=== PATIENT | female | born 1940 | race Caucasian/White ===

== ENCOUNTER → 2016-03-07 | Outpatient (CLI) | payer BC ==
[~2016-03-07] MED LIST: ALBU0.08 INH; ALBUAER2 INH; ASPI-391 PO; ASPI81TA28 PO; ATEN-173 PO; CALC200T PO; FISHOIL PO; FLNIN/ NAE; GLCSR10 PO; LISI-725 PO; LSN20 PO; MULT-506 PO; OMEG10007 PO; VNTHFA/IN INH; XNX5 PO; ZNT/150 PO
--- NOTE | 2016-03-08 14:24 | MAMMOGRAPHY REPORT ---
BILATERAL DIGITAL SCREENING MAMMOGRAM TOMOSYNTHESIS WITH CAD: 03/07/2016 CLINICAL HISTORY: Routine screening. TECHNIQUE: Breast tomosynthesis in addition to standard 2D mammography was performed. Current study was also evaluated with a Computer Aided Detection (CAD) system. COMPARISON: Comparison is made to exams dated: 03/01/2015 mammogram, 08/28/2014 mammogram, 02/16/2014 mammogram, and 02/07/2013 ultrasound - [facility]. BREAST COMPOSITION: There are scattered areas of fibroglandular density in both breasts. FINDINGS: There are bilateral benign coarse calcifications, most numerous in the lower inner quadra nt of the left breast. A circumscribed 6 mm mass in the lower outer far posterior left breast is st able comparing back to at least 02/05/2014. A 4.8 mm nodular asymmetry in the lateral posterior lef t breast on the CC view appears similar dating back to at least 08/01/2010, therefore likely benign. No new suspicious mass, architectural distortion or cluster of microcalcifications is seen. IMPRESSION: ACR BI-RADS CATEGORY 1: NEGATIVE There is no mammographic evidence of malignancy. A 1 year screening mammogram is recommended. The p atient will receive written notification of the results. Approximately 10% of breast cancers are not detected with mammography. A negative mammographic repor t should not delay biopsy if a clinically suggestive mass is present. Marika Roman M.D. ay/:03/07/2016 16:54:30 Systems Programmer Analyst: Elise ROCA(Terry)(Cherie)(BD), [facility] letter sent: Normal 1/2 BI-RADS Code: ACR BI-RADS Category 1: Negative
== END | disposition home or self-care (01) ==
LOC: C.MAMM 10:46
PROVIDERS: ATTEND Nurse Practitioner Family
DX: Z12.31 Encounter for screening mammogram for malignant neoplasm of breast (principal)

== ENCOUNTER 2016-03-20 13:50 | Emergency (ER) | payer BC ==
[~2016-03-20] VITALS: Ht 149.9 cm; Wt 94.0 kg
[~2016-03-20 13:50] MED LIST changes: -LISI-725 PO; -MULT-506 PO; -OMEG10007 PO; -VNTHFA/IN INH
[2016-03-20 13:53] VITALS: TEMP 36.9
[2016-03-20] MEDS ORDERED: MULT-506 PO (16:11)
[2016-03-20] MEDS ORDERED: LISI-725 PO (16:11)
[2016-03-20] MEDS ORDERED: OMEG10007 PO (16:11)
[2016-03-20] MEDS ORDERED: VNTHFA/IN INH (16:11)
--- NOTE | 2016-03-20 16:30 | EMERGENCY ROOM VISIT NOTE ---
History Report prepared by Rossy: Daya Iqbal Under the Supervision of: Dr. Cale Martines D.O. First contact with patient: 15:57 Chief Complaint: ILLNESS Stated Complaint: HINES, PAIN, JAW PAIN History of Present Illness The patient is a 76 year old female who presents to the Emergency Room with complaints of persistent cough starting about 3 weeks ago. She also reports a sore throat. She was initially prescribed Azithromycin with some relief. After she ran out of her dosage, she started having a cough again. She was prescribed Doxycycline without relief. She also complains of a severe, right sided headache. She also complains of neck stiffness or chest pressure. Her blood sugar level was 270 today. She was referred to the Emergency Room by her PCP. She denies any vomiting, lower extremity swelling, or any other complaints. She has a history of severe acid reflux. Source of History: patient Onset: about 3 weeks ago Position: other (global) Quality: other (cough) Timing: other (persistent) Modifying Factors (Relieving): other (Azithromycin with some relief; Doxycycline without relief) Associated Symptoms: + chest pain, + headache, + sorethroat Review of Systems See HPI for pertinent positives & negatives. A total of 10 systems reviewed and were otherwise negative. 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 (11) Urinary incontinence Family History Cancer Diabetes mellitus Gallbladder disease Heart disease Hypertension Social History Smoking Status: Never Smoker Alcohol Use: none Drug Use: none Marital Status: Housing Status: lives with significant other Occupation Status: retired Current/Historical Medications Scheduled Albuterol Hfa (Ventolin Hfa), 2-4 PUFFS INH Q6H Aspirin (Aspirin Ec), 81 MG PO DAILY Mmesfra-Cnfxxzjnrvmsp-Acnytbqh (Excedrin Extra Strength), 2 TABS PO PRN UD Atenolol (Tenormin), 25 MG PO HS Calcium Carbonate-Vitamin D (Oscal 500/200 D-3), 1 TAB PO DAILY Fish Oil (Fate-3), 1 CAP PO DAILY Fluticasone Propionate (Fluticasone Propionate), 2 SPRAYS RUDDY HS Glipizide (Glipizide ER), 10 MG PO BID Lisinopril (Zestril), 20 MG PO DAILY Multivitamin (Multivitamin), 1 TAB PO DAILY Ranitidine Hcl (Zantac), 150 MG PO BID Scheduled PRN Alprazolam (Alprazolam), 0.25 MG PO TID PRN for Anxiety/Agitation Allergies Coded Allergies: Amoxicillin (Verified Allergy, Intermediate, NOT SURE, 05/13/15) Clavulanic Acid (Verified Allergy, Intermediate, NOT SURE, 05/13/15) Iodinated Contrast Media (Verified Allergy, Intermediate, Shortness of Breath CHEST PAIN TIGHTNESS IN CHEST, 05/13/15) Rosiglitazone (Verified Allergy, Intermediate, CHEST PAIN, 05/13/15) Corticosteroids (Verified Allergy, Unknown, "STEROIDS": "SHORTNESS OF BREATH", 05/13/15) Tetracycline (Verified Allergy, Unknown, Unknown rxn, 05/13/15) Pregabalin (Unverified Adverse Reaction, Severe, severe swelling hands/ feet, 05/13/15) Hydrocodone (Verified Adverse Reaction, Intermediate, hear races, 05/13/15) Ibuprofen (Verified Adverse Reaction, Intermediate, KNOCKS EQUILIBRIUM OFF, 05/13/15) Levofloxacin (Verified Adverse Reaction, Intermediate, Dizziness, 05/13/15) Metformin (Verified Adverse Reaction, Intermediate, SEVERE DIARRHEA, 05/12) Omeprazole (Verified Adverse Reaction, Intermediate, SHAKES/TACHYCARDIA, ) Pantoprazole (Verified Adverse Reaction, Intermediate, SHAKES/TACHYCARDIA , 05/13/15) Prednisone (Verified Adverse Reaction, Intermediate, Palpitations AND "WENT TO UNIT" (CARDIAC CARE UNIT), 05/13/15) Codeine (Verified Adverse Reaction, Mild, EQUILIBRIUM OFF, 05/13/15) Penicillins (Verified Adverse Reaction, Mild, Augmentin: GI UPSET, 05/13/15 ) Theophylline (Verified Adverse Reaction, Mild, INCREASED HR, 05/13/15) Esomeprazole (Verified Adverse Reaction, Unknown, SHAKES/TACHYCARDIA, 05/12) Sulfa Drugs (Verified Adverse Reaction, Unknown, COULD NOT WALK AND TREMBLED, 05/13/15) Physical Exam Vital Signs Date Time Temp Pulse Resp B/P Pulse Ox O2 Delivery O2 Flow Rate FiO2 03/20/16 18:46 70 22 133/58 96 03/20/16 18:30 70 22 133/58 96 Room Air 03/20/16 16:33 98 Room Air 03/20/16 16:33 98 Room Air 03/20/16 16:32 68 18 175/66 97 Room Air 03/20/16 13:53 36.9 71 20 159/78 98 Room Air Physical Exam GENERAL: Patient is awake, alert, and in no acute distress. Patient is resting comfortably and showing no signs of anxiety HEAD: Tenderness over the right temporal artery. EYES: The conjunctivae are clear. The pupils are round and reactive. EARS, NOSE, MOUTH AND THROAT: The nose is without any evidence of any deformity. Mucous membranes are moist tongue is midline. Voice is hoarse. NECK: The neck is nontender and supple. RESPIRATORY: Normal respiratory effort is noted there is no evidence of wheezing rhonchi or rales CARDIOVASCULAR: Regular rate and rhythm noted there no murmurs rubs or gallops normal S1 normal S2 GASTROINTESTINAL: The abdomen is soft. Bowel sounds are present in all quadrants. Abdomen is nontender MUSCULOSKELETAL/EXTREMITIES: There is no evidence of gross deformity full range of motion is noted in the hips and shoulders SKIN: There is no obvious evidence of any rash. There are no petechiae, pallor or cyanosis noted. NEUROLOGIC: Patient is awake alert and oriented x3 Medical Decision & Procedures ER Provider Diagnostic Interpretation: X ray results and stated below per my interpretation and radiology interpretation. CT results per my review and radiologist interpretation: CHEST ONE VIEW PORTABLE HISTORY: EVALUATE RESPIRATORY DISTRESS.DYSPNEA COMPARISON: Chest 07/16/2015. FINDINGS: The lungs are clear. Cardiac silhouette is normal in size. No pleural effusions. No pneumothorax. IMPRESSION: No acute process. Electronically signed by: Maximino Campos M.D. 03/20/2016 4:47 PM Dictated Date/Time: 03/20/2016 4:[address] HEAD WITHOUT CONTRAST (CT) CLINICAL HISTORY: Severe frontal headache COMPARISON STUDY: 05/08/2015 TECHNIQUE: Axial CT of the brain is performed from the vertex to the skull base. IV contrast was not administered for this examination. CT DOSE: 537.48 mGy.cm FINDINGS: No intra or extra-axial mass lesions are visualized. There is no CT evidence of acute cortical infarction. There is no evidence of midline shift. There is no acute hemorrhage. No calvarial fractures are visualized. There are minimal white matter hypodensities likely on a small vessel basis. There is no evidence of pathologic ventricular dilatation. There is no evidence of acute sinusitis IMPRESSION: No acute intracranial findings Electronically signed by: Braden Saenz M.D. 03/20/2016 6:15 PM Dictated Date/Time: 03/20/2016 6:14 PM Laboratory Results 03/20/16 17:38 Red Blood Count 4.45, Mean Corpuscular Volume 86.3, Mean Corpuscular Hemoglobin 29.4, Mean Corpuscular Hemoglobin Concent 34.1, Mean Platelet Volume 12.2, Neutrophils (%) (Auto) 64.3, Lymphocytes (%) (Auto) 27.5, Monocytes (%) (Auto) 6.1, Eosinophils (%) (Auto) 1.4, Basophils (%) (Auto) 0.5, Neutrophils # (Auto) 5.59, Lymphocytes # (Auto) 2.39, Monocytes # (Auto) 0.53, Eosinophils # (Auto) 0.12, Basophils # (Auto) 0.04 03/20/16 17:38 Test 03/20/16 16:30 03/20/16 17:38 03/20/16 17:43 Urine Color YELLOW Urine Appearance CLEAR (CLEAR) Urine pH 5.0 (4.5-7.5) Urine Specific [place] 1.003 (1.000-1.030) Urine Protein NEG (NEG) Urine Glucose (UA) NEG (NEG) Urine Ketones NEG (NEG) Urine Occult Blood NEG (NEG) Urine Nitrite NEG (NEG) Urine Bilirubin NEG (NEG) Urine Urobilinogen NEG (NEG) Urine Leukocyte Esterase NEG (NEG) Influenza Type A Antigen Neg for Influ A (NEG) Influenza Type B Antigen Neg for Influ B (NEG) White Blood Count 8.69 K/uL (4.8-10.8) Red Blood Count 4.45 M/uL (4.2-5.4) Hemoglobin 13.1 g/dL (12.0-16.0) Hematocrit 38.4 % (37-47) Mean Corpuscular Volume 86.3 fL (80-100) Mean Corpuscular Hemoglobin 29.4 pg (25-34) Mean Corpuscular Hemoglobin Concent 34.1 g/dl (32-36) Platelet Count 222 K/uL (130-400) Mean Platelet Volume 12.2 fL (7.4-10.4) Neutrophils (%) (Auto) 64.3 % Lymphocytes (%) (Auto) 27.5 % Monocytes (%) (Auto) 6.1 % Eosinophils (%) (Auto) 1.4 % Basophils (%) (Auto) 0.5 % Neutrophils # (Auto) 5.59 K/uL (1.4-6.5) Lymphocytes # (Auto) 2.39 K/uL (1.2-3.4) Monocytes # (Auto) 0.53 K/uL (0.11-0.59) Eosinophils # (Auto) 0.12 K/uL (0-0.5) Basophils # (Auto) 0.04 K/uL (0-0.2) RDW Standard Deviation 44.7 fL (36.4-46.3) RDW Coefficient of Variation 14.1 % (11.5-14.5) Immature Granulocyte % (Auto) 0.2 % Immature Granulocyte # (Auto) 0.02 K/uL (0.00-0.02) Erythrocyte Sedimentation Rate 15 mm/hr (0-21) Prothrombin Time 10.4 SECONDS (9.0-12.0) Prothromb Time International Ratio 1.0 (0.9-1.1) Activated Partial Thromboplast Time 25.3 SECONDS (21.0-31.0) Partial Thromboplastin Ratio 1.0 Anion Gap 9.0 mmol/L (3-11) Est Creatinine Clear Calc Drug Dose 54.2 ml/min Estimated GFR () 72.5 Estimated GFR (Non- 62.5 BUN/Creatinine Ratio 23.4 (10-20) Calcium Level 8.9 mg/dl (8.5-10.1) Total Bilirubin 0.5 mg/dl (0.2-1) Aspartate Amino Transf (AST/SGOT) 19 U/L (15-37) Alanine Aminotransferase (ALT/SGPT) 28 U/L (12-78) Alkaline Phosphatase 62 U/L (45-117) Total Creatine Kinase 137 U/L (26-192) Creatine Kinase MB 3.3 ng/ml (0.5-3.6) Creatine Kinase MB Ratio 2.4 (0-3.0) Troponin I < 0.015 ng/ml (0-0.045) C-Reactive Protein 0.30 mg/dl (0-0.29) Total Protein 7.3 gm/dl (6.4-8.2) Albumin 3.7 gm/dl (3.4-5.0) Globulin 3.6 gm/dl (2.5-4.0) Albumin/Globulin Ratio 1.0 (0.9-2) Bedside Glucose 135 mg/dl (70-90) Laboratory results per my review. Medications Administered Medications (Trade) Dose Ordered Sig/Joellen Route Start Time Stop Time Status Last Admin Dose Admin Al Hydroxide/Mg Hydroxide (Maalox Susp) 30 ml NOW STAT PO 03/20/16 18:28 03/20/16 18:29 DC 03/20/16 18:38 30 ML ECG Indication: other (Cough; Chest pressure) Rate (beats per minute): 73 Rhythm: normal sinus Findings: no ectopy, other (No acute ST segment abnormality; LVH by voltage criteria) Comparison ECG Date: May 13, 2015 Change: no significant change ED Course 1557: The patient was evaluated in room A02. A complete history and physical examination were performed. 1828: Maalox Susp 30 ml PO, Protonix Tab 40 mg PO 1829: Upon reevaluation, the patient is resting comfortably. I discussed the results and treatment plan with her. She verbalized agreement of the treatment plan. She was discharged home. Medical Decision Differential diagnosis: Etiologies such as infections, reactive airway disease, pneumonia, pneumothorax , COPD, CHF, cardiac ischemia, pulmonary embolism, musculoskeletal, gastrointestinal, as well as others were entertained. Nursing notes reviewed. The patient is a 76-year-old female who presented to the emergency department for an evaluation for source and cough. She's had similar symptoms in his had multiple antibiotic regimens by her primary care physician for this. The patient was sent to the emergency department today because of ongoing symptoms. I'm unsure if she was sent for a possible cardiac workup. The patient did not have any signs of respiratory distress. She was not tachycardic or hypoxic. I discussed the patient's laboratory and radiographic studies with her. At this time I would wonder if her symptoms are secondary to reflux. She appears to have a hoarse voice and is already taking an H2 concha. She did not wish to start taking a proton pump inhibitor. I discussed the patient's follow-up with her and recommended that she call her primary care physician in the morning to schedule follow-up appointment. She was also encouraged to rest and avoid any strenuous activity. She was also encouraged to return to the emergency department immediately if symptoms change worsen or if need arises. Impression Primary Impression: SOB (shortness of breath) Additional Impressions: Cough Acid reflux Scribe Attestation The scribe's documentation has been prepared under my direction and personally reviewed by me in its entirety. I confirm that the note above accurately reflects all work, treatment, procedures, and medical decision making performed by me. Departure Information Dispostion Home / Self-Care Referrals Sana Becker D.O. (PCP) Forms HOME CARE DOCUMENTATION FORM, IMPORTANT VISIT INFORMATION, WORK / SCHOOL INSTRUCTIONS Patient Instructions Acid Reflux, ED Dyspnea Shortness of Breath, My [facility] Additional Instructions Call your family to schedule a follow-up appointment. Rest and avoid any strenuous activity. Continue all medications as prescribed. Problem Qualifiers
[2016-03-20 16:33] VITALS: O2SAT 98; Ht 149.9 cm; Wt 94.0 kg
[2016-03-20 16:42] LABS: URINE APPEARANCE CLEAR (CLEAR); URINE BILIRUBIN NEG (NEG); URINE COLOR YELLOW; URINE NITRITE NEG (NEG); URINE SPECIFIC GRAVITY 1.003 (1.000-1.030); UROBILINOGEN NEG (NEG)
[2016-03-20 16:45] LABS: MANUAL MICROSCOPIC REQUIRED? NO; REVIEW REQ? NO
--- NOTE | 2016-03-20 16:48 | DIAGNOSTIC IMAGING REPORT ---
CHEST ONE VIEW PORTABLE HISTORY: EVALUATE RESPIRATORY DISTRESS.DYSPNEA COMPARISON: Chest 07/16/2015. FINDINGS: The lungs are clear. Cardiac silhouette is normal in size. No pleural effusions. No pneumothorax. IMPRESSION: No acute process. Electronically signed by: Maximino Campos M.D. 03/20/2016 4:47 PM Dictated Date/Time: 03/20/2016 4:46 PM
[2016-03-20 17:57] LABS: BASO % 0.5 %; BASO ABS # 0.04 K/uL (0-0.2); COMPLETE YES; EOS % 1.4 %; HEMATOCRIT 38.4 % (37-47); IG% 0.2 %; LYMPH % 27.5 %; LYMPH ABS # 2.39 K/uL (1.2-3.4); MEAN CELL VOLUME 86.3 fL (80-100); MEAN CORPUSCULAR HEMOGLOBIN 29.4 pg (25-34); MEAN CORPUSCULAR HGB CONC 34.1 g/dl (32-36); MEAN PLATELET VOLUME 12.2 fL (7.4-10.4); MONO % 6.1 %; NEUT % 64.3 %; PLATELET COUNT 222 K/uL (130-400); RED BLOOD COUNT 4.45 M/uL (4.2-5.4); WHITE BLOOD COUNT 8.69 K/uL (4.8-10.8)
[2016-03-20 18:08] LABS: PROTHROMBIN TIME (PATIENT) 10.4 SECONDS (9.0-12.0)
[2016-03-20 18:13] LABS: ALT/SGPT 28 U/L (12-78); BLOOD UREA NITROGEN 21 mg/dl (7-18); BUN/CREATININE RATIO 23.4 (10-20); CALCIUM 8.9 mg/dl (8.5-10.1); CARBON DIOXIDE 25 mmol/L (21-32); CHLORIDE 104 mmol/L (98-107); GLUCOSE 135 mg/dl (70-99); POTASSIUM 4.3 mmol/L (3.5-5.1); SODIUM 138 mmol/L (136-145)
--- NOTE | 2016-03-20 18:16 | DIAGNOSTIC IMAGING REPORT ---
CT HEAD WITHOUT CONTRAST (CT) CLINICAL HISTORY: Severe frontal headache COMPARISON STUDY: 05/08/2015 TECHNIQUE: Axial CT of the brain is performed from the vertex to the skull base. IV contrast was not administered for this examination. CT DOSE: 537.48 mGy.cm FINDINGS: No intra or extra-axial mass lesions are visualized. There is no CT evidence of acute cortical infarction. There is no evidence of midline shift. There is no acute hemorrhage. No calvarial fractures are visualized. There are minimal white matter hypodensities likely on a small vessel basis. There is no evidence of pathologic ventricular dilatation. There is no evidence of acute sinusitis IMPRESSION: No acute intracranial findings Electronically signed by: Braden Saenz M.D. 03/20/2016 6:15 PM Dictated Date/Time: 03/20/2016 6:14 PM
[2016-03-20 18:18] LABS: ALKALINE PHOSPHATASE 62 U/L (45-117); AST/SGOT 19 U/L (15-37); CKMB/CK RATIO 2.4 (0-3.0)
[2016-03-20] MEDS ORDERED: ALUMINUM/MAGNESIUM SUSP 30 ML UDC PO STA (18:28)
[2016-03-20] MEDS ORDERED: PANTOprazole SOD 40 MG TAB PO STA (18:28)
[2016-03-20 18:46] VITALS: BP 133/58; PULSE 70; O2SAT 96
== END 2016-03-20 18:47 | disposition home or self-care (01) ==
LOC: C.EDB 13:52 → C.EDA 18:47
DX: R06.02 Shortness of breath (principal); R05 Cough; K21.9 Gastro-esophageal reflux disease without esophagitis; E11.9 Type 2 diabetes mellitus without complications; I10 Essential (primary) hypertension; Z83.3 Family history of diabetes mellitus; Z82.49 Family history of ischemic heart disease and other diseases of the circulatory system

== ENCOUNTER → 2016-10-20 | Outpatient (CLI) | payer BC ==
[~2016-10-20] MED LIST changes: -ALBU0.08 INH; -ALBUAER2 INH; -FISHOIL PO; +LISI-725 PO; -LSN20 PO; +MULT-506 PO; +OMEG10007 PO; +VNTHFA/IN INH
--- NOTE | 2016-10-20 10:39 | DIAGNOSTIC IMAGING REPORT ---
AORTIC ANEURYSM RETROPERI CLINICAL HISTORY: 76 years-old Female presenting with right upper quadrant pain, family history of abdominal aortic aneurysm. TECHNIQUE: Real-time grayscale and color Doppler ultrasound imaging of the abdominal aorta and iliac arteries was performed. COMPARISON: 06/22/2015. FINDINGS: Proximal aorta: Patent. Transverse dimension 1.7 x 2.2 cm. Mid aorta: Patent. Transverse dimension 1.7 x 2.1 cm. Distal aorta: Patent. Transverse dimension 1.7 x 2.3 cm. Right iliac artery: Patent. Transverse dimension 0.9 cm. Left iliac artery: Patent. Transverse dimension 1.1 cm. IMPRESSION: 1. No evidence of abdominal aortic aneurysm. Electronically signed by: [place] M.D. 10/20/2016 10:37 AM Dictated Date/Time: 10/20/2016 10:36 AM
--- NOTE | 2016-10-20 10:43 | DIAGNOSTIC IMAGING REPORT ---
ABDOMEN LIMITED (US) CLINICAL HISTORY: 76 years-old Female presenting with right upper quadrant pain, family history of aortic aneurysm. TECHNIQUE: Real-time grayscale and limited color Doppler ultrasound imaging of the abdomen limited to the right upper quadrant was performed. COMPARISON: Renal ultrasound from 07/02/[address] from 2015. FINDINGS: The presence of bowel gas mildly degrades evaluation. Pancreas: Visualized portions of the pancreatic head and body normal. Pancreatic duct mildly prominent, although within the range of normal. Liver: Mildly hyperechogenic parenchyma, although the right hemidiaphragm remains visible, likely indicating mild steatosis. The liver measures 15.8 cm in maximal sagittal dimension. Main portal vein patent with normal directional flow. Biliary: The presence of pneumobilia seen on most recent CT from 07/16/2015 is not well appreciated on ultrasound. No intrahepatic biliary ductal dilatation. Common bile duct measures up to 6 mm in diameter. Gallbladder: Surgically absent. Right kidney: Normal in appearance and size, measuring 11.2 cm. No hydronephrosis. Echogenic 5 mm focus in the interpolar region of the right kidney without convincing evidence of shadowing, nonspecific. No renal calculi noted on prior CT. Ascites: None. IMPRESSION: 1. Status post cholecystectomy. 2. Pneumobilia seen on most recent CT from 07/16/2015 is not of bowel appreciated on ultrasound. 3. No evidence of biliary ductal dilatation. 4. Possibly echogenic liver could suggest hepatic steatosis. Electronically signed by: [place] M.D. 10/20/2016 10:42 AM Dictated Date/Time: 10/20/2016 10:38 AM
== END | disposition home or self-care (01) ==
LOC: C.ULTR 09:43
PROVIDERS: ATTEND Family Medicine
DX: R10.9 Unspecified abdominal pain (principal); Z82.49 Family history of ischemic heart disease and other diseases of the circulatory system

== ENCOUNTER → 2017-02-08 | Outpatient (CLI) | payer BC ==
--- NOTE | 2017-02-08 13:40 | DIAGNOSTIC IMAGING REPORT ---
RIBS BILATERAL WITH PA CHEST HISTORY: 77 years-old Female FALL acute bilateral rib pain status post fall COMPARISON: Chest radiograph 03/20/2016 TECHNIQUE: PA view of the chest with several views of the bilateral ribs FINDINGS: Cardiomediastinal and hilar silhouettes are within normal limits. Atherosclerosis of the aorta. No pneumothorax, pleural effusion or overt pulmonary edema. Patchy subsegmental left basilar opacities redemonstrated suggesting atelectasis. Degenerative changes are seen within the shoulders and spine. Fractures of the anterolateral left fourth, fifth and sixth ribs appear chronic. No definite acute rib fracture identified. Cholecystectomy clips noted. IMPRESSION: 1. Remote appearing fractures of the anterolateral left fourth, fifth and sixth ribs without definite acute fracture or pneumothorax identified. 2. Hazy subsegmental left basilar opacities suggest atelectasis. The above report was generated using voice recognition software. It may contain grammatical, syntax or spelling errors. Electronically signed by: Vijay Capps M.D. 02/08/2017 1:39 PM Dictated Date/Time: 02/08/2017 1:35 PM
--- NOTE | 2017-02-14 15:04 | CODING QUERY NO DIAGNOSIS ---
: 1940 TREATMENT RENDERED WITHOUT A DIAGNOSIS To promote full compliance with coding requirements relating to patient care, physician participation is requested in all cases of certified medical coder uncertainty. Please assist us with providing a diagnosis/symptom for the test(s) below: A diagnosis/symptom was not documented on your Order. A valid diagnosis/symptom is required to bill all insurances. Please remember that we are unable to code a diagnosis of rule out, probable, possible, questionable, or suspected. Tests that require a diagnosis: DOS: 02/08/17 * Ribs w/ Chest x-ray DIAGNOSIS: Provider Signature: Date: Thank you Jessie Renteria Health Information Management Once completed, please kindly fax back to [phone] For questions please call [phone]
== END | disposition home or self-care (01) ==
LOC: C.RAD 12:59
PROVIDERS: ATTEND Family Medicine
DX: R07.81 Pleurodynia (principal); W00.0XXA Fall on same level due to ice and snow, initial encounter

== ENCOUNTER → 2017-03-12 | Outpatient (CLI) | payer BC ==
--- NOTE | 2017-03-13 14:37 | MAMMOGRAPHY REPORT ---
BILATERAL DIGITAL SCREENING MAMMOGRAM TOMOSYNTHESIS WITH CAD: 03/12/2017 CLINICAL HISTORY: Routine screening. Patient has no complaints. TECHNIQUE: Breast tomosynthesis in addition to standard 2D mammography was performed. Current study was also evaluated with a Computer Aided Detection (CAD) system. COMPARISON: Comparison is made to exams dated: 03/07/2016 mammogram, 02/05/2014 mammogram, 02/07/2013 ultrasound, 08/28/2014 ultrasound, 02/04/2013 mammogram - [facility], and 06/03/2007 . BREAST COMPOSITION: There are scattered areas of fibroglandular density in both breasts. FINDINGS: There is a 7 mm focal asymmetry in the approximate 3:00 posterior left breast and a 4 mm n odular asymmetry in the lateral, middle one third of the left breast on the CC view that are increasi ngly prominent comparing to prior mammograms. Additional spot compression tomosynthesis views and po ssible ultrasound are recommended. There are benign-appearing coarse and rim calcifications in the lower inner left breast, from prior t rauma; a few benign coarse calcifications in the lateral right breast. No other suspicious mass, arc hitectural distortion or cluster of microcalcifications is seen. IMPRESSION: ACR BI-RADS CATEGORY 0: INCOMPLETE EVALUATION: NEED ADDITIONAL IMAGING EVALUATION The increasingly prominent 7 mm focal asymmetry in the 3:00 posterior left breast, and 4 mm nodular a symmetry in the lateral left breast need additional imaging evaluation. The patient will be called to schedule an appointment. Approximately 10% of breast cancers are not detected with mammography. A negative mammographic report should not delay biopsy if a clinically suggestive mass is present. Marika Roman M.D. ay/:03/12/2017 14:43:08 Blow Pit Operator: Tia POMPA)(Cherie), [facility] letter sent: Addl Imaging 0 BI-RADS Code: ACR BI-RADS Category 0: Incomplete Evaluation: Need Additional Imaging Evaluation
== END | disposition home or self-care (01) ==
LOC: C.MAMM 09:23
PROVIDERS: ATTEND Family Medicine
DX: Z12.31 Encounter for screening mammogram for malignant neoplasm of breast (principal); N64.89 Other specified disorders of breast

== ENCOUNTER → 2017-03-23 | Outpatient (CLI) | payer BC ==
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
== END | disposition home or self-care (01) ==
LOC: C.MAMM 10:17
PROVIDERS: ATTEND Family Medicine
DX: N63.20 Unspecified lump in the left breast, unspecified quadrant (principal)

== ENCOUNTER 2019-07-19 17:05 | Observation (INO) ==
[2019-07-19] MEDS ORDERED: FAMOTIDINE 20MG/5ML IV PUSH IV STA (17:48)
--- NOTE | 2019-07-19 18:17 | Emergency Department Note ---
History of Present Illness General Chief complaint: Referred by Doctor Stated complaint: TEAR IN UPPER BOWEL Time Seen by Provider: 07/19/19 17:31 Source: patient Mode of arrival: ambulatory Limitations: no limitations History of Present Illness Provider complaint: black stools Onset (ago): day(s) Location: abdomen Radiation: non-radiation Severity: moderate Pain Consistency: + colicky Maximum Pain Intensity: 7 Relieved By: + none Exacerbated By: + none Associated symptoms: + shortness of breath and + weakness; no chest pain, no fever/chills, no loss of appetite and no nausea/vomiting Treatments prior to arrival: none This is a 79-year-old female who presents from home after being told to come to the emergency room by her outpatient provider, KIRSTEN Garcia. Patient states this morning when she got up she had a loose and black bowel movement which was unusual for her. States she did not have any significant pain or distress at that time. No nausea or vomiting, no fevers or chills. Patient states she ate breakfast normally, and later on after lunchtime had yet another bowel movement that again was loose and black. No gross blood was noted. No other recent change in her bowel movements. Patient states she does not use any iron supplementation. She has not taken any recent Pepto-Bismol. Patient states she does not frequently use any anti-inflammatory agents or any anticoagulation. Patient states she does not use aspirin daily, but did take a full-strength aspirin today because she was not feeling well. Patient describes her feelings today as being "weak". Patient states she had not noticed any recent chest pain, has occasionally felt a little more winded than usual. No overt lightheadedness or dizziness, no syncopal events. Patient denies any history of gastritis or peptic ulcer disease. Patient has had prior colonoscopies due to family history of colon cancer which were reported to her as unremarkable. Patient is never had an EGD. Patient states after the second black bowel movement, she texted her regular provider who instructed her to come to the emergency room for additional evaluation. Patient states she did notice slight lower abdominal discomfort today, nonradiating, not significant. Patient states over the last several weeks she has intermittently noticed what she describes as the appearance of coffee grounds when she would clean herself after a bowel movement. Patient had not previously noted any black or darker colored stools. Pt seen during a time of high acuity and national emergency pandemic while wearing PPE. Home Medications Home Medications Medication Instructions Recorded Confirmed Type albuterol sulfate 2 puff INHALATION QID PRN 11/09/17 07/19/19 History alprazolam [Xanax] 0.25 - 0.5 mg PO TID PRN 11/09/17 07/19/19 History atenolol 25 mg PO HS 11/09/17 07/19/19 History fluticasone propionate [Flonase 2 spray INTRANASAL HS PRN 11/09/17 07/19/19 History Allergy Relief] cranberry 0 mg PO QAM 09/13/18 07/19/19 History L.acidoph-B.lactis-B.longum 1 cap PO QAM 07/19/19 07/19/19 History [Florajen3] acetaminophen [Tylenol] 325 mg PO QID PRN 07/19/19 07/19/19 History aspirin 325 mg PO DAILY PRN 07/19/19 07/19/19 History glipizide 10 mg PO BID 07/19/19 07/19/19 History bvopq-uv-8-vce-aob-mbqzoqw-ast 1 cap PO QAM 07/19/19 07/19/19 History [krill oil] lisinopril 40 mg PO QAM 07/19/19 07/19/19 History Allergies Allergy/AdvReac Type Severity Reaction Status Date / Time amoxicillin Allergy Intermediate NOT SURE Verified 12/13/18 21:16 clavulanic acid Allergy Intermediate NOT SURE Verified 12/13/18 21:16 Iodinated Contrast Media Allergy Intermediate Shortness Verified 12/13/18 21:16 of Breath CHEST PAIN TIGHTNESS IN CHEST rosiglitazone Allergy Intermediate CHEST PAIN Verified 12/13/18 21:16 Corticosteroids Allergy Unknown "STEROIDS": Verified 12/13/18 21:16 (Glucocorticoids) "SHORTNESS OF BREATH" tetracycline Allergy Unknown Unknown rxn Verified 12/13/18 21:16 atorvastatin [From Lipitor] Allergy Verified 05/03/19 10:38 iodine Allergy Verified 05/03/19 10:38 pregabalin AdvReac Severe severe Unverified 12/13/18 21:16 swelling hands/feet hydrocodone AdvReac Intermediate hear races Verified 12/13/18 21:16 ibuprofen AdvReac Intermediate KNOCKS Verified 12/13/18 21:16 EQUILIBRIUM OFF levofloxacin AdvReac Intermediate Dizziness Verified 12/13/18 21:16 metformin AdvReac Intermediate SEVERE Verified 12/13/18 21:16 DIARRHEA omeprazole AdvReac Intermediate SHAKES/TACH Verified 12/13/18 21:16 YCARDIA pantoprazole AdvReac Intermediate SHAKES/TACH Verified 12/13/18 21:16 YCARDIA prednisone AdvReac Intermediate Palpitations Verified 12/13/18 21:16 AND "WENT TO UNIT" (CARDIAC CARE UNIT) codeine AdvReac Mild EQUILIBRIUM Verified 12/13/18 21:16 OFF Penicillins AdvReac Mild Augmentin: Verified 12/13/18 21:16 GI UPSET theophylline AdvReac Mild INCREASED Verified 12/13/18 21:16 HR esomeprazole AdvReac Unknown SHAKES/TACH Verified 12/13/18 21:16 YCARDIA Sulfa (Sulfonamide AdvReac Unknown COULD NOT Verified 12/13/18 21:16 Antibiotics) WALK AND TREMBLED Past Med/Surg History Medical History Acid reflux (Acute) Diabetes Hiatal hernia (Chronic 06/17/12) Hyperglycemia (Resolved) Hyperglycemia (Acute) Lung nodule (Acute) Surgical History H/O section H/O hand surgery History of cholecystectomy History of hip replacement Hx of cataract surgery S/P tonsillectomy Family History Sister Renal cell carcinoma Father No problems noted. Mother Colorectal cancer Other Coronary heart disease Myocardial infarction Denies family history of Ovarian cancer Breast cancer Social History Preferred Language: Slovenian Communication Ability: Effective Visual Impairment: No Limitations 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: Normal Nursing Professor Required: No Beliefs That Will Affect Care: None Current Living Situation: Alone Current Living Situation Comment: lives alone in house with many steps Feels Safe at Home: Yes Safety Concerns: Feels Safe At This Time Smoking Status: Never smoker Hx Alcohol Use: No Hx Substance Use: No Review of Systems See HPI for pertinent positives & negatives. and A total of 10 systems reviewed and were otherwise negative Physical Exam Vital Signs Vital Signs - 24 hr 07/19/19 17:06 07/19/19 18:52 07/19/19 19:35 Temperature 36.8 C Temperature Source Oral Pulse Rate 75 60 Pulse Rate [Apical] 64 Pulse Rate from SpO2 Sensor 60 Respiratory Rate 19 18 15 Blood Pressure 175/77 H 148/55 H Blood Pressure [Left Arm] 170/87 H Blood Pressure Mean 109 90 Blood Pressure Mean [Left Arm] 114 Pulse Oximetry 99 95 100 Oxygen Delivery Method Room Air Sepsis Recent Fever Within 48 Hours No Sepsis New/Unexplained Change in Mental Status No Sepsis Action Taken by Nursing No Action Required 07/19/19 19:36 07/19/19 20:00 07/19/19 20:30 Temperature Temperature Source Pulse Rate 58 L 59 L Pulse Rate [Apical] 62 Pulse Rate from SpO2 Sensor 59 L 59 L Respiratory Rate 18 13 20 Blood Pressure 134/58 L 142/54 H Blood Pressure [Left Arm] 148/55 H Blood Pressure Mean 83 86 Blood Pressure Mean [Left Arm] 86 Pulse Oximetry 100 99 100 Oxygen Delivery Method Room Air Sepsis Recent Fever Within 48 Hours Sepsis New/Unexplained Change in Mental Status Sepsis Action Taken by Nursing GENERAL: alert, well appearing, well nourished, no distress, non-toxic EYE EXAM: normal conjunctiva, PERRL and EOM's grossly intact OROPHARYNX: no exudate, no erythema, lips, buccal mucosa, and tongue normal and mucous membranes are moist NECK: supple, no nuchal rigidity, no adenopathy, non-tender LUNGS: Clear to auscultation. Normal chest wall mechanics, no w/r/r HEART: no murmurs, S1 normal and S2 normal ABDOMEN: abdomen soft, non-tender, normo-active bowel sounds, no masses, no rebound or guarding. RECTAL: Scant black granules noted at the anal opening, obvious external hemorrhoids without active bleeding, no thrombosed hemorrhoid, no anal fissure, CLAUDIA revealed black stool in the vault, this was heme positive on guaiac testing. BACK: Back is symmetrical on inspection and there is no deformity, no midline tenderness, no CVA tenderness. SKIN: no rashes and no bruising UPPER EXTREMITIES: upper extremities are grossly normal. FROM, nml pulses b/l. LOWER EXTREMITIES: No pitting edema. FROM, nml pulses b/l. NEURO EXAM: Normal sensorium, cranial nerves II-XII grossly intact, normal speech, no gross weakness of arms, no gross weakness of legs. Gross sensation intact. Course Administered Medications Alprazolam (Xanax) 0.25 mg PO TID PRN PRN Reason: Anxiety Stop: 08/19/19 00:58 Last Admin: 07/21/19 20:03 Dose: 0.25 mg Documented by: [id number] Admin: 07/20/19 21:43 Dose: 0.25 mg Documented by: [id number] Admin: 07/20/19 13:22 Dose: 0.25 mg Documented by: [id number] Atenolol (Tenormin) 25 mg PO HS [facility] Stop: 08/19/19 20:59 Last Admin: 07/21/19 20:03 Dose: 25 mg Documented by: [id number] Admin: 07/20/19 21:35 Dose: 25 mg Documented by: [id number] Diclofenac Sodium (Voltaren 1% Top) 2 gm EXT QID EFRAIN Stop: 08/19/19 12:59 Last Admin: 07/21/19 20:04 Dose: 2 gm Documented by: [id number] Admin: 07/21/19 17:57 Dose: 2 gm Documented by: [id number] Admin: 07/21/19 12:50 Dose: Not Given Documented by: [id number] Admin: 07/21/19 07:42 Dose: 2 gm Documented by: [id number] Admin: 07/20/19 21:36 Dose: 2 gm Documented by: [id number] Admin: 07/20/19 17:21 Dose: 2 gm Documented by: [id number] Admin: 07/20/19 12:55 Dose: 2 gm Documented by: [id number] Sodium Chloride (Nss 1000ml) 1,000 mls @ 125 mls/hr IV .Q8H [facility] Stop: 08/18/19 17:59 Last Admin: 07/22/19 03:58 Dose: 125 mls/hr Documented by: [id number] Infusion: 07/22/19 03:58 Dose: 125 mls/hr Documented by: [id number] Admin: 07/21/19 20:12 Dose: 125 mls/hr Documented by: [id number] Infusion: 07/21/19 20:12 Dose: 125 mls/hr Documented by: [id number] Infusion: 07/21/19 15:12 Dose: 125 mls/hr Documented by: [id number] Infusion: 07/21/19 13:50 Dose: 0 mls/hr Documented by: [id number] Admin: 07/21/19 11:46 Dose: 125 mls/hr Documented by: [id number] Infusion: 07/21/19 09:56 Dose: 0 mls/hr Documented by: [id number] Admin: 07/21/19 01:55 Dose: 125 mls/hr Documented by: [id number] Infusion: 07/21/19 01:20 Dose: 125 mls/hr Documented by: [id number] Admin: 07/20/19 17:20 Dose: 125 mls/hr Documented by: [id number] Infusion: 07/20/19 17:20 Dose: 125 mls/hr Documented by: [id number] Admin: 07/20/19 10:11 Dose: 125 mls/hr Documented by: [id number] Infusion: 07/20/19 09:48 Dose: 125 mls/hr Documented by: [id number] Admin: 07/20/19 01:48 Dose: 125 mls/hr Documented by: [id number] Infusion: 07/20/19 01:48 Dose: 125 mls/hr Documented by: [id number] Admin: 07/19/19 18:49 Dose: 125 mls/hr Documented by: [id number] Famotidine 20 mg/ Syringe 5 mls @ 2.5 mls/min IV BID EFRAIN Stop: 08/19/19 08:59 Last Admin: 07/21/19 20:03 Dose: 2.5 mls/min Documented by: [id number] Admin: 07/21/19 08:26 Dose: 2.5 mls/min Documented by: [id number] Admin: 07/20/19 21:33 Dose: 2.5 mls/min Documented by: [id number] Admin: 07/20/19 09:11 Dose: 2.5 mls/min Documented by: [id number] Sodium Chloride (Nss 1000ml) 1,000 mls @ 15 mls/hr IV .Q24H EFRAIN Stop: 07/22/19 13:59 Last Admin: 07/21/19 15:11 Dose: Not Given Documented by: [id number] Insulin Aspart (Novolog Flexpen) 0 units SC ACHS EFRAIN Stop: 08/19/19 07:29 Last Admin: 07/21/19 20:50 Dose: Not Given Documented by: [id number] Cosigned by: [id number] Admin: 07/21/19 17:57 Dose: 1 units Documented by: [id number] Cosigned by: [id number] Admin: 07/21/19 11:46 Dose: Not Given Documented by: [id number] Cosigned by: [id number] Admin: 07/21/19 07:31 Dose: Not Given Documented by: [id number] Cosigned by: [id number] Admin: 07/20/19 20:33 Dose: Not Given Documented by: [id number] Cosigned by: [id number] Admin: 07/20/19 17:25 Dose: 1 units Documented by: [id number] Cosigned by: [id number] Admin: 07/20/19 12:40 Dose: Not Given Documented by: [id number] Admin: 07/20/19 09:05 Dose: Not Given Documented by: [id number] Cosigned by: [id number] [facility]op[facility]est[facility]) [facility] [place] Stop: 08/19/19 08:59 Last Admin: 07/21/19 07:41 Dose: 40 mg Documented by: [id number] Admin: 07/20/19 13:22 Dose: 40 mg Documented by: [id number] Discontinued Medications Famotidine (Pepcid 20mg Iv Push) 20 mg IV ONE STA Stop: 07/19/19 17:49 Last Admin: 07/19/19 18:49 Dose: 20 mg Documented by: [id number] Acetaminophen (Ofirmev) 1,000 mg in 100 mls @ 400 mls/hr IV NOW STA Stop: 07/19/19 18:41 Last Infusion: 07/19/19 19:29 Dose: 0 mls/hr Documented by: [id number] Admin: 07/19/19 18:50 Dose: 400 mls/hr Documented by: [id number] Lorazepam (Ativan) 0.5 mg in 1 mls @ 1 mls/min IV NOW STA Stop: 07/21/19 12:25 Last Admin: 07/21/19 12:50 Dose: Not Given Documented by: [id number] Lidocaine HCl (Xylocaine 2%) Confirm Administered Dose 2 ml INFIL .STK-MED ONE Stop: 07/21/19 13:41 Last Admin: 07/21/19 15:12 Dose: Not Given Documented by: [id number] Lidocaine HCl (Xylocaine 2%) Confirm Administered Dose 2 ml INFIL .STK-MED ONE Stop: 07/21/19 13:41 Last Admin: 07/21/19 15:12 Dose: Not Given Documented by: [id number] Propofol (Diprivan) Confirm Administered Dose 200 mg IV .STK-MED ONE Stop: 07/21/19 13:41 Last Admin: 07/21/19 15:12 Dose: Not Given Documented by: [id number] Medical Decision Making Differential Diagnosis Differential diagnosis includes etiologies such as diverticulosis, AVM, coagulopathy, colitis, inflammatory bowel disease, malignancy, Carol-White tear, esophagitis, peptic ulcer disease, variceal bleed, gastritis, epistaxis, fissure, hemorrhoids, as well as others were entertained. Medical Records Attestation: I reviewed the patient's medical records. Home Medications Current Medication List: was personally reviewed by me Laboratory Data Attestation: I reviewed the patient's lab results. Result diagrams: 07/21/19 05:49 07/21/19 05:49 Lab Results 07/19/19 07/19/19 07/19/19 Range/Units 18:40 18:40 18:40 WBC 6.47 (4.8-10.8) K/uL RBC 4.14 L (4.2-5.4) M/uL Hgb 11.9 L (12.0-16.0) g/dL Hct 35.4 L (37-47) % MCV 85.5 (80-100) fL MCH 28.7 (25-34) pg MCHC 33.6 (32-36) g/dL RDW Std Deviation 43.5 (36.4-46.3) fL RDW Coeff of Boris 14.0 (11.5-14.5) % Plt Count 243 (130-400) K/uL MPV 11.1 H (7.4-10.4) fL Immature Gran % (Auto) 0.3 % Neut % (Auto) 62.6 % Lymph % (Auto) 24.7 % Falls % (Auto) 10.2 % Eos % (Auto) 1.7 % Baso % (Auto) 0.5 % Immature Gran # (Auto) 0.02 (0.00-0.02) K/uL Neut # (Auto) 4.05 (1.4-6.5) K/uL Lymph # (Auto) 1.60 (1.2-3.4) K/uL Falls # (Auto) 0.66 H (0.11-0.59) K/uL Eos # (Auto) 0.11 (0-0.5) K/uL Baso # (Auto) 0.03 (0-0.2) K/uL PT 10.7 (9.0-12.0) Seconds INR 1.0 (0.9-1.1) Sodium 131 L (136-145) mmol/L Potassium 4.1 (3.5-5.1) mmol/L Chloride 100 (98-107) mmol/L Carbon Dioxide 26 (21-32) mmol/L Anion Gap 5.0 (3-11) BUN 20 H (7-18) mg/dl Creatinine 0.75 (0.6-1.2) mg/dl Est Cr Clr Drug Dosing Not Reportable Est GFR ( Amer) 88.5 Est GFR (Non-Af Amer) 76.3 BUN/Creatinine Ratio 26.7 H (10-20) Glucose 149 H (70-99) mg/dl Lactate (0.4-2.0) mmol/L Calcium 9.1 (8.5-10.1) mg/dl Magnesium 1.8 (1.8-2.4) mg/dl Total Bilirubin 0.3 (0.2-1) mg/dl AST 24 (15-37) U/L ALT 35 (12-78) U/L Alkaline Phosphatase 59 (45-117) U/L Troponin I < 0.015 (0-0.045) ng/ml NT-Pro-B Natriuret Pep 94 (0-1800) pg/ml Total Protein 7.3 (6.4-8.2) gm/dl Albumin 3.7 (3.4-5.0) gm/dl Globulin 3.6 (2.5-4.0) gm/dl Albumin/Globulin Ratio 1.0 (0.9-2) Lipase 147 (73-393) U/L Blood Type Antibody Screen 07/19/19 07/19/19 Range/Units 18:40 18:40 WBC (4.8-10.8) K/uL RBC (4.2-5.4) M/uL Hgb (12.0-16.0) g/dL Hct (37-47) % MCV (80-100) fL MCH (25-34) pg MCHC (32-36) g/dL RDW Std Deviation (36.4-46.3) fL RDW Coeff of Boris (11.5-14.5) % Plt Count (130-400) K/uL MPV (7.4-10.4) fL Immature Gran % (Auto) % Neut % (Auto) % Lymph % (Auto) % Falls % (Auto) % Eos % (Auto) % Baso % (Auto) % Immature Gran # (Auto) (0.00-0.02) K/uL Neut # (Auto) (1.4-6.5) K/uL Lymph # (Auto) (1.2-3.4) K/uL Falls # (Auto) (0.11-0.59) K/uL Eos # (Auto) (0-0.5) K/uL Baso # (Auto) (0-0.2) K/uL PT (9.0-12.0) Seconds INR (0.9-1.1) Sodium (136-145) mmol/L Potassium (3.5-5.1) mmol/L Chloride (98-107) mmol/L Carbon Dioxide (21-32) mmol/L Anion Gap (3-11) BUN (7-18) mg/dl Creatinine (0.6-1.2) mg/dl Est Cr Clr Drug Dosing Est GFR ( Amer) Est GFR (Non-Af Amer) BUN/Creatinine Ratio (10-20) Glucose (70-99) mg/dl Lactate 0.9 (0.4-2.0) mmol/L Calcium (8.5-10.1) mg/dl Magnesium (1.8-2.4) mg/dl Total Bilirubin (0.2-1) mg/dl AST (15-37) U/L ALT (12-78) U/L Alkaline Phosphatase (45-117) U/L Troponin I (0-0.045) ng/ml NT-Pro-B Natriuret Pep (0-1800) pg/ml Total Protein (6.4-8.2) gm/dl Albumin (3.4-5.0) gm/dl Globulin (2.5-4.0) gm/dl Albumin/Globulin Ratio (0.9-2) Lipase (73-393) U/L Blood Type A Negative Antibody Screen NEGATIVE Imaging Data Radiologist's Impression: CT SCAN OF THE ABDOMEN AND PELVIS WITHOUT CONTRAST CLINICAL HISTORY: lower abd pain, melena COMPARISON STUDY: 09/13/2018 TECHNIQUE: CT scan of the abdomen and pelvis was performed from the lung bases to the proximal femurs. Images are reviewed in the axial, sagittal, and coronal planes. IV contrast was not administered for this examination. A dose lowering technique was utilized adhering to the principles of ALARA. CT DOSE: 845.75 mGy.cm FINDINGS: Lower chest: The heart is normal in size and configuration, without pericardial effusion. The lung bases and pleural spaces are clear. Liver: No focal hepatic masses are visualized. There is pneumobilia, likely secondary to a prior enterotomy. Gallbladder: Surgically absent Spleen: Normal in size and attenuation. Pancreas: Unremarkable. Adrenal glands: Unremarkable. Kidneys: There is a punctate nonobstructing right renal calculus. No ureteral or bladder calculi are visualized. Bowel: There are no transition zones indicate bowel obstruction. There is colonic diverticulosis. There is no evidence of acute diverticulitis. The ap pendix appears normal. There is a suspected distal ileal lipoma. There is distal small bowel feces, but no evidence of bowel dilatation. This is therefore not considered pathologic. Peritoneum: There is no intraperitoneal free air or abdominal ascites. Vasculature: The abdominal aorta is normal in course and caliber. Adenopathy: None. Pelvic viscera: The bladder, and pelvic viscera are unremarkable. Skeletal structures: Chronic postsurgical changes involve the right anterior abdominal wall. There is an old left inferior pubic ramus fracture. There are postsurgical changes of a total right hip arthroplasty. IMPRESSION: 1. No acute intra-abdominal or pelvic findings 2. Punctate nonobstructing right renal calculus. No ureteral or bladder calculi identified 3. No evidence of bowel obstruction. No evidence of free air 4. Normal appendix. No evidence of acute diverticulitis. ACT 112: Negative or not required by law. Electronically signed by: Braden Saenz M.D. 07/19/2019 7:33 PM XR chest 1V portable CLINICAL HISTORY: weakness COMPARISON STUDY: 12/13/2018 FINDINGS: The cardiac and mediastinal contours are normal. There is no evidence of focal pulmonary consolidation. There is no evidence of failure. No pleural effusions are visualized.[There is a prominent left cardiophrenic angle fat pad. IMPRESSION: No active disease in the chest. ACT 112: Negative or not required by law. Electronically signed by: Braden Saenz M.D. 07/19/2019 7:34 PM Blood Pressure Blood Pressure Findings: Elevated blood pressure MDM Narrative Pt presents with concerning story of abdominal pain and two episodes of melena at home. Pt heme positive on testing here. Pt has never had EGD, no issues reported with colonoscopies. Pt does have a hx of GERD. No use of NSAIDS or anticoagulation. VS stable. CT reassuring. H/H stable. I do not suspect ischemic process. Pt given pepcid as due to multiple allergies, could not be started on protonix. Given advanced age, complicated medical hx, I feel pt would benefit from additional inpatient observation and GI evaluation. Pt verbalized understanding of all results and was in agreement with the plan. VS stable throughout. An order was placed for continuous cardiac monitoring. The monitor shows a rate of 66 with _normal sinus rhythm. Impression & Plan GI bleed, Abdominal pain Discharge Plan Visit Data *Final* Discharge Date/Time: 07/20/19 00:07 Chief Complaint: Referred by Doctor Stated Complaint: TEAR IN UPPER BOWEL ED Provider: Michaela Haider Discharge Problem: GI bleed, Abdominal pain Patient Disposition: Admitted As Inpatient Discharge Instructions Interventions: ED Discharge Assessment Last Done: 07/20/19 00:07 Discharge Problem: GI bleed Qualifiers: GI bleed type/associated pathology: melena Qualified Code(s): K92.1 - Melena Abdominal pain Qualifiers: Abdominal location: lower abdomen, unspecified Qualified Code(s): R10.30 - Lower abdominal pain, unspecified
[2019-07-19] MEDS ORDERED: ACETAMINOPHEN 1,000 MG/100 ML VIAL IV STA (18:27)
[2019-07-19] MEDS: SODIUM CHLORIDE 0.9% 1000ML 1,000 ML IV SCH (18:49)
[2019-07-19 18:53] LABS: Basophils # (auto) 0.03 K/uL (0-0.2); Basophils % (auto) 0.5 %; Eosinophils # (auto) 0.11 K/uL (0-0.5); Eosinophils % (auto) 1.7 %; Hematocrit (blood only) 35.4 % (37-47); Hemoglobin 11.9 g/dL (12.0-16.0); Immature Granulocytes # (auto) 0.02 K/uL (0.00-0.02); Immature Granulocytes % (auto) 0.3 %; Lymphocytes % (auto) 24.7 %; Mean Corpuscular Hemoglobin 28.7 pg (25-34); Mean Corpuscular Hgb Conc 33.6 g/dL (32-36); Mean Corpuscular Volume 85.5 fL (80-100); Mean Platelet Volume 11.1 fL (7.4-10.4); Monocytes # (auto) 0.66 K/uL (0.11-0.59); Monocytes % (auto) 10.2 %; Neutrophils # (auto) 4.05 K/uL (1.4-6.5); Neutrophils % (auto) 62.6 %; Platelet Count 243 K/uL (130-400); RDW Standard Deviation 43.5 fL (36.4-46.3); Red Blood Count 4.14 M/uL (4.2-5.4); White Blood Count 6.47 K/uL (4.8-10.8)
[2019-07-19 19:02] LABS: Prothrombin Time 10.7 Seconds (9.0-12.0)
[2019-07-19 19:09] LABS: Alanine Aminotransferase 35 U/L (12-78); Albumin Level 3.7 gm/dl (3.4-5.0); Aspartate Aminotransferase 24 U/L (15-37); BUN Creatinine Ratio 26.7 (10-20); Blood Urea Nitrogen 20 mg/dl (7-18); Calcium 9.1 mg/dl (8.5-10.1); Carbon Dioxide 26 mmol/L (21-32); Chloride 100 mmol/L (98-107); Est GFR (African American) 88.5; Est GFR (Non-African American) 76.3; Glucose 149 mg/dl (70-99); Lipase 147 U/L (73-393); Magnesium 1.8 mg/dl (1.8-2.4); Potassium 4.1 mmol/L (3.5-5.1); Sodium 131 mmol/L (136-145)
[2019-07-19 19:14] LABS: Alkaline Phosphatase 59 U/L (45-117); Bilirubin,Total 0.3 mg/dl (0.2-1); Globulin 3.6 gm/dl (2.5-4.0); NT Pro B Type Natriuretic Pept 94 pg/ml (0-1800); Total Protein 7.3 gm/dl (6.4-8.2); Troponin I < 0.015 ng/ml (0-0.045)
--- NOTE | 2019-07-19 19:35 | CT Scan Report ---
CT SCAN OF THE ABDOMEN AND PELVIS WITHOUT CONTRAST CLINICAL HISTORY: lower abd pain, melena COMPARISON STUDY: 09/13/2018 TECHNIQUE: CT scan of the abdomen and pelvis was performed from the lung bases to the proximal femurs . Images are reviewed in the axial, sagittal, and coronal planes. IV contrast was not administered fo r this examination. A dose lowering technique was utilized adhering to the principles of ALARA. CT DOSE: 845.75 mGy.cm FINDINGS: Lower chest: The heart is normal in size and configuration, without pericardial effusion. The lung ba ses and pleural spaces are clear. Liver: No focal hepatic masses are visualized. There is pneumobilia, likely secondary to a prior ente rotomy. Gallbladder: Surgically absent Spleen: Normal in size and attenuation. Pancreas: Unremarkable. Adrenal glands: Unremarkable. Kidneys: There is a punctate nonobstructing right renal calculus. No ureteral or bladder calculi are visualized. Bowel: There are no transition zones indicate bowel obstruction. There is colonic diverticulosis. The re is no evidence of acute diverticulitis. The appendix appears normal. There is a suspected distal i cormier lipoma. There is distal small bowel feces, but no evidence of bowel dilatation. This is therefor e not considered pathologic. Peritoneum: There is no intraperitoneal free air or abdominal ascites. Vasculature: The abdominal aorta is normal in course and caliber. Adenopathy: None. Pelvic viscera: The bladder, and pelvic viscera are unremarkable. Skeletal structures: Chronic postsurgical changes involve the right anterior abdominal wall. There is an old left inferior pubic ramus fracture. There are postsurgical changes of a total right hip arthr oplasty. IMPRESSION: 1. No acute intra-abdominal or pelvic findings 2. Punctate nonobstructing right renal calculus. No ureteral or bladder calculi identified 3. No evidence of bowel obstruction. No evidence of free air 4. Normal appendix. No evidence of acute diverticulitis. ACT 112: Negative or not required by law. Electronically signed by: Braden Saenz M.D. 07/19/2019 7:33 PM
--- NOTE | 2019-07-19 19:36 | XRay Report ---
XR chest 1V portable CLINICAL HISTORY: weakness COMPARISON STUDY: 12/13/2018 FINDINGS: The cardiac and mediastinal contours are normal. There is no evidence of focal pulmonary co nsolidation. There is no evidence of failure. No pleural effusions are visualized.[There is a promine nt left cardiophrenic angle fat pad. IMPRESSION: No active disease in the chest. ACT 112: Negative or not required by law. Electronically signed by: Braden Saenz M.D. 07/19/2019 7:34 PM
--- NOTE | 2019-07-20 | History & Physical Report ---
Date of Service July 19, 2019 Assessment & Plan (1) GI bleed: Ana is a 79-year-old female with a past medical history of asthma, GI bleed, and type 2 diabetes mellitus who presents with several weeks of coffee ground melena, and 1 day of liquid melena Melena Hemodynamically stable Hemoccult positive Hemoglobin 11.9 Patient reports repeat allergies and inability to tolerate PPIs including Protonix, omeprazole, and Nexium. 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 Insulin sliding scale, glucose checks AC/at bedtime BMP daily Anxiety Continue [employer] ASSISTANT MANAGER Xanax 25 mg p.o. 3 times daily Hypertension Continue losartan 40 mg p.o. every morning Continue atenolol 25 mg p.o. at bedtime Discontinue aspirin daily. Of note patient was on full dose aspirin. Diet: N.p.o. DVT prophylaxis: Contraindicated in the setting of bleed CODE STATUS: DNR/DNI Disposition: Med/telemetry (2) Abdominal pain: (3) Asthma: History of Present Illness Chief Complaint: GI bleed Primary Care Provider: KIRSTEN Ramirez Ana is a 79-year-old female with a past medical history of type 2 diabetes, asthma, and palpitations who presents with melena. She reports that she has had intermittent coffee ground bowel movements for at least 2 to 3 weeks, and yesterday with breakfast had a large loose black bowel movement. She has not had any pain with her bowel movement. She had breakfast, and then had an additional liquid black bowel movement. She denies nausea, vomiting. She endorses mild right lower quadrant abdominal pain for at least a couple of days. She endorses a history of GERD, does not think she has had any ulcers. She is not allowed to take NSAIDs, but is not sure why was told many years ago to not take them. She takes a full dose aspirin. She denies chest pain, chest pressure, shortness of breath, lightheadedness, dizziness, syncope, presyncope. She endorses recent stress as her passed 2 months ago. No appetite change. No weight change. She reports that she is allergic to Prilosec, Protonix, and Nexium which all caused her heart to race and for her to feel extremely shaky and nearly passed out. Other medication allergies reviewed. Medical history: Reviewed Surgical history: Reviewed Drug allergies: See above Social history: Lives alone. No tobacco use. No alcohol use. No recreational drug use. CODE STATUS: DNR/DNI. Discussed with patient Allergies Allergy/AdvReac Type Severity Reaction Status Date / Time amoxicillin Allergy Intermediate NOT SURE Verified 12/13/18 21:16 clavulanic acid Allergy Intermediate NOT SURE Verified 12/13/18 21:16 Iodinated Contrast Media Allergy Intermediate Shortness Verified 12/13/18 21:16 of Breath CHEST PAIN TIGHTNESS IN CHEST rosiglitazone Allergy Intermediate CHEST PAIN Verified 12/13/18 21:16 Corticosteroids Allergy Unknown "STEROIDS": Verified 12/13/18 21:16 (Glucocorticoids) "SHORTNESS OF BREATH" tetracycline Allergy Unknown Unknown rxn Verified 12/13/18 21:16 atorvastatin [From Lipitor] Allergy Verified 05/03/19 10:38 iodine Allergy Verified 05/03/19 10:38 pregabalin AdvReac Severe severe Unverified 12/13/18 21:16 swelling hands/feet hydrocodone AdvReac Intermediate hear races Verified 12/13/18 21:16 ibuprofen AdvReac Intermediate KNOCKS Verified 12/13/18 21:16 EQUILIBRIUM OFF levofloxacin AdvReac Intermediate Dizziness Verified 12/13/18 21:16 metformin AdvReac Intermediate SEVERE Verified 12/13/18 21:16 DIARRHEA omeprazole AdvReac Intermediate SHAKES/TACH Verified 12/13/18 21:16 YCARDIA pantoprazole AdvReac Intermediate SHAKES/TACH Verified 12/13/18 21:16 YCARDIA prednisone AdvReac Intermediate Palpitations Verified 12/13/18 21:16 AND "WENT TO UNIT" (CARDIAC CARE UNIT) codeine AdvReac Mild EQUILIBRIUM Verified 12/13/18 21:16 OFF Penicillins AdvReac Mild Augmentin: Verified 12/13/18 21:16 GI UPSET theophylline AdvReac Mild INCREASED Verified 12/13/18 21:16 HR esomeprazole AdvReac Unknown SHAKES/TACH Verified 12/13/18 21:16 YCARDIA Sulfa (Sulfonamide AdvReac Unknown COULD NOT Verified 12/13/18 21:16 Antibiotics) WALK AND TREMBLED Home Medications Home Medications Medication Instructions Recorded Confirmed Type albuterol sulfate 2 puff INHALATION QID PRN 11/09/17 07/19/19 History alprazolam [Xanax] 0.25 - 0.5 mg PO TID PRN 11/09/17 07/19/19 History atenolol 25 mg PO HS 11/09/17 07/19/19 History fluticasone propionate [Flonase 2 spray INTRANASAL HS PRN 11/09/17 07/19/19 History Allergy Relief] cranberry 0 mg PO QAM 09/13/18 07/19/19 History L.acidoph-B.lactis-B.longum 1 cap PO QAM 07/19/19 07/19/19 History [Florajen3] acetaminophen [Tylenol] 325 mg PO QID PRN 07/19/19 07/19/19 History aspirin 325 mg PO DAILY PRN 07/19/19 07/19/19 History glipizide 10 mg PO BID 07/19/19 07/19/19 History [id number] 1 cap PO QAM 07/19/19 07/19/19 History [krill oil] lisinopril 40 mg PO QAM 07/19/19 07/19/19 History Past Med/Surg History Medical History Acid reflux (Acute) Diabetes Hiatal hernia (Chronic 06/17/12) Hyperglycemia (Resolved) Hyperglycemia (Acute) Lung nodule (Acute) Surgical History H/O section H/O hand surgery History of cholecystectomy History of hip replacement Hx of cataract surgery S/P tonsillectomy Family History Sister Renal cell carcinoma Father No problems noted. Mother Colorectal cancer Other Coronary heart disease Myocardial infarction Denies family history of Ovarian cancer Breast cancer Social History Preferred Language: Croatian Communication Ability: Effective Visual Impairment: No Limitations 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: Normal Aemt Required: No Beliefs That Will Affect Care: None Current Living Situation: Alone Current Living Situation Comment: lives alone in house with many steps Feels Safe at Home: Yes Safety Concerns: Feels Safe At This Time Smoking Status: Never smoker Hx Alcohol Use: No Hx Substance Use: No Review of Systems Review of Systems: Constitutional: Denies fever, chills, malaise, weight change Eyes: Denies double vision, acute vision change, eye pain ENT: Denies ear pain, sore throat, sinus pain Cardiovascular: Denies chest pain, chest pressure, palpitations, extremity swelling Respiratory: Denies shortness of breath, cough, sputum production, difficulty breathing Gastrointestinal: See HPI Genitourinary: Denies pain with urination, urinary urgency, urinary frequency Musculoskeletal: Denies weakness, muscle aches/pain, joint aches/pain Integumentary:Denies rash, lesions, bruising Neurological: Denies headache, numbness, tingling, focal weakness Physical Exam Physical Exam: General: A&Ox3. NAD. Cooperative. HEENT: Atraumatic, normocephalic. Visual acuity grossly intact. Pupils equal and reactive to light and accommodation. Mucous membranes moist. No pallor. Pulm: CTAB A&P. -wheezes, -rales, -rhonchi. Symmetrical chest rise. No increase work of breathing. No respiratory distress. Cardiac: RRR, -mrg. Radial pulses intact and symmetrical. Abdominal: Tender to palpation in right lower quadrant. No rebound tenderness. No guarding. Soft. Bowel sounds intact. Extremities: Distal extremities intact, moving extremities equally. Sensation intact to soft touch in fingertips bilaterally. Results & Data Results & Data ([facility]) Vital Signs (Past 12 Hours) Vital Signs Temp Pulse Pulse Resp BP BP Pulse Ox 07/19/19 23:30 61 20 140/70 99 07/19/19 23:05 60 15 97 07/19/19 22:31 54 L 10 L 97 07/19/19 22:30 63 17 144/71 H 100 07/19/19 22:01 58 L 16 100 07/19/19 22:00 58 L 16 145/63 H 99 07/19/19 21:31 63 19 99 07/19/19 21:30 55 L 20 143/61 H 98 07/19/19 21:10 70 18 140/50 L 98 07/19/19 20:31 61 21 100 07/19/19 20:30 59 L 20 142/54 H 100 07/19/19 20:00 58 L 13 134/58 L 99 07/19/19 19:36 62 18 148/55 H 100 07/19/19 19:35 60 15 148/55 H 100 07/19/19 18:52 64 18 170/87 H 95 07/19/19 17:06 36.8 C 75 19 175/77 H 99 Code Status & VTE Plan VTE Prophylaxis Plan VTE Prophylaxis will be ordered: Yes Supervising Physician Co-Signing Physician Notes Attending addendum: I have physically seen this patient, have supervised the medical residents activities, and agree with the H&P unless as otherwise noted. Assessment and Plan: Melena/upper GI bleed- Hemoglobin 11.9 upon admission. H&H every 4 hours x3. Hold aspirin. Famotidine 20 mg IV every 12 hours. Consult gastroenterology. Diabetes mellitus type 2- Holding medications. Place on Accu-Cheks before meals and at bedtime with NovoLog coverage per scale. Remaining orders and notations as noted. Resident Activity Tracking Resident Involvement: Resident Care Provided Care Provided: Adult Hospital Medicine (1) GI bleed GI bleed type/associated pathology: melena Qualified Code(s): K92.1 - Melena (2) Abdominal pain Abdominal location: lower abdomen, unspecified Qualified Code(s): R10.30 - Lower abdominal pain, unspecified
[2019-07-20] MEDS ORDERED: GLUCOSE 10 TABS/TUBE PO PRN (00:59)
[2019-07-20] MEDS ORDERED: GLUCOSE 40% GEL 15 GM TUBE PO PRN (00:59)
[2019-07-20] MEDS ORDERED: DEXTROSE 50% 50 ML SYRINGE IV PRN (00:59)
[2019-07-20] MEDS ORDERED: GLUCAGON FOR INJ 1 MG VIAL SQ PRN (00:59)
[2019-07-20] MEDS ORDERED: CARBOHYDRATES FOR HYPOGLYCEMIA PO PRN (00:59)
[2019-07-20] MEDS ORDERED: ACETAMINOPHEN 325 MG TAB PO PRN ×2 (00:59)
[2019-07-20] MEDS: SODIUM CHLORIDE 0.9% 1000ML 1,000 ML IV SCH ×3 (01:48→17:20)
--- NOTE | 2019-07-20 07:48 | Electrocardiogram Report ---
Test Reason : Blood Pressure : / mmHG Vent. Rate : 068 BPM Atrial Rate : 068 BPM P-R Int : 164 ms QRS Dur : 086 ms QT Int : 398 ms P-R-T Axes : 047 -28 012 degrees QTc Int : 423 ms Poor data quality, interpretation may be adversely affected Normal sinus rhythm Normal ECG When compared with ECG of 13-DEC-2018 19:20, No significant change was found Confirmed by Dc Thompson ([id number]) on 07/20/2019 7:48:29 AM Referred By: REFERRED SELF Confirmed By:Dc Thompson
[2019-07-20] MEDS ORDERED: ACETAMINOPHEN 1,000 MG/100 ML VIAL IV PRN (08:49)
[2019-07-20] MEDS: INSULIN ASPART 100 UNITS/ML 3 ML PEN SC SCH ×4 (09:05→20:33)
[2019-07-20] MEDS: FAMOTIDINE 20 MG in SYRINGE 3 ML IV SCH ×2 (09:11→21:33)
[2019-07-20 09:17] LABS: Hematocrit (blood only) 35.9 % (37-47); Hemoglobin 12.1 g/dL (12.0-16.0)
[2019-07-20 09:33] LABS: BUN Creatinine Ratio 16.5 (10-20); Calcium 8.7 mg/dl (8.5-10.1); Creatinine Clr Calc Pharmacy 60.2 ml/min; Est GFR (African American) 96.2; Potassium 4.3 mmol/L (3.5-5.1)
--- NOTE | 2019-07-20 10:49 | Gastrointestinal Consultation ---
Date of Consultation July 20, 2019 Assessment & Plan (1) GI bleed: Slow GI bleed possibly. Recommend EGD. May need a PPI if there is esophagitis. Plan scope on Sunday, please keep patient NPO. Burning lower abdominal pin may be not GI related. Consider neural basis, neuropathy. History of Present Illness Reason for Consultation: melena Requesting Physician: Zuhair Attending Physician: Tobias Moffett, DO History of Present Illness Patient with history of GERD, intolerence to PPI, on ranitidine presents with melena. "Coffee ground" stool for few days. Mild abdominal pain mostly lower, described as burning, not new. Endorsed regurgitation.. Allergies Allergy/AdvReac Type Severity Reaction Status Date / Time amoxicillin Allergy Intermediate NOT SURE Verified 12/13/18 21:16 clavulanic acid Allergy Intermediate NOT SURE Verified 12/13/18 21:16 Iodinated Contrast Media Allergy Intermediate Shortness Verified 12/13/18 21:16 of Breath CHEST PAIN TIGHTNESS IN CHEST rosiglitazone Allergy Intermediate CHEST PAIN Verified 12/13/18 21:16 Corticosteroids Allergy Unknown "STEROIDS": Verified 12/13/18 21:16 (Glucocorticoids) "SHORTNESS OF BREATH" tetracycline Allergy Unknown Unknown rxn Verified 12/13/18 21:16 atorvastatin [From Lipitor] Allergy Verified 05/03/19 10:38 iodine Allergy Verified 05/03/19 10:38 pregabalin AdvReac Severe severe Unverified 12/13/18 21:16 swelling hands/feet hydrocodone AdvReac Intermediate hear races Verified 12/13/18 21:16 ibuprofen AdvReac Intermediate KNOCKS Verified 12/13/18 21:16 EQUILIBRIUM OFF levofloxacin AdvReac Intermediate Dizziness Verified 12/13/18 21:16 metformin AdvReac Intermediate SEVERE Verified 12/13/18 21:16 DIARRHEA omeprazole AdvReac Intermediate SHAKES/TACH Verified 12/13/18 21:16 YCARDIA pantoprazole AdvReac Intermediate SHAKES/TACH Verified 12/13/18 21:16 YCARDIA prednisone AdvReac Intermediate Palpitations Verified 12/13/18 21:16 AND "WENT TO UNIT" (CARDIAC CARE UNIT) codeine AdvReac Mild EQUILIBRIUM Verified 12/13/18 21:16 OFF Penicillins AdvReac Mild Augmentin: Verified 12/13/18 21:16 GI UPSET theophylline AdvReac Mild INCREASED Verified 12/13/18 21:16 HR esomeprazole AdvReac Unknown SHAKES/TACH Verified 12/13/18 21:16 YCARDIA Sulfa (Sulfonamide AdvReac Unknown COULD NOT Verified 12/13/18 21:16 Antibiotics) WALK AND TREMBLED Home Medications Home Medications Medication Instructions Recorded Confirmed Type albuterol sulfate 2 puff INHALATION QID PRN 11/09/17 07/19/19 History alprazolam [Xanax] 0.25 - 0.5 mg PO TID PRN 11/09/17 07/19/19 History atenolol 25 mg PO HS 11/09/17 07/19/19 History fluticasone propionate [Flonase 2 spray INTRANASAL HS PRN 11/09/17 07/19/19 History Allergy Relief] cranberry 0 mg PO QAM 09/13/18 07/19/19 History L.acidoph-B.lactis-B.longum 1 cap PO QAM 07/19/19 07/19/19 History [Florajen3] acetaminophen [Tylenol] 325 mg PO QID PRN 07/19/19 07/19/19 History aspirin 325 mg PO DAILY PRN 07/19/19 07/19/19 History glipizide 10 mg PO BID 07/19/19 07/19/19 History vgdfw-mk-[id number]-[id number]-tyh-pytnjks-ast 1 cap PO QAM 07/19/19 07/19/19 History [krill oil] lisinopril 40 mg PO QAM 07/19/19 07/19/19 History Patient History Medical History Acid reflux (Acute) Diabetes Hiatal hernia (Chronic 06/17/12) Hyperglycemia (Resolved) Hyperglycemia (Acute) Lung nodule (Acute) Surgical History H/O section H/O hand surgery History of cholecystectomy History of hip replacement Hx of cataract surgery S/P tonsillectomy Family History Sister Renal cell carcinoma Father No problems noted. 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 Beliefs That Will Affect Care: None Current Living Situation: Alone Current Living Situation Comment: lives alone in house with many steps Feels Safe at Home: Yes Safety Concerns: Feels Safe At This Time Smoking Status: Never smoker Hx Alcohol Use: No Hx Substance Use: No Physical Exam Constitutional: WD/WN, vitals as above not ill appearing and not in distress Gastrointestinal (Abdomen): Inspection/Auscultation: + abdomen distended and + significant pannus Percussion/Palpation: abdomen soft; abdomen nontender, no hepatomegaly, no pulsatile mass and no ascites Skin: no rashes, warm and dry Results & Data ([facility]) Vital Signs (Past 12 Hours) Vital Signs Temp Pulse Pulse Pulse Resp BP BP 07/20/19 07:56 37.1 C 64 18 144/68 H 07/20/19 07:30 73 07/20/19 04:19 36.6 C 75 18 137/74 07/20/19 01:05 37 C 57 L 63 18 148/77 H 07/20/19 00:03 36.9 C 65 20 140/60 07/20/19 00:00 58 L 16 141/61 H 07/19/19 23:30 61 20 140/70 07/19/19 23:05 60 15 Pulse Ox 07/20/19 07:56 98 07/20/19 07:30 07/20/19 04:19 99 07/20/19 01:05 99 07/20/19 00:03 99 07/20/19 00:00 100 07/19/19 23:30 99 07/19/19 23:05 97 (1) GI bleed GI bleed type/associated pathology: melena Qualified Code(s): K92.1 - Melena
[2019-07-20] MEDS: DICLOFENAC SOD 1% GEL 100 GM TUBE EXT SCH ×3 (12:55→21:36)
[2019-07-20] MEDS: lisinopriL 40 MG TAB PO SCH (13:22)
[2019-07-20] MEDS: ALPRAZolam 0.25 MG TABLET PO PRN ×2 (13:22→21:43)
[2019-07-20 13:26] LABS: Hematocrit (blood only) 36.1 % (37-47); Hemoglobin 12.4 g/dL (12.0-16.0)
--- NOTE | 2019-07-20 13:39 | Hospitalist Progress Note ---
Date of Service July 20, 2019 Assessment & Plan (1) GI bleed: Ana is a 79-year-old female with a past medical history of asthma, GI bleed, and type 2 diabetes mellitus who presents with melena. Melena Hemodynamically stable Hemoccult positive Hemoglobin 11.9, stable on repeats CT abdomen shows no free air, no diverticulitis, no appendicitis -Appreciate GI consult -likely slow GI Bleed. Keep NPO. Procedure in AM. Will likely need PPI -Patient reports repeat allergies and inability to tolerate PPIs including Protonix, omeprazole, and Nexium. Might need to be discussed further with pt. Discontinue aspirin -continue Famotidine 20mg IV BID for now. Type 2 diabetes mellitus Hold home meds -ISS Anxiety Continue home Xanax 25 mg p.o. 3 times daily Hypertension Continue losartan 40 mg p.o. every morning Continue atenolol 25 mg p.o. at bedtime Discontinue aspirin daily. Of note patient was on full dose aspirin. Diet: Clears during the day, N.p.o. after midnight DVT prophylaxis: Contraindicated in the setting of bleed CODE STATUS: DNR/DNI Disposition: Med/telemetry (2) Abdominal pain: (3) Asthma: Admission and Anticipated Discharge Date Admission Date: July 19, 2019 Supervising Physician Co-Signing Physician Notes I personally examined the patient and verified all chung points of history and exam, discussed case, and agree with decision making with Dr Downs. d/w GI as well. pt feeling ok when i see her - mostly nervous about scope and if she'll be awake or remember it. discussed as best as i could trying to allay her fears. otherwise no new complaints vitals noted nad heent nc at mmm breathing unlabored no accessory muscles good effort skin no rashes no pallor or icterus melena - for EGD tomorrow otherwise stable, otherwise as above. Subjective Pt seen this AM. Pleasant, states she has been having a chronic headache. Denies current SOB, chest pain or subjective palpitations. No further episodes of melena. Review of Systems Review of Systems: All systems reviewed & are unremarkable except as noted in Subjective Physical Exam Physical Exam: General: Alert, oriented. No acute distress Skin: No noted rashes or bruises Psych: Tearful when she talks about Neuro: No gross deficits HEENT: NC/AT Chest: Nontender to palpation. CV: RRR, Normal s1, s2. No murmurs appreciated Resp: Breath sounds clear bilaterally, no increased effort of breathing. Abdomen: Soft, nontender, nondistended. No guarding. Extremities: No edema in lower extremities bilaterally, but painful to touch. Results & Data Results & Data ([facility]) Vital Signs (Past 12 Hours) Vital Signs Temp Pulse Pulse Resp BP Pulse Ox 07/20/19 12:30 37.0 C 71 18 144/77 H 97 07/20/19 07:56 37.1 C 64 18 144/68 H 98 07/20/19 07:30 73 07/20/19 04:19 36.6 C 75 18 137/74 99 Resident Activity Tracking Resident Involvement: Resident Care Provided Care Provided: Adult Hospital Medicine (1) GI bleed GI bleed type/associated pathology: melena Qualified Code(s): K92.1 - Melena (2) Abdominal pain Abdominal location: lower abdomen, unspecified Qualified Code(s): R10.30 - Lower abdominal pain, unspecified
--- NOTE | 2019-07-20 16:33 | Billing Data ---
Date of Service July 20, 2019 Coding Level of Care Code 49138 Subseq Obs Care Lvl 3
[2019-07-20] MEDS: ATENOLOL 25 MG TABLET PO SCH (21:35)
--- NOTE | 2019-07-20 22:26 | Billing Data ---
Date of Service July 20, 2019 Coding Level of Care Code 53680 OBS Care - Level 3
[2019-07-21] MEDS: SODIUM CHLORIDE 0.9% 1000ML 1,000 ML IV SCH ×3 (01:55→20:12)
[2019-07-21 06:17] LABS: Basophils # (auto) 0.03 K/uL (0-0.2); Basophils % (auto) 0.6 %; Eosinophils # (auto) 0.13 K/uL (0-0.5); Eosinophils % (auto) 2.5 %; Hematocrit (blood only) 34.8 % (37-47); Hemoglobin 11.4 g/dL (12.0-16.0); Immature Granulocytes # (auto) 0.01 K/uL (0.00-0.02); Immature Granulocytes % (auto) 0.2 %; Lymphocytes # (auto) 1.45 K/uL (1.2-3.4); Lymphocytes % (auto) 27.9 %; Mean Corpuscular Hemoglobin 28.8 pg (25-34); Mean Corpuscular Hgb Conc 32.8 g/dL (32-36); Mean Corpuscular Volume 87.9 fL (80-100); Mean Platelet Volume 10.9 fL (7.4-10.4); Monocytes # (auto) 0.47 K/uL (0.11-0.59); Monocytes % (auto) 9.1 %; Neutrophils % (auto) 59.7 %; Platelet Count 241 K/uL (130-400); RDW Coefficient of Variation 14.3 % (11.5-14.5); RDW Standard Deviation 46.3 fL (36.4-46.3); Red Blood Count 3.96 M/uL (4.2-5.4); White Blood Count 5.19 K/uL (4.8-10.8)
[2019-07-21 06:48] LABS: BUN Creatinine Ratio 10.2 (10-20); Calcium 8.8 mg/dl (8.5-10.1); Creatinine Clr Calc Pharmacy 57.7 ml/min; Est GFR (African American) 91.4; Est GFR (Non-African American) 78.9; Potassium 4.1 mmol/L (3.5-5.1)
[2019-07-21] MEDS: INSULIN ASPART 100 UNITS/ML 3 ML PEN SC SCH ×4 (07:31→20:50)
[2019-07-21] MEDS: lisinopriL 40 MG TAB PO SCH (07:41)
[2019-07-21] MEDS: DICLOFENAC SOD 1% GEL 100 GM TUBE EXT SCH ×4 (07:42→20:04)
[2019-07-21] MEDS: FAMOTIDINE 20 MG in SYRINGE 3 ML IV SCH ×2 (08:26→20:03)
--- NOTE | 2019-07-21 09:02 | Anesthesiology Consultation ---
Date of Service July 21, 2019 Assessment & Plan (1) Encounter for pre-operative examination: History Surgery Operation Date: 07/21/19 16:00 Proposed Procedures p Esophagogastroduodenoscopy Dr Gladys Graham Height/Weight Height: 4 ft 11 in Weight: 79 kg Allergies Allergy/AdvReac Type Severity Reaction Status Date / Time amoxicillin Allergy Intermediate NOT SURE Verified 12/13/18 21:16 clavulanic acid Allergy Intermediate NOT SURE Verified 12/13/18 21:16 Iodinated Contrast Media Allergy Intermediate Shortness Verified 12/13/18 21:16 of Breath CHEST PAIN TIGHTNESS IN CHEST rosiglitazone Allergy Intermediate CHEST PAIN Verified 12/13/18 21:16 Corticosteroids Allergy Unknown "STEROIDS": Verified 12/13/18 21:16 (Glucocorticoids) "SHORTNESS OF BREATH" tetracycline Allergy Unknown Unknown rxn Verified 12/13/18 21:16 atorvastatin [From Lipitor] Allergy Verified 05/03/19 10:38 iodine Allergy Verified 05/03/19 10:38 pregabalin AdvReac Severe severe Unverified 12/13/18 21:16 swelling hands/feet hydrocodone AdvReac Intermediate hear races Verified 12/13/18 21:16 ibuprofen AdvReac Intermediate KNOCKS Verified 12/13/18 21:16 EQUILIBRIUM OFF levofloxacin AdvReac Intermediate Dizziness Verified 12/13/18 21:16 metformin AdvReac Intermediate SEVERE Verified 12/13/18 21:16 DIARRHEA omeprazole AdvReac Intermediate SHAKES/TACH Verified 12/13/18 21:16 YCARDIA pantoprazole AdvReac Intermediate SHAKES/TACH Verified 12/13/18 21:16 YCARDIA prednisone AdvReac Intermediate Palpitations Verified 12/13/18 21:16 AND "WENT TO UNIT" (CARDIAC CARE UNIT) codeine AdvReac Mild EQUILIBRIUM Verified 12/13/18 21:16 OFF Penicillins AdvReac Mild Augmentin: Verified 12/13/18 21:16 GI UPSET theophylline AdvReac Mild INCREASED Verified 12/13/18 21:16 HR esomeprazole AdvReac Unknown SHAKES/TACH Verified 12/13/18 21:16 YCARDIA Sulfa (Sulfonamide AdvReac Unknown COULD NOT Verified 12/13/18 21:16 Antibiotics) WALK AND TREMBLED Medications Home Medications Medication Instructions Recorded Confirmed Last Taken albuterol sulfate 2 puff INHALATION QID PRN 11/09/17 07/19/19 12/13/18 alprazolam [Xanax] 0.25 - 0.5 mg PO TID PRN 11/09/17 07/19/19 07/19/19 AM DOSE 0.5 MG atenolol 25 mg PO HS 11/09/17 07/19/19 12/13/18 fluticasone propionate [Flonase 2 spray INTRANASAL HS PRN 11/09/17 07/19/19 Unknown Allergy Relief] cranberry 0 mg PO QAM 09/13/18 07/19/19 12/13/18 L.acidoph-B.lactis-B.longum 1 cap PO QAM 07/19/19 07/19/19 Unknown [Florajen3] acetaminophen [Tylenol] 325 mg PO QID PRN 07/19/19 07/19/19 Unknown aspirin 325 mg PO DAILY PRN 07/19/19 07/19/19 Unknown glipizide 10 mg PO BID 07/19/19 07/19/19 Unknown [id number]-ast 1 cap PO QAM 07/19/19 07/19/19 Unknown [krill oil] lisinopril 40 mg PO QAM 07/19/19 07/19/19 Unknown Active Medications Generic Name Dose Route Start Last Admin Trade Name Freq PRN Reason Stop Dose Admin Alprazolam 0.25 mg 07/20/19 00:59 07/20/19 21:43 Xanax PO 08/19/19 00:58 0.25 mg TID PRN Administration Anxiety Atenolol 25 mg 07/20/19 21:00 07/20/19 21:35 Tenormin PO 08/19/19 20:59 25 mg HS EFRAIN Administration Diclofenac Sodium 2 gm 07/20/19 13:00 07/21/19 12:50 Voltaren 1% Top EXT 08/19/19 12:59 Not Given QID EFRAIN Sodium Chloride 1,000 mls @ 125 mls/hr 07/19/19 18:00 07/21/19 11:46 Nss 1000ml IV 08/18/19 17:59 125 mls/hr .Q8H EFRAIN Administration Famotidine 20 mg/ Syringe 5 mls @ 2.5 mls/min 07/20/19 09:00 07/21/19 08:26 IV 08/19/19 08:59 2.5 mls/min BID EFRAIN Administration Insulin Aspart 0 units 07/20/19 07:30 07/21/19 11:46 Novolog Flexpen SC 08/19/19 07:29 Not Given ACHS EFRAIN Lisinopril 40 mg 07/20/19 09:00 07/21/19 07:41 Zestril PO 08/19/19 08:59 40 mg QAM EFRAIN Administration Past Medical History Medical History Acid reflux (Acute) Diabetes Hiatal hernia (Chronic 06/17/12) Hyperglycemia (Resolved) Hyperglycemia (Acute) Lung nodule (Acute) Past Family History Family History Sister Renal cell carcinoma Father No problems noted. Mother Colorectal cancer Other Coronary heart disease Myocardial infarction Denies family history of Ovarian cancer Breast cancer Past Surgical History Surgical History H/O section H/O hand surgery History of cholecystectomy History of hip replacement Hx of cataract surgery S/P tonsillectomy Social History Smoking Status: Never smoker Hx Alcohol Use: No Hx Substance Use: No Physical Exam Vital Signs Last Vital Signs Temp 36.5 C 07/21/19 08:00 Pulse 55 L 07/21/19 08:00 Resp 18 07/21/19 08:00 BP 148/78 H 07/21/19 08:00 Pulse Ox 98 07/21/19 08:00 Testing Laboratory Results 07/21/19 05:49 07/21/19 05:49 PT 10.7 Seconds (9.0-12.0) 07/19/19 18:40 INR 1.0 (0.9-1.1) 07/19/19 18:40 Blood Type A Negative 07/19/19 18:40 Antibody Screen NEGATIVE 07/19/19 18:40 07/21/19 07/21/19 07/21/19 11:41 08:24 06:43 POC Glucose 159 H 178 H 168 H Electrocardiogram Date: 07/09/19 Findings: + NSR @
--- NOTE | 2019-07-21 12:17 | Hospitalist Progress Note ---
Date of Service July 21, 2019 Assessment & Plan (1) GI bleed: Ana is a 79-year-old female with a past medical history of asthma, GI bleed, and type 2 diabetes mellitus who presents with melena. Melena/Acute blood loss Anemia Hemodynamically stable Hemoccult positive H/H stable on repeats CT abdomen shows no free air, no diverticulitis, no appendicitis -07/20 EGD: gastric ulcer, which is most likely the source of bleeding -stool for h pylori -Patient reports repeat allergies and inability to tolerate PPIs including Protonix, omeprazole, and Nexium. Will continue Famotidine 20mg IV BID for now Discontinue aspirin indefinitely Acute Delirium/Agitation -mild. likely largely contributed to this hospitalization. In talking with daughter, similar occurrence 8 yrs ago when hospitalized. -1:1 sitter prn ordered. Responds well to redirecting Type 2 diabetes mellitus Hold home meds while NPO - resume once taking PO -ISS Anxiety Continue home Xanax 25 mg p.o. 3 times daily Hypertension Continue losartan 40 mg p.o. every morning Continue atenolol 25 mg p.o. at bedtime Discontinue aspirin daily. Of note patient was on full dose aspirin. Diet: full liquid bland diet, advance as tolerated DVT prophylaxis: Contraindicated in the setting of bleed CODE STATUS: DNR/DNI Disposition: Med/telemetry. PT/OT Eval- may benefit from HHPT. Anticipate d/c tomorrow. Admission and Anticipated Discharge Date Admission Date: July 19, 2019 Supervising Physician Co-Signing Physician Notes Resident Physician Supervision Note: I independently interviewed and examined the patient and verified the chung history and physical, reviewed labs and image studies, discussed the case with the resident Dr. Oconnor and agree with the findings and care plan. Subjective 79 yo F seen in bed this AM in NAD. No reported overnight events. NPO. Awaiting EGD. Notified later in day of acute mental status change. Pt appeared to be more confused, agitated. H/H with no acute drop. 1:1 sitter ordered and pt responded well with re-directing. No further episodes of melena. Pt with no other acute concerns or complaints. Review of Systems Review of Systems: All systems reviewed & are unremarkable except as noted in HPI & below Physical Exam Constitutional: WD/WN, vitals as above Eyes: PERRL, conjunctivae normal, anicteric sclerae Respiratory: normal respiratory effort; no respiratory distress and no labored breathing Cardiovascular: RRR, no murmur, no edema Gastrointestinal (Abdomen): normal bowel sounds, soft, nontender, no hepatosplenomegaly Skin: no rashes, warm and dry Psychiatric: Orientation: alert Affect: + anxious affect Results & Data Results & Data ([facility]) Vital Signs (Past 12 Hours) Vital Signs Temp Pulse Pulse Pulse Resp BP Pulse Ox 07/21/19 08:00 36.5 C 55 L 18 148/78 H 98 07/21/19 03:57 36.7 C 82 16 148/73 H 96 07/21/19 01:15 54 L Laboratory Results Laboratory Results - last 24 hr 07/20/19 07/20/19 07/20/19 13:05 16:41 20:14 WBC RBC Hgb 12.4 Hct 36.1 L MCV MCH MCHC RDW Std Deviation RDW Coeff of Boris Plt Count MPV Immature Gran % (Auto) Neut % (Auto) Lymph % (Auto) [place] % (Auto) Eos % (Auto) Baso % (Auto) Immature Gran # (Auto) Neut # (Auto) Lymph # (Auto) [place] # (Auto) Eos # (Auto) Baso # (Auto) Sodium Potassium Chloride Carbon Dioxide Anion Gap BUN Creatinine Est Cr Clr Drug Dosing Est GFR ( Amer) Est GFR (Non-Af Amer) BUN/Creatinine Ratio Glucose POC Glucose 206 H 163 H Calcium 07/21/19 07/21/19 07/21/19 05:49 05:49 06:43 WBC 5.19 RBC 3.96 L Hgb 11.4 L Hct 34.8 L MCV 87.9 MCH 28.8 MCHC 32.8 RDW Std Deviation 46.3 RDW Coeff of Boris 14.3 Plt Count 241 MPV 10.9 H Immature Gran % (Auto) 0.2 Neut % (Auto) 59.7 Lymph % (Auto) 27.9 [place] % (Auto) 9.1 Eos % (Auto) 2.5 Baso % (Auto) 0.6 Immature Gran # (Auto) 0.01 Neut # (Auto) 3.10 Lymph # (Auto) 1.45 [place] # (Auto) 0.47 Eos # (Auto) 0.13 Baso # (Auto) 0.03 Sodium 140 Potassium 4.1 Chloride 111 H Carbon Dioxide 25 Anion Gap 4.0 BUN 8 Creatinine 0.73 Est Cr Clr Drug Dosing 57.7 Est GFR ( Amer) 91.4 Est GFR (Non-Af Amer) 78.9 BUN/Creatinine Ratio 10.2 Glucose 155 H POC Glucose 168 H Calcium 8.8 07/21/19 07/21/19 08:24 11:41 WBC RBC Hgb Hct MCV MCH MCHC RDW Std Deviation RDW Coeff of Boris Plt Count MPV Immature Gran % (Auto) Neut % (Auto) Lymph % (Auto) [place] % (Auto) Eos % (Auto) Baso % (Auto) Immature Gran # (Auto) Neut # (Auto) Lymph # (Auto) [place] # (Auto) Eos # (Auto) Baso # (Auto) Sodium Potassium Chloride Carbon Dioxide Anion Gap BUN Creatinine Est Cr Clr Drug Dosing Est GFR ( Amer) Est GFR (Non-Af Amer) BUN/Creatinine Ratio Glucose POC Glucose 178 H 159 H Calcium Medications Administered Current Inpatient Medications Acetaminophen (Tylenol) 325 mg PO QID PRN PRN Reason: Fever Or Pain Stop: 08/19/19 00:58 Acetaminophen (Tylenol) 650 mg PO Q4H PRN PRN Reason: Pain or Fever Stop: 08/19/19 00:58 Alprazolam (Xanax) 0.25 mg PO TID PRN PRN Reason: Anxiety Stop: 08/19/19 00:58 Last Admin: 07/20/19 21:43 Dose: 0.25 mg Documented by: Atenolol (Tenormin) 25 mg PO HS EFRAIN Stop: 08/19/19 20:59 Last Admin: 07/20/19 21:35 Dose: 25 mg Documented by: Dextrose (Dextrose 50%) 25 - 50 ml IV UD PRN; Protocol PRN Reason: Hypoglycemia Protocol Stop: 08/19/19 00:58 Diclofenac Sodium (Voltaren 1% Top) 2 gm EXT QID EFRAIN Stop: 08/19/19 12:59 Last Admin: 07/21/19 07:42 Dose: 2 gm Documented by: Glucagon (Glucagen) 1 mg SQ UD PRN; Protocol PRN Reason: Hypoglycemia Protocol Stop: 08/19/19 00:58 Glucose (Dex4 Glucose) 4 - 8 tabs PO UD PRN; Protocol PRN Reason: Hypoglycemia Protocol Stop: 08/19/19 00:58 Glucose (Glucose 40%) 15 - 30 gm PO UD PRN; Protocol PRN Reason: Hypoglycemia Protocol Stop: 08/19/19 00:58 Sodium Chloride (Nss 1000ml) 1,000 mls @ 125 mls/hr IV .Q8H EFRAIN Stop: 08/18/19 17:59 Last Admin: 07/21/19 11:46 Dose: 125 mls/hr Documented by: Famotidine 20 mg/ Syringe 5 mls @ 2.5 mls/min IV BID EFRAIN Stop: 08/19/19 08:59 Last Admin: 07/21/19 08:26 Dose: 2.5 mls/min Documented by: Acetaminophen (Ofirmev) 1,000 mg in 100 mls @ 400 mls/hr IV Q8H PRN PRN Reason: Pain Stop: 07/23/19 08:48 Insulin Aspart (Novolog Flexpen) 0 units SC ACHS EFRAIN Stop: 08/19/19 07:29 Last Admin: 07/21/19 11:46 Dose: Not Given Documented by: Lisinopril (Zestril) 40 mg PO QAM EFRAIN Stop: 08/19/19 08:59 Last Admin: 07/21/19 07:41 Dose: 40 mg Documented by: Miscellaneous (Carbohydrates For Hypoglycemia) 15 - 30 gm PO UD PRN PRN Reason: Hypoglycemia Protocol Stop: 08/19/19 00:58 Resident Activity Tracking Resident Involvement: Resident Care Provided Care Provided: Adult [facility] Medicine (1) GI bleed GI bleed type/associated pathology: melena Qualified Code(s): K92.1 - Melena
[2019-07-21] MEDS ORDERED: LORazepam 0.5 MG/1 ML VIAL IV STA (12:24)
[2019-07-21] MEDS ORDERED: PROPOFOL IV EMULSION 10 MG/ML 20 ML VIAL IV ONE (13:40)
[2019-07-21] MEDS ORDERED: LIDOCAINE HCL 2% 2 ML VIAL/AMP(20MG/ML) INFIL ONE ×2 (13:40)
--- NOTE | 2019-07-21 13:49 | History & Physical Report ---
Date of Service July 21, 2019 History of Present Illness Chief Complaint: Melena , anemia Primary Care Provider: KIRSTEN Ramirez For EGD Allergies Allergy/AdvReac Type Severity Reaction Status Date / Time amoxicillin Allergy Intermediate NOT SURE Verified 12/13/18 21:16 clavulanic acid Allergy Intermediate NOT SURE Verified 12/13/18 21:16 Iodinated Contrast Media Allergy Intermediate Shortness Verified 12/13/18 21:16 of Breath CHEST PAIN TIGHTNESS IN CHEST rosiglitazone Allergy Intermediate CHEST PAIN Verified 12/13/18 21:16 Corticosteroids Allergy Unknown "STEROIDS": Verified 12/13/18 21:16 (Glucocorticoids) "SHORTNESS OF BREATH" tetracycline Allergy Unknown Unknown rxn Verified 12/13/18 21:16 atorvastatin [From Lipitor] Allergy Verified 05/03/19 10:38 iodine Allergy Verified 05/03/19 10:38 pregabalin AdvReac Severe severe Unverified 12/13/18 21:16 swelling hands/feet hydrocodone AdvReac Intermediate hear races Verified 12/13/18 21:16 ibuprofen AdvReac Intermediate KNOCKS Verified 12/13/18 21:16 EQUILIBRIUM OFF levofloxacin AdvReac Intermediate Dizziness Verified 12/13/18 21:16 metformin AdvReac Intermediate SEVERE Verified 12/13/18 21:16 DIARRHEA omeprazole AdvReac Intermediate SHAKES/TACH Verified 12/13/18 21:16 YCARDIA pantoprazole AdvReac Intermediate SHAKES/TACH Verified 12/13/18 21:16 YCARDIA prednisone AdvReac Intermediate Palpitations Verified 12/13/18 21:16 AND "WENT TO UNIT" (CARDIAC CARE UNIT) codeine AdvReac Mild EQUILIBRIUM Verified 12/13/18 21:16 OFF Penicillins AdvReac Mild Augmentin: Verified 12/13/18 21:16 GI UPSET theophylline AdvReac Mild INCREASED Verified 12/13/18 21:16 HR esomeprazole AdvReac Unknown SHAKES/TACH Verified 12/13/18 21:16 YCARDIA Sulfa (Sulfonamide AdvReac Unknown COULD NOT Verified 12/13/18 21:16 Antibiotics) WALK AND TREMBLED Home Medications Home Medications Medication Instructions Recorded Confirmed Type albuterol sulfate 2 puff INHALATION QID PRN 11/09/17 07/19/19 History alprazolam [Xanax] 0.25 - 0.5 mg PO TID PRN 11/09/17 07/19/19 History atenolol 25 mg PO HS 11/09/17 07/19/19 History fluticasone propionate [Flonase 2 spray INTRANASAL HS PRN 11/09/17 07/19/19 History Allergy Relief] cranberry 0 mg PO QAM 09/13/18 07/19/19 History L.acidoph-B.lactis-B.longum 1 cap PO QAM 07/19/19 07/19/19 History [Florajen3] acetaminophen [Tylenol] 325 mg PO QID PRN 07/19/19 07/19/19 History aspirin 325 mg PO DAILY PRN 07/19/19 07/19/19 History glipizide 10 mg PO BID 07/19/19 07/19/19 History [id number]-pd-[id number]-[id number]-[id number]-ast 1 cap PO QAM 07/19/19 07/19/19 History [krill oil] lisinopril 40 mg PO QAM 07/19/19 07/19/19 History Past Med/Surg History Medical History Acid reflux (Acute) Diabetes Hiatal hernia (Chronic 06/17/12) Hyperglycemia (Resolved) Hyperglycemia (Acute) Lung nodule (Acute) Surgical History H/O section H/O hand surgery History of cholecystectomy History of hip replacement Hx of cataract surgery S/P tonsillectomy Family History Sister Renal cell carcinoma Father No problems noted. Mother Colorectal cancer Other Coronary heart disease Myocardial infarction Denies family history of Ovarian cancer Breast cancer Social History Preferred Language: Sami Communication Ability: Effective Visual Impairment: No Limitations 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: Normal Chain Tender Required: No Beliefs That Will Affect Care: None Current Living Situation: Alone Current Living Situation Comment: lives alone in house with many steps Feels Safe at Home: Yes Safety Concerns: Feels Safe At This Time Smoking Status: Never smoker Hx Alcohol Use: No Hx Substance Use: No Physical Exam Constitutional: + obese Respiratory: normal respiratory effort Cardiovascular: Rate/Rhythm: regular rate and regular rhythm Gastrointestinal (Abdomen): Percussion/Palpation: abdomen soft Psychiatric: Affect: + anxious affect Results & Data Vital Signs (Past 12 Hours) Vital Signs Temp Pulse Pulse Resp BP BP Pulse Ox 07/21/19 13:31 36.5 C 95 H 18 181/96 H 99 07/21/19 08:00 36.5 C 55 L 18 148/78 H 98 07/21/19 03:57 36.7 C 82 16 148/73 H 96 Code Status & VTE Plan VTE Prophylaxis Plan VTE Prophylaxis will be ordered: Yes
[2019-07-21] MEDS ORDERED: SODIUM CHLORIDE 0.9% 1000ML 1,000 ML IV SCH (14:00)
--- NOTE | 2019-07-21 14:11 | GI REPORT ---
Patient Name: Ana Quesada Procedure Date: 07/21/2019 1:52 PM Date of : 1940 Admit Type: Inpatient Age: 79 Gender: Female Attending MD: Chalino Graham MD Procedure: Upper GI endoscopy Providers: Chalino Graham MD Referring MD: Lupis Thomas Indications: Acute post hemorrhagic anemia, Melena Medicines: Propofol total dose 120 mg IV, Lidocaine 80 mg IV Complications: No immediate complications. Estimated Blood Loss: Estimated blood loss: none. Procedure: Pre-Anesthesia Assessment: - Prior to the procedure, a History and Physical was performed, and patient medications, allergies and sensitivities were reviewed. The patient's tolerance of previous anesthesia was reviewed. - The risks and benefits of the procedure and the sedation options and risks were discussed with the patient. All questions were answered and informed consent was obtained. After obtaining informed consent, the endoscope was passed under direct vision. Throughout the procedure, the patient's blood pressure, pulse, and oxygen saturations were monitored continuously. The Endoscope was introduced through the mouth, and advanced to the second part of duodenum. The scope was introduced through the mouth, and advanced to the. The upper GI endoscopy was accomplished without difficulty. The patient tolerated the procedure well. Findings: The Z-line was regular and was found 35 cm from the incisors. The examined esophagus was normal. One non-bleeding cratered gastric ulcer with no stigmata of bleeding was found in the gastric antrum and on the lesser curvature of the gastric antrum. The lesion was 10 mm in largest dimension. Localized moderate mucosal variance characterized by granularity and punctated white spots was found in the prepyloric region of the stomach. The examined duodenum was normal. Impression: - Z-line regular, 35 cm from the incisors. - Normal esophagus. - Non-bleeding gastric ulcer with no stigmata of bleeding. - Gastric mucosal variant. - Normal examined duodenum. - No specimens collected. Recommendation: - [facility] patient to [facility]. - Perform an H. pylori stool antigen (HpSA) test today. Chalino Graham M.D. Chalino Graham MD 07/21/2019 2:11:06 PM This report has been signed electronically. Note Initiated On: 07/21/2019 1:52 PM Number of Addenda: 0 I attest to the content of the Intraoperative Record and orders documented therein, exceptions below {[id number]}
--- NOTE | 2019-07-21 14:32 | Anesthesiology Progress Note ---
Date of Service July 21, 2019 Anesthesia Post Procedure Vital Signs Vital Signs: Temp Pulse Pulse Pulse Resp BP BP 07/21/19 14:23 82 18 165/78 H 07/21/19 14:09 36.5 C 105 H 18 151/67 H 07/21/19 13:31 36.5 C 95 H 18 181/96 H 07/21/19 08:00 36.5 C 55 L 18 148/78 H 07/21/19 03:57 36.7 C 82 16 148/73 H 07/21/19 01:15 54 L 07/20/19 23:31 36.9 C 66 18 130/65 07/20/19 19:11 36.6 C 55 L 20 127/74 07/20/19 16:39 76 07/20/19 16:02 36.6 C 62 16 122/73 Pulse Ox 07/21/19 14:23 98 07/21/19 14:09 97 07/21/19 13:31 99 07/21/19 08:00 98 07/21/19 03:57 96 07/21/19 01:15 07/20/19 23:31 96 07/20/19 19:11 98 07/20/19 16:39 07/20/19 16:02 98 Pain Intensity Abdomen: Pain Intensity: 3 Transfer of Care Handoff Completed per policy Notes Mental Status: alert / awake / arousable and participated in evaluation Patient Amnestic to Procedure: Yes Nausea / Vomiting: adequately controlled Pain: adequately controlled Airway Patency, RR, SpO2: stable & adequate BP & HR: stable & adequate Hydration State: stable & adequate Anesthetic Complications: no major complications apparent and Pt Satisfied with anesthetic care
--- NOTE | 2019-07-21 14:47 | Progress Notes ---
DATE: 07/21/2019 The patient underwent an EGD today to evaluate her melena and anemia. Prior to the procedure, the patient became a little bit agitated concerning the of her 2 months ago and had to be settled down, but she was able to tolerate the procedure well. Exam showed a clean-based 10 mm ulcer on the lesser curvature of the antrum with some mucosal changes in the prepyloric area that suggested intestinal metaplasia. There was no blood or bleeding anywhere during the procedure. Esophagus and duodenum were normal. IMPRESSION: The patient has gastric ulcer, which is most likely the source of her bleeding. Her aspirin has been stopped, and I would recommend discontinuing it indefinitely. She is intolerant to proton pump inhibitors, so I would continue the Pepcid twice a day. We will check a stool for Helicobacter pylori. We will advance her diet to a full liquid bland diet.
[2019-07-21] MEDS: ATENOLOL 25 MG TABLET PO SCH (20:03)
[2019-07-21] MEDS: ALPRAZolam 0.25 MG TABLET PO PRN (20:03)
[2019-07-22] MEDS: SODIUM CHLORIDE 0.9% 1000ML 1,000 ML IV SCH (03:58)
[2019-07-22 07:19] LABS: Basophils # (auto) 0.01 K/uL (0-0.2); Basophils % (auto) 0.1 %; Eosinophils # (auto) 0.06 K/uL (0-0.5); Eosinophils % (auto) 0.8 %; Hematocrit (blood only) 34.4 % (37-47); Hemoglobin 11.5 g/dL (12.0-16.0); Immature Granulocytes # (auto) 0.03 K/uL (0.00-0.02); Immature Granulocytes % (auto) 0.4 %; Lymphocytes # (auto) 0.95 K/uL (1.2-3.4); Lymphocytes % (auto) 12.2 %; Mean Corpuscular Hgb Conc 33.4 g/dL (32-36); Mean Corpuscular Volume 86.9 fL (80-100); Mean Platelet Volume 11.3 fL (7.4-10.4); Monocytes # (auto) 0.47 K/uL (0.11-0.59); Monocytes % (auto) 6.1 %; Neutrophils # (auto) 6.24 K/uL (1.4-6.5); Neutrophils % (auto) 80.4 %; Platelet Count 226 K/uL (130-400); RDW Coefficient of Variation 14.1 % (11.5-14.5); RDW Standard Deviation 44.7 fL (36.4-46.3); Red Blood Count 3.96 M/uL (4.2-5.4); White Blood Count 7.76 K/uL (4.8-10.8)
[2019-07-22] MEDS: DICLOFENAC SOD 1% GEL 100 GM TUBE EXT SCH (07:48)
[2019-07-22] MEDS: FAMOTIDINE 20 MG in SYRINGE 3 ML IV SCH (07:48)
[2019-07-22] MEDS: lisinopriL 40 MG TAB PO SCH (07:48)
[2019-07-22 07:54] LABS: Calcium 8.9 mg/dl (8.5-10.1); Creatinine Clr Calc Pharmacy 59.3 ml/min; Est GFR (African American) 94.6; Est GFR (Non-African American) 81.6; Potassium 3.6 mmol/L (3.5-5.1)
[2019-07-22] MEDS: ALPRAZolam 0.25 MG TABLET PO PRN (08:29)
[2019-07-22] MEDS: INSULIN ASPART 100 UNITS/ML 3 ML PEN SC SCH (08:30)
--- NOTE | 2019-07-22 09:37 | Discharge Summary ---
Date of Service July 22, 2019 Admission HPI Per Admitting Provider She reports that she has had intermittent coffee ground bowel movements for at least 2 to 3 weeks, and yesterday with breakfast had a large loose black bowel movement. She has not had any pain with her bowel movement. She had breakfast, and then had an additional liquid black bowel movement. She denies nausea, vomiting. She endorses mild right lower quadrant abdominal pain for at least a couple of days. She endorses a history of GERD, does not think she has had any ulcers. She is not allowed to take NSAIDs, but is not sure why was told many years ago to not take them. She takes a full dose aspirin. She denies chest pain, chest pressure, shortness of breath, lightheadedness, dizziness, syncope, presyncope. She endorses recent stress as her passed 2 months ago. No appetite change. No weight change. She reports that she is allergic to Prilosec, Protonix, and Nexium which all caused her heart to race and for her to feel extremely shaky and nearly passed out. Other medication allergies revi ewed. Principal Diagnosis ulcer Discharge Exam Constitutional WD/WN, vitals as above Eyes PERRL, conjunctivae normal, anicteric sclerae Respiratory normal respiratory effort; no respiratory distress and no labored breathing Cardiovascular RRR, no murmur, no edema Gastrointestinal (Abdomen) normal bowel sounds, soft, nontender, no hepatosplenomegaly Skin no rashes, warm and dry Psychiatric Orientation: alert Affect: + anxious affect Discharge Data Allergies Allergy/AdvReac Type Severity Reaction Status Date / Time amoxicillin Allergy Intermediate NOT SURE Verified 12/13/18 21:16 clavulanic acid Allergy Intermediate NOT SURE Verified 12/13/18 21:16 Iodinated Contrast Media Allergy Intermediate Shortness Verified 12/13/18 21:16 of Breath CHEST PAIN TIGHTNESS IN CHEST rosiglitazone Allergy Intermediate CHEST PAIN Verified 12/13/18 21:16 Corticosteroids Allergy Unknown "STEROIDS": Verified 12/13/18 21:16 (Glucocorticoids) "SHORTNESS OF BREATH" tetracycline Allergy Unknown Unknown rxn Verified 12/13/18 21:16 atorvastatin [From Lipitor] Allergy Verified 05/03/19 10:38 iodine Allergy Verified 05/03/19 10:38 pregabalin AdvReac Severe severe Unverified 12/13/18 21:16 swelling hands/feet hydrocodone AdvReac Intermediate hear races Verified 12/13/18 21:16 ibuprofen AdvReac Intermediate KNOCKS Verified 12/13/18 21:16 EQUILIBRIUM OFF levofloxacin AdvReac Intermediate Dizziness Verified 12/13/18 21:16 metformin AdvReac Intermediate SEVERE Verified 12/13/18 21:16 DIARRHEA omeprazole AdvReac Intermediate SHAKES/TACH Verified 12/13/18 21:16 YCARDIA pantoprazole AdvReac Intermediate SHAKES/TACH Verified 12/13/18 21:16 YCARDIA prednisone AdvReac Intermediate Palpitations Verified 12/13/18 21:16 AND "WENT TO UNIT" (CARDIAC CARE UNIT) codeine AdvReac Mild EQUILIBRIUM Verified 12/13/18 21:16 OFF Penicillins AdvReac Mild Augmentin: Verified 12/13/18 21:16 GI UPSET theophylline AdvReac Mild INCREASED Verified 12/13/18 21:16 HR esomeprazole AdvReac Unknown SHAKES/TACH Verified 12/13/18 21:16 YCARDIA Sulfa (Sulfonamide AdvReac Unknown COULD NOT Verified 12/13/18 21:16 Antibiotics) WALK AND TREMBLED Consultations 07/19/19 22:44 ED Decision to Admit Stat 07/20/19 00:59 Consult Gastroenterology Routine 07/20/19 02:28 Consult Case Management - Discharge Planning Routine Procedures Performed Operation Date: 07/21/19 16:00 Actual Procedures p Esophagogastroduodenoscopy - Chalino Graham Ordered Studies 07/19/19 18:28 CT abd pelvis wo con Stat Hospital Course (1) GI bleed: Ana is a 79-year-old female with a past medical history of asthma, GI bleed, and type 2 diabetes mellitus who presents with melena. The following is the medical management during stay here: Melena/Acute blood loss Anemia Hemodynamically stable on d/c Hemoccult positive on admission CT abdomen shows no free air, no diverticulitis, no appendicitis -07/20 EGD: gastric ulcer, which is most likely the source of bleeding -Patient reports repeat allergies and inability to tolerate PPIs including Protonix, omeprazole, and Nexium. We continued Famotidine 20mg IV BID while inpt. Will cont Pepcid BID on d/c Discontinue aspirin indefinitely -Will need to check a stool for Helicobacter pylori as outpt -Pt tolerated a full liquid bland diet before d/c, can advance as tolerated Acute Delirium/Agitation -mild. sec to hospitalization. has h/o of it. -resolved on discharge. Type 2 diabetes mellitus Held home meds. resumed on discharge Anxiety/?Depression Continue home Xanax 25 mg p.o. 3 times daily -Pt was very teary this admission 2/2 recent of . Very likely will need to start antidepressant as an outpt Hypertension Continue losartan 40 mg p.o. every morning Continue atenolol 25 mg p.o. at bedtime Discontinue aspirin daily. Of note patient was on full dose aspirin. DVT prophylaxis was contraindicated in the setting of bleed. Pt with no other acute concerns or compaints on d/c. Pt was offered home health services and pt stated she has someone from [facility] who sees her at home. Total Time Total Time Spent Total Time Spent (In Minutes): 30 Discharge Plan Discharge Items Patient Disposition: Home - Self-Care Reason For Visit: GIB Discharge Diagnosis: gastric ulcer Activity: Per Instructions section Non-emergency contact: Primary Care Provider Call non-emergency contact if: you have any medication questions and your symptoms worsen Follow-up/Referrals: Hyun Morales CRNP [Primary Care Provider] - (Please check with your primary care doctor to see if you need to make a follow up appointment.) Diet: Carb Consistent or DM2 Addtl Attending Provider Instructions: You were admitted with concerns of bloody stools. We performed a scope (EGD) and found an ulcer in your stomach, which likely explains the bloody stools. Please follow the below instructions on discharge: -You will continue Pepcid twice a day -You will no longer be taking your Aspirin. Please stop this medication as it likely contributed to your ulcer production -Dr. Graham will repeat the EGD in 6 weeks time. His office will reach out to you with details -Please follow up with your PCP within one week of discharge for normal hospital follow up Pending Studies at Discharge: No Stand-Alone Forms: My [facility] [employer], Smoking Cessation Medications and DC Order Prescriptions: Continued atenolol 25 mg Tablet 25 mg PO HS RF: 0 alprazolam [Xanax] 0.5 mg tablet 0.25 - 0.5 mg PO TID PRN (Reason: Anxiety) RF: 0 albuterol sulfate 90 mcg/actuation Hfa Aerosol Inhaler 2 puff INHALATION QID PRN (Reason: Wheezing) RF: 0 fluticasone propionate [Flonase Allergy Relief] 50 mcg/actuation spray,suspension 2 spray Intranasal HS PRN (Reason: Allergy Symptoms) RF: 0 cranberry 500 mg Capsule 0 mg PO QAM RF: 0 acetaminophen [Tylenol] 325 mg Tablet 325 mg PO QID PRN (Reason: Fever Or Pain) RF: 0 glipizide 10 mg tablet extended release 24hr 10 mg PO BID RF: 0 lisinopril 40 mg tablet 40 mg PO QAM RF: 0 Florajen3 460 mg (7.5-6- 1.5 bill. cell) Capsule 1 cap PO QAM RF: 0 [id number] [krill oil] [id number],778-096-08-80 mg Capsule 1 cap PO QAM RF: 0 Discontinued aspirin 325 mg Tablet 325 mg PO DAILY PRN (Reason: Pain) RF: 0 Discharge Orders: Discharge Order (Routine); Ordered 07/22/19 Ordered By: Elkin Oconnor Admission Data Admit Date/Time: 07/19/19 23:48 Attending Provider: Lupis Thomas Admit Provider: Destin Hernandez Primary Care Provider: Hyun Morales Other Providers: Andrae Doe ; Chalino Graham ; Tobias Moffett Other Interventions: Discharge Summary Assessment (RN) Last Done: 07/22/19 10:40 DC Date/Time DO NOT enter until pt leaves facility: 07/22/19 11:30 Supervising Physician Co-Signing Physician Notes Resident Physician Supervision Note: I independently interviewed and examined the patient and verified the chung history and physical, reviewed labs and image studies, discussed the case with the resident Dr. Oconnor and agree with the findings and care plan. Resident Activity Tracking Resident Involvement: Resident Care Provided Care Provided: Adult Hospital Medicine
== END 2019-07-22 11:30 | disposition home or self-care (01) ==
LOC: ED 17:05 → 2N 17:05 → SUATTDRO 23:48 → 2N 07-20 00:07

== ENCOUNTER 2019-12-20 08:42 | Inpatient (IN) ==
--- NOTE | 2019-12-20 08:52 | Emergency Department Note ---
Impression & Plan Acute hyponatremia, Weakness, Dizziness ED Provider Note NAME: MAJOR ROSADO AGE: 79 SEX: F : 1940 ARRIVES VIA: Ambulance INFORMANT: Patient, ED PROVIDER(S): Lobo Wolfe MD Chief Complaint: Dizziness, weakness HPI: Patient does present with concerns for some dizziness. The patient states that this morning it seemed to be the worst of it as the patient had been trying to ambulate with 2 separate canes. Patient has been having the symptoms for several days. The patient states that she does feel lightheaded but occasionally was feeling a spins. Patient states that she had a recent negative MRI back in July or August. The patient does have mild frontal headache with that is nonradiating. Patient denies any recent falls or trauma. The patient currently does not take any blood thinning medication. Prior to arrival the patient did have a BSG in the 200s per EMS. The patient has been taking Metamucil and has noticed some looser stools. Patient denies any focal weakness. The patient does have limited range of motion of the right lower extremity secondary to prior hip injury. The patient states that she has poor appetite but is been trying to drink enough fluids. Patient states that this is been a change since May when her who suffered from cancer . Patient does live on her own with her dog but her son lives locally does check in on her each day. ROS: See HPI for pertinent positives and negatives. A total of 10 systems were reviewed and otherwise negative. Past medical history: See below Surgical history: See below Social history: See below Physical Exam: GENERAL: Wearing glasses and a mask. NAD, non-toxic. EYE EXAM: Normal conjunctiva. PERRL, no anisocoria and EOM's grossly intact w/o pain. No nystagmus noted. NECK: Supple, no nuchal rigidity, no adenopathy, non-tender. No signs of meningismus. LUNGS: Clear to auscultation. Normal chest wall mechanics. HEART: NSR, no MRG. ABDOMEN: Abdomen soft, lower abdominal discomfort without peritonitis, normo- active bowel sounds, no masses, no rebound or guarding. BACK: No CVA TTP. SKIN: No rashes and no bruising. UPPER EXTREMITIES: Upper extremities are grossly normal. LOWER EXTREMITIES: Grossly normal, no edema. Negative Homans' sign bilaterally. Limited flexion of the right hip secondary to prior injury. NEURO EXAM: A&O x3, cranial nerves II-XII grossly intact, normal speech, moves all 4 extremities on command. Good ikyldp-an-[id number], no sensory deficit. Differential diagnoses: Infection, dehydration, metabolic abnormality, hypo/hyperglycemia, electrolyte disturbance, anemia, hypoxia, cardiac sources, intracerebral event, toxicologic, neurologic, as well as other pathologies. Course: Patient was seen and evaluated the bedside. Full history physical exam was performed. EKG: Indication: Dizziness Possible junctional rhythm versus sinus as there is significant motion artifact. Reticular rate of 63 with a normal QRS and QT, left axis deviation, T wave inversion in lead III not in contiguous leads, no ST changes. No significant change from comparison EKG November 03, 2019. Patient likely sinus given previous EKG November 03, 2019 exhibits essentially the same morphology. Imaging Studies: Radiology results as stated below per my review in the radiologist's interp retation: CT SCAN OF THE ABDOMEN AND PELVIS WITHOUT IV CONTRAST CLINICAL HISTORY: Lower abdominal pain. COMPARISON STUDY: Abdominal CT dated 11/03/2019. TECHNIQUE: CT scan of the abdomen and pelvis is performed from the lung bases to the proximal femora. Images are reviewed in the axial, sagittal, and coronal planes. IV contrast was not administered for this examination due to a reported history of contrast allergy. Note that the examination is suboptimal without oral and IV contrast. There is also streak artifact from the arms which could not be elevated above the abdomen. A dose lowering technique was utilized adhering to the principles of ALARA. CT DOSE: 1614.94 mGy.cm FINDINGS: Lung bases: The heart is normal in size and without pericardial effusion. There are scattered coronary artery calcifications. A small hiatal hernia is noted. The lung bases are clear. Liver: The unenhanced liver is normal in size, contour, and attenuation. There is no intrahepatic biliary ductal dilatation. Pneumobilia is similar to previous and suggests previous sphincterotomy. Gallbladder: Unremarkable. Spleen: Normal in size and attenuation. Pancreas: The unenhanced pancreas is moderately atrophic and grossly unremarkable. Adrenal glands: Unremarkable. Kidneys: The unenhanced kidneys demonstrate cortical atrophy and are without hydronephrosis. There are no renal calculi identified. There is no evidence of contour deforming renal mass lesion. Abdominal vasculature: The abdominal aorta is normal in course and caliber. Bowel: There is moderate colonic diverticulosis without CT evidence of acute diverticulitis. No bowel obstruction is seen. There are also numerous diverticula of small bowel. The appendix is well-visualized and normal. A small bowel lipoma is seen in the right lower quadrant on image #306. Peritoneum: There is no intraperitoneal free air or abdominal ascites. There is evidence of previous ventral hernia repair. Lymphadenopathy: None. Pelvic viscera: Evaluation of the pelvis is degraded by streak artifact from a right hip arthroplasty. The bladder is distended but otherwise normal in appearance. The uterus and adnexa are normal as visualized. Skeletal structures: The skeletal structures are osteopenic. Kmrc-xo-gevgboti lumbosacral spondylosis is observed. No lytic or blastic lesions are seen. A right hip arthroplasty is in place. Advanced arthritic change is noted in the left hip. There are healed left pubic ring fractures. IMPRESSION: 1. There are no acute infectious or inflammatory findings in the abdomen or pelvis. 2. There is moderate colonic diverticulosis as well as diverticulosis of the small bowel without CT evidence of acute diverticulitis. 3. Additional findings as above. ACT 112: Negative or not required by law. Electronically signed by: Weston Gallego M.D. 12/20/2019 10:28 AM Dictated: 12/20/19 1017 Transcribed: 12/20/19 1017 SINGLE VIEW CHEST CLINICAL HISTORY: Generalized weakness. FINDINGS: An AP, portable, upright chest radiograph is compared to study dated 11/03/2019. Correlation is made with chest CT dated 12/27/2014. The heart is top normal for projection. There is atherosclerotic calcification of the thoracic aorta. The pulmonary vasculature is noncongested. Chronic interstitial thickening is similar to previous. Mild atelectasis is seen at the lung bases. The lungs and pleural spaces are otherwise clear. No pneumothorax is seen. The skeletal structures are osteopenic. The bony thorax is grossly intact. IMPRESSION: No active disease in the chest. ACT 112: Negative or not required by law. Electronically signed by: Weston Gallego M.D. 12/20/2019 9:18 AM Dictated: 12/20/1917 Transcribed: 12/20/19916 CT SCAN OF THE BRAIN WITHOUT IV CONTRAST CLINICAL HISTORY: Headache and dizziness. COMPARISON STUDY: CT of the brain dated 12/13/2018. TECHNIQUE: Unenhanced axial CT scan of the brain is performed from the vertex to the skull base. A dose lowering technique was utilized adhering to the principles of ALARA. FINDINGS: Brain parenchyma: There are age-related involutional changes noting mild subcortical and periventricular microangiopathic change. There is no hemorrhage, mass effect, or evidence of acute territorial ischemia by CT criteria. Hanna- white matter differentiation is preserved. No extra-axial fluid collection is seen. Ventricles, sulci, cisterns: Prominent secondary to involutional change. Intracranial vasculature: There is atherosclerotic calcification of the cavernous carotid and vertebral arteries. Calvarium: Unremarkable. Sinuses and mastoids: The visualized paranasal sinuses are clear. The mastoid air cells are well pneumatized. Orbits: The bony orbits are grossly intact. There are bilateral ocular lens implants. IMPRESSION: There is no hemorrhage, mass effect, or evidence of acute territorial ischemia by CT criteria. ACT 112: Negative or not required by law. Electronically signed by: Weston Gallego M.D. 12/20/2019 10:09 AM Dictated: 12/20/19 1007 Transcribed: 12/20/19 1007 Cardiac monitoring: An order was placed for continuous cardiac monitoring. The monitor shows a rate of 63 with sinus rhythm. MDM: Patient does present with concern for generalized weakness, diarrheal symptoms abdominal pain as well as some dizziness. Blood work is obtained along with a CT of the head and CT abdomen pelvis, EKG troponin. The patient was given a small net of IV fluids in addition to Tylenol. Patient has a normal white count H&H platelet count. The patient does have some hyponatremia which is somewhat worse from prior. The patient was able to ambulate initially without any issues. Urine and serum osmole's along with urine electrolytes were obtained. Patient does have low osmolality. The patient likely has poor initial hydration and may have some primary polydipsia in the sense that the patient is only drinking free water. Patient was given a Powerade. Patient headache had resolved. The patient was made ambulatory again and the patient was unable to do so without significant help. Given this coupled with her hyponatremia and her persistent dizziness I did speak with the on-call hospitalist and the patient was admitted to the medicine service under Dr. Salma MD. Past Med/Surg History Medical History (Updated 12/20/19 @ 13:31 by Lobo Wolfe MD) Acid reflux Diabetes Hiatal hernia (06/17/12) Hyperglycemia Hyperglycemia Lung nodule Surgical History H/O section H/O hand surgery History of cholecystectomy History of hip replacement Hx of cataract surgery S/P tonsillectomy Family History Sister Renal cell carcinoma Father No problems noted. Mother Colorectal cancer Other Coronary heart disease Myocardial infarction Denies family history of Ovarian cancer Breast cancer Social History Smoking Status: Never smoker Hx Alcohol Use: No Hx Substance Use: No Preferred Language: Indonesian Communication Ability: Effective Visual Impairment: No Limitations 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: Normal Comprehensive Advisor Required: No Beliefs That Will Affect Care: None Current Living Situation: Alone Current Living Situation Comment: lives alone in house with many steps Feels Safe at Home: Yes Assistive Devices: Glasses Allergies Allergies Allergy/AdvReac Type Severity Reaction Status Date / Time amoxicillin Allergy Intermediate NOT SURE Verified 12/20/19 09:14 clavulanic acid Allergy Intermediate NOT SURE Verified 12/20/19 09:14 Iodinated Contrast Media Allergy Intermediate Shortness Verified 12/20/19 09:14 of Breath CHEST PAIN TIGHTNESS IN CHEST rosiglitazone Allergy Intermediate CHEST PAIN Verified 12/20/19 09:14 Corticosteroids Allergy Unknown "STEROIDS": Verified 12/20/19 09:14 (Glucocorticoids) "SHORTNESS OF BREATH" tetracycline Allergy Unknown Unknown rxn Verified 12/20/19 09:14 atorvastatin [From Lipitor] Allergy Verified 12/20/19 09:14 iodine Allergy Verified 12/20/19 09:14 pregabalin AdvReac Severe severe Unverified 12/20/19 09:14 swelling hands/feet hydrocodone AdvReac Intermediate hear races Verified 12/20/19 09:14 ibuprofen AdvReac Intermediate KNOCKS Verified 12/20/19 09:14 EQUILIBRIUM OFF levofloxacin AdvReac Intermediate Dizziness Verified 12/20/19 09:14 metformin AdvReac Intermediate SEVERE Verified 12/20/19 09:14 DIARRHEA omeprazole AdvReac Intermediate SHAKES/TACH Verified 12/20/19 09:14 YCARDIA pantoprazole AdvReac Intermediate SHAKES/TACH Verified 12/20/19 09:14 YCARDIA prednisone AdvReac Intermediate Palpitations Verified 12/20/19 09:14 AND "WENT TO UNIT" (CARDIAC CARE UNIT) codeine AdvReac Mild EQUILIBRIUM Verified 12/20/19 09:14 OFF Penicillins AdvReac Mild Augmentin: Verified 12/20/19 09:14 GI UPSET theophylline AdvReac Mild INCREASED Verified 12/20/19 09:14 HR esomeprazole AdvReac Unknown SHAKES/TACH Verified 12/20/19 09:14 YCARDIA Sulfa (Sulfonamide AdvReac Unknown COULD NOT Verified 12/20/19 09:14 Antibiotics) WALK AND TREMBLED Home Meds Home Medications Medication Instructions Recorded Confirmed albuterol sulfate 2 puff INHALATION QID PRN 11/09/17 12/20/19 alprazolam [Xanax] 0.25 - 0.5 mg PO TID PRN 11/09/17 12/20/19 atenolol 25 mg PO HS 11/09/17 12/20/19 fluticasone propionate [Flonase 2 spray INTRANASAL HS PRN 11/09/17 12/20/19 Allergy Relief] cranberry 0 mg PO QAM 09/13/18 12/20/19 Florajen3 1 cap PO QAM 07/19/19 12/20/19 glipizide 10 mg PO BID 07/19/19 12/20/19 [id number]-[id number]-lrvxpps-ast 1 cap PO QAM 07/19/19 12/20/19 [krill oil] lisinopril 40 mg PO QAM 07/19/19 12/20/19 lansoprazole [Prevacid] 0 mg PO BID 11/03/19 12/20/19 simethicone 125 mg PO BID PRN 11/03/19 12/20/19 Previous Rx's Medication Instructions Recorded diclofenac sodium 1 % topical gel 2 g TOPICAL QID #100 g 12/10/19 Results & Data (ED) Vital Signs Vital Signs - 24 hr 12/20/19 08:50 12/20/19 08:58 12/20/19 09:01 Temperature 37.0 C Temperature Source Oral Pulse Rate 62 63 Pulse Rate [Right Finger] Pulse Rate from SpO2 Sensor 63 Respiratory Rate 17 20 Respiratory Depth Normal Blood Pressure 148/75 H 148/75 H Blood Pressure [Left Arm] Blood Pressure Mean 106 99 Blood Pressure Mean [Left Arm] Pulse Oximetry 99 100 Oxygen Delivery Method Room Air Room Air Sepsis Recent Fever Within 48 Hours No Sepsis New/Unexplained Change in Mental Status No Sepsis Action Taken by Nursing No Action Required 12/20/19 09:12 12/20/19 09:30 12/20/19 10:11 Temperature Temperature Source Pulse Rate 63 Pulse Rate [Right Finger] Pulse Rate from SpO2 Sensor 62 63 84 Respiratory Rate 22 17 Respiratory Depth Blood Pressure Blood Pressure [Left Arm] Blood Pressure Mean Blood Pressure Mean [Left Arm] Pulse Oximetry 99 97 98 Oxygen Delivery Method Sepsis Recent Fever Within 48 Hours Sepsis New/Unexplained Change in Mental Status Sepsis Action Taken by Nursing 12/20/19 10:13 12/20/19 10:30 12/20/19 10:31 Temperature Temperature Source Pulse Rate 63 72 74 Pulse Rate [Right Finger] Pulse Rate from SpO2 Sensor 63 72 71 Respiratory Rate 15 15 19 Respiratory Depth Blood Pressure 166/61 H 152/76 H Blood Pressure [Left Arm] Blood Pressure Mean 90 111 Blood Pressure Mean [Left Arm] Pulse Oximetry 100 99 98 Oxygen Delivery Method Sepsis Recent Fever Within 48 Hours Sepsis New/Unexplained Change in Mental Status Sepsis Action Taken by Nursing 12/20/19 11:00 12/20/19 11:30 12/20/19 12:30 Temperature Temperature Source Pulse Rate 66 Pulse Rate [Right Finger] 70 Pulse Rate from SpO2 Sensor Respiratory Rate 17 20 22 Respiratory Depth Blood Pressure 142/69 H 158/68 H Blood Pressure [Left Arm] 142/68 H Blood Pressure Mean 104 95 Blood Pressure Mean [Left Arm] 92 Pulse Oximetry 99 Oxygen Delivery Method Sepsis Recent Fever Within 48 Hours Sepsis New/Unexplained Change in Mental Status Sepsis Action Taken by Assisted Medications Current Medication List: was personally reviewed by me Laboratory Data Attestation: I reviewed the patient's lab results. Result diagrams: 12/20/19 09:40 12/20/19 09:40 Lab Results 12/20/19 12/20/19 12/20/19 Range/Units 09:40 09:40 09:40 WBC 8.58 (4.8-10.8) K/uL RBC 4.20 (4.2-5.4) M/uL Hgb 12.3 (12.0-16.0) g/dL Hct 35.3 L (37-47) % MCV 84.0 (80-100) fL MCH 29.3 (25-34) pg MCHC 34.8 (32-36) g/dL RDW Std Deviation 42.7 (36.4-46.3) fL RDW Coeff of Boris 13.9 (11.5-14.5) % Plt Count 210 (130-400) K/uL MPV 11.1 H (7.4-10.4) fL Immature Gran % (Auto) 0.2 % Neut % (Auto) 76.1 % Lymph % (Auto) 15.2 % Wythe % (Auto) 8.0 % Eos % (Auto) 0.3 % Baso % (Auto) 0.2 % Neut # (Auto) 6.52 H (1.4-6.5) K/uL Lymph # (Auto) 1.30 (1.2-3.4) K/uL Wythe # (Auto) 0.69 H (0.11-0.59) K/uL Eos # (Auto) 0.03 (0-0.5) K/uL Baso # (Auto) 0.02 (0-0.2) K/uL Immature Gran # (Auto) 0.02 (0.00-0.02) K/uL PT 10.9 (9.0-12.0) Seconds INR 1.0 (0.9-1.1) Sodium 128 L (136-145) mmol/L Potassium 4.2 (3.5-5.1) mmol/L Chloride 93 L (98-107) mmol/L Carbon Dioxide 25 (21-32) mmol/L Anion Gap 10.0 (3-11) BUN 19 H (7-18) mg/dl Creatinine 0.86 (0.6-1.2) mg/dl Est Cr Clr Drug Dosing Not Reportable Est GFR ( Amer) 75.0 Est GFR (Non-Af Amer) 64.7 BUN/Creatinine Ratio 22.3 H (10-20) Glucose 183 H (70-99) mg/dl Osmolality (280-300) mOsm/kg Calcium 8.6 (8.5-10.1) mg/dl Magnesium 1.6 L (1.8-2.4) mg/dl Total Bilirubin 0.9 (0.2-1) mg/dl AST 62 H (15-37) U/L ALT 57 (12-78) U/L Alkaline Phosphatase 65 (45-117) U/L Troponin I < 0.015 (0-0.045) ng/ml Total Protein 7.3 (6.4-8.2) gm/dl Albumin 3.6 (3.4-5.0) gm/dl Globulin 3.7 (2.5-4.0) gm/dl Albumin/Globulin Ratio 1.0 (0.9-2) TSH 0.769 (0.300-4.500) uIu/ml Specimen Hemolysis Urine Color Urine Appearance (Clear) Urine pH (4.5-7.5) Ur Specific Sutter (1.000-1.030) Urine Protein (Negative) Urine Glucose (UA) (Negative) Urine Ketones (Negative) Urine Blood (Negative) Urine Nitrite (Negative) Urine Bilirubin (Negative) Urine Urobilinogen (Negative) Ur Leukocyte Esterase (Negative) Urine Osmolality (500-800) mOsm/kg Urine Sodium mmol/L Urine Potassium mmol/L Urine Chloride mmol/L 12/20/19 12/20/19 12/20/19 Range/Units 10:10 10:10 10:10 WBC (4.8-10.8) K/uL RBC (4.2-5.4) M/uL Hgb (12.0-16.0) g/dL Hct (37-47) % MCV (80-100) fL MCH (25-34) pg MCHC (32-36) g/dL RDW Std Deviation (36.4-46.3) fL RDW Coeff of Boris (11.5-14.5) % Plt Count (130-400) K/uL MPV (7.4-10.4) fL Immature Gran % (Auto) % Neut % (Auto) % Lymph % (Auto) % Wythe % (Auto) % Eos % (Auto) % Baso % (Auto) % Neut # (Auto) (1.4-6.5) K/uL Lymph # (Auto) (1.2-3.4) K/uL Wythe # (Auto) (0.11-0.59) K/uL Eos # (Auto) (0-0.5) K/uL Baso # (Auto) (0-0.2) K/uL Immature Gran # (Auto) (0.00-0.02) K/uL PT (9.0-12.0) Seconds INR (0.9-1.1) Sodium (136-145) mmol/L Potassium (3.5-5.1) mmol/L Chloride (98-107) mmol/L Carbon Dioxide (21-32) mmol/L Anion Gap (3-11) BUN (7-18) mg/dl Creatinine (0.6-1.2) mg/dl Est Cr Clr Drug Dosing Est GFR ( Amer) Est GFR (Non-Af Amer) BUN/Creatinine Ratio (10-20) Glucose (70-99) mg/dl Osmolality (280-300) mOsm/kg Calcium (8.5-10.1) mg/dl Magnesium (1.8-2.4) mg/dl Total Bilirubin (0.2-1) mg/dl AST (15-37) U/L ALT (12-78) U/L Alkaline Phosphatase (45-117) U/L Troponin I (0-0.045) ng/ml Total Protein (6.4-8.2) gm/dl Albumin (3.4-5.0) gm/dl Globulin (2.5-4.0) gm/dl Albumin/Globulin Ratio (0.9-2) TSH (0.300-4.500) uIu/ml Specimen Hemolysis Urine Color Yellow Urine Appearance Clear (Clear) Urine pH 5.0 (4.5-7.5) Ur Specific Sutter 1.008 (1.000-1.030) Urine Protein Negative (Negative) Urine Glucose (UA) Negative (Negative) Urine Ketones Trace H (Negative) Urine Blood Negative (Negative) Urine Nitrite Negative (Negative) Urine Bilirubin Negative (Negative) Urine Urobilinogen Negative (Negative) Ur Leukocyte Esterase Negative (Negative) Urine Osmolality 190 L (500-800) mOsm/kg Urine Sodium 41 mmol/L Urine Potassium 9.9 mmol/L Urine Chloride 38 mmol/L 12/20/19 Range/Units 11:24 WBC (4.8-10.8) K/uL RBC (4.2-5.4) M/uL Hgb (12.0-16.0) g/dL Hct (37-47) % MCV (80-100) fL MCH (25-34) pg MCHC (32-36) g/dL RDW Std Deviation (36.4-46.3) fL RDW Coeff of Boris (11.5-14.5) % Plt Count (130-400) K/uL MPV (7.4-10.4) fL Immature Gran % (Auto) % Neut % (Auto) % Lymph % (Auto) % Wythe % (Auto) % Eos % (Auto) % Baso % (Auto) % Neut # (Auto) (1.4-6.5) K/uL Lymph # (Auto) (1.2-3.4) K/uL Wythe # (Auto) (0.11-0.59) K/uL Eos # (Auto) (0-0.5) K/uL Baso # (Auto) (0-0.2) K/uL Immature Gran # (Auto) (0.00-0.02) K/uL PT (9.0-12.0) Seconds INR (0.9-1.1) Sodium (136-145) mmol/L Potassium (3.5-5.1) mmol/L Chloride (98-107) mmol/L Carbon Dioxide (21-32) mmol/L Anion Gap (3-11) BUN (7-18) mg/dl Creatinine (0.6-1.2) mg/dl Est Cr Clr Drug Dosing Est GFR ( Amer) Est GFR (Non-Af Amer) BUN/Creatinine Ratio (10-20) Glucose (70-99) mg/dl Osmolality 272 L (280-300) mOsm/kg Calcium (8.5-10.1) mg/dl Magnesium (1.8-2.4) mg/dl Total Bilirubin (0.2-1) mg/dl AST (15-37) U/L ALT (12-78) U/L Alkaline Phosphatase (45-117) U/L Troponin I (0-0.045) ng/ml Total Protein (6.4-8.2) gm/dl Albumin (3.4-5.0) gm/dl Globulin (2.5-4.0) gm/dl Albumin/Globulin Ratio (0.9-2) TSH (0.300-4.500) uIu/ml Specimen Hemolysis Urine Color Urine Appearance (Clear) Urine pH (4.5-7.5) Ur Specific Sutter (1.000-1.030) Urine Protein (Negative) Urine Glucose (UA) (Negative) Urine Ketones (Negative) Urine Blood (Negative) Urine Nitrite (Negative) Urine Bilirubin (Negative) Urine Urobilinogen (Negative) Ur Leukocyte Esterase (Negative) Urine Osmolality (500-800) mOsm/kg Urine Sodium mmol/L Urine Potassium mmol/L Urine Chloride mmol/L Administered Medications Discontinued Medications Acetaminophen (Acetaminophen 325 Mg Tab) 650 mg PO NOW STA Stop: 12/20/19 09:01 Last Admin: 12/20/19 12:21 Dose: Not Given Documented by: [id number] Al Hydrox/Mg Hydrox/Simethicone (Gi Cocktail Ed Use) 1 dose PO ONE STA Stop: 12/20/19 12:14 Last Admin: 12/20/19 12:20 Dose: 1 dose Documented by: [id number] Al Hydrox/Mg Hydrox/Simethicone (Gi Cocktail Ed Use) 1 dose PO ONE ONE Stop: 12/20/19 12:20 Last Admin: 12/20/19 12:20 Dose: Not Given Documented by: [id number] Sodium Chloride (Nss) 500 mls @ 999 mls/hr IV .Q31M EFRAIN Stop: 12/20/19 09:30 Last Admin: 12/20/19 12:20 Dose: Not Given Documented by: [id number] Discharge Plan Visit Data Chief Complaint: Dizziness ED Provider: Lobo Wolfe Discharge Problem: Acute hyponatremia, Weakness, Dizziness Forms Stand Alone Forms: [facility] Prescriptions Prescriptions: No Action diclofenac sodium [Voltaren] 1 % gel 2 g topical QID Qty: 100 RF: 2 atenolol 25 mg Tablet 25 mg PO HS RF: 0 alprazolam [Xanax] 0.5 mg tablet 0.25 - 0.5 mg PO TID PRN (Reason: Anxiety) RF: 0 albuterol sulfate 90 mcg/actuation Hfa Aerosol Inhaler 2 puff INHALATION QID PRN (Reason: Wheezing) RF: 0 fluticasone propionate [Flonase Allergy Relief] 50 mcg/actuation spray,suspension 2 spray Intranasal HS PRN (Reason: Allergy Symptoms) RF: 0 cranberry 500 mg Capsule 0 mg PO QAM RF: 0 glipizide 10 mg tablet extended release 24hr 10 mg PO BID RF: 0 lisinopril 40 mg tablet 40 mg PO QAM RF: 0 Florajen3 460 mg (7.5-6- 1.5 bill. cell) Capsule 1 cap PO QAM RF: 0 [id number]-rdo-exildmo-ast [krill oil] 1,[id number] mg Capsule 1 cap PO QAM RF: 0 simethicone 125 mg Capsule 125 mg PO BID PRN (Reason: Acid Reflux) RF: 0 lansoprazole [Prevacid] 15 mg Capsule,Delayed Release(Dr/Ec) 0 mg PO BID RF: 0
[2019-12-20] MEDS ORDERED: ACETAMINOPHEN 325 MG TAB PO STA (09:00)
[2019-12-20] MEDS ORDERED: SODIUM CHLORIDE 0.9% 500 ML IV SCH (09:00)
--- NOTE | 2019-12-20 09:19 | XRay Report ---
SINGLE VIEW CHEST CLINICAL HISTORY: Generalized weakness. FINDINGS: An AP, portable, upright chest radiograph is compared to study dated 11/03/2019. Correlation is made with chest CT dated 12/27/2014. The heart is top normal for projection. There is atherosclero tic calcification of the thoracic aorta. The pulmonary vasculature is noncongested. Chronic interstit ial thickening is similar to previous. Mild atelectasis is seen at the lung bases. The lungs and pleu ral spaces are otherwise clear. No pneumothorax is seen. The skeletal structures are osteopenic. The bony thorax is grossly intact. IMPRESSION: No active disease in the chest. ACT 112: Negative or not required by law. Electronically signed by: Weston Gallego M.D. 12/20/2019 9:18 AM
--- NOTE | 2019-12-20 09:46 | Electrocardiogram Report ---
Test Reason : Blood Pressure : / mmHG Vent. Rate : 063 BPM Atrial Rate : 066 BPM P-R Int : 000 ms QRS Dur : 086 ms QT Int : 388 ms P-R-T Axes : 000 -29 002 degrees QTc Int : 397 ms Poor data quality, interpretation may be adversely affected Sinus rhythm Minimal voltage criteria for LVH, may be normal variant Abnormal ECG When compared with ECG of 03-NOV-2019 08:33, No significant change Confirmed by Artem Powers ([id number]) on 12/20/2019 9:46:27 AM Referred By: REFERRED SELF Confirmed By:Artem Powers
[2019-12-20 09:59] LABS: Basophils # (auto) 0.02 K/uL (0-0.2); Basophils % (auto) 0.2 %; Eosinophils # (auto) 0.03 K/uL (0-0.5); Eosinophils % (auto) 0.3 %; Hematocrit (blood only) 35.3 % (37-47); Hemoglobin 12.3 g/dL (12.0-16.0); Immature Granulocytes # (auto) 0.02 K/uL (0.00-0.02); Immature Granulocytes % (auto) 0.2 %; Lymphocytes % (auto) 15.2 %; Mean Corpuscular Hemoglobin 29.3 pg (25-34); Mean Corpuscular Hgb Conc 34.8 g/dL (32-36); Mean Platelet Volume 11.1 fL (7.4-10.4); Monocytes # (auto) 0.69 K/uL (0.11-0.59); Neutrophils # (auto) 6.52 K/uL (1.4-6.5); Neutrophils % (auto) 76.1 %; Platelet Count 210 K/uL (130-400); RDW Coefficient of Variation 13.9 % (11.5-14.5); RDW Standard Deviation 42.7 fL (36.4-46.3); White Blood Count 8.58 K/uL (4.8-10.8)
[2019-12-20 10:08] LABS: Prothrombin Time 10.9 Seconds (9.0-12.0)
--- NOTE | 2019-12-20 10:11 | CT Scan Report ---
CT SCAN OF THE BRAIN WITHOUT IV CONTRAST CLINICAL HISTORY: Headache and dizziness. COMPARISON STUDY: CT of the brain dated 12/13/2018. TECHNIQUE: Unenhanced axial CT scan of the brain is performed from the vertex to the skull base. A do se lowering technique was utilized adhering to the principles of ALARA. FINDINGS: Brain parenchyma: There are age-related involutional changes noting mild subcortical and periventric ular microangiopathic change. There is no hemorrhage, mass effect, or evidence of acute territorial i schemia by CT criteria. Hanna-white matter differentiation is preserved. No extra-axial fluid collecti on is seen. Ventricles, sulci, cisterns: Prominent secondary to involutional change. Intracranial vasculature: There is atherosclerotic calcification of the cavernous carotid and vertebr al arteries. Calvarium: Unremarkable. Sinuses and mastoids: The visualized paranasal sinuses are clear. The mastoid air cells are well pneu matized. Orbits: The bony orbits are grossly intact. There are bilateral ocular lens implants. IMPRESSION: There is no hemorrhage, mass effect, or evidence of acute territorial ischemia by CT louis bejarano. ACT 112: Negative or not required by law. Electronically signed by: Weston Gallego M.D. 12/20/2019 10:09 AM
[2019-12-20 10:24] LABS: Appearance Urine Clear (Clear); Bilirubin Urine Negative (Negative); Blood Urine Negative (Negative); Color Urine Yellow; Glucose Urine UA Negative (Negative); Ketones Urine Trace (Negative); Leukocyte Esterase Urine Negative (Negative); Nitrite Urine Negative (Negative); Protein Urine Negative (Negative); Specific Gravity Urine 1.008 (1.000-1.030); Urobilinogen Urine Negative (Negative)
--- NOTE | 2019-12-20 10:29 | CT Scan Report ---
CT SCAN OF THE ABDOMEN AND PELVIS WITHOUT IV CONTRAST CLINICAL HISTORY: Lower abdominal pain. COMPARISON STUDY: Abdominal CT dated 11/03/2019. TECHNIQUE: CT scan of the abdomen and pelvis is performed from the lung bases to the proximal femora. Images are reviewed in the axial, sagittal, and coronal planes. IV contrast was not administered for this examination due to a reported history of contrast allergy. Note that the examination is subopti mal without oral and IV contrast. There is also streak artifact from the arms which could not be elev ated above the abdomen. A dose lowering technique was utilized adhering to the principles of ALARA. CT DOSE: 1614.94 mGy.cm FINDINGS: Lung bases: The heart is normal in size and without pericardial effusion. There are scattered coronar y artery calcifications. A small hiatal hernia is noted. The lung bases are clear. Liver: The unenhanced liver is normal in size, contour, and attenuation. There is no intrahepatic mary ellen iary ductal dilatation. Pneumobilia is similar to previous and suggests previous sphincterotomy. Gallbladder: Unremarkable. Spleen: Normal in size and attenuation. Pancreas: The unenhanced pancreas is moderately atrophic and grossly unremarkable. Adrenal glands: Unremarkable. Kidneys: The unenhanced kidneys demonstrate cortical atrophy and are without hydronephrosis. There ar e no renal calculi identified. There is no evidence of contour deforming renal mass lesion. Abdominal vasculature: The abdominal aorta is normal in course and caliber. Bowel: There is moderate colonic diverticulosis without CT evidence of acute diverticulitis. No bowel obstruction is seen. There are also numerous diverticula of small bowel. The appendix is well-visua lized and normal. A small bowel lipoma is seen in the right lower quadrant on image #[id number]. Peritoneum: There is no intraperitoneal free air or abdominal ascites. There is evidence of previous ventral hernia repair. Lymphadenopathy: None. Pelvic viscera: Evaluation of the pelvis is degraded by streak artifact from a right hip arthroplasty . The bladder is distended but otherwise normal in appearance. The uterus and adnexa are normal as vi sualized. Skeletal structures: The skeletal structures are osteopenic. [id number] lumbosacral spondylosis is observed. No lytic or blastic lesions are seen. A right hip arthroplasty is in place. Advanced ar thritic change is noted in the left hip. There are healed left pubic ring fractures. IMPRESSION: 1. There are no acute infectious or inflammatory findings in the abdomen or pelvis. 2. There is moderate colonic diverticulosis as well as diverticulosis of the small bowel without CT e vidence of acute diverticulitis. 3. Additional findings as above. ACT 112: Negative or not required by law. Electronically signed by: Weston Gallego M.D. 12/20/2019 10:28 AM
[2019-12-20 10:34] LABS: Alanine Aminotransferase 57 U/L (12-78); Albumin Level 3.6 gm/dl (3.4-5.0); Aspartate Aminotransferase 62 U/L (15-37); BUN Creatinine Ratio 22.3 (10-20); Blood Urea Nitrogen 19 mg/dl (7-18); Calcium 8.6 mg/dl (8.5-10.1); Carbon Dioxide 25 mmol/L (21-32); Chloride 93 mmol/L (98-107); Est GFR (Non-African American) 64.7; Glucose 183 mg/dl (70-99); Magnesium 1.6 mg/dl (1.8-2.4); Potassium 4.2 mmol/L (3.5-5.1); Sodium 128 mmol/L (136-145)
[2019-12-20 10:45] LABS: Alkaline Phosphatase 65 U/L (45-117); Bilirubin,Total 0.9 mg/dl (0.2-1); Globulin 3.7 gm/dl (2.5-4.0); Thyroid Stimulating Hormone 0.769 uIu/ml (0.300-4.500); Total Protein 7.3 gm/dl (6.4-8.2); Troponin I < 0.015 ng/ml (0-0.045)
[2019-12-20] MEDS ORDERED: GI COCKTAIL ED USE PO STA (12:13)
[2019-12-20] MEDS ORDERED: GI COCKTAIL ED USE PO ONE (12:19)
[2019-12-20 12:31] LABS: Urine Potassium 9.9 mmol/L
--- NOTE | 2019-12-20 13:11 | History & Physical Report ---
Date of Service December 20, 2019 Assessment & Plan (1) Hyponatremia: Acute on chronic. Unclear cause. Urine sodium 41 suggest renal losses. ? Diuresis from elevated glucose and increased free water intake avoiding dehydration. Urine osm 170 - TSH, WNL, will get AM cortisol NSS 500ml bolus given in ER, will continue @ 100ml/hr and repeat sodium to r/o hypovolemia element although appears euvolemic on exam High free water intake per history although urine osm would suggest against this as cause. ?SIADH although not on any medication to cause this. Consider CT chest if sodium not improving and cortisol normal with AM labs. (2) Vertigo: This is the patients main complaint although ongoing but progressive since May after of her . Workup previous as an outpatient with negative MRI brain wo contrast on 08/29/2019 (not dedicated for IAC and wo contrast however patient refuses further MRI as she can only do an open MRI). FHx of Meniere and patient is having tinnitus but apparently this was evaluated by ENT as outpatient, will request outpatient note Likely worse with stress/anxiety and possibly hyponatremia. Already been seen by PCP on multiple occasions as ongoing since May but getting worse. PT eval and treat for Lion Use meclizine PRN - consider diazepam instead of her Xanax as longer acting and works better for vertigo. (3) Weakness: Suspect secondary to vertigo as above. (4) Dizziness: Suspected vertigo only by history. (5) Acid reflux: Substantial epigastric pain on exam with prior gastric ulcer. Certainly not helped but current high stress levels. Switch lansoprazole for pantoprazole 40mg PO BID Add famotidine IV 20mg now. HIM request for last outpatient GI note and EGD. Add carafate if no plans for EGD in near future. (6) Diabetes: HBA1C with AM labs. None previous in [place]. Hold her usual glipizide (did not take this morning). Switch to lantus 5 units BID with Novolog sliding scale for correction and carb coverage. (7) Hypertension: Continue lisinopril 40 mg p.o. daily, atenolol 25 mg p.o. at bedtime (8) Grief: With significant anxiety. 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 Continue her usual Xanax 0.25mg PO BID (consider switch to diazepam as above) Admission and Anticipated Discharge Date Admission Date: 12/20/2019 History of Present Illness Chief Complaint: Generalized weakness, dizziness Primary Care Provider: KIRSTEN Ramirez Ana Quesada is a 79 year old female who presents to the ER due to ongoing dizziness. On waking up this morning she reports an ongoing room spinning sensation with associated frontal bilateral aching headache. She has had episodes of this since May when her and her stress levels have significantly increased. She reports it gets worse on any head movement but not particularly to one side. Her sister is at bedside and mentions the patient is concerned about her having a stroke. The patient is very concerned about her allergy list of medications and anxious about trying anything new. She does not feel she can currently cope at home with her current symptoms. She does note a previous workup possibly performed by her PCP but cannot tell me any details of this other than she may have had an MRI around but cannot remember if it was for these symptoms. She reports this dizziness has been getting more severe and the episodes are lasting longer but she does have complete resolution of episodes in between. She denies any history of migraines prior to her passing away in May and no Family history of this. Reviewed outpatient [facility] notes from Dr. Richardson in August and report of MRI Brain without contrast which should no acute intracranial abnormality. At that appointment she was diagnosed with BPPV given episodic nature and reportedly evaluated by ENT for Meniere's given history of this with her son but determined not to have this (ensure what tests she had done). Last PCP note for anxiety reports intolerant to multiple medications although no listed what she has previously tried. In the ER she was noted to be hyponatremic (Na 128) which is the main reason for admission. She does report drinking large amounts of free water but cannot give me any sort of quantity. We discussed possible her headache, anxiety, restlessness, generalized weakness may be secondary to low sodium levels and she should come into hospital to have this further worked up to which she agreed. In addition in the ER she is having a lot of epigastric pain therefore given a GI cocktail however she feels this burned on the way down. She reports having gastric ulcers previously in June. She is unable to tell me the dose of her lansoprazole or reassure me she is still taking this. Allergies Allergy/AdvReac Type Severity Reaction Status Date / Time amoxicillin Allergy Intermediate NOT SURE Verified 12/20/19 09:14 clavulanic acid Allergy Intermediate NOT SURE Verified 12/20/19 09:14 Iodinated Contrast Media Allergy Intermediate Shortness Verified 12/20/19 09:14 of Breath CHEST PAIN TIGHTNESS IN CHEST rosiglitazone Allergy Intermediate CHEST PAIN Verified 12/20/19 09:14 Corticosteroids Allergy Unknown "STEROIDS": Verified 12/20/19 09:14 (Glucocorticoids) "SHORTNESS OF BREATH" tetracycline Allergy Unknown Unknown rxn Verified 12/20/19 09:14 atorvastatin [From Lipitor] Allergy Verified 12/20/19 09:14 iodine Allergy Verified 12/20/19 09:14 pregabalin AdvReac Severe severe Unverified 12/20/19 09:14 swelling hands/feet hydrocodone AdvReac Intermediate hear races Verified 12/20/19 09:14 ibuprofen AdvReac Intermediate KNOCKS Verified 12/20/19 09:14 EQUILIBRIUM OFF levofloxacin AdvReac Intermediate Dizziness Verified 12/20/19 09:14 metformin AdvReac Intermediate SEVERE Verified 12/20/19 09:14 DIARRHEA omeprazole AdvReac Intermediate SHAKES/TACH Verified 12/20/19 09:14 YCARDIA pantoprazole AdvReac Intermediate SHAKES/TACH Verified 12/20/19 09:14 YCARDIA prednisone AdvReac Intermediate Palpitations Verified 12/20/19 09:14 AND "WENT TO UNIT" (CARDIAC CARE UNIT) codeine AdvReac Mild EQUILIBRIUM Verified 12/20/19 09:14 OFF Penicillins AdvReac Mild Augmentin: Verified 12/20/19 09:14 GI UPSET theophylline AdvReac Mild INCREASED Verified 12/20/19 09:14 HR esomeprazole AdvReac Unknown SHAKES/TACH Verified 12/20/19 09:14 YCARDIA Sulfa (Sulfonamide AdvReac Unknown COULD NOT Verified 12/20/19 09:14 Antibiotics) WALK AND TREMBLED Home Medications Home Medications Medication Instructions Recorded Confirmed Type albuterol sulfate 2 puff INHALATION QID PRN 11/09/17 12/20/19 History alprazolam [Xanax] 0.25 - 0.5 mg PO TID PRN 11/09/17 12/20/19 History atenolol 25 mg PO HS 11/09/17 12/20/19 History fluticasone propionate [Flonase 2 spray INTRANASAL HS PRN 11/09/17 12/20/19 History Allergy Relief] cranberry 0 mg PO QAM 09/13/18 12/20/19 History Florajen3 1 cap PO QAM 07/19/19 12/20/19 History glipizide 10 mg PO BID 07/19/19 12/20/19 History cyprm-pm-5-[id number]-[id number]-zdrrdkz-ast 1 cap PO QAM 07/19/19 12/20/19 History [krill oil] lisinopril 40 mg PO QAM 07/19/19 12/20/19 History lansoprazole [Prevacid] 0 mg PO BID 11/03/19 12/20/19 History simethicone 125 mg PO BID PRN 11/03/19 12/20/19 History diclofenac sodium 1 % topical gel 2 g TOPICAL QID #100 g 12/10/19 12/20/19 Rx Past Med/Surg History Medical History Acid reflux Diabetes Hiatal hernia (06/17/12) Hypertension Lung nodule Surgical History H/O section H/O hand surgery History of cholecystectomy History of hip replacement Hx of cataract surgery S/P tonsillectomy Family History Sister Renal cell carcinoma Father No problems noted. 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 Beliefs That Will Affect Care: Anglican Anglican Beliefs: Pentecostalism Current Living Situation: Alone Current Living Situation Comment: Son checks in w/pt daily Other Information That Helps Us Care for You: No Feels Safe at Home: Yes Safety Concerns: Feels Safe At This Time Assistive Devices: Cane and Walker Review of Systems Review of Systems: All systems reviewed & are unremarkable except as noted in HPI & below Constitutional: + body aches, + fatigue and + weakness; no increased appetite Eyes: no problem reported Ear, Nose, Mouth, Throat: + tinnitus, + hearing loss and + dizziness; no ear pain, no ear discharge, no dysphagia and no pain with swallowing Respiratory: no cough, no chest congestion, no dyspnea and no dyspnea on exertion Cardiovascular: no chest pain, no dyspnea, no dyspnea on exertion, no orthopnea, no paroxysmal nocturnal dyspnea, no palpitations, no lightheadedness, no syncope and no edema Gastrointestinal: + abdominal pain, + belching, + early satiety, + heartburn and + nausea; no vomiting, no pain with swallowing, no dysphagia, no cramping, no change in bowel habits and no blood in stools Genitourinary: no problem reported Musculoskeletal: + neck pain (cervical) Integumentary: no problem reported Neurologic: + unsteadiness, + generalized weakness, + lack of coordination, + dizziness (room spinning) and + headache(s); no falls, no localized weakness, no loss of sensation, no numbness, no radiating pain, no tremor(s), no restless legs and no syncope Psychiatric: + change in appetite, + anxiety, + difficulty concentrating and + confusion; no hallucinations Endocrine: + fatigue, + polydipsia and + polyuria Physical Exam Constitutional: well developed and + acute distress (very anxious about coming into hospital); + not well nourished Eyes: PERRL, conjunctivae normal, anicteric sclerae normal visual [place] by confrontation, EOM intact bilaterally and + nystagmus (at rest, horizontal, fast to the right) ENMT: external ear and nose normal, oropharynx normal (no oral candidiasis) Neck: trachea midline, no thyromegaly Respiratory: normal respiratory effort, lungs clear to auscultation Cardiovascular: RRR, no murmur, no edema Vessels: posterior tibial pulses present, dorsalis pedis pulses present and radial pulses present; no carotid bruit Extremities: normal capillary refill; no calf tenderness Gastrointestinal (Abdomen): Inspection/Auscultation: normal bowel sounds; abdomen not distended Percussion/Palpation: + abdomen tender (epigastric) and abdomen soft; no guarding and abdomen not rigid Musculoskeletal: no cyanosis or clubbing, extremities motor strength 5/5 Skin: no rashes, warm and dry Neurologic: moves all extremities and awake; no focal motor deficits (no unliteral wealness) Speech / Cognition: normal speech Any head movement causing intolerable vertigo symptoms. Unable to complete HINTS exam or [place] Psychiatric: Orientation: alert, oriented to person and oriented to place; + not oriented to time Eye Contact: good eye contact Motor Behavior: + psychomotor agitation Speech: normal rate/rhythm/volume of speech Thought Process: linear/logical thought process Hallucinations: no auditory hallucinations and no visual hallucinations Cognition: + recent memory not intact Genitourinary: no CVA tenderness Lymphatic: no cervical or axillary lymphadenopathy Results & Data Results & [facility] ([facility]) Vital Signs (Past 12 Hours) Vital Signs Temp Pulse Pulse Resp BP BP Pulse Ox 12/20/19 12:30 70 22 142/68 H 99 12/20/19 11:30 20 158/68 H 12/20/19 11:00 66 17 142/69 H 12/20/19 10:31 74 19 152/76 H 98 12/20/19 10:30 72 15 99 12/20/19 10:13 63 15 166/61 H 100 12/20/19 10:11 98 12/20/19 09:30 63 17 97 12/20/19 09:12 22 99 12/20/19 09:01 37.0 C 63 20 148/75 H 100 12/20/19 08:58 62 17 148/[address] SCAN OF THE ABDOMEN AND PELVIS WITHOUT IV CONTRAST IMPRESSION: 1. There are no acute infectious or inflammatory findings in the abdomen or pelvis. 2. There is moderate colonic diverticulosis as well as diverticulosis of the small bowel without CT evidence of acute diverticulitis. 3. Additional findings as above. SINGLE VIEW CHEST IMPRESSION: No active disease in the chest. CT SCAN OF THE BRAIN WITHOUT IV CONTRAST IMPRESSION: There is no hemorrhage, mass effect, or evidence of acute territorial ischemia by CT criteria. ECG Indication: other (Hyponatremia) Rate (beats per minute): 63 Rhythm: normal sinus Findings: no acute ischemic change Comparison ECG Date: from (December 20, 2019) Change: no significant change Code Status & VTE Plan Code Status DNR/DNI VTE Prophylaxis Plan VTE Prophylaxis will be ordered: Yes PG Care Time/CCT Total # of Minutes Spent Total Time Spent with Patient: Total time spent is greater than 50% in coordination of care (as documented) at patient's floor/unit and/or counseling patient: Coding Level of Care Code 42221 Initial Inpt Care Lvl 3 Diagnoses Hyponatremia E87.1 Vertigo R42 Weakness R53.1 Dizziness R42 Acid reflux K21.9 Diabetes E11.9 Hypertension I10 Grief F43.21
[2019-12-20] MEDS ORDERED: MECLIZINE HCL 25 MG TAB PO STA (14:22)
[2019-12-20] MEDS ORDERED: FAMOTIDINE 20 MG in SYRINGE 3 ML IV STA (14:38)
[2019-12-20] MEDS ORDERED: ALPRAZolam 0.5 MG TABLET PO STA (14:43)
[2019-12-20] MEDS ORDERED: FAMOTIDINE 20MG/5ML IV PUSH IV ONE (15:14)
[2019-12-20] MEDS: MAGNESIUM SULFATE / D5W 1 GM/100 ML BAG IV SCH ×2 (15:20→16:20)
[2019-12-20] MEDS ORDERED: ONDANSETRON INJ 2 MG/ML 2 ML VIAL IV PRN (17:39)
[2019-12-20] MEDS ORDERED: CARBOHYDRATES FOR HYPOGLYCEMIA PO PRN (17:39)
[2019-12-20] MEDS ORDERED: FLUTICASONE PROPIONATE NA SPR 16 GM BTL NAE PRN (17:39)
[2019-12-20] MEDS ORDERED: DEXTROSE 50% 50 ML SYRINGE IV PRN (17:39)
[2019-12-20] MEDS ORDERED: SODIUM CHLORIDE 0.9% 1000ML 1,000 ML IV SCH (17:39)
[2019-12-20] MEDS ORDERED: GLUCAGON FOR INJ 1 MG VIAL SQ PRN (17:39)
[2019-12-20] MEDS ORDERED: GLUCOSE 10 TABS/TUBE PO PRN (17:39)
[2019-12-20] MEDS ORDERED: GLUCOSE 40% GEL 15 GM TUBE PO PRN (17:39)
[2019-12-20] MEDS ORDERED: INFLUENZA VIRUS QUAD VACCINE 0.5 ML SYR IM ONE (18:24)
[2019-12-20] MEDS ORDERED: INFLUENZA ADMINISTRATION CHARGE ONE (18:24)
[2019-12-20] MEDS: ACETAMINOPHEN 325 MG TAB PO PRN (18:34)
[2019-12-20] MEDS: DICLOFENAC SOD 1% GEL 100 GM TUBE EXT SCH ×2 (18:35→22:00)
[2019-12-20] MEDS: INSULIN ASPART 100 UNITS/ML 3 ML PEN SC SCH ×3 (18:36→21:37)
[2019-12-20] MEDS: ATENOLOL 25 MG TABLET PO SCH (20:14)
[2019-12-20] MEDS: PANTOprazole 40 MG TAB PO SCH (20:14)
[2019-12-20] MEDS: INSULIN GLARGINE SOLOSTAR 100 UNITS/ML 3 ML PEN SC SCH ×2 (21:16→21:37)
[2019-12-21 08:07] LABS: BUN Creatinine Ratio 13.5 (10-20); Blood Urea Nitrogen 12 mg/dl (7-18); Calcium 8.6 mg/dl (8.5-10.1); Carbon Dioxide 26 mmol/L (21-32); Chloride 99 mmol/L (98-107); Est GFR (African American) 71.9; Est GFR (Non-African American) 62.1; Glucose 175 mg/dl (70-99); Sodium 132 mmol/L (136-145)
[2019-12-21] MEDS: ALPRAZolam 0.25 MG TABLET PO SCH ×2 (08:12→20:44)
[2019-12-21] MEDS: lisinopril 40 MG TAB PO SCH (08:13)
[2019-12-21] MEDS: INSULIN GLARGINE SOLOSTAR 100 UNITS/ML 3 ML PEN SC SCH ×2 (08:13→20:45)
[2019-12-21] MEDS: PANTOprazole 40 MG TAB PO SCH ×2 (08:13→20:44)
[2019-12-21] MEDS: ADVANCED PROBIOTIC 1250 MG CAPSULE PO SCH (08:13)
[2019-12-21] MEDS: INSULIN ASPART 100 UNITS/ML 3 ML PEN SC SCH ×4 (08:14→20:45)
[2019-12-21] MEDS: DICLOFENAC SOD 1% GEL 100 GM TUBE EXT SCH ×4 (08:18→20:59)
--- NOTE | 2019-12-21 13:42 | Hospitalist Progress Note ---
Date of Service December 21, 2019 Assessment & Plan (1) Hyponatremia: Mild, Acute on chronic. Unclear cause. Urine sodium 41, Urine osm 170 - TSH, WNL High free water intake per history although urine osm would suggest against this as cause. AM cortisol marginally elevated at 23 (2) Vertigo: Resolved This is the patients main complaint although ongoing but progressive since May after of her . Workup previous as an outpatient with negative MRI brain wo contrast on 08/29/2019 (not dedicated for IAC and wo contrast however patient refuses further MRI as she can only do an open MRI). FHx of Meniere with parent and two siblings. Patient is having tinnitus but apparently this was evaluated by ENT as outpatient and per patient she was told it was just "old age" Likely worse with stress/anxiety and possibly hyponatremia. Already been seen by PCP on multiple occasions as ongoing since May but getting worse. PT tevin and treat for Lion Continue meclizine PRN (3) Weakness: Resolving, Suspect secondary to vertigo as above. (4) Dizziness: Resolving, Suspected vertigo only by history. (5) Acid reflux: Substantial epigastric pain on admission though no complaints of today. Certainly not helped but current high stress levels. Switch lansoprazole for pantoprazole 40mg PO BID Continue famotidine IV 20mg now. Last EGD 07/2019 - non bleeding gastric ulcer, normal esophagus (6) Diabetes: HBA1C with AM labs, pending. None previous in [employer]. Hold her usual glipizide. Pharmacy glycemic consult for hyperglycemia (7) Hypertension: Continue lisinopril 40 mg p.o. daily, atenolol 25 mg p.o. at bedtime (8) Grief: With significant anxiety. 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 Continue her usual Xanax 0.25mg PO BID (consider switch to diazepam as above) (9) DVT prophylaxis: SCDs Dispo: PT tevin pending, can likely dc tomorrow Admission and Anticipated Discharge Date Admission Date: December 20, 2019 Subjective Ms. Quesada is feeling much better today. She has no further dizziness, ambulating to the bathroom with her cane without too much difficulty. ROS Constitutional: no chills, aches, sweats or fever Respiratory: no sob,cough, sputum, or wheezing Cardiac: no chest pain, palpitations, edema, orthopnea or lightheadedness GI: no abdominal pain, nausea, vomiting, diarrhea or constipation : no dysuria or hesitancy Extremities: no joint pain or weakness Skin: no rash All other systems reviewed and negative Physical Exam Physical Exam: General: no distress Eyes: normal inspection, PERLL Respiratory: chest non tender, clear to auscultation, normal breath sounds, no respiratory distress, no accessory muscle use Cardiac: regular rate and rhythm, no rub or gallop, no murmur, no edema, no jvd GI/: active bowel sounds, no abd pain or tenderness, soft, non distended Extremities: normal range of motion, normal strength, non tender Neuro/Psych: alert and oriented x 3, normal mood and affect Skin: normal color, dry Results & Data Results & Data ([facility]) Vital Signs (Past 12 Hours) Vital Signs Temp Pulse Pulse Resp BP Pulse Ox 12/21/19 11:57 36.4 C L 53 L 16 101/65 95 12/21/19 07:30 79 12/21/19 07:21 36.6 C 51 L 16 150/73 H 95 12/21/19 02:30 36.4 C L 55 L 17 153/74 H 96 PG Care Time/CCT Total # of Minutes Spent Total Time Spent with Patient: Total time spent is greater than 50% in coordination of care (as documented) at patient's floor/unit and/or counseling patient: Coding Level of Care Code 50120 Subseq Hosp Care Lvl 2 Diagnoses Hyponatremia E87.1 Vertigo R42 Weakness R53.1 Dizziness R42 Acid reflux K21.9 Diabetes E11.9 Hypertension I10 Grief F43.21 DVT prophylaxis Z29.9
[2019-12-21] MEDS ORDERED: PHARMACY GLYCEMIC MGMT CONSULT PRN (14:12)
--- NOTE | 2019-12-21 15:33 | Pharmacy Report ---
Glycemic Control Consultation - Date of Service December 21, 2019 - Scope Scope: Glycemic Pharmacist consulted for glycemic control and to write orders per [facility] inpatient glycemic control protocol. - Objective Weight: 76.2 kg Accrolanda BSG (last 24hrs): 12/20/19 12/20/19 12/21/19 17:43 20:28 07:04 Glucose 175 H POC Glucose 265 H 190 H 12/21/19 12/21/19 07:30 11:33 Glucose POC Glucose 190 H 211 H Laboratory Data (last 24hrs): 12/21/19 07:04 Potassium 4.0 Carbon Dioxide 26 Anion Gap 6.0 Creatinine 0.89 Est Cr Clr Drug Dosing Not Reportable - Recent Pertinent Medications Outpatient Anti-diabetic Regimen: * Glipizide 10 mg PO BID * A1c = __ % result pending for 12/21/19 The patient was receiving: * Basal insulin: Lantus 5 units every 12 hours * Correctional Insulin: Novolog Correction per scale ACHS Goal Range: Low 110 mg/dL - High 140 mg/dL Correction Factor: 50 mg/dL/unit * Prandial insulin: Per carb ratio of 1 unit per 18 grams CHO consumed * Oral Agents: on hold Risk Factors for Insulin Resistance: * Steroids: none * Infection: no antibiotics * IVF: none * Diet: T2DM - Assessment & Plan Assessment & Plan: ASSESSMENT: * 79 y/o F admitted yesterday for hyponatremia and vertigo. Patient with Type 2 diabetes managed at home on oral Glipizide. * Oral agents are not recommended for inpatient use d/t drug interactions, changing PO intake, and difficulty titrating for acute hyper/hypoglycemia. * Will hold oral agents for admission and utilize SQ basal bolus insulin regimen which is the recommended regimen for inpatient glycemic control. * Weight based insulin dosing was initiated yesterday for insulin yifan patient based on weight and stress factor of 1. * Fasting BSG this AM was 175 mg/dl. Patient had refused Lantus 5 units last night. 5 units was given this AM. Will continue with same dose. * Pre-lunch BSG was elevated to 211 mg/dl today. Nurse had already given the lunch Novolog coverage. Therefore, parameters tightened to stress of 2 with dinner meal today. PLAN FOR INPATIENT GLYCEMIC CONTROL: * Holding outpatient oral diabetes medications * Basal insulin: continued * Lantus 5 units SQ BID * Bolus insulin: tightened CF and CR * NovoLog per scale ACHS or Q6hrs while NPO * Goal Range: Low 110 mg/dL - High 140 mg/dL * Correction Factor: 30 mg/dL/unit * Nutritional / Prandial insulin per carb ratio of 1 unit per 10 grams CHO consumed * Please note that the plan above was derived based on current level of insulin resistance and hospital stress. These recommendations are appropriate for inpatient admission only. Plan of care upon discharge will need to be reassessed to avoid potential outpatient hypo/hyperglycemia. Thank you.
[2019-12-21] MEDS: ACETAMINOPHEN 325 MG TAB PO PRN (17:29)
[2019-12-21] MEDS: ATENOLOL 25 MG TABLET PO SCH (20:44)
[2019-12-21] MEDS ORDERED: MELATONIN 3 MG TAB PO PRN (21:06)
[2019-12-22] MEDS: INSULIN ASPART 100 UNITS/ML 3 ML PEN SC SCH ×6 (00:51→20:40)
[2019-12-22 05:46] LABS: Estimated Average Glucose 183 mg/dl
[2019-12-22 07:45] LABS: Hematocrit (blood only) 38.6 % (37-47); Hemoglobin 13.2 g/dL (12.0-16.0); Mean Corpuscular Hemoglobin 29.3 pg (25-34); Mean Corpuscular Hgb Conc 34.2 g/dL (32-36); Mean Corpuscular Volume 85.8 fL (80-100); Mean Platelet Volume 11.3 fL (7.4-10.4); Platelet Count 216 K/uL (130-400); RDW Coefficient of Variation 14.2 % (11.5-14.5); RDW Standard Deviation 44.4 fL (36.4-46.3); White Blood Count 5.21 K/uL (4.8-10.8)
[2019-12-22 08:24] LABS: BUN Creatinine Ratio 20.5 (10-20); Blood Urea Nitrogen 20 mg/dl (7-18); Calcium 9.1 mg/dl (8.5-10.1); Carbon Dioxide 27 mmol/L (21-32); Chloride 103 mmol/L (98-107); Est GFR (African American) 66.5; Est GFR (Non-African American) 57.4; Glucose 177 mg/dl (70-99); Potassium 4.3 mmol/L (3.5-5.1); Sodium 135 mmol/L (136-145)
[2019-12-22] MEDS ORDERED: INSULIN GLARGINE SOLOSTAR 100 UNITS/ML 3 ML PEN SC SCH ×2 (09:00→21:00)
[2019-12-22] MEDS: PANTOprazole 40 MG TAB PO SCH (09:20)
[2019-12-22] MEDS: ADVANCED PROBIOTIC 1250 MG CAPSULE PO SCH (09:20)
[2019-12-22] MEDS: ALPRAZolam 0.25 MG TABLET PO SCH ×2 (09:21→20:42)
[2019-12-22] MEDS: lisinopril 40 MG TAB PO SCH (09:21)
[2019-12-22] MEDS: DICLOFENAC SOD 1% GEL 100 GM TUBE EXT SCH ×4 (09:21→20:43)
--- NOTE | 2019-12-22 10:29 | Pharmacy Report ---
Pharmacy Glycemic Short Note 2 - Date of Service December 22, 2019 - Glycemic Short BSG Results (Last 24 hours): 12/21/19 12/21/19 12/21/19 11:33 16:32 20:01 Glucose POC Glucose 211 H 135 H 156 H 12/22/19 12/22/19 12/22/19 00:02 05:37 07:07 Glucose 177 H POC Glucose 179 H 150 H 12/22/19 07:34 Glucose POC Glucose 184 H Outpatient Anti-diabetic Regimen: * Glipizide 10 mg PO BID * A1c = 8.0 % on 12/21/19 The patient is receiving: * Basal insulin: Lantus 5 units every 12 hours * Correctional Insulin: Novolog Correction per scale ACHS Goal Range: Low 110 mg/dL - High 140 mg/dL Correction Factor: 30 mg/dL/unit * Prandial insulin: Per carb ratio of 1 unit per 10 grams CHO consumed * Oral Agents: on hold Risk Factors for Insulin Resistance: * Diet: T2DM ASSESSMENT: 12/22/19 * Stressors stable * Post-prandial BSG's yesterday responded well to tightened parameters - continue Novolog parameters * AM fasting BSG elevated >180 mg/dL - will increase Lantus 12/21/19 * 79 y/o F admitted yesterday for hyponatremia and vertigo. Patient with Type 2 diabetes managed at home on oral Glipizide. * Oral agents are not recommended for inpatient use d/t drug interactions, changing PO intake, and difficulty titrating for acute hyper/hypoglycemia. * Will hold oral agents for admission and utilize SQ basal bolus insulin regimen which is the recommended regimen for inpatient glycemic control. * Weight based insulin dosing was initiated yesterday for insulin yifan patient based on weight and stress factor of 1. * Fasting BSG this AM was 175 mg/dl. Patient had refused Lantus 5 units last night. 5 units was given this AM. Will continue with same dose. * Pre-lunch BSG was elevated to 211 mg/dl today. Nurse had already given the lunch Novolog coverage. Therefore, parameters tightened to stress of 2 with dinner meal today. PLAN FOR INPATIENT GLYCEMIC CONTROL: * Hold outpatient oral diabetes medications * Basal insulin - increase * Lantus 12 units SQ x1 this AM. Additional 0, 5, or 10 units tonight based on BSG. See MAR for details. * Bolus insulin * NovoLog per scale ACHS or Q6hrs while NPO * Goal Range: Low 110 mg/dL - High 140 mg/dL * Correction Factor: 30 mg/dL/unit * Nutritional / Prandial insulin per carb ratio of 1 unit per 10 grams CHO consumed
[2019-12-22] MEDS ORDERED: clonazePAM 0.25 MG TAB PO STA (11:42)
--- NOTE | 2019-12-22 14:06 | Discharge Summary ---
Date of Service December 22, 2019 Admission HPI Per Admitting Provider Ana Quesada is a 79 year old female who presents to the ER due to ongoing dizziness. On waking up this morning she reports an ongoing room spinning sensation with associated frontal bilateral aching headache. She has had episodes of this since May when her and her stress levels have significantly increased. She reports it gets worse on any head movement but not particularly to one side. Her sister is at bedside and mentions the patient is concerned about her having a stroke. The patient is very concerned about her allergy list of medications and anxious about trying anything new. She does not feel she can currently cope at home with her current symptoms. She does note a previous workup possibly performed by her PCP but cannot tell me any details of this other than she may have had an MRI around but cannot remember if it was for these symptoms. She reports this dizziness has been getting more severe and the episodes are lasting longer but she does have complete resolution of episodes in between. She denies any history of migraines prior to her passing away in May and no Family history of this. Reviewed outpatient [facility] notes from Dr. Richardson in August and report of MRI Brain without contrast which should no acute intracranial abnormality. At that appointment she was diagnosed with BPPV given episodic nature and reportedly evaluated by ENT for Meniere's given history of this with her son but determined not to have this (ensure what tests she had done). Last PCP note for anxiety reports intolerant to multiple medications although no listed what she has prev iously tried. In the ER she was noted to be hyponatremic (Na 128) which is the main reason for admission. She does report drinking large amounts of free water but cannot give me any sort of quantity. We discussed possible her headache, anxiety, restlessness, generalized weakness may be secondary to low sodium levels and she should come into hospital to have this further worked up to which she agreed. In addition in the ER she is having a lot of epigastric pain therefore given a GI cocktail however she feels this burned on the way down. She reports having gastric ulcers previously in June. She is unable to tell me the dose of her lansoprazole or reassure me she is still taking this. Discharge Data Allergies Allergy/AdvReac Type Severity Reaction Status Date / Time amoxicillin Allergy Intermediate NOT SURE Verified 12/20/19 09:14 clavulanic acid Allergy Intermediate NOT SURE Verified 12/20/19 09:14 Iodinated Contrast Media Allergy Intermediate Shortness Verified 12/20/19 09:14 of Breath CHEST PAIN TIGHTNESS IN CHEST rosiglitazone Allergy Intermediate CHEST PAIN Verified 12/20/19 09:14 Corticosteroids Allergy Unknown "STEROIDS": Verified 12/20/19 09:14 (Glucocorticoids) "SHORTNESS OF BREATH" tetracycline Allergy Unknown Unknown rxn Verified 12/20/19 09:14 atorvastatin [From Lipitor] Allergy Verified 12/20/19 09:14 iodine Allergy Verified 12/20/19 09:14 pregabalin AdvReac Severe severe Unverified 12/20/19 09:14 swelling hands/feet hydrocodone AdvReac Intermediate hear races Verified 12/20/19 09:14 ibuprofen AdvReac Intermediate KNOCKS Verified 12/20/19 09:14 EQUILIBRIUM OFF levofloxacin AdvReac Intermediate Dizziness Verified 12/20/19 09:14 metformin AdvReac Intermediate SEVERE Verified 12/20/19 09:14 DIARRHEA omeprazole AdvReac Intermediate SHAKES/TACH Verified 12/20/19 09:14 YCARDIA pantoprazole AdvReac Intermediate SHAKES/TACH Verified 12/20/19 09:14 YCARDIA prednisone AdvReac Intermediate Palpitations Verified 12/20/19 09:14 AND "WENT TO UNIT" (CARDIAC CARE UNIT) codeine AdvReac Mild EQUILIBRIUM Verified 12/20/19 09:14 OFF Penicillins AdvReac Mild Augmentin: Verified 12/20/19 09:14 GI UPSET theophylline AdvReac Mild INCREASED Verified 12/20/19 09:14 HR esomeprazole AdvReac Unknown SHAKES/TACH Verified 12/20/19 09:14 YCARDIA Sulfa (Sulfonamide AdvReac Unknown COULD NOT Verified 12/20/19 09:14 Antibiotics) WALK AND TREMBLED Consultations 12/20/19 12:59 ED Decision to Admit Stat 12/21/19 06:29 Consult Health Information Management Routine 12/21/19 06:31 Consult Health Information Management Routine Ordered Studies 12/20/19 09:00 CT head/brain wo con Stat 12/20/19 09:20 CT abd pelvis wo con Stat Hospital Course (1) Hyponatremia: Mild, Acute on chronic. Unclear cause. Urine sodium 41, Urine osm 170 - TSH, WNL High free water intake per history although urine osm would suggest against this as cause. AM cortisol marginally elevated at 23 (2) Vertigo: Resolved This is the patients main complaint although ongoing but progressive since May after of her . Workup previous as an outpatient with negative MRI brain wo contrast on 08/29/2019 (not dedicated for IAC and wo contrast however patient refuses further MRI as she can only do an open MRI). FHx of Meniere with parent and two siblings. Patient is having tinnitus but apparently this was evaluated by ENT as outpatient and per patient she was told it was just "old age" Likely worse with stress/anxiety and possibly hyponatremia. Already been seen by PCP on multiple occasions as ongoing since May but getting worse. PT eval and treat for Lion Continue meclizine PRN (3) Weakness: Resolving, Suspect secondary to vertigo as above. (4) Dizziness: Resolving, Suspected vertigo only by history. (5) Acid reflux: Substantial epigastric pain on admission though no complaints of today. Certainly not helped but current high stress levels. Switch lansoprazole for pantoprazole 40mg PO BID Continue famotidine IV 20mg now. Last EGD 07/2019 - non bleeding gastric ulcer, normal esophagus (6) Diabetes: HBA1C with AM labs, pending. None previous in [facility]. Hold her usual glipizide. Pharmacy glycemic consult for hyperglycemia (7) Hypertension: Continue lisinopril 40 mg p.o. daily, atenolol 25 mg p.o. at bedtime (8) Grief: With significant anxiety. 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 Continue her usual Xanax 0.25mg PO BID (consider switch to diazepam as above) (9) DVT prophylaxis: SCDs Dispo: PT eval pending, can likely dc tomorrow Discharge Plan Discharge Items Reason For Visit: DIZZINESS,HYPONATREMIA Follow-up/Referrals: Hyun Morales CRNP [Primary Care Provider] - 01/06/20 10:50 am Mdady Salazar MD [Physician] - 01/09/20 10:45 am (You will be seeing an esthetician makeup artist at 10:[address] Salazar at 11:15.) Medications and DC Order Prescriptions: No Action diclofenac sodium [Voltaren] 1 % gel 2 g topical QID Qty: 100 RF: 2 atenolol 25 mg Tablet 25 mg PO HS RF: 0 alprazolam [Xanax] 0.5 mg tablet 0.25 - 0.5 mg PO TID PRN (Reason: Anxiety) RF: 0 albuterol sulfate 90 mcg/actuation Hfa Aerosol Inhaler 2 puff INHALATION QID PRN (Reason: Wheezing) RF: 0 fluticasone propionate [Flonase Allergy Relief] 50 mcg/actuation spray,suspension 2 spray Intranasal HS PRN (Reason: Allergy Symptoms) RF: 0 cranberry 500 mg Capsule 0 mg PO QAM RF: 0 glipizide 10 mg tablet extended release 24hr 10 mg PO BID RF: 0 lisinopril 40 mg tablet 40 mg PO QAM RF: 0 Florajen3 460 mg (7.5-6- 1.5 bill. cell) Capsule 1 cap PO QAM RF: 0 [id number] [krill oil] [id number] mg Capsule 1 cap PO QAM RF: 0 simethicone 125 mg Capsule 125 mg PO BID PRN (Reason: Acid Reflux) RF: 0 lansoprazole [Prevacid] 15 mg Capsule,Delayed Release(Dr/Ec) 0 mg PO BID RF: 0 Krames/Other Patient Handouts: Managing Type 2 Diabetes Admission Data Admit Date/Time: 12/20/19 13:05 Attending Provider: Silviano Mares Admit Provider: Cam Marsh Primary Care Provider: Hyun Morales Other Providers: Cam Marsh ; [facility] Coding Diagnoses Hyponatremia E87.1 Vertigo R42 Weakness R53.1 Dizziness R42 Acid reflux K21.9 Diabetes E11.9 Hypertension I10 Grief F43.21 DVT prophylaxis Z29.9
--- NOTE | 2019-12-22 15:12 | Hospitalist Progress Note ---
Date of Service December 22, 2019 Assessment & Plan (1) Hyponatremia: IMPROVED * Mild, Acute on chronic. Unclear cause. 128 on admission * Urine sodium 41, Urine osm 170 - TSH, WNL * High free water intake per history although urine osm would suggest against this as cause -- discussed continuing to push oral intake * AM cortisol marginally elevated at 23 * Na 135 (2) Vertigo: * Resolved , but stated she had episode last night. Did not receive meclizine. Discussed utilizing this prn as well as slowed position changes given orthostatics * This is the patients main complaint although ongoing but progressive since May after of her . * Workup previous as an outpatient with negative MRI brain wo contrast on 08/29/2019 (not dedicated for IAC and wo contrast however patient refuses further MRI as she can only do an open MRI). * FHx of Meniere with parent and two siblings. Patient is having tinnitus but apparently this was evaluated by ENT as outpatient and per patient she was told it was just "old age" * Likely worse with stress/anxiety and possibly hyponatremia. * Already been seen by PCP on multiple occasions as ongoing since May but getting worse. * PT eval and treat for Lion --> not effective * Discussed Meclizine PRN (3) Weakness: * Resolving, Suspect secondary to hyponatremia/vertigo as above. * Improving -- CM assisted with setting up home PT at discharge (4) Dizziness: * Resolving, Suspected vertigo only by history. (5) Acid reflux: * Substantial epigastric pain on admission though no complaints of today. * Certainly not helped but current high stress levels. * Switch lansoprazole for pantoprazole 40mg PO BID --> switched back to lansoprazole given patient stated adverse reaction in the past to pantoprazole and listed as allergy "shakes/chills" * D/c'd famotidine * Last EGD 07/2019 - non bleeding gastric ulcer, normal esophagus (6) Diabetes: * A1c 8.0 * Hold her usual glipizide. Utilize SSI * Pharmacy glycemic consult for hyperglycemia (7) Hypertension: * Continue lisinopril 40 mg p.o. daily, atenolol 25 mg p.o. at bedtime (8) Grief: * With significant anxiety. 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 * Continue her usual Xanax 0.25mg PO BID (consider switch to diazepam as above). Trial klonopin but did not like. Will continue xanax and she should continue counseling weekly as already established (9) DVT prophylaxis: * SCDs KUB ordered for abd pain/constipation. Non-obstructive. No evidence for constipation Dispo: hopeful for discharge in AM Admission and Anticipated Discharge Date Admission Date: December 20, 2019 Subjective Patient evaluated this morning. Strong concerns about any medication changes. Did feel generally well this morning. One episode of dizziness last night but denies room spinning or feeling like she was going to pass out. Worked with therapy this morning and dizziness was not re-producible with maneuvers. Discussed changing positions slowly. Strong component of anxiety since passing of second in May of this year. Estranged one son but does speak to other children and one son lives further away in [place]. She had concerns about the Klonopin as trialed this morning for longer lasting control of her anxiety and she did not like how it made her feel and we will stick with her prn xanax. She later has concerns with her bowel movements. Follows with Dr Graham and due for next colonoscopy in next 2-3 years for family hx colon ca. Did have weight loss but due to stress. No blood in stool noted. She usually deals with diarrhea at home and utilizes metamucil daily and states she has been drinking copious fluids and may have been over hydrated. She states she had been passing gas the other day and then had a large BM but hasn't had once since sunday and is not having abdominal discomfort while passing gas and attempting to move bowels. Would feel more comfortable getting bowels moving and hopeful for d/c tomorrow. No fever, chills, chest pain, shortness of breath, nausea, vomiting, dysuria at this time. Review of Systems Review of Systems: All systems reviewed & are unremarkable except as noted in HPI & below Physical Exam Constitutional: comfortable; + not well developed and + not well nourished Eyes: + anicteric sclerae and PERRL ENMT: external ear and nose normal, oropharynx normal (no oral candidiasis) Neck: trachea midline, no thyromegaly Respiratory: normal respiratory effort, lungs clear to auscultation Cardiovascular: RRR, no murmur, no edema Extremities: normal capillary refill; no calf tenderness Gastrointestinal (Abdomen): Inspection/Auscultation: normal bowel sounds; abdomen not distended Percussion/Palpation: + abdomen tender (epigastric) and abdomen soft; no guarding and abdomen not rigid Musculoskeletal: no cyanosis or clubbing, extremities motor strength 5/5 Skin: no rashes, warm and dry Neurologic: moves all extremities and awake; no focal motor deficits (no unliteral wealness) Speech / Cognition: normal speech Psychiatric: Orientation: alert, oriented to person, oriented to place and oriented to time Eye Contact: good eye contact Motor Behavior: + psychomotor agitation Speech: normal rate/rhythm/volume of speech Mood: + anxious mood Thought Process: linear/logical thought process Genitourinary: no CVA tenderness Lymphatic: no cervical or axillary lymphadenopathy Results & Data Results & Data ([facility]) Vital Signs (Past 12 Hours) Vital Signs Temp Pulse Pulse Resp BP Pulse Ox 12/22/19 10:47 97 12/22/19 08:00 47 L 12/22/19 07:40 36.5 C 52 L 18 132/73 98 12/22/19 03:59 36.6 C 49 L 17 117/68 97 Laboratory Results 12/22/19 12/22/19 12/22/19 Range/Units 11:42 07:34 07:07 WBC (4.8-10.8) K/uL RBC (4.2-5.4) M/uL Hgb (12.0-16.0) g/dL Hct (37-47) % MCV (80-100) fL MCH (25-34) pg MCHC (32-36) g/dL RDW Std Deviation (36.4-46.3) fL RDW Coeff of Boris (11.5-14.5) % Plt Count (130-400) K/uL MPV (7.4-10.4) fL Sodium 135 L (136-145) mmol/L Potassium 4.3 (3.5-5.1) mmol/L Chloride 103 (98-107) mmol/L Carbon Dioxide 27 (21-32) mmol/L Anion Gap 5.0 (3-11) BUN 20 H D (7-18) mg/dl Creatinine 0.95 (0.6-1.2) mg/dl Est Cr Clr Drug Dosing Not Reportable Est GFR ( Amer) 66.5 Est GFR (Non-Af Amer) 57.4 BUN/Creatinine Ratio 20.5 H (10-20) Glucose 177 H (70-99) mg/dl POC Glucose 205 H 184 H (70-99) mg/dl Estimat Average Glucose mg/dl Hemoglobin A1c (4.5-5.6) % Calcium 9.1 (8.5-10.1) mg/dl 12/22/19 12/22/19 12/22/19 Range/Units 07:07 05:37 00:02 WBC 5.21 (4.8-10.8) K/uL RBC 4.50 (4.2-5.4) M/uL Hgb 13.2 (12.0-16.0) g/dL Hct 38.6 (37-47) % MCV 85.8 (80-100) fL MCH 29.3 (25-34) pg MCHC 34.2 (32-36) g/dL RDW Std Deviation 44.4 (36.4-46.3) fL RDW Coeff of Boris 14.2 (11.5-14.5) % Plt Count 216 (130-400) K/uL MPV 11.3 H (7.4-10.4) fL Sodium (136-145) mmol/L Potassium (3.5-5.1) mmol/L Chloride (98-107) mmol/L Carbon Dioxide (21-32) mmol/L Anion Gap (3-11) BUN (7-18) mg/dl Creatinine (0.6-1.2) mg/dl Est Cr Clr Drug Dosing Est GFR ( Amer) Est GFR (Non-Af Amer) BUN/Creatinine Ratio (10-20) Glucose (70-99) mg/dl POC Glucose 150 H 179 H (70-99) mg/dl Estimat Average Glucose mg/dl Hemoglobin A1c (4.5-5.6) % Calcium (8.5-10.1) mg/dl 12/21/19 12/21/19 12/21/19 Range/Units 20:01 16:32 07:04 WBC (4.8-10.8) K/uL RBC (4.2-5.4) M/uL Hgb (12.0-16.0) g/dL Hct (37-47) % MCV (80-100) fL MCH (25-34) pg MCHC (32-36) g/dL RDW Std Deviation (36.4-46.3) fL RDW Coeff of Boris (11.5-14.5) % Plt Count (130-400) K/uL MPV (7.4-10.4) fL Sodium (136-145) mmol/L Potassium (3.5-5.1) mmol/L Chloride (98-107) mmol/L Carbon Dioxide (21-32) mmol/L Anion Gap (3-11) BUN (7-18) mg/dl Creatinine (0.6-1.2) mg/dl Est Cr Clr Drug Dosing Est GFR ( Amer) Est GFR (Non-Af Amer) BUN/Creatinine Ratio (10-20) Glucose (70-99) mg/dl POC Glucose 156 H 135 H (70-99) mg/dl Estimat Average Glucose 183 mg/dl Hemoglobin A1c 8.0 H (4.5-5.6) % Calcium (8.5-10.1) mg/dl Diagnostic Findings KUB IMPRESSION: 1. Nonobstructive bowel gas pattern. 2. No significant fecal retention to suggest constipation. PG Care Time/CCT Total # of Minutes Spent Total Time Spent with Patient: Total time spent is greater than 50% in coordination of care (as documented) at patient's floor/unit and/or counseling patient: Coding Level of Care Code 48842 Subseq Hosp Care Lvl 2 Diagnoses Hyponatremia E87.1 Vertigo R42 Weakness R53.1 Dizziness R42 Acid reflux K21.9 Diabetes E11.9 Hypertension I10 Grief F43.21 DVT prophylaxis Z29.9
--- NOTE | 2019-12-22 15:14 | XRay Report ---
KUB HISTORY: Acute generalized abdominal pain with constipation abd pain, constipation COMPARISON: CT abdomen and pelvis 12/20/2019 FINDINGS: Bowel gas pattern is nonobstructive. No significant fecal retention to suggest constipation . Nondilated air-filled loops of large and small bowel. Numerous phleboliths of the pelvis. No uroli th. No pneumoperitoneum or pneumatosis. Right hip total joint arthroplasty. Moderate to severe left h ip osteoarthritis. Multilevel degenerative changes of the lumbar spine. IMPRESSION: 1. Nonobstructive bowel gas pattern. 2. No significant fecal retention to suggest constipation. ACT 112: Negative or not required by law. The above report was generated using voice recognition software. It may contain grammatical, syntax o r spelling errors. Electronically signed by: Vijay Capps M.D. 12/22/2019 3:12 PM
[2019-12-22] MEDS: LANSOPRAZOLE 30 MG SOLTAB PO SCH (20:43)
[2019-12-22] MEDS: ATENOLOL 25 MG TABLET PO SCH (20:44)
[2019-12-23 04:24] VITALS: TEMP 98.1
[2019-12-23 07:30] LABS: BUN Creatinine Ratio 25.2 (10-20); Blood Urea Nitrogen 31 mg/dl (7-18); Calcium 9.7 mg/dl (8.5-10.1); Carbon Dioxide 22 mmol/L (21-32); Chloride 103 mmol/L (98-107); Est GFR (African American) 49.1; Est GFR (Non-African American) 42.4; Glucose 243 mg/dl (70-99); Potassium 4.2 mmol/L (3.5-5.1); Sodium 132 mmol/L (136-145)
[2019-12-23 07:57] VITALS: O2SAT 93
[2019-12-23] MEDS ORDERED: INSULIN GLARGINE SOLOSTAR 100 UNITS/ML 3 ML PEN SC ONE (08:00)
[2019-12-23] MEDS: DICLOFENAC SOD 1% GEL 100 GM TUBE EXT SCH (08:28)
[2019-12-23] MEDS: ALPRAZolam 0.25 MG TABLET PO SCH (08:28)
[2019-12-23] MEDS: lisinopril 40 MG TAB PO SCH (08:29)
[2019-12-23] MEDS: ACETAMINOPHEN 325 MG TAB PO PRN (08:29)
[2019-12-23] MEDS: ADVANCED PROBIOTIC 1250 MG CAPSULE PO SCH (08:30)
[2019-12-23] MEDS: LANSOPRAZOLE 30 MG SOLTAB PO SCH (08:30)
[2019-12-23] MEDS: INSULIN ASPART 100 UNITS/ML 3 ML PEN SC SCH ×2 (08:33→12:13)
[2019-12-23] MEDS ORDERED: SODIUM CHLORIDE 0.9% 1000ML 1,000 ML IV SCH (08:45)
--- NOTE | 2019-12-23 11:06 | Pharmacy Report ---
Pharmacy Glycemic Short Note 2 - Date of Service December 23, 2019 - Glycemic Short BSG Results (Last 24 hours): 12/22/19 12/22/19 12/22/19 11:42 16:35 20:39 Glucose POC Glucose 205 H 192 H 243 H 12/23/19 12/23/19 12/23/19 01:29 06:35 07:40 Glucose 243 H POC Glucose 159 H 271 H Outpatient Anti-diabetic Regimen: * Glipizide 10 mg PO BID * A1c = 8.0 % on 12/21/19 Risk Factors for Insulin Resistance: * Diet: T2DM ASSESSMENT: 12/23/19 * Stressors stable * AM fasting BSG significantly elevated. However, patient continues to request/accept lower doses of Lantus than ordered (yesterday AM ordered 12, accepted 8 units. yesterday PM ordered 10, accepted 8 units). This AM, RN (Isatu) encouraged acceptance of full 15 unit dose ordered, and patient accepted full dose ordered * Post-prandial BSG's also elevated yesterday - will tighten correction factor. May also consider tightening CHO ratio further tonight if patient is not discharged 12/22/19 * Stressors stable * Post-prandial BSG's yesterday responded well to tightened parameters - continue Novolog parameters * AM fasting BSG elevated >180 mg/dL - will increase Lantus 12/21/19 * 79 y/o F admitted yesterday for hyponatremia and vertigo. Patient with Type 2 diabetes managed at home on oral Glipizide. * Oral agents are not recommended for inpatient use d/t drug interactions, changing PO intake, and difficulty titrating for acute hyper/hypoglycemia. * Will hold oral agents for admission and utilize SQ basal bolus insulin regimen which is the recommended regimen for inpatient glycemic control. * Weight based insulin dosing was initiated yesterday for insulin yifan patient based on weight and stress factor of 1. * Fasting BSG this AM was 175 mg/dl. Patient had refused Lantus 5 units last night. 5 units was given this AM. Will continue with same dose. * Pre-lunch BSG was elevated to 211 mg/dl today. Nurse had already given the lunch Novolog coverage. Therefore, parameters tightened to stress of 2 with dinner meal today. PLAN FOR INPATIENT GLYCEMIC CONTROL: * Hold outpatient oral diabetes medications * Basal insulin - increase * Lantus 15 units SQ x1 this AM. Additional 5 or 10 units tonight based on BSG. See MAR for details. * Bolus insulin * NovoLog per scale ACHS or Q6hrs while NPO * Goal Range: Low 110 mg/dL - High 140 mg/dL * Correction Factor: 25 mg/dL/unit * Nutritional / Prandial insulin per carb ratio of 1 unit per 9 grams CHO consumed
--- NOTE | 2019-12-23 11:26 | Discharge Summary ---
Date of Service December 23, 2019 Admission HPI Per Admitting Provider Chief Complaint: Generalized weakness, dizziness Primary Care Provider: KIRSTEN Ramirez Ana Quesada is a 79 year old female who presents to the ER due to ongoing dizziness. On waking up this morning she reports an ongoing room spinning sensation with associated frontal bilateral aching headache. She has had episodes of this since May when her and her stress levels have significantly increased. She reports it gets worse on any head movement but not particularly to one side. Her sister is at bedside and mentions the patient is concerned about her having a stroke. The patient is very concerned about her allergy list of medications and anxious about trying anything new. She does not feel she can currently cope at home with her current symptoms. She does note a previous workup possibly performed by her PCP but cannot tell me any details of this other than she may have had an MRI around July/August but cannot remember if it was for these symptoms. She reports this dizziness has been getting more severe and the episodes are lasting longer but she does have complete resolution of episodes in between. She denies any history of migraines prior to her passing away in May and no Family history of this. Reviewed outpatient [facility] notes from Dr. Richardson in August and report of MRI Brain without contrast which should no acute intracranial abnormality. At that appointment she was diagnosed with BPPV given episodic nature and reportedly evaluated by ENT for Meniere's given history of this with her son but determined not to have this (ensure what tests she had done). Last PCP note for anxiety reports intolerant to multiple medications although no listed what she has previously tried. In the ER she was noted to be hyponatremic (Na 128) which is the main reason for admission. She does report drinking large amounts of free water but cannot give me any sort of quantity. We discussed possible her headache, anxiety, restlessness, generalized weakness may be secondary to low sodium levels and she should come into hospital to have this further worked up to which she agreed. In addition in the ER she is having a lot of epigastric pain therefore given a GI cocktail however she feels this burned on the way down. She reports having gastric ulcers previously in June. She is unable to tell me the dose of her lansoprazole or reassure me she is still taking this. Admission Exam Per Admitting Provider Constitutional: well developed and + acute distress (very anxious about coming into hospital); + not well nourished Eyes: PERRL, conjunctivae normal, anicteric sclerae normal visual [place] by confrontation, EOM intact bilaterally and + nystagmus (at rest, horizontal, fast to the right) ENMT: external ear and nose normal, oropharynx normal (no oral candidiasis) Neck: trachea midline, no thyromegaly Respiratory: normal respiratory effort, lungs clear to auscultation Cardiovascular: RRR, no murmur, no edema Vessels: posterior tibial pulses present, dorsalis pedis pulses present and radial pulses present; no carotid bruit Extremities: normal capillary refill; no calf tenderness Gastrointestinal (Abdomen): Inspection/Auscultation: normal bowel sounds; abdomen not distended Percussion/Palpation: + abdomen tender (epigastric) and abdomen soft; no guarding and abdomen not rigid Musculoskeletal: no cyanosis or clubbing, extremities motor strength 5/5 Skin: no rashes, warm and dry Neurologic: moves all extremities and awake; no focal motor deficits (no unliteral wealness) Speech / Cognition: normal speech Any head movement causing intolerable vertigo symptoms. Unable to complete HINTS exam or [place] Psychiatric: Orientation: alert, oriented to person and oriented to place; + not oriented to time Eye Contact: good eye contact Motor Behavior: + psychomotor agitation Speech: normal rate/rhythm/volume of speech Thought Process: linear/logical thought process Hallucinations: no auditory hallucinations and no visual hallucinations Cognition: + recent memory not intact Genitourinary: no CVA tenderness Lymphatic: no cervical or axillary lymphadenopathy Principal Diagnosis Hyponatremia, Dizziness, Anxiety Discharge Exam Constitutional WD/WN, vitals as above cooperative and comfortable; no acute distress Eyes + anicteric sclerae and PERRL ENMT mmm Neck normal visual inspection and trachea midline Respiratory normal respiratory effort, lungs clear to auscultation Cardiovascular RRR, no murmur, no edema Gastrointestinal (Abdomen) normal bowel sounds, soft, nontender, no hepatosplenomegaly Musculoskeletal no cyanosis or clubbing, extremities motor strength 5/5 Skin warm, dry Neurologic PERRL, EOMI, accommodation nl, no face palsy, no dysarthria Psychiatric Orientation: alert and oriented x 3 Affect: + anxious affect Lymphatic no cervical or axillary lymphadenopathy Discharge Data Allergies Allergy/AdvReac Type Severity Reaction Status Date / Time amoxicillin Allergy Intermediate NOT SURE Verified 12/20/19 09:14 clavulanic acid Allergy Intermediate NOT SURE Verified 12/20/19 09:14 Iodinated Contrast Media Allergy Intermediate Shortness Verified 12/20/19 09:14 of Breath CHEST PAIN TIGHTNESS IN CHEST rosiglitazone Allergy Intermediate CHEST PAIN Verified 12/20/19 09:14 Corticosteroids Allergy Unknown "STEROIDS": Verified 12/20/19 09:14 (Glucocorticoids) "SHORTNESS OF BREATH" tetracycline Allergy Unknown Unknown rxn Verified 12/20/19 09:14 atorvastatin [From Lipitor] Allergy Verified 12/20/19 09:14 iodine Allergy Verified 12/20/19 09:14 pregabalin AdvReac Severe severe Unverified 12/20/19 09:14 swelling hands/feet hydrocodone AdvReac Intermediate hear races Verified 12/20/19 09:14 ibuprofen AdvReac Intermediate KNOCKS Verified 12/20/19 09:14 EQUILIBRIUM OFF levofloxacin AdvReac Intermediate Dizziness Verified 12/20/19 09:14 metformin AdvReac Intermediate SEVERE Verified 12/20/19 09:14 DIARRHEA omeprazole AdvReac Intermediate SHAKES/TACH Verified 12/20/19 09:14 YCARDIA pantoprazole AdvReac Intermediate SHAKES/TACH Verified 12/20/19 09:14 YCARDIA prednisone AdvReac Intermediate Palpitations Verified 12/20/19 09:14 AND "WENT TO UNIT" (CARDIAC CARE UNIT) codeine AdvReac Mild EQUILIBRIUM Verified 12/20/19 09:14 OFF Penicillins AdvReac Mild Augmentin: Verified 12/20/19 09:14 GI UPSET theophylline AdvReac Mild INCREASED Verified 12/20/19 09:14 HR esomeprazole AdvReac Unknown SHAKES/TACH Verified 12/20/19 09:14 YCARDIA Sulfa (Sulfonamide AdvReac Unknown COULD NOT Verified 12/20/19 09:14 Antibiotics) WALK AND TREMBLED Consultations 12/20/19 12:59 ED Decision to Admit Stat 12/21/19 06:29 Consult Health Information Management Routine 12/21/19 06:31 Consult Health Information Management Routine Ordered Studies 12/20/19 09:00 CT head/brain wo con Stat 12/20/19 09:20 CT abd pelvis wo con Stat CXR 12/21 [facility] Hospital Course (1) Hyponatremia: * Mild, Acute on chronic. Na 128 on admission. Unclear cause although suspect low free water intake given urine sodium 41 and urine osm 170. TSH wnl * Given IVF and improved however still low at 132. Low occurrence of benzo causing hypoNa, however suspect poor intake. Lengthy discussion about her 8- 8oz fluid intake and that she may utilize sugar free Gatorade/similar for 8- 16oz of total volume to help with sodium levels, but to make sure she is consuming total volume between 7-8 8oz glasses. * AM cortisol marginally elevated 23 * Repeat BMP in next 2-3 days outpatient to ensure resolution -- of note, had been on a fluid restriction while inpatient (2) Vertigo: * Resolved , but stated she had episode evening 12/20. Did not receive meclizine. Discussed utilizing this prn as well as slowed position changes given orthostatics. * This is the patients main complaint although ongoing but progressive since May after of her . * Workup previous as an outpatient with negative MRI brain wo contrast on 08/29/2019 (not dedicated for IAC and wo contrast however patient refuses further MRI as she can only do an open MRI). * FHx of Meniere with parent and two siblings. Patient is having tinnitus but apparently this was evaluated by ENT as outpatient and per patient she was told it was just "old age" * Likely worse with stress/anxiety and possibly hyponatremia * Already been seen by PCP on multiple occasions as ongoing since May but getting worse. * PT eval and treat for Lion --> not effective * Discussed Meclizine PRN * Follow up with Dr. Salazar as previously arranged. Follow up with PCP and can utilize meclizine prn if effective in future. Could also consider ECHO, although no murmur heard on examination and symptoms not c/w valvular issue given waxing/waning and non-specific inciting events/alleviating factors (3) Weakness: * Resolving, Suspect secondary to hyponatremia/vertigo as above. * CM assisted ref for home PT at discharge (4) Dizziness: * Resolving, Suspected vertigo only by history. (5) Acid reflux: * Substantial epigastric pain on admission though no complaints of today. * Certainly not helped but current high stress levels. * Switch lansoprazole for pantoprazole 40mg PO BID --> switched back to lansoprazole given patient stated adverse reaction in the past to pantoprazole and listed as allergy "shakes/chills" * D/c'd famotidine * Last EGD 07/2019 - non bleeding gastric ulcer, normal esophagus * Continued home lansoprazole at discharge (6) Diabetes: * A1c 8.0 * Hold her usual glipizide. Utilize SSI * Pharmacy glycemic consult for hyperglycemia * Patient did refuse multiple administrations of insulin during admission and had some spikes in her sugars. * Recommended continuing to check sugars at home on usual glipizide and follow up with her PCP if continues to remain elevated (7) Hypertension: * Continued lisinopril 40 mg p.o. daily, atenolol 25 mg p.o. at bedtime (8) Grief: * With significant anxiety. 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 * Continued her usual Xanax 0.25mg PO BID (she utilizes extra dose during the day when needed at home. Trial klonopin but did not like how groggy it made her feel. * Continued xanax and she should continue counseling weekly (on ) as already established at discharge (9) DVT prophylaxis: * SCDs while inpatient [facility] ordered for abd pain/constipation. Non-obstructive. No evidence for constipation Multiple BMs evening 12/21. Discussed resuming her metamucil as previously on but was held given constipation. Instructed to take with full glass of water to prevent constipation. Discharged home Total Time Total Time Spent Total Time Spent (In Minutes): 60 Discharge Plan Discharge Items Patient Disposition: Home - Home Health Services Reason For Visit: DIZZINESS,HYPONATREMIA Discharge Diagnosis: Hyponatremia Goals: You have been hospitalized for an acute medical problem. During your stay at [facility], we have made an effort to correct the problem that brought you to the hospital while keeping you as comfortable as possible. Medications were used to bring your condition under control and your discharge instructions will include directions for any medications you should take after leaving the hospital. Please make sure you see your Primary Care Provider as part of your follow up plan. Activity: Resume your previous activity Non-emergency contact: Primary Care Provider Call non-emergency contact if: you have any medication questions and your symptoms worsen Follow-up/Referrals: Hyun Morales CRNP [Primary Care Provider] - 01/06/20 10:50 am Maddy Salazar MD [Physician] - 01/09/20 10:45 am (You will be seeing an mediator at 10:[address] Salazar at 11:15.) Diet: Carb Consistent or DM2 and Heart Healthy Fluids: 2000ml (8 cups) Addtl Attending Provider Instructions: You have been hospitalized for dizziness and weakness which was likely related to low sodium levels. You were treated with IV fluids and evaluated by physical therapy and referrals have been made for [facility] home health at discharge. This was likely due to not taking enough free water/fluids. You may resume your metamucil with 8oz of water daily to help bulk up your stool. A new prescription has been sent for refill of your Prevacid. Regarding your vertigo, you have been sent a prescription for meclizine to use as needed for those symptoms. You were evaluated by PT and maneuvers were not successful at resolving this. You were also trialed on klonopin for longer lasting anxiety relief, but felt better control with your xanax and you may continue this medication as well as continued counseling as previously arranged. You have been set up follow up with Dr. Salazar for routine care as requested. You should continue to maintain adequate hydration and this will be in the form of 8 - 8oz glasses of fluid a day, and can be supplemented with sugar free Gatorade/Propel for sodium supplementation. You have been provided a lab slip for repeat labs in the next 2-3 days to monitor your sodium levels. Please keep follow up with your PCP in the next 2 weeks to monitor your progress. If your sodium remains low, they should consider a CT of the chest for other causes outside of medication. Return to the emergency department with any worsening symptoms or for any symptoms that are concerning for you. It has been a pleasure being a part of the medical team providing for you while you have been in the hospital. Pending Studies at Discharge: No Stand-Alone Forms: My [facility] Medications and DC Order Prescriptions: Continued diclofenac sodium [Voltaren] 1 % gel 2 g topical QID Qty: 100 RF: 2 atenolol 25 mg Tablet 25 mg PO HS RF: 0 alprazolam [Xanax] 0.5 mg tablet 0.25 - 0.5 mg PO TID PRN (Reason: Anxiety) RF: 0 albuterol sulfate 90 mcg/actuation Hfa Aerosol Inhaler 2 puff INHALATION QID PRN (Reason: Wheezing) RF: 0 fluticasone propionate [Flonase Allergy Relief] 50 mcg/actuation spray,suspension 2 spray Intranasal HS PRN (Reason: Allergy Symptoms) RF: 0 cranberry 500 mg Capsule 0 mg PO QAM RF: 0 glipizide 10 mg tablet extended release 24hr 10 mg PO BID RF: 0 lisinopril 40 mg tablet 40 mg PO QAM RF: 0 Florajen3 460 mg (7.5-6- 1.5 bill. cell) Capsule 1 cap PO QAM RF: 0 [id number] [krill oil] [id number] mg Capsule 1 cap PO QAM RF: 0 simethicone 125 mg Capsule 125 mg PO BID PRN (Reason: Acid Reflux) RF: 0 Changed lansoprazole [Prevacid] 15 mg Capsule,Delayed Release(Dr/Ec) 15 mg PO BID 30 Days Qty: 60 RF: 1 Discharge Orders: Discharge Order (Routine); Ordered 12/23/19 Ordered By: Ligia Nicole/Other Patient Handouts: Managing Type 2 Diabetes Admission Data Admit Date/Time: 12/20/19 13:05 Attending Provider: Silviano Mares Admit Provider: Cam Marsh Primary Care Provider: Hyun Morales Other Providers: Cam Marsh ; [facility],Home Healthcare Other Interventions: Discharge Summary Assessment (RN) Last Done: 12/23/19 11:49 Coding Level of Care Code D/C Day Management >30 mins Diagnoses Hyponatremia E87.1 Vertigo R42 Weakness R53.1 Dizziness R42 Acid reflux K21.9 Diabetes E11.9 Hypertension I10 Grief F43.21 DVT prophylaxis Z29.9
[2019-12-23 11:51] VITALS: BP 96/62
[2019-12-23 12:53] VITALS: PULSE 40
== END 2019-12-23 13:44 | disposition home health service (06) | DRG 641 ==
LOC: ED 08:42 → 2W 13:05 → SUATTDRO 13:05 → 2W 16:38
DX: E87.1 Hypo-osmolality and hyponatremia; R42 Dizziness and giddiness; K21.9 Gastro-esophageal reflux disease without esophagitis; Z79.899 Other long term (current) drug therapy; F43.22 Adjustment disorder with anxiety; Z79.84 Long term (current) use of oral hypoglycemic drugs; E11.9 Type 2 diabetes mellitus without complications; R53.1 Weakness

== ENCOUNTER 2020-09-30 12:56 | Inpatient (IN) ==
[2020-09-30] MEDS ORDERED: ONDANSETRON INJ 2 MG/ML 2 ML VIAL IV STA (13:32)
--- NOTE | 2020-09-30 13:44 | Emergency Department Note ---
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 technique was utilized adhering to the principles of ALARA. The examination is degraded by motion artifact. There is also streak artifact from the arms which could not be elevated above the upper abdomen. FINDINGS: Lung bases: The heart is normal in size noting trace pericardial effusion. There are calcifications of the coronary arteries and mitral annulus. The lung bases are clear. A small hiatal hernia is noted. Liver: The unenhanced liver is normal in size, contour, and attenuation. There is no intrahepatic biliary ductal dilatation. Pneumobilia is unchanged. Gallbladder: Surgically absent noting clips in the gallbladder fossa. Spleen: Normal in size and attenuation. Pancreas: The unenhanced pancreas is moderately atrophic and grossly unremarkable. Adrenal glands: Unremarkable. Kidneys: The unenhanced kidneys demonstrate mild cortical atrophy. There is mild. The renal collecting systems without hydronephrosis. Bilateral extrarenal pelvises are noted. No renal calculi are identified. There is no evidence of contour deforming renal mass lesion. Abdominal vasculature: The abdominal aorta is normal in course and caliber noting moderate atherosclerotic calcification. Bowel: There is moderate colonic diverticulosis without CT evidence of acute diverticulitis. No bowel obstruction is identified. The appendix is well- visualized and normal. A small bowel lipoma is seen on image #316. Peritoneum: There is no intraperitoneal free air or abdominal ascites. There is evidence of previous ventral hernia repair. There is postoperative change from right inguinal herniorrhaphy. Postoperative change and calcification is seen within the right lower quadrant abdominal wall. Lymphadenopathy: A mildly enlarged aortocaval node on image #145 measures 1.5 x 1.0 cm. No additional enlarged lymph nodes are seen in the abdomen or pelvis. Pelvic viscera: Evaluation of the pelvis is degraded by streak artifact from a right hip arthroplasty. The bladder, uterus, and adnexa are normal as visualized. Skeletal structures: The skeletal structures are osteopenic. There is moderate to advanced lumbosacral spondylosis. No lytic or blastic lesions are seen. A right hip arthroplasty is in place. Advanced arthritic change is seen in the left hip. There are healed left-sided pubic ring fractures. There are healed left-sided rib fractures. IMPRESSION: 1. Streak and motion degraded examination. 2. There are no acute infectious or inflammatory findings in the abdomen or pelvis. 3. There is no bowel obstruction. 4. Colonic diverticulosis without CT evidence of acute diverticulitis. 5. A mildly enlarged retroperitoneal lymph node is nonspecific and unchanged. 6. Additional findings as above. ACT 112: Negative or not required by law. Electronically signed by: Weston Gallego M.D. 09/30/2020 2:16 PM Chest X-Ray 09/30/20 13:32 SINGLE VIEW CHEST CLINICAL HISTORY: Generalized weakness. FINDINGS: An AP, portable, upright chest radiograph is compared to study dated 07/26/2020. The examination is degraded by portable technique and patient rotation. The heart is top normal for projection noting atherosclerotic calcification of the thoracic aorta. Chronic interstitial thickening is similar to previous. There is bibasilar scarring/atelectasis. No airspace consolidation or large pleural effusion is identified. No pneumothorax is seen. The skeletal structures are osteopenic. There are healed left-sided rib fractures. IMPRESSION: No acute cardiopulmonary abnormality. ACT 112: Negative or not required by law. Electronically signed by: Weston Gallego M.D. 09/30/2020 2:[address] 09/30/20 13:32 CT head/brain wo con CLINICAL HISTORY: 80 years-old Female with AMS. Acutely altered mental status TECHNIQUE: Multiple axial CT images of the head were obtained without contrast. A dose lowering technique was utilized adhering to the principles of ALARA. COMPARISON: Head CT 05/31/2020 FINDINGS: No acute intracranial hemorrhage, midline shift, intracranial mass, hydrocephalus, territorial ischemia or abnormal extra-axial collection. Mild involutional changes. White matter hypodensities suggestive of chronic microvascular ischemic disease. Cerebral vascular calcifications. Mildly motion degraded exam. The calvarium is intact. Prior bilateral lens repair. The paranasal sinuses, mastoid air cells, and middle ear cavities are clear. IMPRESSION: No acute intracranial abnormality. ACT 112: Negative or not required by law. The above report was generated using voice recognition software. It may contain grammatical, syntax or spelling errors. Electronically signed by: Ruel Capps M.D. 09/30/2020 2:[address] 09/30/20 13:45 CT SCAN OF THE CERVICAL SPINE CLINICAL HISTORY: Trauma. Change in mental status. COMPARISON STUDY: No priors. TECHNIQUE: CT scan of the cervical spine is performed from the skull base to the upper thoracic spine. Images are reviewed in the axial, sagittal, and coronal planes. IV contrast was not administered for this examination. A dose lowering technique was utilized adhering to the principles of ALARA. CT DOSE: 1941.92 mGy.cm FINDINGS: Skeletal structures: The skeletal structures are osteopenic. There is no evidence of fracture or subluxation involving the cervical spine. Vertebral body height and alignment are maintained. Small anterior osteophytes are seen in the lower cervical region. The odontoid process and lateral masses are intact. The atlantoaxial articulation is preserved noting productive degenerative change. The spinous processes appear intact. There is a minimal and age indeterminant superior endplate compression deformity of T3. There is mild to moderate mul tilevel cervical spondylosis. Uncovertebral and facet arthropathy contribute to neural foraminal narrowing at several levels. Intervertebral discs: Mild disc space narrowing is noted at C6-C7. The remaining disc spaces appear maintained. Central canal: Small posterior disc osteophyte complexes at C4-C5 and C6-C7 may contribute to minimal acquired compromise of the central canal. Soft tissues: The prevertebral and paraspinous soft tissues are within normal limits. There is atherosclerotic calcification of the carotid bulbs. Calvarium: The visualized calvarium at the skull base appears intact. Brain parenchyma: Partially visualized brain parenchyma at the skull base is within normal limits noting age-related involutional change. Sinuses and mastoids: The visualized paranasal sinuses are clear. The mastoid air cells are well pneumatized. Lung apices: Clear as visualized. IMPRESSION: 1. There is no evidence of fracture or subluxation involving the cervical spine. 2. There is a minimal and age indeterminant superior endplate compression deformity of T3. Correlate for point tenderness. 3. Osteopenia and spondylotic change as above. ACT 112: Negative or not required by law. Electronically signed by: Weston Gallego M.D. 09/30/2020 2:05 PM Discharge Plan Visit Data Chief Complaint: Altered Mental Status Stated Complaint: AMS ED Provider: Cale Martines Discharge Problem: Acute alteration in mental status, Acute hyponatremia, Seizure, Hypomagnesemia Patient Disposition: Being Evaluated by Hospitalist Condition: Good Forms [facility] Prescriptions: No Action clindamycin HCl 300 mg capsule 1,200 mg PO UD PRN (Reason: PRIOR TO DENTAL APPOINTMENTS.) RF: 0 famotidine [Pepcid] 20 mg tablet 20 mg PO QAM RF: 0 CPAP Machine Misc See Rx Instructions .ROUTE .COMPLEX Qty: 1 RF: 0 alprazolam [Xanax] 0.5 mg tablet 0.25 - 0.5 mg PO TID PRN (Reason: Anxiety) RF: 0 lisinopril 40 mg tablet 20 mg PO QAM RF: 0 metoprolol succinate 25 mg tablet extended release 24 hr 25 mg PO DAILY RF: 0 glipizide 10 mg tablet extended release 24hr 10 mg PO BID RF: 0 triamcinolone acetonide 0.1 % ointment 1 applic TOPICAL UD RF: 0 Referrals Referrals: Sana Becker DO [Primary Care Provider] -
--- NOTE | 2020-09-30 14:03 | CT Scan Report ---
CT head/brain wo con CLINICAL HISTORY: 80 years-old Female with AMS. Acutely altered mental status TECHNIQUE: Multiple axial CT images of the head were obtained without contrast. A dose lowering tech nique was utilized adhering to the principles of ALARA. COMPARISON: Head CT 05/31/2020 FINDINGS: No acute intracranial hemorrhage, midline shift, intracranial mass, hydrocephalus, territorial ischem ia or abnormal extra-axial collection. Mild involutional changes. White matter hypodensities suggesti ve of chronic microvascular ischemic disease. Cerebral vascular calcifications. Mildly motion degrade d exam. The calvarium is intact. Prior bilateral lens repair. The paranasal sinuses, mastoid air cells, and m iddle ear cavities are clear. IMPRESSION: No acute intracranial abnormality. ACT 112: Negative or not required by law. The above report was generated using voice recognition software. It may contain grammatical, syntax o r spelling errors. Electronically signed by: Ruel Capps M.D. 09/30/2020 2:02 PM
--- NOTE | 2020-09-30 14:06 | CT Scan Report ---
CT SCAN OF THE CERVICAL SPINE CLINICAL HISTORY: Trauma. Change in mental status. COMPARISON STUDY: No priors. TECHNIQUE: CT scan of the cervical spine is performed from the skull base to the upper thoracic spine . Images are reviewed in the axial, sagittal, and coronal planes. IV contrast was not administered fo r this examination. A dose lowering technique was utilized adhering to the principles of ALARA. CT DOSE: 1941.92 mGy.cm FINDINGS: Skeletal structures: The skeletal structures are osteopenic. There is no evidence of fracture or subl uxation involving the cervical spine. Vertebral body height and alignment are maintained. Small anter ior osteophytes are seen in the lower cervical region. The odontoid process and lateral masses are in tact. The atlantoaxial articulation is preserved noting productive degenerative change. The spinous p rocesses appear intact. There is a minimal and age indeterminant superior endplate compression deform ity of T3. There is mild to moderate multilevel cervical spondylosis. Uncovertebral and facet arthrop athy contribute to neural foraminal narrowing at several levels. Intervertebral discs: Mild disc space narrowing is noted at C6-C7. The remaining disc spaces appear m aintained. Central canal: Small posterior disc osteophyte complexes at C4-C5 and C6-C7 may contribute to minimal acquired compromise of the central canal. Soft tissues: The prevertebral and paraspinous soft tissues are within normal limits. There is athero sclerotic calcification of the carotid bulbs. Calvarium: The visualized calvarium at the skull base appears intact. Brain parenchyma: Partially visualized brain parenchyma at the skull base is within normal limits not ing age-related involutional change. Sinuses and mastoids: The visualized paranasal sinuses are clear. The mastoid air cells are well pneu matized. Lung apices: Clear as visualized. IMPRESSION: 1. There is no evidence of fracture or subluxation involving the cervical spine. 2. There is a minimal and age indeterminant superior endplate compression deformity of T3. Correlate for point tenderness. 3. Osteopenia and spondylotic change as above. ACT 112: Negative or not required by law. Electronically signed by: Weston Gallego M.D. 09/30/2020 2:05 PM
--- NOTE | 2020-09-30 14:18 | CT Scan Report ---
CT SCAN OF THE ABDOMEN AND PELVIS WITHOUT IV CONTRAST CLINICAL HISTORY: Vomiting. Change in mental status. COMPARISON STUDY: Abdominal CT dated 07/21/2020. TECHNIQUE: CT scan of the abdomen and pelvis is performed from the lung bases to the proximal femora. Images are reviewed in the axial, sagittal, and coronal planes. IV contrast was not administered for this examination. A dose lowering technique was utilized adhering to the principles of ALARA. The ex amination is degraded by motion artifact. There is also streak artifact from the arms which could not be elevated above the upper abdomen. FINDINGS: Lung bases: The heart is normal in size noting trace pericardial effusion. There are calcifications o f the coronary arteries and mitral annulus. The lung bases are clear. A small hiatal hernia is noted. Liver: The unenhanced liver is normal in size, contour, and attenuation. There is no intrahepatic mary ellen iary ductal dilatation. Pneumobilia is unchanged. Gallbladder: Surgically absent noting clips in the gallbladder fossa. Spleen: Normal in size and attenuation. Pancreas: The unenhanced pancreas is moderately atrophic and grossly unremarkable. Adrenal glands: Unremarkable. Kidneys: The unenhanced kidneys demonstrate mild cortical atrophy. There is mild. The renal collectin g systems without hydronephrosis. Bilateral extrarenal pelvises are noted. No renal calculi are ident ified. There is no evidence of contour deforming renal mass lesion. Abdominal vasculature: The abdominal aorta is normal in course and caliber noting moderate atheroscle rotic calcification. Bowel: There is moderate colonic diverticulosis without CT evidence of acute diverticulitis. No bowel obstruction is identified. The appendix is well-visualized and normal. A small bowel lipoma is seen on image #316. Peritoneum: There is no intraperitoneal free air or abdominal ascites. There is evidence of previous ventral hernia repair. There is postoperative change from right inguinal herniorrhaphy. Postoperative change and calcification is seen within the right lower quadrant abdominal wall. Lymphadenopathy: A mildly enlarged aortocaval node on image #145 measures 1.5 x 1.0 cm. No additional enlarged lymph nodes are seen in the abdomen or pelvis. Pelvic viscera: Evaluation of the pelvis is degraded by streak artifact from a right hip arthroplasty . The bladder, uterus, and adnexa are normal as visualized. Skeletal structures: The skeletal structures are osteopenic. There is moderate to advanced lumbosacra l spondylosis. No lytic or blastic lesions are seen. A right hip arthroplasty is in place. Advanced a rthritic change is seen in the left hip. There are healed left-sided pubic ring fractures. There are healed left-sided rib fractures. IMPRESSION: 1. Streak and motion degraded examination. 2. There are no acute infectious or inflammatory findings in the abdomen or pelvis. 3. There is no bowel obstruction. 4. Colonic diverticulosis without CT evidence of acute diverticulitis. 5. A mildly enlarged retroperitoneal lymph node is nonspecific and unchanged. 6. Additional findings as above. ACT 112: Negative or not required by law. Electronically signed by: Weston Gallego M.D. 09/30/2020 2:16 PM
[2020-09-30 14:36] LABS: Eosinophils # (auto) 0.01 K/uL (0-0.5); Eosinophils % (auto) 0.1 %; Hematocrit (blood only) 34.2 % (37-47); Hemoglobin 12.7 g/dL (12.0-16.0); Immature Granulocytes # (auto) 0.11 K/uL (0.00-0.02); Immature Granulocytes % (auto) 0.8 %; Lymphocytes % (auto) 10.9 %; Mean Corpuscular Hemoglobin 30.2 pg (25-34); Mean Corpuscular Hgb Conc 37.1 g/dL (32-36); Mean Corpuscular Volume 81.2 fL (80-100); Mean Platelet Volume 10.6 fL (7.4-10.4); Monocytes # (auto) 0.46 K/uL (0.11-0.59); Monocytes % (auto) 3.4 %; Neutrophils # (auto) 11.63 K/uL (1.4-6.5); Neutrophils % (auto) 84.8 %; Platelet Count 226 K/uL (130-400); RDW Coefficient of Variation 12.8 % (11.5-14.5); RDW Standard Deviation 38.4 fL (36.4-46.3); Red Blood Count 4.21 M/uL (4.2-5.4); White Blood Count 13.71 K/uL (4.8-10.8)
[2020-09-30 14:47] LABS: Partial Thromboplastin Time 26.5 Seconds (21.0-31.0); Prothrombin Time 10.3 Seconds (9.0-12.0)
--- NOTE | 2020-09-30 14:57 | XRay Report ---
SINGLE VIEW CHEST CLINICAL HISTORY: Generalized weakness. FINDINGS: An AP, portable, upright chest radiograph is compared to study dated 07/26/2020. The examinat ion is degraded by portable technique and patient rotation. The heart is top normal for projection no ting atherosclerotic calcification of the thoracic aorta. Chronic interstitial thickening is similar to previous. There is bibasilar scarring/atelectasis. No airspace consolidation or large pleural effu sujey is identified. No pneumothorax is seen. The skeletal structures are osteopenic. There are healed left-sided rib fractures. IMPRESSION: No acute cardiopulmonary abnormality. ACT 112: Negative or not required by law. Electronically signed by: Weston Gallego M.D. 09/30/2020 2:56 PM
[2020-09-30 15:09] LABS: Appearance Urine Clear (Clear); Bacteria Urine Automated Negative (Negative); Bilirubin Urine Negative (Negative); Blood Urine Trace (Negative); Cast Urine Automated 0 /lpf (0-5); Color Urine Yellow; Epithelial Cell Urine Auto 0-5 /lpf (0-5); Glucose Urine UA 3+ (Negative); Ketones Urine 2+ (Negative); Leukocyte Esterase Urine Negative (Negative); Nitrite Urine Negative (Negative); Protein Urine Negative (Negative); RBC Urine Automated 0-4 /hpf (0-4); Specific Gravity Urine 1.019 (1.000-1.030); Urobilinogen Urine Negative (Negative); WBC Urine Automated 0 /hpf (0-5)
[2020-09-30] MEDS ORDERED: dexAMETHasone**PF** 10 MG/ML VIAL IV ONE (15:28)
[2020-09-30 16:14] LABS: Albumin Globulin Ratio 1.1 (0.9-2); Albumin Level 3.3 gm/dl (3.4-5.0); Bilirubin,Total 1.2 mg/dl (0.2-1); Calcium 7.5 mg/dl (8.5-10.1); Creatinine Clr Calc Pharmacy 41.7 ml/min; Est GFR (African American) 73.4 ml/min; Est GFR (Non-African American) 63.4 ml/min; Globulin 3.1 gm/dl (2.5-4.0); Magnesium 1.5 mg/dl (1.8-2.4); Potassium 4.4 mmol/L (3.5-5.1); Thyroid Stimulating Hormone 0.967 uIu/ml (0.300-4.500); Total Protein 6.4 gm/dl (6.4-8.2); Troponin I 0.028 ng/ml (0-0.045)
[2020-09-30] MEDS ORDERED: SODIUM CHLORIDE 3 % 50 ML IV ONE ×2 (16:18→18:27)
[2020-09-30] MEDS: MAGNESIUM SULFATE / D5W 1 GM/100 ML BAG IV SCH ×2 (17:05→18:09)
[2020-09-30 18:36] LABS: Amphetamines+Metham, Urine Neg (Neg); Barbiturates, Urine Neg (Neg); Benzodiazepine, Urine Neg (Neg); Cocaine, Urine Neg (Neg); MDMA (Ecstacy), Urine Neg (Neg); Methadone, Urine Neg (Neg); Opiate, Urine Neg (Neg); Phencyclidine, Urine Neg (Neg)
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
[2020-09-30 19:27] LABS: Base Excess VBG 0.9 mEq/L; HCO3 VBG 25 mmol/L; PCO2 VBG 38 mmHg (38-50); PO2 VBG 23 mmHg; pH VBG 7.44 (7.36-7.41)
[2020-09-30 19:45] LABS: Oxygen Saturation VBG < 60.0 %
[2020-09-30] MEDS ORDERED: ICU PROTOCOL FOR HYPERGLYCEMIA PRN (19:56)
[2020-09-30 20:01] LABS: BUN Creatinine Ratio 18.3 (10-20); Calcium 7.8 mg/dl (8.5-10.1); Creatinine Clr Calc Pharmacy 45.9 ml/min; Est GFR (African American) 82.5 ml/min; Est GFR (Non-African American) 71.2 ml/min; Potassium 4.2 mmol/L (3.5-5.1)
[2020-09-30] MEDS ORDERED: SODIUM CHLORIDE 3 % 100 ML IV ONE (20:11)
[2020-09-30] MEDS: levETIRAcetam 500 MG in 0.9 % SODIUM CHLORIDE 100 ML IV SCH (20:29)
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
[2020-09-30] MEDS ORDERED: SODIUM CHLORIDE 3 % 500 ML IV SCH (20:30)
[2020-09-30] MEDS ORDERED: ACETAMINOPHEN 1,000 MG/100 ML VIAL IV PRN (20:42)
[2020-09-30] MEDS ORDERED: STAT IV Infusion **Titration per Protocol STA (20:45)
[2020-09-30] MEDS ORDERED: INSULIN PROTOCOL GOAL RANGE ONE ×2 (20:45→21:00)
[2020-09-30] MEDS ORDERED: SEVERE STRESS LEVEL ONE (20:45)
[2020-09-30] MEDS ORDERED: GLUCAGON FOR INJ 1 MG VIAL IM PRN (21:00)
[2020-09-30] MEDS ORDERED: GLUCOSE 10 TABS/TUBE PO PRN (21:00)
[2020-09-30] MEDS ORDERED: GLUCOSE 40% GEL 15 GM TUBE PO PRN (21:00)
[2020-09-30] MEDS ORDERED: DEXTROSE 50% 50 ML SYRINGE IV PRN (21:00)
[2020-09-30] MEDS ORDERED: CARBOHYDRATES FOR HYPOGLYCEMIA PO PRN (21:00)
[2020-09-30] MEDS ORDERED: NovoLIN-R BOLUS FROM BAG IV ONE (21:00)
[2020-09-30] MEDS: INSULIN REGULAR 250 UNITS in SODIUM CHLORIDE 0.9% 247.5 ML IV SCH (21:14)
--- NOTE | 2020-09-30 21:28 | Procedure Note ---
Procedure Note Date of Service September 30, 2020 Note Procedure: Arterial Line Placement Attending: Dr. Tobar APC: Luigi Jonas PA-C Indication: Monitoring on Pressors Anesthesia: Lidocaine 1% Emergent consent applied in the setting of need for frequent lab draws and poor peripheral access and the patient that is unable to verbal consent otherwise. A time-out was completed verifying correct patient, procedure, site, positioning, and implant(s) or special equipment if applicable. Allens test was performed to ensure adequate perfusion. Patients LEFT wrist was prepped and draped in the usual sterile fashion. Ultrasound guidance was used to aid needle placement. A 20g Arrow arterial line was introduced into the LEFT Radial artery. Catheter was threaded, and the needle was removed with appropriate blood return. Good waveform was observed. The patient tolerated the procedure well. Confirmation of placement with ultrasound. Blood Loss: Minimal Complications: None Procedural Ultrasound Guidance: Procedure Date: 09/30/2020 Indication: Frequent lab draws, poor peripheral access. Attending: Dr. Tobar APC: Luigi Jonas PA-C Artery Identified: YES Line confirmed in Artery with ultrasound: YES Complications: NONE Patient tolerated procedure: WELL Coding CPT Codes Tubes, Drains, and Vasc Access - Tubes, Drains, and Vasc Access: [id number] Place Catheter In Artery ([id number]) [facility] [place] C[place] (Charges) Tubes, Drains, and Vasc Access Procedure 1: Tubes, Drains, and Vasc Access: [id number] Place Catheter In Artery
[2020-09-30] MEDS ORDERED: MEROPENEM CONSULT ACITVE PRN (21:48)
[2020-09-30] MEDS ORDERED: VANCOMYCIN CONSULT ACTIVE PRN (21:48)
[2020-09-30] MEDS: ENOXAPARIN INJ 40 MG/0.4 ML SYR SQ SCH (21:53)
[2020-09-30] MEDS: INSULIN ASPART 100 UNITS/ML 3 ML PEN SC SCH (21:55)
[2020-09-30] MEDS ORDERED: VANCOMYCIN HCL 1,750 MG in SODIUM CHLORIDE 0.9% 500 ML IV ONE (22:30)
[2020-09-30] MEDS: MEROPENEM 2,000 MG in 0.9 % SODIUM CHLORIDE 58 ML IV SCH (22:40)
[2020-09-30 23:23] LABS: Calcium 7.4 mg/dl (8.5-10.1); Creatinine Clr Calc Pharmacy 57.9 ml/min; Est GFR (African American) 98.4 ml/min; Est GFR (Non-African American) 84.9 ml/min
[2020-10-01] MEDS: levETIRAcetam 500 MG in 0.9 % SODIUM CHLORIDE 100 ML IV SCH ×3 (00:19→18:18)
[2020-10-01] MEDS ORDERED: DEXTROSE 5% 500 ML IV SCH ×3 (01:30→05:00)
[2020-10-01] MEDS: DEXTROSE 5% 1,000 ML IV SCH ×3 (02:35→14:11)
[2020-10-01 04:38] LABS: Hematocrit (blood only) 33.8 % (37-47); Hemoglobin 12.5 g/dL (12.0-16.0); Immature Granulocytes # (auto) 0.07 K/uL (0.00-0.02); Immature Granulocytes % (auto) 0.4 %; Lymphocytes # (auto) 0.71 K/uL (1.2-3.4); Lymphocytes % (auto) 4.4 %; Mean Corpuscular Hemoglobin 29.8 pg (25-34); Mean Corpuscular Volume 80.7 fL (80-100); Mean Platelet Volume 10.2 fL (7.4-10.4); Monocytes # (auto) 1.56 K/uL (0.11-0.59); Monocytes % (auto) 9.8 %; Neutrophils # (auto) 13.62 K/uL (1.4-6.5); Neutrophils % (auto) 85.4 %; Platelet Count 225 K/uL (130-400); RDW Coefficient of Variation 12.9 % (11.5-14.5); RDW Standard Deviation 37.9 fL (36.4-46.3); Red Blood Count 4.19 M/uL (4.2-5.4); White Blood Count 15.96 K/uL (4.8-10.8)
[2020-10-01 04:55] LABS: Albumin Level 2.9 gm/dl (3.4-5.0); BUN Creatinine Ratio 14.9 (10-20); Calcium 7.7 mg/dl (8.5-10.1); Creatinine Clr Calc Pharmacy 47.5 ml/min; Est GFR (African American) 83.8 ml/min; Est GFR (Non-African American) 72.3 ml/min; Magnesium 2.2 mg/dl (1.8-2.4); Potassium 3.9 mmol/L (3.5-5.1)
[2020-10-01 04:59] LABS: Bilirubin Direct 0.2 mg/dl (0-0.2); Bilirubin,Total 1.2 mg/dl (0.2-1); Phosphorus 2.8 mg/dl (2.5-4.9); Total Protein 5.7 gm/dl (6.4-8.2)
[2020-10-01] MEDS ORDERED: DESMOPRESSIN ACETATE 2 MCG in SODIUM CHLORIDE 0.9% 50 ML IV SCH (05:00)
[2020-10-01 07:21] LABS: Estimated Average Glucose 194 mg/dl; Hemoglobin A1C 8.4 % (4.5-5.6)
--- NOTE | 2020-10-01 07:33 | Hospitalist Progress Note ---
Date of Service October 01, 2020 Assessment & Plan (1) Encephalopathy: Plan: Acute hyponatremia metabolic encephalopathy LP 10/01/20 shows wbc of 20 all other paramenters are negative, biofire negative, started on meningitis meds, acyclovir and ampicillin could wbc be from seizure but pt is febrile - CT head, neck, abdomen negative for acute process - Toxicology screen negative - TSH normal - Blood cultures pending (2) Acute hyponatremia: Plan: Sodium on arrival 114 - corrected for hyperglycemia to 120 - Serum OSMO 255, Spec Grav 1.019, UO 532, Urine NA- 107 - 50 ml 3% saline given x2 for total of 100 ml - DDAVP 2mcg IV - add D5 - - K is normal - TSH normal - Cortisol appropriately elevated Patient has previous history of hyponatremia- with what looks to be from increase in free water intake, her lowest that she had before was 128 (3) Seizure: Plan: Short lived <1min presumed from hyponatremia - Keppra 2GM IV given in EMD - Neurology consulted- recommended 500mg Keppra q6 hours - starting 6 hours after initial administration - Seizure prophylaxis (4) Hypomagnesemia: Plan: Replete (5) Sleep apnea: Plan: is on CPAP of 16 at home - recently had sleep study repeated (6) Anxiety and depression: Plan: Xanax PRN- hold until mental status improves - not likely withdraw- urine tox screen negative for benzo (7) Diabetes: Plan: Hyperglycemic on admission usually well controlled it appears as she is also on glipizide as outpatient - glucose protocol in the ICU goal <180 (8) Acid reflux: Plan: Famotidine daily, continue if mental status improves by morning - if not change to IV. (9) Acute encephalopathy: (10) Acute alteration in mental status: (11) Hypertension: (12) Hyperglycemia: (13) Sepsis: Admission and Anticipated Discharge Date Admission Date: September 30, 2020 Subjective pt is confused and not responding to questions Review of Systems Review of Systems: Unobtainable due to cognitive status Physical Exam Physical Exam: The patient appeared well nourished and normally developed. she is delirious Vital signs as documented. Head exam is normocephalic atraumatic Neck is without JVD, thyromegaly, or carotid bruits. Lungs are clear to auscultation, no focal loss of breath sounds Cardiac exam, Rhythm is regular.. No murmurs, rubs or gallops. Abdominal exam reveals normal bowel sounds, soft non tender, no masses Extremities are nonedematous and both pedal pulses are present Skin is without bruises or rashes Results & Data Results & Data ([facility]) Vital Signs (Past 12 Hours) Vital Signs Temp Pulse Pulse Resp BP BP Pulse Ox 10/01/20 06:02 100.0 F H 80 110/61 100 10/01/20 05:32 100.2 F H 57 L 126/52 L 100 10/01/20 05:00 100.2 F H 56 L 118/55 L 100 10/01/20 03:59 100.4 F H 57 L 99/49 L 97 10/01/20 03:00 100.6 F H 58 L 117/59 L 100 10/01/20 01:59 100.9 F H 59 L 106/44 L 95 10/01/20 00:59 100.9 F H 82 17 130/66 100 10/01/20 00:20 101.3 F H 69 20 99 10/01/20 00:10 101.3 F H 88 22 97 10/01/20 00:02 101.5 F H 101 H 27 H 96 10/01/20 00:00 87 09/30/20 23:41 101.7 F H 87 23 151/88 H 95 09/30/20 23:30 101.7 F H 83 23 128/89 95 09/30/20 22:00 102.2 F H 71 22 130/80 92 09/30/20 20:34 101.7 F H 70 21 144/60 H 90 09/30/20 20:17 101.7 F H 82 22 107/73 91 09/30/20 20:03 101.5 F H 91 H 24 181/73 H 94 09/30/20 19:56 74 PG Care Time/CCT Total # of Minutes Spent Total Time Spent with Patient: Total time spent is greater than 50% in coordination of care (as documented) at patient's floor/unit and/or counseling patient: Coding Level of Care Code 79582 Subseq Hosp Care Lvl 3 Diagnoses Acute hyponatremia E87.1 Seizure R56.9 Encephalopathy G93.40 Hypomagnesemia E83.42 Sleep apnea G47.30 Anxiety and depression F41.9; F32.9 Diabetes E11.9 Acid reflux K21.9 Acute encephalopathy G93.40 Acute alteration in mental status R41.82 Hypertension I10 Hyperglycemia R73.9 Sepsis A41.9
[2020-10-01] MEDS: INSULIN ASPART 100 UNITS/ML 3 ML PEN SC SCH ×4 (07:34→19:52)
[2020-10-01] MEDS: METOPROLOL SUCC 25MG EXT REL TAB PO SCH (07:35)
[2020-10-01] MEDS: FAMOTIDINE 20 MG TAB PO SCH (07:35)
--- NOTE | 2020-10-01 08:29 | Critical Care Progress Note ---
Date of Service October 01, 2020 Assessment & Plan (1) Admitted to intensive care unit: Plan: Reason Critically Ill: 80-year-old female who presents w/ acute encephalopathy, fever, and seizure-like episode in the setting of hyponatremia (114). NEURO - [facility] ICU: unable to assess. - acute encephalopathy: - most likely secondary to profound hyponatremia. hx prior admission for hyponatremia, milder - CT head neg. CT c spine and CT abd reports reviewed. - neuro consulted: EEG ordered. No MRI at this time. - LP studies pending. Clear, normal opening pressure 13. Elevated WBC at 20. Biofire negative for viral infection. - empiric abx tressa+vanc changed to ceftriaxone+vanc+acyclovir. will deescalate acyclovir after 24 hours - possible seizure-like activity: - Lasted less than 1 minute. Most likely from hyponatremia - s/p Keppra load in ED. Keppra 500mg q6h dose halved per neurology recs - EEG: no epileptiform activity. mild-mod generalized slowing c/w encephalopathy - agitation: - ativan 0.5mg IV PRN CARDIAC - hypertension: - hold home PO meds - 09/30 ecg reviewed by me. Sinus 72. T waves slightly large, but not peaked. No ST changes. Not suggestive of acute ischemic changes. RESPIRATORY - - TEREZA - continue qhs home cpap GI/NUTRITION - - NPO RENAL/LYTES - - hypotonic hyponatremia: - serum Osm 255. - hypovolemic vs euvolemic. 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 urine sodium elevated>100, considered renal losses. lower suspicion for mineralocorticosteroid deficiency given normal K. - nephrology consulted. hold IV fluids. - patient is s/p hypertonic saline yesterday, correction from 114->125 in 14 hours. s/p desmopressin and d5 half NSS 125hr. Na dropped to 118. - plan: check BMP q4h. Patient will also be getting significant free water from IV abx (~1L total). Will provide 50mL hypertonic saline boluses as needed. Caution against desmopressin in context of large volume of IV fluids. - - continue gonzalez. strict Is/Os. - 09/30-10/01 3L in 3L out ENDO - - hyperglycemia: - glycemic consult, insulin GTT, currently at 2.2mL/hr - Random cortisol 30.96, appropriate HEME - - H/H stable, follow CBC ID - - sepsis - febrile 38.6C upon ICU arrival. Tmax 39C - w/o meningeal findings - on empiric abx - BC pending - lactate 2.1->2.9->2.1 - procalc elev at 60s, consistent w/ presentation - s/p bedside lumbar puncture (via anesthesiology) (ordered because of AMS w/ fever) - studies pending. CSF WBC elevated at 20 - added IV acyclovir - hx of UTI, but UA not suggestive of infection - ordered urine culture - repeat lactate 2.9->2.1 LINES/IV ACCESS - PIVs x2, L A line DVT PROPHYLAXIS - Lovenox, SCDs DIPSO: ICU (2) Acute encephalopathy: (3) Acute alteration in mental status: (4) Hypertension: (5) Diabetes: (6) Acute hyponatremia: (7) Hyperglycemia: (8) Sleep apnea: (9) Sepsis: Admission and Anticipated Discharge Date Admission Date: September 30, 2020 Supervising Physician Co-Signing Physician Notes Patient seen and examined. Discussed with bedside critical care nurse as well as on multidisciplinary rounds and with neurology, nephrology, and overnight critical care DARRYL. The patient's hyponatremia is improving. Her studies are mixed but polydipsia may have been contributing. Her urine osmolarity is inappropriately high so there may be a component of SIADH as well. I am concerned given her fevers, altered mental status, and leukocytosis about potential infection. Urinalysis appears unremarkable and chest x-ray is relatively clear although aspiration pneumonitis would be on the differential. We will proceed with lumbar puncture. Discussed with neurology performing EEG. Appreciate neurology assistance and nephrology assistance. Continue to monitor BMPs every 2-4 hours. We will try and avoid overly rapid correction. Given the potential for NAIL SPECIALIST process, will initiate antibiotics to cover potential NAIL SPECIALIST issues. CSF Lyme is pending as well as VDRL. Total protein was upper limits of normal at 44. CSF West Nile is pending. CSF did demonstrate a pleocytosis with 20 cells 90% of which were poly nuclear. Gram stain was negative. Glucose was on the high side. Of note the patient received steroids and antibiotics prior to the LP. Can likely discontinue antibiotics for Listeria as well as pneumococcus, Neisseria, HSV E. coli CMV cryptococcus and Haemophilus. EEG is pending. Will defer an tiepileptic medications to neurology. As I had the opportunity of evaluating this patient in the outpatient setting, I did note that there was likely some baseline neurocognitive dysfunction going on and recommended neuropsych testing at that time. It does not appear that this was ever accomplished. We will need to follow the patient closely at this point in time. The patient is critically ill with significant possibility of clinical deterioration. 52 min CC time to this point. Subjective Hx limited from AMS. Review of Systems Review of Systems: ROS unobtainable 2/2 AMS Physical Exam Physical Exam: General: Altered. Mild agitation, thrashing in bed. NAD. Wearing mitts. Not following commands. HEENT: Atraumatic, normocephalic. No directed gaze. Eyes opened. Pupils equal, but sluggish. Pulm: CTAB. -wheezes, -rales, -rhonchi. Symmetrical chest rise. No respiratory distress. Cardiac: RRR, -mrg. Abdominal: Nontender, nondistended, soft. : +gonzalez Neuro: Moving all extremities, no posturing. Results & Data Results & Data ([facility]) Vital Signs (Past 12 Hours) Tmax 39 at 2200. Downtrended. 38 at 4AM. 37.8 currently. Sats, MAPs ok. Vital Signs Temp Pulse Pulse Resp BP BP Pulse Ox 10/01/20 06:02 37.8 C H 80 110/61 100 10/01/20 05:32 37.9 C H 57 L 126/52 L 100 10/01/20 05:00 37.9 C H 56 L 118/55 L 100 10/01/20 03:59 38.0 C H 57 L 99/49 L 97 10/01/20 03:00 38.1 C H 58 L 117/59 L 100 10/01/20 01:59 38.3 C H 59 L 106/44 L 95 10/01/20 00:59 38.3 C H 82 17 130/66 100 10/01/20 00:20 38.5 C H 69 20 99 10/01/20 00:10 38.5 C H 88 22 97 10/01/20 00:02 38.6 C H 101 H 27 H 96 10/01/20 00:00 87 09/30/20 23:41 38.7 C H 87 23 151/88 H 95 09/30/20 23:30 38.7 C H 83 23 128/89 95 09/30/20 22:00 39 C H 71 22 130/80 92 09/30/20 20:34 38.7 C H 70 21 144/60 H 90 Laboratory Results wbc 13.71->15.96. Hb stable 12.5. Monos 0.46->1.56. coags wnl. vbg ph 7.44/38/23 (ignore)/25. Na 114 at admission 2:26. 123 at 00:42. 125 at 04:27. 121 at 07:14. bun/cr 21->14.9. Cr 0.78. POC glucose 300. A1c 8.4. serum osmol 255. lactate 2.1->3.1. Ca 7.7. alb 2.9. Phos 2.8. Mg 1.5->2.2. Tbili 1.2 stable 0.2 direct. procalc neg. TSH wnl. AM cortisol 30.96 ok. UA w/ 3+ glucose 2+ ketones. nasal mrsa neg. utox neg. covid neg. 09/30 BC pending. 10/01/20 04:27 10/01/20 07:14 Diagnostic Findings 10/01 eeg In summary, this EEG Was abnormal showing [id number] generalized slowing without focal abnormalities or potentially epileptogenic discharges. Clinical Correlation The absence of potentially epileptogenic activity does not exclude a seizure disorder, since interictally, EEGs can be normal. Clinical correlation is re quired. The generalized slow activity is consistent with an encephalopathy and could be due to a wide variety of causes including electrolyte imbalance and sepsis. Abdomen/Pelvis CT 09/30/20 13:32 CT SCAN OF THE ABDOMEN AND PELVIS WITHOUT IV CONTRAST CLINICAL HISTORY: Vomiting. Change in mental status. IMPRESSION: 1. Streak and motion degraded examination. 2. There are no acute infectious or inflammatory findings in the abdomen or pelvis. 3. There is no bowel obstruction. 4. Colonic diverticulosis without CT evidence of acute diverticulitis. 5. A mildly enlarged retroperitoneal lymph node is nonspecific and unchanged. 6. Additional findings as above. Chest X-Ray 09/30/20 13:32 IMPRESSION: No acute cardiopulmonary abnormality. Head CT 09/30/20 13:32 CT head/brain wo con CLINICAL HISTORY: 80 years-old Female with AMS. Acutely altered mental status IMPRESSION: No acute intracranial abnormality. Cervical Spine CT 09/30/20 13:45 CT SCAN OF THE CERVICAL SPINE CLINICAL HISTORY: Trauma. Change in mental status. IMPRESSION: 1. There is no evidence of fracture or subluxation involving the cervical spine. 2. There is a minimal and age indeterminant superior endplate compression deformity of T3. Correlate for point tenderness. 3. Osteopenia and spondylotic change as above. Resident Activity Tracking Resident Involvement: Resident Care Provided Care Provided: Adult Hospital Medicine
[2020-10-01] MEDS ORDERED: lisinopril 20 MG TAB PO SCH (09:00)
[2020-10-01] MEDS ORDERED: VANCOMYCIN HCL 1,000 MG in DEXTROSE 5% 250 ML IV SCH (09:00)
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
[2020-10-01] MEDS: MEROPENEM 2,000 MG in 0.9 % SODIUM CHLORIDE 58 ML IV SCH (10:47)
--- NOTE | 2020-10-01 10:49 | Electroencephalogram ---
EEG Procedure Note Date of Service October 01, 2020 Start / End Times Start Time: 1012 End Time: 1032 Referring Physician Luigi Jonas PA-C History 80-year-old with hyponatremia and sepsis with a witnessed generalized tonic- clonic seizure yesterday, now obtunded Home Medication List Medication Instructions Recorded Confirmed Type alprazolam 0.5 mg tablet (Xanax) 0.25 - 0.5 mg PO TID PRN 11/09/17 09/30/20 History lisinopril 40 mg tablet 20 mg PO QAM 07/19/19 09/30/20 History famotidine 20 mg tablet (Pepcid) 20 mg PO QAM 04/20/20 09/30/20 History clindamycin HCl 300 mg capsule 1,200 mg PO UD PRN cap 06/03/20 09/30/20 History CPAP Machine See Rx Instructions .ROUTE 08/11/20 09/30/20 Rx .COMPLEX #1 ea glipizide 10 mg tablet, extended 10 mg PO BID 09/30/20 09/30/20 History release 24 hr metoprolol succinate 25 mg 25 mg PO DAILY 09/30/20 09/30/20 History tablet,extended release 24 hr triamcinolone acetonide 0.1 % 1 applic TOPICAL UD 09/30/20 09/30/20 History topical ointment Inpatient Medication List Enoxaparin Sodium (Enoxaparin Inj 40 Mg/0.4 Ml Syr) 40 mg SQ Q24H [facility] Stop: 10/30/20 20:59 Last Admin: 09/30/20 21:53 Dose: 40 mg Documented by: [id number] Famotidine (Famotidine 20 Mg Tab) 20 mg PO QAM [facility] Stop: 10/31/20 08:59 Last Admin: 10/01/20 07:35 Dose: Not Given Documented by: [id number] Sodium Chloride (Hypertonic Saline 3%) 500 mls @ 0 mls/hr IV .Q0M EFRAIN; Protocol Stop: 10/02/20 20:29 Last Infusion: 10/01/20 06:27 Dose: 0 mls/hr Documented by: [id number] Cosigned by: [id number] Infusion: 10/01/20 01:19 Dose: 0 mls/hr Documented by: [id number] Cosigned by: [id number] Admin: 09/30/20 20:28 Dose: 40 mls/hr Documented by: [id number] Cosigned by: [id number] Acetaminophen (Ofirmev) 1,000 mg in 100 mls @ 400 mls/hr IV Q8H PRN PRN Reason: Fever Stop: 10/03/20 20:41 Last Infusion: 09/30/20 22:03 Dose: 0 mls/hr Documented by: [id number] Admin: 09/30/20 21:48 Dose: 400 mls/hr Documented by: [id number] Insulin Human Regular 250 (units/ Sodium Chloride) 250 mls @ 2.8 mls/hr IV .Q24H EFRAIN; Protocol Stop: 10/30/20 20:59 Last Titration: 10/01/20 08:30 Dose: 2.8 units/hr, 2.8 mls/hr Documented by: [id number] Cosigned by: [id number] Titration: 10/01/20 07:11 Dose: 3.5 units/hr, 3.5 mls/hr Documented by: [id number] Cosigned by: [id number] Titration: 10/01/20 06:15 Dose: 3.5 units/hr, 3.5 mls/hr Documented by: [id number] Cosigned by: [id number] Titration: 10/01/20 05:15 Dose: 2.9 units/hr, 2.9 mls/hr Documented by: [id number] Cosigned by: [id number] Titration: 10/01/20 04:15 Dose: 3.6 units/hr, 3.6 mls/hr Documented by: [id number] Cosigned by: [id number] Titration: 10/01/20 03:15 Dose: 3.6 units/hr, 3.6 mls/hr Documented by: [id number] Cosigned by: [id number] Titration: 10/01/20 02:15 Dose: 3.6 units/hr, 3.6 mls/hr Documented by: [id number] Cosigned by: [id number] Titration: 10/01/20 01:15 Dose: 3.6 units/hr, 3.6 mls/hr Documented by: [id number] Cosigned by: [id number] Titration: 10/01/20 00:15 Dose: 3.6 units/hr, 3.6 mls/hr Documented by: [id number] Cosigned by: [id number] Titration: 09/30/20 23:15 Dose: 3.6 units/hr, 3.6 mls/hr Documented by: [id number] Cosigned by: [id number] Titration: 09/30/20 22:15 Dose: 3.6 units/hr, 3.6 mls/hr Documented by: [id number] Cosigned by: [id number] Admin: 09/30/20 21:14 Dose: 2.6 units/hr, 2.6 mls/hr Documented by: [id number] Cosigned by: [id number] Meropenem 2,000 mg/ Sodium (Chloride) 100 mls @ 200 mls/hr IV Q12H EFRAIN; Protocol Stop: 10/02/20 22:59 Last Infusion: 09/30/20 23:10 Dose: 0 mls/hr Documented by: [id number] Admin: 09/30/20 22:40 Dose: 200 mls/hr Documented by: [id number] Dextrose (D5w) 1,000 mls @ 125 mls/hr IV .Q8H EFRAIN Stop: 10/31/20 02:29 Last Admin: 10/01/20 07:24 Dose: 125 mls/hr Documented by: [id number] Infusion: 10/01/20 07:24 Dose: 125 mls/hr Documented by: [id number] Infusion: 10/01/20 07:10 Dose: 125 mls/hr Documented by: [id number] Admin: 10/01/20 02:35 Dose: 200 mls/hr Documented by: [id number] Desmopressin Acetate 2 mcg/ (Sodium Chloride) 50.5 mls @ 100 mls/hr IV Q6H EFRAIN Stop: 10/31/20 04:59 Last Infusion: 10/01/20 05:43 Dose: 0 mls/hr Documented by: [id number] Admin: 10/01/20 05:12 Dose: 100 mls/hr Documented by: [id number] Vancomycin HCl 1,000 mg/ (Dextrose) 270 mls @ 200 mls/hr IV Q12H EFRAIN Stop: 10/11/20 08:59 Last Admin: 10/01/20 08:19 Dose: 200 mls/hr Documented by: [id number] Insulin Aspart (Insulin Aspart 100 Units/Ml 3 Ml Pen) 0 units SC ACHS EFRAIN Stop: 10/30/20 20:59 Last Admin: 10/01/20 07:34 Dose: Not Given Documented by: [id number] Cosigned by: [id number] Admin: 09/30/20 21:55 Dose: Not Given Documented by: [id number] Lisinopril (Lisinopril 20 Mg Tab) 20 mg PO QAM EFRAIN Stop: 10/31/20 08:59 Last Admin: 10/01/20 07:35 Dose: Not Given Documented by: [id number] Metoprolol Succinate (Metoprolol Succ 25mg Ext Rel Tab) 25 mg PO DAILY EFRAIN Stop: 10/31/20 08:59 Last Admin: 10/01/20 07:35 Dose: Not Given Documented by: [id number] Discontinued Medications Dexamethasone Sodium Phosphate (DexamethasonePf 10 Mg/Ml Vial) 10 mg IV NOW ONE Stop: 09/30/20 15:29 Last Admin: 09/30/20 15:43 Dose: 10 mg Documented by: [id number] Levetiracetam 2,000 mg/ Sodium (Chloride) 270 mls @ 999 mls/hr IV NOW STA Stop: 09/30/20 13:51 Last Infusion: 09/30/20 14:16 Dose: 0 mls/hr Documented by: [id number] Admin: 09/30/20 13:59 Dose: 999 mls/hr Documented by: [id number] Magnesium Sulfate/Dextrose (Magnesium Sulfate / D5w) 1 gm in 100 mls @ 100 mls/hr IV Q1H EFRAIN Stop: 09/30/20 18:16 Last Infusion: 09/30/20 19:09 Dose: 0 mls/hr Documented by: [id number] Admin: 09/30/20 18:09 Dose: 100 mls/hr Documented by: [id number] Infusion: 09/30/20 18:05 Dose: 100 mls/hr Documented by: [id number] Admin: 09/30/20 17:05 Dose: 100 mls/hr Documented by: [id number] Sodium Chloride (Hypertonic Saline 3%) 50 mls @ 300 mls/hr IV .Q10M ONE Stop: 09/30/20 16:27 Last Infusion: 09/30/20 16:46 Dose: 0 mls/hr Documented by: [id number] Cosigned by: [id number] Admin: 09/30/20 16:35 Dose: 300 mls/hr Documented by: [id number] Cosigned by: [id number] Sodium Chloride (Hypertonic Saline 3%) 50 mls @ 300 mls/hr IV .Q10M ONE Stop: 09/30/20 18:36 Last Infusion: 09/30/20 18:45 Dose: 0 mls/hr Documented by: [id number] Cosigned by: [id number] Admin: 09/30/20 18:34 Dose: 300 mls/hr Documented by: [id number] Cosigned by: [id number] Levetiracetam 500 mg/ Sodium (Chloride) 105 mls @ 440 mls/hr IV Q6 EFRAIN Stop: 10/30/20 19:59 Last Infusion: 10/01/20 05:59 Dose: 0 mls/hr Documented by: [id number] Admin: 10/01/20 05:44 Dose: 440 mls/hr Documented by: [id number] Infusion: 10/01/20 00:34 Dose: 0 mls/hr Documented by: [id number] Admin: 10/01/20 00:19 Dose: 440 mls/hr Documented by: [id number] Infusion: 09/30/20 20:44 Dose: 0 mls/hr Documented by: [id number] Admin: 09/30/20 20:29 Dose: 440 mls/hr Documented by: [id number] Sodium Chloride (Hypertonic Saline 3%) 100 mls @ 600 mls/hr IV .Q10M ONE Stop: 09/30/20 20:20 Last Infusion: 09/30/20 20:38 Dose: 0 mls/hr Documented by: [id number] Cosigned by: [id number] Admin: 09/30/20 20:27 Dose: 600 mls/hr Documented by: [id number] Cosigned by: [id number] Vancomycin HCl 1,750 mg/ (Sodium Chloride) 535 mls @ 200 mls/hr IV NOW ONE Stop: 10/01/20 01:10 Last Infusion: 10/01/20 01:22 Dose: 0 mls/hr Documented by: [id number] Admin: 09/30/20 22:41 Dose: 200 mls/hr Documented by: [id number] Dextrose (D5w) 500 mls @ 999 mls/hr IV .Q31M EFRAIN Stop: 10/01/20 01:45 Last Infusion: 10/01/20 01:49 Dose: 0 mls/hr Documented by: [id number] Admin: 10/01/20 01:33 Dose: 999 mls/hr Documented by: [id number] Dextrose (D5w) 500 mls @ 999 mls/hr IV .Q31M EFRAIN Stop: 10/01/20 02:45 Last Infusion: 10/01/20 02:36 Dose: 0 mls/hr Documented by: [id number] Admin: 10/01/20 02:20 Dose: 999 mls/hr Documented by: [id number] Dextrose (D5w) 500 mls @ 999 mls/hr IV .Q31M EFRAIN Stop: 10/01/20 05:30 Last Infusion: 10/01/20 06:15 Dose: 0 mls/hr Documented by: [id number] Admin: 10/01/20 05:44 Dose: 999 mls/hr Documented by: [id number] Insulin Human Regular (Novolin-R Bolus From Bag) 2.5 units IV ONE ONE Stop: 09/30/20 21:01 Last Admin: 09/30/20 21:14 Dose: 2.5 units Documented by: [id number] Cosigned by: [id number] Miscellaneous (Stop Order) 1 ea N/A TODAY@2030 ONE Stop: 09/30/20 20:31 Last Admin: 09/30/20 20:43 Dose: 1 ea Documented by: [id number] Miscellaneous (Severe Stress Level ) 1 ea N/A ONE ONE Stop: 09/30/20 20:46 Last Admin: 09/30/20 21:15 Dose: 1 ea Documented by: [id number] Miscellaneous (Insulin Protocol Goal Range ) 1 ea N/A ONE ONE Stop: 09/30/20 21:01 Last Admin: 09/30/20 21:56 Dose: 1 ea Documented by: [id number] Ondansetron HCl (Ondansetron Inj 2 Mg/Ml 2 Ml Vial) 4 mg IV NOW STA Stop: 09/30/20 13:33 Last Admin: 09/30/20 14:03 Dose: 4 mg Documented by: [id number] Description This is a 21 electrode EEG with a single channel dedicated to limited EKG. The electrodes were placed in accordance with the International 10-20 system. Interpretation The predominant background activity consists of an irregulat 5-6 Hz activity, of up to 50 mV in amplitude,seen symmetrically distributed over the posterior head regions bilaterally. This activity had no change with eye-opening and other alerting procedures. Photic stimulation was performed and elicited no change in the background acti vity and no abnormal responses were seen. Hyperventilation was not performed. A considerable amount of muscle and movement artifact activity contaminated the recording, particularly in the frontal head regions, he during interpretation from time to time but not throughout the entire recording. Throughout the recording, no focal abnormalities or potentially epileptogenic discharges are seen. The generalized 5-6 hertz irregular slowing was seen in all head regions diffusely throughout the recording. The patient did not enter drowsiness or sleep. towards the end of the recording the patient became agitated and combative. In summary, this EEG Was abnormal showing [id number] generalized slowing without focal abnormalities or potentially epileptogenic discharges. Clinical Correlation The abscence of potentially epileptogenic activity does not exclude a seizure disorder, since interictally, EEGs can be normal. Clinical correlation is required. The generalized slow activity is consistent with an encephalopathy and could be due to a wide variety of causes including electrolyte imbalance and sepsis.
[2020-10-01] MEDS ORDERED: STAT IV Infusion **Titration per Protocol STA (11:04)
[2020-10-01] MEDS ORDERED: INSULIN PROTOCOL GOAL RANGE ONE (11:04)
[2020-10-01] MEDS ORDERED: PHARMACY GLYCEMIC MGMT CONSULT PRN (11:06)
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
[2020-10-01 11:23] LABS: BUN Creatinine Ratio 17.7 (10-20); Calcium 7.3 mg/dl (8.5-10.1); Est GFR (African American) 98.4 ml/min; Est GFR (Non-African American) 84.9 ml/min; Potassium 3.4 mmol/L (3.5-5.1)
--- NOTE | 2020-10-01 11:26 | Pharmacy Report ---
Pharmacy Glycemic Short Note 2 - Date of Service October 01, 2020 - Glycemic Short BSG Results (Last 24 hours): 09/30/20 09/30/20 09/30/20 13:07 14:26 19:06 Glucose 286 H 289 H POC Glucose 330 H* 09/30/20 09/30/20 09/30/20 20:20 22:20 22:42 Glucose 275 H POC Glucose 324 H* 345 H* 09/30/20 10/01/20 10/01/20 23:18 00:17 01:14 Glucose POC Glucose 300 H 265 H 226 H 10/01/20 10/01/20 10/01/20 02:18 03:11 04:17 Glucose POC Glucose 211 H 226 H 196 H 10/01/20 10/01/20 10/01/20 04:27 05:20 06:14 Glucose 174 H POC Glucose 160 H 213 H 10/01/20 10/01/20 10/01/20 07:19 08:28 09:28 Glucose POC Glucose 173 H 206 H 228 H 10/01/20 10:41 Glucose POC Glucose 206 H OUTPATIENT ANTIDIABETIC REGIMEN: * Glipizide 10mg PO BID * A1c = 8.4% 10/01/20 ASSESSMENT: * Type 2 diabetic admitted for mental status changes, possible sz activity, hyponatremia, and possible meningitis * IV insulin infusion started yesterday evening. Patient's initial labs revealed hyperglycemia however no acidosis, mild AG of 12, 2+ ketones in UA * IV insulin running at 2.8 units/hr this AM and BSGs in low 200s. * Dextrose 5% infusing @125cc/hr to slow rate of Na elevation * IV insulin infusion remains standard of care for patients experiencing hyperglycemia in the ICU. Reasonable to continue this therapy at this time given IV dextrose provision in NPO patient as SQ insulin may lead to greater risk of hypoglycemia if D5 abruptly stopped PLAN FOR INPATIENT GLYCEMIC CONTROL: * Hold outpatient oral diabetes medications (glipizide) * Basal insulin * none at this time * Bolus insulin * NovoLog Nutritional / Prandial insulin per carb ratio calculated by insulin infusion adjustment calculator PLAN FOR DISCHARGE: * To be determined. Of note, glipizide has rarely been associated with SIADH. Patient's urine osmo + urine Na could be consistent w/ SIADH in the right clinical context.
--- NOTE | 2020-10-01 11:33 | Pharmacy Report ---
Pharmacy Abx Dose Short Note - Date of Service October 01, 2020 - Assessment & Plan Assessment * 80 year old F receiving VANCOMYCIN + MEROPENEM for treatment of possible meningitis * Day # 1 of antimicrobial therapy * + leukocytosis, + fever (Tmax 39), negative procal * BLCX's drawn * Plans for CSF collection today * Renal fxn appears stable and near baseline Plan Vancomycin * Loading dose: 1750mg IV (~25mg/gk) x 1 given last evening * Maint dose: will begin 1000mg (~14mg/kg) IV Q 12 hours -- this dose will need reevaluated in 24-48 hrs. This dose chosen due to delayed achievement of AUC > 500 with less aggressive regimens. This regimen at steady-state is predict ed to produce AUC greater than 600. * Goal AUC for meningitis : 500 to 600 mcg/mL * Trough level ordered for: 10/02/20 AM in order to gather info to better predict AUC trajectory w/ current dose Pharmacy will continue to follow and will adjust dose/frequency as necessary. Thank you.
[2020-10-01] MEDS ORDERED: levETIRAcetam 250 MG in 0.9 % SODIUM CHLORIDE 100 ML IV SCH (12:00)
[2020-10-01] MEDS ORDERED: PROPOFOL IV EMULSION 10 MG/ML 20 ML VIAL IV ONE (12:15)
--- NOTE | 2020-10-01 12:23 | Anesthesiology Progress Note ---
Date of Service October 01, 2020 Assessment & Plan Admission and Anticipated Discharge Date Admission Date: September 30, 2020 Subjective Asked to provide sedation for LP in Radiology. Upon my arrival and assessment of pt, I saw no reason why fluoroscopy would be indicated. Discussed with staff and agreed to attempt LP at bedside. Consents for LP and sedation were obtained from pt's daughter. Pt identified and time-out for procedure performed. Mild sedation propofol 70mg total given for procedure. Positioned left lateral decubitus. Lumbar skin prepped with Betadine. Local 1% lidocaine given to skin at L3 - L4 interspace. Using sterile technique, 20g Quinke needle advanced until +CSF. Clear fluid flowed freely, opening pressure 13cm H20 on manometer. Approximately 2cc CSF collected in each of 4 vials for analysis. Pt tolerated well, VSS throughout. Returned to supine position, left in care of ICU staff. Physical Exam Vital Signs: Last Vital Signs Temp 37.8 C H 10/01/20 06:02 Pulse 75 10/01/20 08:00 Resp 17 10/01/20 00:59 BP 110/61 10/01/20 06:02 Pulse Ox 100 10/01/20 06:02 Results & Data ([facility]) Medications Administered Enoxaparin Sodium (Enoxaparin Inj 40 Mg/0.4 Ml Syr) 40 mg SQ Q24H [facility] Stop: 10/30/20 20:59 Last Admin: 09/30/20 21:53 Dose: 40 mg Documented by: [id number] Famotidine (Famotidine 20 Mg Tab) 20 mg PO QAM [facility] Stop: 10/31/20 08:59 Last Admin: 10/01/20 07:35 Dose: Not Given Documented by: [id number] Sodium Chloride (Hypertonic Saline 3%) 500 mls @ 0 mls/hr IV .Q0M EFRAIN; Protocol Stop: 10/02/20 20:29 Last Infusion: 10/01/20 06:27 Dose: 0 mls/hr Documented by: [id number] Cosigned by: [id number] Infusion: 10/01/20 01:19 Dose: 0 mls/hr Documented by: [id number] Cosigned by: [id number] Admin: 09/30/20 20:28 Dose: 40 mls/hr Documented by: [id number] Cosigned by: [id number] Acetaminophen (Ofirmev) 1,000 mg in 100 mls @ 400 mls/hr IV Q8H PRN PRN Reason: Fever Stop: 10/03/20 20:41 Last Infusion: 09/30/20 22:03 Dose: 0 mls/hr Documented by: [id number] Admin: 09/30/20 21:48 Dose: 400 mls/hr Documented by: [id number] Insulin Human Regular 250 (units/ Sodium Chloride) 250 mls @ 2.2 mls/hr IV .Q24H EFRAIN; Protocol Stop: 10/30/20 20:59 Last Titration: 10/01/20 11:40 Dose: 2.2 units/hr, 2.2 mls/hr Documented by: [id number] Cosigned by: [id number] Titration: 10/01/20 08:30 Dose: 2.8 units/hr, 2.8 mls/hr Documented by: [id number] Cosigned by: [id number] Titration: 10/01/20 07:11 Dose: 3.5 units/hr, 3.5 mls/hr Documented by: [id number] Cosigned by: [id number] Titration: 10/01/20 06:15 Dose: 3.5 units/hr, 3.5 mls/hr Documented by: [id number] Cosigned by: [id number] Titration: 10/01/20 05:15 Dose: 2.9 units/hr, 2.9 mls/hr Documented by: [id number] Cosigned by: [id number] Titration: 10/01/20 04:15 Dose: 3.6 units/hr, 3.6 mls/hr Documented by: [id number] Cosigned by: [id number] Titration: 10/01/20 03:15 Dose: 3.6 units/hr, 3.6 mls/hr Documented by: [id number] Cosigned by: [id number] Titration: 10/01/20 02:15 Dose: 3.6 units/hr, 3.6 mls/hr Documented by: [id number] Cosigned by: [id number] Titration: 10/01/20 01:15 Dose: 3.6 units/hr, 3.6 mls/hr Documented by: [id number] Cosigned by: [id number] Titration: 10/01/20 00:15 Dose: 3.6 units/hr, 3.6 mls/hr Documented by: [id number] Cosigned by: [id number] Titration: 09/30/20 23:15 Dose: 3.6 units/hr, 3.6 mls/hr Documented by: [id number] Cosigned by: [id number] Titration: 09/30/20 22:15 Dose: 3.6 units/hr, 3.6 mls/hr Documented by: [id number] Cosigned by: [id number] Admin: 09/30/20 21:14 Dose: 2.6 units/hr, 2.6 mls/hr Documented by: [id number] Cosigned by: [id number] Meropenem 2,000 mg/ Sodium (Chloride) 100 mls @ 200 mls/hr IV Q12H EFRAIN; Protocol Stop: 10/02/20 22:59 Last Infusion: 10/01/20 11:52 Dose: 0 mls/hr Documented by: [id number] Admin: 10/01/20 10:47 Dose: 200 mls/hr Documented by: [id number] Infusion: 09/30/20 23:10 Dose: 0 mls/hr Documented by: [id number] Admin: 09/30/20 22:40 Dose: 200 mls/hr Documented by: [id number] Dextrose (D5w) 1,000 mls @ 125 mls/hr IV .Q8H EFRAIN Stop: 10/31/20 02:29 Last Admin: 10/01/20 07:24 Dose: 125 mls/hr Documented by: [id number] Infusion: 10/01/20 07:24 Dose: 125 mls/hr Documented by: [id number] Infusion: 10/01/20 07:10 Dose: 125 mls/hr Documented by: [id number] Admin: 10/01/20 02:35 Dose: 200 mls/hr Documented by: [id number] Desmopressin Acetate 2 mcg/ (Sodium Chloride) 50.5 mls @ 100 mls/hr IV Q6H EFRAIN Stop: 10/31/20 04:59 Last Infusion: 10/01/20 05:43 Dose: 0 mls/hr Documented by: [id number] Admin: 10/01/20 05:12 Dose: 100 mls/hr Documented by: [id number] Vancomycin HCl 1,000 mg/ (Dextrose) 270 mls @ 200 mls/hr IV Q12H EFRAIN Stop: 10/11/20 08:59 Last Infusion: 10/01/20 09:40 Dose: 0 mls/hr Documented by: [id number] Admin: 10/01/20 08:19 Dose: 200 mls/hr Documented by: [id number] Insulin Aspart (Insulin Aspart 100 Units/Ml 3 Ml Pen) 0 units SC ACHS [facility] Stop: 10/30/20 20:59 Last Admin: 10/01/20 10:47 Dose: Not Given Documented by: [id number] Admin: 10/01/20 07:34 Dose: Not Given Documented by: [id number] Cosigned by: [id number] Admin: 09/30/20 21:55 Dose: Not Given Documented by: [id number] Lisinopril (Lisinopril 20 Mg Tab) 20 mg PO QAM [facility] Stop: 10/31/20 08:59 Last Admin: 10/01/20 07:35 Dose: Not Given Documented by: [id number] Metoprolol Succinate (Metoprolol Succ 25mg Ext Rel Tab) 25 mg PO DAILY [facility] Stop: 10/31/20 08:59 Last Admin: 10/01/20 07:35 Dose: Not Given Documented by: [id number]
[2020-10-01 12:56] LABS: Appearance CSF Clear; CSF Count Tube # 3; CSF Xanthrochromic No xanthochromia; Color CSF Colorless
[2020-10-01 12:57] LABS: Red Blood Cell CSF (A) 2 /uL (0-); Red Blood Cell CSF (B) 2 /uL (0-); Total Protein CSF 44.5 mg/dl (15-45); White Blood Cell CSF (B) 14 /uL (0-5)
[2020-10-01 12:59] LABS: White Blood Cell CSF (A) 20 /uL (0-5)
[2020-10-01] MEDS ORDERED: DEXTROSE 5% IV SCH (14:00)
[2020-10-01] MEDS ORDERED: ACYCLOVIR SOD IV SCH (14:00)
[2020-10-01 14:21] LABS: Cryptococcus neoformans/ga PCR Not Detected (NotDetected); Cytomegalovirus PCR Not Detected (NotDetected); Enterovirus PCR Not Detected (NotDetected); Escherichia coli K1 PCR Not Detected (NotDetected); Haemophilius influenzae PCR Not Detected (NotDetected); Herpes Simplex Virus 1 PCR Not Detected (NotDetected); Herpes Simplex Virus 2 PCR Not Detected (NotDetected); Human Herpes Virus 6 PCR Not Detected (NotDetected); Human Parechovirus PCR Not Detected (NotDetected); Listeria monocytogenes PCR Not Detected (NotDetected); Neisseria meningitidis PCR Not Detected (NotDetected); Streptococcus agalactiae PCR Not Detected (NotDetected); Streptococcus pneumoniae PCR Not Detected (NotDetected); Varicella Zoster Virus PCR Not Detected (NotDetected)
[2020-10-01] MEDS ORDERED: LORazepam 0.5 MG/1 ML VIAL IV PRN ×2 (14:22→14:41)
[2020-10-01] MEDS ORDERED: LORazepam 2 MG/4 ML VIAL ONE (14:23)
[2020-10-01] MEDS ORDERED: LORazepam 0.5 MG/1 ML VIAL IV ONE (14:45)
[2020-10-01] MEDS ORDERED: AMPICILLIN 2,000 MG in SODIUM CHLOR 0.9% AD-VAN 100 ML IV SCH (15:00)
--- NOTE | 2020-10-01 15:13 | Billing Data ---
Date of Service October 01, 2020 Coding Level of Care Code Critical Care 1st 30-74 mins Time Spent (min) 45
[2020-10-01] MEDS: LORazepam 0.5 MG/1 ML VIAL IV PRN ×2 (15:46→19:36)
[2020-10-01 15:47] LABS: BUN Creatinine Ratio 21.3 (10-20); Calcium 7.3 mg/dl (8.5-10.1); Creatinine Clr Calc Pharmacy 74.3 ml/min; Est GFR (African American) 106.7 ml/min; Est GFR (Non-African American) 92.1 ml/min; Potassium 3.4 mmol/L (3.5-5.1)
[2020-10-01] MEDS ORDERED: cefTRIAXone SODIUM 2,000 MG in DEXTROSE 5% 50 ML IV SCH (16:00)
[2020-10-01] MEDS ORDERED: CALCIUM GLUCONATE 10% 1,000 MG in SODIUM CHLORIDE 0.9% 50 ML IV ONE (16:14)
[2020-10-01] MEDS: POTASSIUM CHLORIDE / WTR 10 MEQ/100 ML PLCT IV SCH ×4 (16:36→22:34)
[2020-10-01] MEDS ORDERED: LORazepam 0.25 MG/0.5 ML VIAL IV STA (17:26)
--- NOTE | 2020-10-01 17:33 | Electrocardiogram Report ---
Test Reason : Blood Pressure : / mmHG Vent. Rate : 072 BPM Atrial Rate : 072 BPM P-R Int : 170 ms QRS Dur : 096 ms QT Int : 428 ms P-R-T Axes : 066 -35 009 degrees QTc Int : 468 ms Poor data quality, interpretation may be adversely affected Normal sinus rhythm Left axis deviation Moderate voltage criteria for LVH, may be normal variant Poor R wave progression, consider anterior IL vs. lead placement vs. LVH Abnormal ECG When compared with ECG of 30-SEP-2020 13:13, (unconfirmed) No significant change was found Confirmed by Sundeep Otero ([id number]) on 10/01/2020 5:32:42 PM Referred By: REFERRED SELF Confirmed By:Luther Otero
--- NOTE | 2020-10-01 17:39 | Electrocardiogram Report ---
Test Reason : Blood Pressure : / mmHG Vent. Rate : 074 BPM Atrial Rate : 074 BPM P-R Int : 166 ms QRS Dur : 096 ms QT Int : 412 ms P-R-T Axes : 052 -32 016 degrees QTc Int : 457 ms Poor data quality, interpretation may be adversely affected Normal sinus rhythm Left axis deviation Moderate voltage criteria for LVH, may be normal variant Possible Lateral infarct , age undetermined Abnormal ECG When compared with ECG of 26-JUL-2020 16:17, Borderline criteria for Lateral infarct are now Present T wave amplitude has increased in Anterior leads Confirmed by Sundeep Otero ([id number]) on 10/01/2020 5:39:00 PM Referred By: REFERRED SELF Confirmed By:Luther Otero
[2020-10-01 19:42] LABS: BUN Creatinine Ratio 20.4 (10-20); Calcium 7.6 mg/dl (8.5-10.1); Est GFR (African American) 108.9 ml/min; Est GFR (Non-African American) 93.9 ml/min; Potassium 3.8 mmol/L (3.5-5.1)
[2020-10-01 20:15] LABS: Lyme Ab IgG w/WB Rflx Negative (Negative); Lyme Ab IgM w/WB Rflx Negative (Negative)
[2020-10-01] MEDS: ENOXAPARIN INJ 40 MG/0.4 ML SYR SQ SCH (20:45)
[2020-10-01] MEDS ORDERED: VANCOMYCIN HCL 1,000 MG in SODIUM CHLORIDE 0.9% 250 ML IV SCH (21:00)
[2020-10-02 00:19] LABS: BUN Creatinine Ratio 19.1 (10-20); Calcium 7.8 mg/dl (8.5-10.1); Creatinine Clr Calc Pharmacy 75.8 ml/min; Est GFR (African American) 107.4 ml/min; Est GFR (Non-African American) 92.7 ml/min; Potassium 4.3 mmol/L (3.5-5.1)
[2020-10-02] MEDS ORDERED: SODIUM CHLORIDE 3 % 100 ML IV ONE ×3 (00:23→12:00)
[2020-10-02] MEDS ORDERED: INSULIN GLARGINE SOLOSTAR 100 UNITS/ML 3 ML PEN SC ONE ×3 (01:00→20:00)
[2020-10-02 03:21] LABS: Eosinophils # (auto) 0.02 K/uL (0-0.5); Eosinophils % (auto) 0.1 %; Hematocrit (blood only) 33.8 % (37-47); Hemoglobin 12.6 g/dL (12.0-16.0); Immature Granulocytes # (auto) 0.09 K/uL (0.00-0.02); Immature Granulocytes % (auto) 0.5 %; Lymphocytes # (auto) 1.47 K/uL (1.2-3.4); Lymphocytes % (auto) 7.7 %; Mean Corpuscular Hemoglobin 30.3 pg (25-34); Mean Corpuscular Hgb Conc 37.3 g/dL (32-36); Mean Corpuscular Volume 81.3 fL (80-100); Mean Platelet Volume 10.7 fL (7.4-10.4); Monocytes # (auto) 1.77 K/uL (0.11-0.59); Monocytes % (auto) 9.2 %; Neutrophils # (auto) 15.84 K/uL (1.4-6.5); Neutrophils % (auto) 82.5 %; Platelet Count 248 K/uL (130-400); RDW Coefficient of Variation 12.8 % (11.5-14.5); RDW Standard Deviation 38.3 fL (36.4-46.3); Red Blood Count 4.16 M/uL (4.2-5.4); White Blood Count 19.19 K/uL (4.8-10.8)
[2020-10-02 03:45] LABS: BUN Creatinine Ratio 15.8 (10-20); Calcium 7.7 mg/dl (8.5-10.1); Creatinine Clr Calc Pharmacy 61.9 ml/min; Est GFR (African American) 100.5 ml/min; Est GFR (Non-African American) 86.7 ml/min; Magnesium 1.7 mg/dl (1.8-2.4); Phosphorus 1.8 mg/dl (2.5-4.9); Potassium 4.9 mmol/L (3.5-5.1)
[2020-10-02] MEDS: INSULIN REGULAR 250 UNITS in SODIUM CHLORIDE 0.9% 247.5 ML IV SCH (03:46)
[2020-10-02] MEDS: LORazepam 0.5 MG/1 ML VIAL IV PRN (03:47)
[2020-10-02] MEDS: levETIRAcetam 500 MG in 0.9 % SODIUM CHLORIDE 100 ML IV SCH ×2 (06:06→17:31)
[2020-10-02] MEDS: INSULIN ASPART 100 UNITS/ML 3 ML PEN SC SCH ×6 (07:50→23:44)
[2020-10-02 07:51] LABS: BUN Creatinine Ratio 21.9 (10-20); Calcium 7.6 mg/dl (8.5-10.1); Est GFR (African American) 110.5 ml/min; Est GFR (Non-African American) 95.3 ml/min; Potassium 3.9 mmol/L (3.5-5.1)
[2020-10-02] MEDS ORDERED: Nursing to Pharmacy Communication SCH (08:00)
[2020-10-02] MEDS ORDERED: VANCOMYCIN TROUGH ONE (08:30)
[2020-10-02] MEDS ORDERED: SODIUM CHLORIDE 3 % 500 ML IV SCH ×2 (09:00→11:15)
--- NOTE | 2020-10-02 09:34 | Neurology Progress Note ---
Date of Service October 02, 2020 Assessment & Plan (1) Acute encephalopathy: (2) Seizure: (3) Acute hyponatremia: (4) Hypomagnesemia: (5) Hyperglycemia: (6) Hypocalcemia: Plan: This patient presented with acute encephalopathy secondary to multiple electrolyte abnormalities, including hyponatremia, hypomagnesemia, hypocalcemia, and hyperglycemia. In addition she was febrile with an elevated lactate and likely septic. Currently she is afebrile and off all antibiotics and acyclovir. LP showed 20 white cells with normal protein. Gram stain was negative. This is consistent with a viral infection or nonspecific inflammation. The combination of electrolyte abnormalities and sepsis could lead to a mild increase in CSF white cells. She had a witnessed generalized seizure on the day of admission, now controlled with levetiracetam. The electrolyte abnormalities, particularly hyponatremia, can readily give generalized seizures. Sepsis could result in seizures as well. On examination I detect no focal neurologic findings. EEG yesterday showed no ongoing seizure activity or subclinical seizures. Patient has a history of hypertension And variable blood pressure. It was elevated this morning at 170/101 Recommendations: 1. resolve electrolyte abnormalities slowly over the next day or 2. 2. I see no need for an MRI at this time. 3. continue levetiracetam 500 milligrams q.12 hours for now. Once her electrolyte abnormalities are resolved and her sepsis is treated, she will likely not need anticonvulsants. Overall, I spent a total of 35 minutes with this case including review of records, direct evaluation the patient at bedside, and discussion of the case with RN at bedside and Dr. Tobar, including differential diagnosis and treatment options. Admission and Anticipated Discharge Date Admission Date: September 30, 2020 Subjective Patient is lying in bed with a respirator. She will open her eyes to command. she has had no seizures. Lumbar puncture showed white count of 20, with 10 percent monos and 90 percent polys. The fluid was clear and colorless with no xanthochromia and protein was 44.5. Biofire was negative and Lyme and West Nile are pending. She is currently getting no antibiotics or acyclovir. CBC showed a white count of 19 and mild anemia as before. Sodium was 118 and glucose 145. calcium is still low at 7.6 and magnesium is low at 1.7. Results & Data ([facility]) Vital Signs (Past 12 Hours) Vital Signs Temp Pulse Resp BP Pulse Ox 10/02/20 06:02 37.2 C 72 18 137/90 96 10/02/20 05:32 37.4 C 75 19 147/68 H 96 10/02/20 05:02 37.5 C 78 20 143/82 H 94 10/02/20 04:37 96 H 40 H 100 10/02/20 04:32 37.5 C 78 23 180/81 H 94 10/02/20 04:02 37.5 C 97 H 24 167/87 H 98 10/02/20 03:30 37.6 C H 95 H 22 93 10/02/20 03:25 37.6 C H 97 H 20 98 10/02/20 03:20 37.6 C H 133 H 21 98 10/02/20 03:15 37.6 C H 124 H 22 98 10/02/20 03:10 37.6 C H 108 H 26 H 99 10/02/20 03:05 37.5 C 27 H 96 10/02/20 03:04 37.5 C 119 H 20 99 10/02/20 02:32 37.5 C 94 H 21 133/79 100 10/02/20 02:02 37.4 C 90 18 173/66 H 99 10/02/20 01:32 37.3 C 90 19 128/67 96 10/02/20 01:03 37.2 C 104 H 19 171/80 H 98 10/02/20 00:37 76 30 H 100 10/02/20 00:32 37.3 C 75 20 129/64 97 10/02/20 00:02 37.3 C 63 169/85 H 89 L 10/02/20 00:00 77 10/01/20 23:33 37.3 C 92 H 110/87 96 10/01/20 23:02 37.5 C 80 142/118 H 96 10/01/20 23:00 77 10/01/20 22:32 37.5 C 67 147/103 H 92 10/01/20 22:05 37.5 C 77 98 10/01/20 22:00 37.6 C H 76 95 10/01/20 21:55 37.6 C H 77 95 10/01/20 21:50 37.6 C H 93 10/01/20 21:45 37.6 C H 126 H 97 10/01/20 21:40 37.6 C H 120 H 96 10/01/20 21:35 37.5 C 94 H 99 10/01/20 21:34 37.5 C 89 98 Exam (Neuro) Physical Exam: She is lying in bed with her eyes closed. She will open her eyes to voice and gentle shaking. She will make eye contact and tracks in all directions. She will follow one-step commands moving all 4 limbs. PG Care Time/CCT Total # of Minutes Spent Total Time Spent with Patient: Total time spent is greater than 50% in coordination of care (as documented) at patient's floor/unit and/or counseling patient: Coding Level of Care Code 88085 Subseq Hosp Care Lvl 3 Diagnoses Acute encephalopathy G93.40 Seizure R56.9 Acute hyponatremia E87.1 Hypomagnesemia E83.42 Hyperglycemia R73.9 Hypocalcemia E83.51 Time Spent (min) 35
--- NOTE | 2020-10-02 10:38 | Critical Care Progress Note ---
Date of Service October 02, 2020 Assessment & Plan (1) Admitted to intensive care unit: Plan: Reason Critically Ill: 80-year-old female who presents w/ acute encephalopathy, fever, and seizure-like episode in the setting of hyponatremia (114). 24-hour events: LP and EEG accomplished. No seizure activity. Neurology consultation reviewed. The LP was significant only for pleocytosis with 20 white cells and 90% mononuclear cells. Bio fire was negative. Mental status improving but clearly not back to normal Recommendations NEURO -acute encephalopathy likely secondary to metabolic etiology. Continue to correct electrolytes. Discussed with neurology today. No seizure activity identified on EEG. Suspect toxic metabolic encephalopathy. Defer antiepileptic medications to neurology. No indication for repeat imaging. We will try and hold Ativan at this point in time. Currently on Keppra without evidence of breakthrough seizure. Unclear significance of CSF pleocytosis. Could be inflammation. Nonspecific finding. No indication for antibiotics currently. Discussed with neurology. CARDIAC -patient is significantly hypertensive currently. We will add as needed hydralazine to try and keep blood pressure below 150. She is not appropriate for oral medications as of yet. Given her significant hypertension, there is possibility of posterior reversible encephalopathy syndrome (press) but treatment would primarily be directed towards blood pressure control. She is not appropriate for oral medication so we will continue to hold her CLARA inhibitor and beta-concha. Will place on IV hydralazine as needed to keep systolics below 150 RESPIRATORY -history of sleep disordered breathing. Continue home CPAP settings while sleeping. Supplemental oxygen during the day as needed to keep saturations at or above 88% GI/NUTRITION -keeping n.p.o. 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 Continue free water restriction. Gave additional bolus of hypertonic saline this morning and will start drip at 10 cc an hour. We will try and maintain target of sodium between 120 and 125. Appreciate nephrology consultation. Antibiotics have been stopped which were contributing a significant amount of free water so hopefully that will assist in correction of her hyponatremia as well. Continue every 4 hour BMPs. -no current issues, continue Cruz catheter pending improvement in mental status ENDO -glycemic control per protocol. Currently maintained on insulin infusion. HEME -no current issues ID -patient remains with elevated white blood cell count. CSF bio fire negative. Urinalysis and chest x-ray negative. Her fever is now resolved. She initially received broad-spectrum antibiotics to cover meningeal sources however these have been discontinued. At this time I would favor discontinuation of antibiotics and follow clinically. Her lactate was clearing. Lyme studies are currently pending. We will likely need PT and OT consults at some point. LINES/IV ACCESS - PIVs x2, L A line DVT PROPHYLAXIS - Lovenox, SCDs DIPSO: ICU pending improvement in mental status and sodium levels. Patient remains critically ill at this point time with significant possibility of loss of functional rstatus. No family immediately bedside. Discussed with critical care bedside nurse as well as with pharmacy on multiple occasions. A total of 45 minutes critical care time spent evaluation management stabilization of this patient. (2) Acute encephalopathy: (3) Acute alteration in mental status: (4) Hypertension: (5) Diabetes: (6) Acute hyponatremia: (7) Hyperglycemia: (8) Sleep apnea: (9) Sepsis: Admission and Anticipated Discharge Date Admission Date: September 30, 2020 Subjective Patient seen and examined. Discussed with the critical care bedside nurse. She is more alert today and able to open her eyes to verbal command. She does follow some simple commands. She remains somewhat lethargic. Review of Systems Review of Systems: Unobtainable due to cognitive status and Unobtainable due to reduced consciousness Physical Exam Constitutional: WD/WN, vitals as above Neck: trachea midline, no thyromegaly Respiratory: normal respiratory effort, lungs clear to auscultation Cardiovascular: RRR, no murmur, no edema Gastrointestinal (Abdomen): normal bowel sounds, soft, nontender, no hepatosplenomegaly Musculoskeletal: Extremities: extremities normal to inspection Skin: no rashes, warm and dry Neurologic: Nonfocal exam Lymphatic: no cervical lymphadenopathy Results & Data Results & Data ([facility]) Vital Signs (Past 12 Hours) Vital Signs Temp Pulse Resp BP Pulse Ox 10/02/20 09:02 37.4 C 87 24 170/101 H 99 10/02/20 08:02 37.3 C 73 26 H 175/76 H 95 10/02/20 07:02 37.0 C 86 28 H 187/75 H 99 10/02/20 06:02 37.2 C 72 18 137/90 96 10/02/20 05:32 37.4 C 75 19 147/68 H 96 10/02/20 05:02 37.5 C 78 20 143/82 H 94 10/02/20 04:37 96 H 40 H 100 10/02/20 04:32 37.5 C 78 23 180/81 H 94 10/02/20 04:02 37.5 C 97 H 24 167/87 H 98 10/02/20 03:30 37.6 C H 95 H 22 93 10/02/20 03:25 37.6 C H 97 H 20 98 10/02/20 03:20 37.6 C H 133 H 21 98 10/02/20 03:15 37.6 C H 124 H 22 98 10/02/20 03:10 37.6 C H 108 H 26 H 99 10/02/20 03:05 37.5 C 27 H 96 10/02/20 03:04 37.5 C 119 H 20 99 10/02/20 02:32 37.5 C 94 H 21 133/79 100 10/02/20 02:02 37.4 C 90 18 173/66 H 99 10/02/20 01:32 37.3 C 90 19 128/67 96 10/02/20 01:03 37.2 C 104 H 19 171/80 H 98 10/02/20 00:37 76 30 H 100 10/02/20 00:32 37.3 C 75 20 129/64 97 10/02/20 00:02 37.3 C 63 169/85 H 89 L 10/02/20 00:00 77 10/01/20 23:33 37.3 C 92 H 110/87 96 10/01/20 23:02 37.5 C 80 142/118 H 96 10/01/20 23:00 77 Critical Care Results & Data Vital Signs (Past 12 Hours) Vital Signs Temp Pulse Resp BP Pulse Ox 10/02/20 09:02 37.4 C 87 24 170/101 H 99 10/02/20 08:02 37.3 C 73 26 H 175/76 H 95 10/02/20 07:02 37.0 C 86 28 H 187/75 H 99 10/02/20 06:02 37.2 C 72 18 137/90 96 10/02/20 05:32 37.4 C 75 19 147/68 H 96 10/02/20 05:02 37.5 C 78 20 143/82 H 94 10/02/20 04:37 96 H 40 H 100 10/02/20 04:32 37.5 C 78 23 180/81 H 94 10/02/20 04:02 37.5 C 97 H 24 167/87 H 98 10/02/20 03:30 37.6 C H 95 H 22 93 10/02/20 03:25 37.6 C H 97 H 20 98 10/02/20 03:20 37.6 C H 133 H 21 98 10/02/20 03:15 37.6 C H 124 H 22 98 10/02/20 03:10 37.6 C H 108 H 26 H 99 10/02/20 03:05 37.5 C 27 H 96 10/02/20 03:04 37.5 C 119 H 20 99 10/02/20 02:32 37.5 C 94 H 21 133/79 100 10/02/20 02:02 37.4 C 90 18 173/66 H 99 10/02/20 01:32 37.3 C 90 19 128/67 96 10/02/20 01:03 37.2 C 104 H 19 171/80 H 98 10/02/20 00:37 76 30 H 100 10/02/20 00:32 37.3 C 75 20 129/64 97 10/02/20 00:02 37.3 C 63 169/85 H 89 L 10/02/20 00:00 77 10/01/20 23:33 37.3 C 92 H 110/87 96 Lab & Micro Results (Past 24 Hours) RBC 4.16 M/uL (4.2-5.4) L 10/02/20 WBC 19.19 K/uL (4.8-10.8) H 10/02/20 Hgb 12.6 g/dL (12.0-16.0) 10/02/20 Hct 33.8 % (37-47) L 10/02/20 MCV 81.3 fL (80-100) 10/02/20 MCH 30.3 pg (25-34) 10/02/20 MCHC 37.3 g/dL (32-36) H 10/02/20 RDW Standard Deviation 38.3 fL (36.4-46.3) 10/02/20 RDW Coefficient of Variation 12.8 % (11.5-14.5) 10/02/20 Plt Count 248 K/uL (130-400) 10/02/20 MPV 10.7 fL (7.4-10.4) H 10/02/20 Neutrophils (%) (Auto) 82.5 % 10/02/20 Lymphocytes (%) (Auto) 7.7 % 10/02/20 Monocytes # (Auto) 1.77 K/uL (0.11-0.59) H 10/02/20 Eosinophils # (Auto) 0.02 K/uL (0-0.5) 10/02/20 Immature Granulocyte % (Auto) 0.5 % 10/02/20 Neutrophils # (Auto) 15.84 K/uL (1.4-6.5) H 10/02/20 Lymphocytes # (Auto) 1.47 K/uL (1.2-3.4) 10/02/20 Monocytes # (Auto) 1.77 K/uL (0.11-0.59) H 10/02/20 Eosinophils # (Auto) 0.02 K/uL (0-0.5) 10/02/20 Basophils # (Auto) 0.00 K/uL (0-0.2) 10/02/20 Immature Granulocyte # (Auto) 0.09 K/uL (0.00-0.02) H 10/02/20 Na 118 mmol/L (136-145) L* 10/02/20 K 3.9 mmol/L (3.5-5.1) 10/02/20 Cl 89 mmol/L (98-107) L 10/02/20 CO2 22 mmol/L (21-32) 10/02/20 Anion Gap 7.0 (3-11) 10/02/20 BUN 10 mg/dl (7-18) 10/02/20 Creatinine 0.45 mg/dl (0.6-1.2) L 10/02/20 Estimated GFR ( Amer) 110.5 ml/min 10/02/20 Estimated GFR (Non-Af Amer) 95.3 ml/min 10/02/20 BUN/Creatinine Ratio 21.9 (10-20) H 10/02/20 Glu 145 mg/dl (70-99) H 10/02/20 Ca 7.6 mg/dl (8.5-10.1) L 10/02/20 Phosphorus Level 1.8 mg/dl (2.5-4.9) L 10/02/20 Mg 1.7 mg/dl (1.8-2.4) L 10/02/20 03:10 10/02/20 Calcium Level 7.6 mg/dl (8.5-10.1) L 10/02/20 06:43 10/02/20 Microbiology 09/30/20 15:53 Aerobic Blood Culture - Preliminary Blood No growth in Aerobic bottle after 24 hours. Anaerobic Blood Culture - Final 09/30/20 15:42 Aerobic Blood Culture - Preliminary Blood No growth in Aerobic bottle after 24 hours. Anaerobic Blood Culture - Preliminary No growth in Anaerobic bottle after 24 hours. 10/01/20 10:53 Cryptococcal Antigen Test - Final Cerebral Spinal Fluid 10/01/20 12:40 Gram Stain - Final Cerebral Spinal Fluid I & O Totals 24 Hours 10/01/20 10/02/20 10/03/20 06:59 06:59 06:59 Intake Total 2995.243 / 2995.243 3585.077 / 3585.077 155 / 155 Output Total 3000 / 3000 1365 / 1365 Balance -4.757 / -4.757 2220.077 / 2220.077 155 / 155 Cumulative 09/30/20 12:38 thru 10/02/20 10:07 Intake Total 6735.320 Output Total 4365 Balance 2370.320 RT Ventilator Mngmt (Last Documented) Ventilator Ordered Settings Respiratory Rate 24 10/02/20 09:02 Fraction of Inspired Oxygen 0 10/02/20 06:02 Ventilator - PT Measurements Respiratory Rate 24 End-Tidal CO2 14 Coding Level of Care Code Critical Care 1st 30-74 mins Diagnoses Admitted to intensive care unit Z78.9 Acute encephalopathy G93.40 Acute alteration in mental status R41.82 Hypertension I10 Diabetes E11.9 Acute hyponatremia E87.1 Hyperglycemia R73.9 Sleep apnea G47.30 Sepsis A41.9 Time Spent (min) 45
[2020-10-02] MEDS ORDERED: CALCIUM GLUCONATE 10% 2,000 MG in SODIUM CHLORIDE 0.9% 50 ML IV ONE (11:09)
[2020-10-02] MEDS: MAGNESIUM SULFATE / D5W 1 GM/100 ML BAG IV SCH ×2 (11:43→15:11)
[2020-10-02 11:45] LABS: BUN Creatinine Ratio 21.7 (10-20); Calcium 7.9 mg/dl (8.5-10.1); Creatinine Clr Calc Pharmacy 97.1 ml/min; Est GFR (African American) 116.8 ml/min; Est GFR (Non-African American) 100.8 ml/min; Potassium 3.6 mmol/L (3.5-5.1)
[2020-10-02] MEDS ORDERED: Nursing to Pharmacy Communication STA (11:46)
[2020-10-02] MEDS: hydrALAZINE HCL 20 MG/ML VIAL IV PRN (11:59)
--- NOTE | 2020-10-02 12:07 | Nephrology Progress Note ---
Date of Service October 02, 2020 Assessment & Plan (1) Acute hyponatremia: Plan: 80-year-old female admitted with acute change in mental status, on admission found to be hyponatremic with serum sodium 114 And had episode of seizure, started on Keppra. blood pressure was normal. All workup was unremarkable for any underlying etiology. Has not been on a thiazide diuretic. Normal renal function. TSH normal. No evidence of adrenal insufficiency, CHF for hepatic insufficiency. Imaging including CT abdomen pelvis, chest x-ray and CT head was unremarkable. Urine osmolality was around 500-600. Initially sodium corrected rapidly and receive D5 which again contributed to drop in serum sodium and has been around 118-119 for last 24 hours. -- 3% saline 100 cc bolus now, repeat sodium after the bolus. Considering persistently elevated urine osmolality, if sodium stays low, will give 1 dose of tolvaptan. Avoid D5 W unless sodium above 126 Will follow. Admission and Anticipated Discharge Date Admission Date: September 30, 2020 Sanjuanita Perez was seen in her room this morning with sitter at bedside. She was asleep minimally open eyes but did not communicate. Serum sodium remained low since yesterday morning around 118-119 despite getting 3% saline at night and another 50 cc this morning. Urine osmolality above 600. blood pressure elevated. Review of Systems Review of Systems: Unobtainable due to reduced consciousness Physical Exam Constitutional: + ill appearing and + lethargic Minimally responsive Respiratory: normal respiratory effort, lungs clear to auscultation Cardiovascular: RRR, no murmur, no edema Neurologic: detailed exam was not possible as she was minimally responsive Results & Data ([facility]) Vital Signs (Past 12 Hours) Vital Signs Temp Pulse Resp BP Pulse Ox 10/02/20 09:02 37.4 C 87 24 170/101 H 99 10/02/20 08:02 37.3 C 73 26 H 175/76 H 95 10/02/20 07:02 37.0 C 86 28 H 187/75 H 99 10/02/20 06:02 37.2 C 72 18 137/90 96 10/02/20 05:32 37.4 C 75 19 147/68 H 96 10/02/20 05:02 37.5 C 78 20 143/82 H 94 10/02/20 04:37 96 H 40 H 100 10/02/20 04:32 37.5 C 78 23 180/81 H 94 10/02/20 04:02 37.5 C 97 H 24 167/87 H 98 10/02/20 03:30 37.6 C H 95 H 22 93 10/02/20 03:25 37.6 C H 97 H 20 98 10/02/20 03:20 37.6 C H 133 H 21 98 10/02/20 03:15 37.6 C H 124 H 22 98 10/02/20 03:10 37.6 C H 108 H 26 H 99 10/02/20 03:05 37.5 C 27 H 96 10/02/20 03:04 37.5 C 119 H 20 99 10/02/20 02:32 37.5 C 94 H 21 133/79 100 10/02/20 02:02 37.4 C 90 18 173/66 H 99 10/02/20 01:32 37.3 C 90 19 128/67 96 10/02/20 01:03 37.2 C 104 H 19 171/80 H 98 10/02/20 00:37 76 30 H 100 10/02/20 00:32 37.3 C 75 20 129/64 97 PG Care Time/CCT Total # of Minutes Spent Total Time Spent with Patient: Total time spent is greater than 50% in coordination of care (as documented) at patient's floor/unit and/or counseling patient: Coding Level of Care Code 37109 Subseq Hosp Care Lvl 3 Diagnoses Acute hyponatremia E87.1
--- NOTE | 2020-10-02 14:40 | Pharmacy Report ---
Pharmacy Glycemic Short Note 2 - Date of Service October 02, 2020 - Glycemic Short BSG Results (Last 24 hours): 10/01/20 10/01/20 10/01/20 14:34 15:05 15:06 Glucose 123 H POC Glucose 120 H 138 H 10/01/20 10/01/20 10/01/20 16:06 17:34 18:27 Glucose POC Glucose 106 H 113 H 124 H 10/01/20 10/01/20 10/01/20 19:10 19:31 20:28 Glucose 116 H POC Glucose 114 H 119 H 10/01/20 10/01/20 10/01/20 22:31 23:14 23:38 Glucose 97 POC Glucose 99 117 H 10/02/20 10/02/20 10/02/20 00:35 03:10 06:43 Glucose 143 H 145 H POC Glucose 120 H 10/02/20 10/02/20 10/02/20 07:33 11:07 11:14 Glucose 149 H POC Glucose 175 H 141 H OUTPATIENT ANTIDIABETIC REGIMEN: * Glipizide 10mg PO BID * A1c = 8.4% 10/01/20 ASSESSMENT: 10/02 * BSGs in goal range with IV insulin infusion. Some below goal range but no HYPO. Asked by hospitalist to transition off of IV insulin infusion to free up IV access. Pt still NPO but can transition to basal insulin monotherapy while NPO * Based on average IV insulin infusion rate to maintain goal range BSGs (average drip rate ~ 1.8 units/hr) while NPO this equates to a basal insulin requirement of ~ 43 units/day. However, patient did receive a dose of dexamethasone and multiple sources of dextrose which is skewing this calculation upwards. Will start with ~ 50% of calculated basal insulin needs and add Q4hrs NovoLog to make up the difference. * Titrate to maintain BSGs in the goal range of 110-180 mg/dl range. 10/01/20 * Type 2 diabetic admitted for mental status changes, possible sz activity, hyponatremia, and possible meningitis * IV insulin infusion started yesterday evening. Patient's initial labs revealed hyperglycemia however no acidosis, mild AG of 12, 2+ ketones in UA * IV insulin running at 2.8 units/hr this AM and BSGs in low 200s. * Dextrose 5% infusing @125cc/hr to slow rate of Na elevation * IV insulin infusion remains standard of care for patients experiencing hyperglycemia in the ICU. Reasonable to continue this therapy at this time given IV dextrose provision in NPO patient as SQ insulin may lead to greater risk of hypoglycemia if D5 abruptly stopped PLAN FOR INPATIENT GLYCEMIC CONTROL: * Hold outpatient oral diabetes medications (glipizide) * Basal insulin * Lantus 20 units SQ Q24hrs given in AM * Will set a scale for HS dosing if needed * BSG below 140 --> 0 units * BSG 140-180 --> 7 units * BSG above 180 --> 12 units * Bolus insulin * NovoLog Q4hrs * Goal range 110-140 mg/dl * CF = 30mg/dl/unit * CR = 1 unit for every 9g CHO consumed (when diet resumed) PLAN FOR DISCHARGE: * To be determined. Of note, glipizide has rarely been associated with SIADH. Patient's urine osmo + urine Na could be consistent w/ SIADH in the right clinical context.
[2020-10-02] MEDS ORDERED: TOLVAPTAN 15 MG TABLET PO ONE (17:45)
[2020-10-02] MEDS: SODIUM CHLORIDE 3 % 100 ML IV SCH ×2 (18:38→21:28)
--- NOTE | 2020-10-02 18:50 | Hospitalist Progress Note ---
Date of Service October 02, 2020 Assessment & Plan (1) Encephalopathy: Plan: Acute hyponatremia metabolic encephalopathy LP 10/01/20 shows wbc of 20 all other paramenters are negative, biofire negative, initially started on meningitis meds, acyclovir and ampicillin these medications are stopped she remains with low-grade temperature. On presentation she had temperature 102. Source is unknown noted this time she has had a negative urinalysis negative blood cultures and negative chest x-ray currently only test pending R CSF Lyme (serum Lyme's been negative both IgG and IgM,) and CSF West Nile virus. - CT head, neck, abdomen negative for acute process - Toxicology screen negative - TSH normal - Blood cultures negative to date (2) Acute hyponatremia: Plan: Sodium on arrival 114 - corrected for hyperglycemia to 120 - Serum OSMO 255, Spec Grav 1.019, UO 532, Urine NA- 107 - 50 ml 3% saline given x2 for total of 100 ml - DDAVP 2mcg IV - add D5 - - K is normal - TSH normal - Cortisol appropriately elevated Patient has previous history of hyponatremia- with what looks to be from increase in free water intake, her lowest that she had before was 128 nephrology managing with hypertonic saline at this time (3) Seizure: Plan: Short lived <1min presumed from hyponatremia - Keppra 2GM IV given in EMD - Neurology consulted- recommended 500mg Keppra q12h hours -EEG is without epileptogenic focus background slowing noted (4) Hypomagnesemia: Plan: Replete (5) Sleep apnea: Plan: is on CPAP of 16 at home - recently had sleep study repeated (6) Anxiety and depression: Plan: Xanax PRN- hold until mental status improves - not likely withdraw- urine tox screen negative for benzo Did require some as needed lorazepam due to agitated agitated state (7) Diabetes: Plan: Hyperglycemic on admission usually well controlled it appears as she is also on glipizide as outpatient - glucose protocol in the ICU goal <180 (8) Acid reflux: Plan: Famotidine IV. (9) Acute encephalopathy: (10) Acute alteration in mental status: (11) Hypertension: (12) Hyperglycemia: (13) Sepsis: Admission and Anticipated Discharge Date Admission Date: September 30, 2020 Subjective Patient is obtunded and snoring in her hospital bed. She reportedly did not get any lorazepam 3:47 AM her sodium has been stubborn and has slipped back into the teen range being around 118 at this time nephrology is managing Review of Systems Review of Systems: Unobtainable due to cognitive status Physical Exam Physical Exam: The patient appeared well nourished and normally developed. she is delirious Vital signs as documented. Head exam is normocephalic atraumatic Neck is without JVD, thyromegaly, or carotid bruits. Lungs are clear to auscultation, no focal loss of breath sounds Cardiac exam, Rhythm is regular.. No murmurs, rubs or gallops. Abdominal exam reveals normal bowel sounds, soft non tender, no masses Extremities are nonedematous and both pedal pulses are present Skin is without bruises or rashes Results & Data Results & Data ([facility]) Vital Signs (Past 12 Hours) Vital Signs Temp Pulse Resp BP Pulse Ox 10/02/20 12:04 99.5 F 93 H 97 10/02/20 11:02 99.3 F 80 170/87 H 96 10/02/20 10:02 99.5 F 90 146/72 H 89 L 10/02/20 09:02 99.3 F 87 24 170/101 H 99 10/02/20 08:02 99.1 F 73 26 H 175/76 H 95 10/02/20 07:02 98.6 F 86 28 H 187/75 H 99 PG Care Time/CCT Total # of Minutes Spent Total Time Spent with Patient: Total time spent is greater than 50% in coordination of care (as documented) at patient's floor/unit and/or counseling patient: Coding Level of Care Code 59743 Subseq Hosp Care Lvl 3 Diagnoses Encephalopathy G93.40 Acute hyponatremia E87.1 Seizure R56.9 Hypomagnesemia E83.42 Sleep apnea G47.30 Anxiety and depression F41.9; F32.9 Diabetes E11.9 Acid reflux K21.9 Acute encephalopathy G93.40 Acute alteration in mental status R41.82 Hypertension I10 Hyperglycemia R73.9 Sepsis A41.9
[2020-10-02] MEDS ORDERED: SODIUM PHOSPHATE 3 MMOL/1 ML INFUSION IV STA (18:52)
[2020-10-02] MEDS ORDERED: SODIUM PHOSPHATE 15 MMOL in SODIUM CHLORIDE 0.9% 250 ML IV ONE (19:30)
[2020-10-02] MEDS: FAMOTIDINE 20 MG in SYRINGE 3 ML IV SCH (21:34)
[2020-10-02] MEDS: ENOXAPARIN INJ 40 MG/0.4 ML SYR SQ SCH (21:35)
[2020-10-03] MEDS: INSULIN ASPART 100 UNITS/ML 3 ML PEN SC SCH ×5 (03:51→20:54)
[2020-10-03 05:01] LABS: Basophils # (auto) 0.01 K/uL (0-0.2); Basophils % (auto) 0.1 %; Eosinophils # (auto) 0.04 K/uL (0-0.5); Eosinophils % (auto) 0.3 %; Hematocrit (blood only) 33.6 % (37-47); Hemoglobin 12.5 g/dL (12.0-16.0); Immature Granulocytes # (auto) 0.06 K/uL (0.00-0.02); Immature Granulocytes % (auto) 0.4 %; Lymphocytes # (auto) 1.53 K/uL (1.2-3.4); Mean Corpuscular Hemoglobin 30.4 pg (25-34); Mean Corpuscular Hgb Conc 37.2 g/dL (32-36); Mean Corpuscular Volume 81.8 fL (80-100); Mean Platelet Volume 10.3 fL (7.4-10.4); Monocytes # (auto) 1.38 K/uL (0.11-0.59); Neutrophils # (auto) 12.26 K/uL (1.4-6.5); Neutrophils % (auto) 80.2 %; Platelet Count 237 K/uL (130-400); RDW Coefficient of Variation 12.9 % (11.5-14.5); RDW Standard Deviation 38.9 fL (36.4-46.3); Red Blood Count 4.11 M/uL (4.2-5.4); White Blood Count 15.28 K/uL (4.8-10.8)
[2020-10-03] MEDS: levETIRAcetam 500 MG in 0.9 % SODIUM CHLORIDE 100 ML IV SCH ×2 (05:22→18:03)
[2020-10-03 05:28] LABS: BUN Creatinine Ratio 21.3 (10-20); Calcium 7.9 mg/dl (8.5-10.1); Creatinine Clr Calc Pharmacy 73.8 ml/min; Est GFR (African American) 106.7 ml/min; Est GFR (Non-African American) 92.1 ml/min; Magnesium 2.2 mg/dl (1.8-2.4); Potassium 3.6 mmol/L (3.5-5.1)
[2020-10-03 05:29] LABS: Phosphorus 2.3 mg/dl (2.5-4.9)
--- NOTE | 2020-10-03 07:10 | Hospitalist Progress Note ---
Date of Service October 03, 2020 Assessment & Plan (1) Encephalopathy: Plan: Acute hyponatremia metabolic encephalopathy LP 10/01/20 shows wbc of 20 all other parameters are negative, biofire negative, initially started on meningitis meds, acyclovir and ampicillin these medications are stopped she remains with low-grade temperature. On presentation she had temperature 102. Source is unknown noted this time she has had a negative urinalysis negative blood cultures and negative chest x-ray currently only tests pending R CSF Lyme (serum Lyme's been negative both IgG and IgM,) and CSF West Nile virus. - CT head, neck, abdomen negative for acute process - Toxicology screen negative - TSH normal - Blood cultures negative to date hyponatremia is improving with oversight of neprhology this correlates with improvement of mental function. Family corroborates excess water drinking at home to try to help her blood sugar (2) Acute hyponatremia: Plan: Sodium on arrival 114 - corrected for hyperglycemia to 120 - Serum OSMO 255, Spec Grav 1.019, UO 532, Urine NA- 107 -did receive hypertonic saline with nephrology oversight Improvement in hyponatremia parallels improvement in mental condition - K is normal - TSH normal - Cortisol appropriately elevated Patient has previous history of hyponatremia- with what looks to be from increase in free water intake, her lowest that she had before was 128 nephrology managing with hypertonic saline at this time (3) Seizure: Plan: Short lived <1min presumed from hyponatremia - Keppra 2GM IV given in EMD - Neurology consulted-continues to recommend 500mg Keppra q12h hours -EEG is without epileptogenic focus background slowing noted (4) Hypomagnesemia: Plan: Replete (5) Sleep apnea: Plan: is on CPAP of 16 at home - recently had sleep study repeated (6) Anxiety and depression: Plan: Xanax PRN- hold until mental status improves - not likely withdraw- urine tox screen negative for benzo Did require some as needed lorazepam due to agitated agitated state (7) Diabetes: Plan: Hyperglycemic on admission usually well controlled it appears as she is also on glipizide as outpatient - glucose glycemic management (8) Acid reflux: Plan: Famotidine IV. (9) Acute encephalopathy: (10) Acute alteration in mental status: (11) Hypertension: (12) Hyperglycemia: (13) Sepsis: Admission and Anticipated Discharge Date Admission Date: September 30, 2020 Subjective Patient has amazingly return to some intact neurological mental function she knows where she is she cannot recall the events last few days she is confused at times but able to be conversant and follow commands. This seems to correlate with improvement of her sodium. There is still been no defined infectious etiology identified to explain her initial fevers Review of Systems Review of Systems: Mild distress and moderate fatigue no headache, no visual changes no speech or swallowing issues no chest pain, pressure or palpitations no shortness of breath, no cough or wheezes no abdominal pain, nausea or vomiting, diarrhea or constipation no dysuria, hematuria or frequency no focal joint pain or swelling no back pain, CVA tenderness or radicular pain no bruising, bleeding or rashes no focal signs of weakness or numbness or altered sensation Physical Exam Physical Exam: The patient appeared well nourished and normally developed. She is not cooperative and responds appropriately to commands Vital signs as documented. Head exam is normocephalic atraumatic Neck is without JVD, thyromegaly, or carotid bruits. Lungs are clear to auscultation, no focal loss of breath sounds Cardiac exam, Rhythm is regular.. No murmurs, rubs or gallops. Abdominal exam reveals normal bowel sounds, soft non tender, no masses Extremities are nonedematous and both pedal pulses are present Skin is without bruises or rashes Results & Data Results & Data ([facility]) Vital Signs (Past 12 Hours) Vital Signs Temp Pulse Resp BP Pulse Ox 10/03/20 06:02 99.1 F 85 21 149/67 H 95 10/03/20 05:00 99.3 F 69 22 134/78 97 10/03/20 04:03 99.3 F 94 H 20 148/76 H 93 10/03/20 03:02 99.5 F 76 27 H 153/79 H 96 10/03/20 02:02 99.7 F H 75 24 144/72 H 97 10/03/20 01:15 78 10/03/20 01:02 99.7 F H 103 H 153/65 H 99 10/03/20 00:02 99.5 F 85 123/70 97 10/02/20 23:02 99.5 F 94 H 144/73 H 100 10/02/20 22:02 99.5 F 78 147/68 H 99 10/02/20 21:02 99.7 F H 89 134/72 99 10/02/20 20:00 99.5 F 85 99 PG Care Time/CCT Total # of Minutes Spent Total Time Spent with Patient: Total time spent is greater than 50% in coordination of care (as documented) at patient's floor/unit and/or counseling patient: Coding Level of Care Code 69885 Subseq Hosp Care Lvl 3 Diagnoses Encephalopathy G93.40 Acute hyponatremia E87.1 Seizure R56.9 Hypomagnesemia E83.42 Sleep apnea G47.30 Anxiety and depression F41.9; F32.9 Diabetes E11.9 Acid reflux K21.9 Acute encephalopathy G93.40 Acute alteration in mental status R41.82 Hypertension I10 Hyperglycemia R73.9 Sepsis A41.9
[2020-10-03] MEDS ORDERED: Nursing to Pharmacy Communication SCH (07:45)
--- NOTE | 2020-10-03 07:47 | Critical Care Progress Note ---
Date of Service October 03, 2020 Assessment & Plan (1) Admitted to intensive care unit: Plan: Reason Critically Ill: 80-year-old female who presents w/ acute encephalopathy, fever, and seizure-like episode in the setting of hyponatremia (114). 24-hour events: Mental status has markedly cleared and she appears to be back to her pleasant mildly confused baseline. No seizure activity. Sodium has corrected with 3% and tolvaptan. Recommendations NEURO -acute encephalopathy likely secondary to metabolic etiology. Appears resolved now. Based on my previous encounters with her in the sleep clinic I suspect she has some underlying early dementia/neurocognitive dysfunction. Outpatient neuropsych assessment recommended. CARDIAC -blood pressures are better controlled. We will restart her oral metoprolol and Zestril. RESPIRATORY -history of sleep disordered breathing. Continue home CPAP settings while sleeping. Supplemental oxygen during the day as needed to keep saturations at or above 88% GI/NUTRITION -advancing diet as tolerated. 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 Now greater than 120 with resolution of the patient's acute mental status changes. Additional management per nephrology. -no current issues, okay to discontinue Cruz catheter at this point time ENDO -glycemic control per protocol. Transition off insulin infusion. Sliding scale as needed HEME -no current issues ID -White count decreasing. CSF bio fire negative. Urinalysis and chest x-ray negative. Her fever is now resolved. She initially received broad-spectrum antibiotics to cover meningeal sources however these have been discontinued. At this time I would favor discontinuation of antibiotics and follow clinically. Her lactate was clearing. Lyme studies are currently pending. We will initiate PT and OT consults. LINES/IV ACCESS - PIVs x2, L A line DVT PROPHYLAXIS - Lovenox, SCDs DIPSO: Okay to transfer to floor under the care of the hospitalist Patient is significantly improved at this point in time. Think she can transfer to the floor under the care of the hospitalist. Will sign off from a critical care standpoint. Feel free to contact us if we can be of additional assistance. (2) Acute encephalopathy: (3) Acute alteration in mental status: (4) Hypertension: (5) Diabetes: (6) Acute hyponatremia: (7) Hyperglycemia: (8) Sleep apnea: (9) Sepsis: Admission and Anticipated Discharge Date Admission Date: September 30, 2020 Subjective She is awake alert and conversant.Patient seen and examined. Discussed with critical care nurse at bedside as well as with patient. Her mental status appears to be approaching her baseline. She requires frequent reorientation but this is not markedly different from when I saw her in the sleep clinic. No seizure activity. She denies chest pain palpitations nausea vomiting or other constitutional symptoms Review of Systems Review of Systems: All systems reviewed & are unremarkable except as noted in HPI & below Physical Exam Constitutional: WD/WN, vitals as above Neck: trachea midline, no thyromegaly Respiratory: normal respiratory effort, lungs clear to auscultation Cardiovascular: RRR, no murmur, no edema Gastrointestinal (Abdomen): normal bowel sounds, soft, nontender, no hepatosplenomegaly Musculoskeletal: Extremities: extremities normal to inspection Skin: no rashes, warm and dry Lymphatic: no cervical lymphadenopathy Results & Data Results & Data ([facility]) Vital Signs (Past 12 Hours) Vital Signs Temp Pulse Resp BP Pulse Ox 10/03/20 06:02 37.3 C 85 21 149/67 H 95 10/03/20 05:00 37.4 C 69 22 134/78 97 10/03/20 04:03 37.4 C 94 H 20 148/76 H 93 10/03/20 03:02 37.5 C 76 27 H 153/79 H 96 10/03/20 02:02 37.6 C H 75 24 144/72 H 97 10/03/20 01:15 78 10/03/20 01:02 37.6 C H 103 H 153/65 H 99 10/03/20 00:02 37.5 C 85 123/70 97 10/02/20 23:02 37.5 C 94 H 144/73 H 100 10/02/20 22:02 37.5 C 78 147/68 H 99 10/02/20 21:02 37.6 C H 89 134/72 99 10/02/20 20:00 37.5 C 85 99 Critical Care Results & Data Vital Signs (Past 12 Hours) Vital Signs Temp Pulse Resp BP Pulse Ox 10/03/20 06:02 37.3 C 85 21 149/67 H 95 10/03/20 05:00 37.4 C 69 22 134/78 97 10/03/20 04:03 37.4 C 94 H 20 148/76 H 93 10/03/20 03:02 37.5 C 76 27 H 153/79 H 96 10/03/20 02:02 37.6 C H 75 24 144/72 H 97 10/03/20 01:15 78 10/03/20 01:02 37.6 C H 103 H 153/65 H 99 10/03/20 00:02 37.5 C 85 123/70 97 10/02/20 23:02 37.5 C 94 H 144/73 H 100 10/02/20 22:02 37.5 C 78 147/68 H 99 10/02/20 21:02 37.6 C H 89 134/72 99 10/02/20 20:00 37.5 C 85 99 Lab & Micro Results (Past 24 Hours) RBC 4.11 M/uL (4.2-5.4) L 10/03/20 WBC 15.28 K/uL (4.8-10.8) H 10/03/20 Hgb 12.5 g/dL (12.0-16.0) 10/03/20 Hct 33.6 % (37-47) L 10/03/20 MCV 81.8 fL (80-100) 10/03/20 MCH 30.4 pg (25-34) 10/03/20 MCHC 37.2 g/dL (32-36) H 10/03/20 RDW Standard Deviation 38.9 fL (36.4-46.3) 10/03/20 RDW Coefficient of Variation 12.9 % (11.5-14.5) 10/03/20 Plt Count 237 K/uL (130-400) 10/03/20 MPV 10.3 fL (7.4-10.4) 10/03/20 Neutrophils (%) (Auto) 80.2 % 10/03/20 Lymphocytes (%) (Auto) 10.0 % 10/03/20 Monocytes # (Auto) 1.38 K/uL (0.11-0.59) H 10/03/20 Eosinophils # (Auto) 0.04 K/uL (0-0.5) 10/03/20 Immature Granulocyte % (Auto) 0.4 % 10/03/20 Neutrophils # (Auto) 12.26 K/uL (1.4-6.5) H 10/03/20 Lymphocytes # (Auto) 1.53 K/uL (1.2-3.4) 10/03/20 Monocytes # (Auto) 1.38 K/uL (0.11-0.59) H 10/03/20 Eosinophils # (Auto) 0.04 K/uL (0-0.5) 10/03/20 Basophils # (Auto) 0.01 K/uL (0-0.2) 10/03/20 Immature Granulocyte # (Auto) 0.06 K/uL (0.00-0.02) H 10/03/20 Na 125 mmol/L (136-145) L 10/03/20 K 3.6 mmol/L (3.5-5.1) 10/03/20 Cl 95 mmol/L (98-107) L 10/03/20 CO2 24 mmol/L (21-32) 10/03/20 Anion Gap 6.0 (3-11) 10/03/20 BUN 11 mg/dl (7-18) 10/03/20 Creatinine 0.50 mg/dl (0.6-1.2) L 10/03/20 Estimated GFR ( Amer) 106.7 ml/min 10/03/20 Estimated GFR (Non-Af Amer) 92.1 ml/min 10/03/20 BUN/Creatinine Ratio 21.3 (10-20) H 10/03/20 Glu 147 mg/dl (70-99) H 10/03/20 Ca 7.9 mg/dl (8.5-10.1) L 10/03/20 Phosphorus Level 2.3 mg/dl (2.5-4.9) L 10/03/20 Mg 2.2 mg/dl (1.8-2.4) 10/03/20 04:51 10/03/20 Calcium Level 7.9 mg/dl (8.5-10.1) L 10/03/20 04:51 10/03/20 Microbiology 09/30/20 15:53 Aerobic Blood Culture - Preliminary Blood No growth in Aerobic bottle after 48 hours. Anaerobic Blood Culture - Final 09/30/20 15:42 Aerobic Blood Culture - Preliminary Blood No growth in Aerobic bottle after 48 hours. Anaerobic Blood Culture - Preliminary No growth in Anaerobic bottle after 48 hours. 10/01/20 15:40 Urine Culture - Preliminary Urine,Indwelling Cath No growth - Less than 1,000 colonies/mL, Final report to follow. 10/01/20 12:40 Gram Stain - Final Cerebral Spinal Fluid CSF Culture - Preliminary No growth to date. I & O Totals 24 Hours 10/02/20 10/03/20 10/04/20 06:59 06:59 06:59 Intake Total 3585.077 / 3585.077 1183.333 / 1183.333 Output Total 1365 / 1365 3100 / 3100 Balance 2220.077 / 2220.077 -1916.667 / -1916.667 Cumulative 09/30/20 12:38 thru 10/03/20 06:00 Intake Total 7763.653 Output Total 7465 Balance 298.653 RT Ventilator Mngmt (Last Documented) Ventilator Ordered Settings Respiratory Rate 21 10/03/20 06:02 Fraction of Inspired Oxygen 0 10/02/20 06:02 Ventilator - PT Measurements Respiratory Rate 21 End-Tidal CO2 29 Coding Level of Care Code 18468 Subseq Hosp Care Lvl 3 Diagnoses Admitted to intensive care unit Z78.9 Acute encephalopathy G93.40 Acute alteration in mental status R41.82 Hypertension I10 Diabetes E11.9 Acute hyponatremia E87.1 Hyperglycemia R73.9 Sleep apnea G47.30 Sepsis A41.9 Time Spent (min) 40
[2020-10-03] MEDS: FAMOTIDINE 20 MG in SYRINGE 3 ML IV SCH ×2 (07:54→20:46)
[2020-10-03] MEDS: INSULIN GLARGINE SOLOSTAR 100 UNITS/ML 3 ML PEN SC SCH (08:00)
[2020-10-03] MEDS: lisinopril 10 MG TAB PO SCH (08:42)
--- NOTE | 2020-10-03 09:56 | Pharmacy Report ---
Pharmacy Glycemic Short Note 2 - Date of Service October 03, 2020 - Glycemic Short BSG Results (Last 24 hours): 10/02/20 10/02/20 10/02/20 11:07 11:14 15:58 Glucose 149 H POC Glucose 141 H 190 H 10/02/20 10/02/20 10/03/20 20:00 23:42 03:49 Glucose POC Glucose 165 H 159 H 158 H 10/03/20 10/03/20 04:51 07:20 Glucose 147 H POC Glucose 160 H OUTPATIENT ANTIDIABETIC REGIMEN: * Glipizide 10mg PO BID * A1c = 8.4% 10/01/20 ASSESSMENT: 10/03 * Pt has received 34 units of insulin over the past 24hrs * 27 units of basal with Lantus * 7 units of bolus with NovoLog (Pt NPO so no CHO intake) * BSGs trending downwards nicely with the addition of weight based basal insulin for insulin naive patient. AM fasting BSG still above goal range therefore will further increase Lantus. Conservative increase since Lantus is not yet at steady state and likely BSGs likely to continue to trend downwards. * Diet resumed today; patient transferring out of ICU. Will continue with CF/CR per estimated basal ~ 30 units and titrate based on BSG trends. 10/02 * BSGs in goal range with IV insulin infusion. Some below goal range but no HYPO. Asked by hospitalist to transition off of IV insulin infusion to free up IV access. Pt still NPO but can transition to basal insulin monotherapy while NPO * Based on average IV insulin infusion rate to maintain goal range BSGs (average drip rate ~ 1.8 units/hr) while NPO this equates to a basal insulin requirement of ~ 43 units/day. However, patient did receive a dose of dexamethasone and multiple sources of dextrose which is skewing this calculati on upwards. Will start with ~ 50% of calculated basal insulin needs and add Q4hrs NovoLog to make up the difference. * Titrate to maintain BSGs in the goal range of 110-180 mg/dl range. 10/01/20 * Type 2 diabetic admitted for mental status changes, possible sz activity, hyponatremia, and possible meningitis * IV insulin infusion started yesterday evening. Patient's initial labs revealed hyperglycemia however no acidosis, mild AG of 12, 2+ ketones in UA * IV insulin running at 2.8 units/hr this AM and BSGs in low 200s. * Dextrose 5% infusing @125cc/hr to slow rate of Na elevation * IV insulin infusion remains standard of care for patients experiencing hyperglycemia in the ICU. Reasonable to continue this therapy at this time given IV dextrose provision in NPO patient as SQ insulin may lead to greater risk of hypoglycemia if D5 abruptly stopped PLAN FOR INPATIENT GLYCEMIC CONTROL: * Hold outpatient oral diabetes medications (glipizide) * Basal insulin: slight increase from 27 to 30 units * Lantus 30 units SQ Q24hrs given in AM * Bolus insulin * NovoLog ACHS now that diet resumed * Goal range 110-140 mg/dl * CF = 25 mg/dl/unit * CR = 1 unit for every 9g CHO consumed PLAN FOR DISCHARGE: * To be determined. Of note, glipizide has rarely been associated with SIADH. Patient's urine osmo + urine Na could be consistent w/ SIADH in the right clinical context.
[2020-10-03] MEDS ORDERED: COUGH DROP (SUGAR FREE) LOZ 24 LOZ/1 BOX BUCCAL ONE (10:44)
[2020-10-03] MEDS: METOPROLOL SUCC 25MG EXT REL TAB PO SCH (10:45)
--- NOTE | 2020-10-03 10:48 | Neurology Progress Note ---
Date of Service October 03, 2020 Assessment & Plan (1) Acute encephalopathy: (2) Seizure: (3) Acute hyponatremia: (4) Hypomagnesemia: (5) Hyperglycemia: (6) Hypocalcemia: Plan: This patient presented 13 with acute encephalopathy secondary to multiple electrolyte abnormalities, including hyponatremia, hypomagnesemia, hypocalcemia, and hyperglycemia. In addition, she was febrile with an elevated lactate and likely septic. Currently she is afebrile and off all antibiotics and acyclovir. LP 11-01, showed 20 white cells (90 percent polys and 10 percent lymphs) with normal protein. Gram stain was negative. This is consistent with a viral infection or nonspecific inflammation. The combination of electrolyte abnormalities and sepsis could lead to a mild increase in CSF white cells, as could seizures. She had a witnessed generalized seizure on the day of admission, now controlled with levetiracetam. The electrolyte abnormalities, particularly hyponatremia, can readily give generalized seizures. Sepsis could result in seizures as well. On examination I detect no focal neurologic findings. EEG yesterday showed no ongoing seizure activity or subclinical seizures. Patient has a history of hypertension And variable blood pressure. It was elevated this morning at 170/101 Recommendations: 1. resolve electrolyte abnormalities slowly over the next a few days 2. I see no need for an MRI at this time. 3. continue levetiracetam 500 milligrams q.12 hours for now. Once her electrolyte abnormalities are resolved and her sepsis is treated, she will likely not need anticonvulsants. Overall, I spent a total of 35 minutes with this case including review of records, direct evaluation the patient at bedside, and discussion of the case with RN at bedside and Dr. Mares, including differential diagnosis and treatment options. Admission and Anticipated Discharge Date Admission Date: September 30, 2020 Subjective this patient is alert and sitting in the chair very pleasant and cooperative. She has a little bit of a sore throat and left earache but otherwise is not in pain. She is not dizzy and has no significant weakness or numbness. Nursing reports no seizures or other abnormal events. CBC shows a white count of 15 and sodium is 125 today. Results & Data ([facility]) Vital Signs (Past 12 Hours) Vital Signs Temp Pulse Resp BP Pulse Ox 10/03/20 10:01 94 H 16 110/59 L 98 10/03/20 09:02 108 H 17 120/61 97 10/03/20 08:01 37.3 C 109 H 16 114/69 98 10/03/20 07:02 37.3 C 80 25 H 138/70 98 10/03/20 06:02 37.3 C 85 21 149/67 H 95 10/03/20 05:00 37.4 C 69 22 134/78 97 10/03/20 04:03 37.4 C 94 H 20 148/76 H 93 10/03/20 03:02 37.5 C 76 27 H 153/79 H 96 10/03/20 02:02 37.6 C H 75 24 144/72 H 97 10/03/20 01:15 78 10/03/20 01:02 37.6 C H 103 H 153/65 H 99 10/03/20 00:02 37.5 C 85 123/70 97 10/02/20 23:02 37.5 C 94 H 144/73 H 100 Exam (Neuro) Physical Exam: She is awake and alert. Speech is without aphasia or dysarthria. Mood is good and affect is appropriate. Thought processes are reasonable for conversation but she has forgetfulness for her hospitalization. Extraocular eye muscles are intact without nystagmus. There is no facial droop. Coordination is normal in the arms without tremor or ataxia. Strength is 5/5 diffusely in all major muscle groups in arms and legs both proximally and distally. Stance is normal sitting up in the chair. PG Care Time/CCT Total # of Minutes Spent Total Time Spent with Patient: Total time spent is greater than 50% in coordination of care (as documented) at patient's floor/unit and/or counseling patient: Coding Level of Care Code 68168 Subseq Hosp Care Lvl 3 Diagnoses Acute encephalopathy G93.40 Seizure R56.9 Acute hyponatremia E87.1 Hypomagnesemia E83.42 Hyperglycemia R73.9 Hypocalcemia E83.51 Time Spent (min) 35
[2020-10-03] MEDS ORDERED: TOLVAPTAN 15 MG TABLET PO STA (11:51)
--- NOTE | 2020-10-03 11:54 | Nephrology Progress Note ---
Date of Service October 03, 2020 Assessment & Plan (1) Acute hyponatremia: Plan: 80-year-old female admitted with acute change in mental status, on admission found to be hyponatremic with serum sodium 114 And had episode of seizure, started on Keppra. blood pressure was normal. All workup was unremarkable for any underlying etiology. Has not been on a thiazide diuretic. Normal renal function. TSH normal. No evidence of adrenal insufficiency, CHF for hepatic insufficiency. Imaging including CT abdomen pelvis, chest x-ray and CT head was unremarkable. Urine osmolality was around 500-600. Initially sodium corrected rapidly and receive D5 which again contributed to drop in serum sodium and has been around 118-119 for last 24 hours. Sodium improved to 125 after 3 percent saline however again trending down, sodium 124 -- tolvaptan 15 milligram p.o. x1 dose now -- continue to monitor serum sodium q.6 hours -- check urine osmolality in a.m. Will follow. Admission and Anticipated Discharge Date Admission Date: September 30, 2020 Sanjuanita Perez was seen and examined in his room this morning. She is doing much better, awake, alert, oriented. Denies any specific symptoms. Serum sodium improved to 125 this morning after getting 3 percent saline last night however sodium again trending down, last sodium 124. Review of Systems Review of Systems: detailed review of system was otherwise unremarkable. Physical Exam Constitutional: + ill appearing; no acute distress Respiratory: normal respiratory effort, lungs clear to auscultation Cardiovascular: RRR, no murmur, no edema Skin: no rashes, warm and dry Neurologic: moves all extremities and awake; no focal motor deficits and not confused Psychiatric: A+Ox3, euthymic affect Results & Data ([facility]) Vital Signs (Past 12 Hours) Vital Signs Temp Pulse Resp BP Pulse Ox 10/03/20 10:01 94 H 16 110/59 L 98 10/03/20 09:02 108 H 17 120/61 97 10/03/20 08:01 37.3 C 109 H 16 114/69 98 10/03/20 07:02 37.3 C 80 25 H 138/70 98 10/03/20 06:02 37.3 C 85 21 149/67 H 95 10/03/20 05:00 37.4 C 69 22 134/78 97 10/03/20 04:03 37.4 C 94 H 20 148/76 H 93 10/03/20 03:02 37.5 C 76 27 H 153/79 H 96 10/03/20 02:02 37.6 C H 75 24 144/72 H 97 10/03/20 01:15 78 10/03/20 01:02 37.6 C H 103 H 153/65 H 99 10/03/20 00:02 37.5 C 85 123/70 97 PG Care Time/CCT Total # of Minutes Spent Total Time Spent with Patient: Total time spent is greater than 50% in coordination of care (as documented) at patient's floor/unit and/or counseling patient: Coding Level of Care Code 65171 Subseq Hosp Care Lvl 3 Diagnoses Acute hyponatremia E87.1
[2020-10-03] MEDS ORDERED: PHARMACY GLYCEMIC MGMT CONSULT PRN (14:38)
[2020-10-03] MEDS ORDERED: QUEtiapine FUMARATE 25 MG TABLET PO ONE (14:47)
[2020-10-03] MEDS: ENOXAPARIN INJ 40 MG/0.4 ML SYR SQ SCH (20:46)
[2020-10-03] MEDS: LORazepam 0.5 MG/1 ML VIAL IV PRN (20:46)
[2020-10-03] MEDS ORDERED: INSULIN GLARGINE SOLOSTAR 100 UNITS/ML 3 ML PEN SC ONE (21:00)
[2020-10-03] MEDS ORDERED: HALOPERIDOL LACTATE 5 MG/ML 1 ML VIAL IM STA (22:15)
[2020-10-03] MEDS ORDERED: diazePAM 5 MG TABLET PO ONE (23:08)
[2020-10-03] MEDS ORDERED: LORazepam 2 MG/4 ML VIAL IV STA (23:26)
[2020-10-03] MEDS ORDERED: LORazepam 3 MG/6 ML VIAL IV PRN (23:51)
[2020-10-03] MEDS ORDERED: LORazepam 2 MG/4 ML VIAL IV PRN (23:51)
[2020-10-03] MEDS ORDERED: ATIVAN IV ALCOHOL WITHDRAWL IV PRN (23:51)
[2020-10-03] MEDS ORDERED: LORazepam 1 MG/2 ML VIAL IV PRN (23:51)
[2020-10-04] MEDS: INSULIN ASPART 100 UNITS/ML 3 ML PEN SC SCH ×6 (00:34→21:00)
[2020-10-04 04:33] LABS: Basophils # (auto) 0.01 K/uL (0-0.2); Basophils % (auto) 0.1 %; Eosinophils # (auto) 0.03 K/uL (0-0.5); Eosinophils % (auto) 0.2 %; Hematocrit (blood only) 34.4 % (37-47); Hemoglobin 12.3 g/dL (12.0-16.0); Immature Granulocytes # (auto) 0.05 K/uL (0.00-0.02); Immature Granulocytes % (auto) 0.3 %; Lymphocytes # (auto) 0.98 K/uL (1.2-3.4); Lymphocytes % (auto) 6.6 %; Mean Corpuscular Hemoglobin 30.2 pg (25-34); Mean Corpuscular Hgb Conc 35.8 g/dL (32-36); Mean Corpuscular Volume 84.5 fL (80-100); Mean Platelet Volume 10.4 fL (7.4-10.4); Monocytes # (auto) 1.71 K/uL (0.11-0.59); Monocytes % (auto) 11.5 %; Neutrophils # (auto) 12.09 K/uL (1.4-6.5); Neutrophils % (auto) 81.3 %; Platelet Count 257 K/uL (130-400); RDW Coefficient of Variation 13.3 % (11.5-14.5); RDW Standard Deviation 41.1 fL (36.4-46.3); Red Blood Count 4.07 M/uL (4.2-5.4); White Blood Count 14.87 K/uL (4.8-10.8)
[2020-10-04 05:05] LABS: BUN Creatinine Ratio 26.1 (10-20); Calcium 8.5 mg/dl (8.5-10.1); Creatinine Clr Calc Pharmacy 49.5 ml/min; Est GFR (African American) 86.5 ml/min; Est GFR (Non-African American) 74.6 ml/min; Magnesium 2.1 mg/dl (1.8-2.4); Phosphorus 3.2 mg/dl (2.5-4.9); Potassium 3.6 mmol/L (3.5-5.1)
[2020-10-04] MEDS: levETIRAcetam 500 MG in 0.9 % SODIUM CHLORIDE 100 ML IV SCH ×2 (06:13→18:12)
[2020-10-04] MEDS: METOPROLOL SUCC 25MG EXT REL TAB PO SCH (08:13)
[2020-10-04] MEDS: FAMOTIDINE 20 MG in SYRINGE 3 ML IV SCH ×2 (08:13→21:03)
[2020-10-04] MEDS: lisinopril 10 MG TAB PO SCH (08:13)
[2020-10-04] MEDS: DEXTROSE 5% 1,000 ML IV SCH ×2 (08:14→17:03)
[2020-10-04] MEDS: INSULIN GLARGINE SOLOSTAR 100 UNITS/ML 3 ML PEN SC SCH (08:27)
[2020-10-04] MEDS ORDERED: INSULIN GLARGINE SOLOSTAR 100 UNITS/ML 3 ML PEN SC SCH ×2 (09:00)
[2020-10-04] MEDS: LORazepam 0.5 MG/1 ML VIAL IV PRN ×2 (10:18→15:57)
[2020-10-04] MEDS ORDERED: INSULIN GLARGINE SOLOSTAR 100 UNITS/ML 3 ML PEN SC ONE ×2 (10:30→21:00)
--- NOTE | 2020-10-04 12:33 | Hospitalist Progress Note ---
Date of Service October 04, 2020 Assessment & Plan (1) Encephalopathy: Plan: Acute hyponatremia metabolic encephalopathy LP 10/01/20 shows wbc of 20 all other parameters are negative, biofire negative, initially started on meningitis meds, acyclovir and ampicillin these medications are stopped she remains with low-grade temperature. On presentation she had temperature 102. Source is unknown noted this time she has had a negative urinalysis negative blood cultures and negative chest x-ray currently only tests pending R CSF Lyme (serum Lyme's been negative both IgG and IgM,) and CSF West Nile virus. - CT head, neck, abdomen negative for acute process - Toxicology screen negative - TSH normal - Blood cultures negative to date hyponatremia is improving with oversight of nephrology this correlates with improvement of mental function. Family corroborates excess water drinking at home to try to help her blood sugar. - Na up to 136 today. Appears to be improving. (2) Acute hyponatremia: Plan: Sodium on arrival 114 - corrected for hyperglycemia to 120 - Serum OSMO 255, Spec Grav 1.019, UO 532, Urine NA- 107 -did receive hypertonic saline with nephrology oversight Improvement in hyponatremia parallels improvement in mental condition - K is normal - TSH normal - Cortisol appropriately elevated Patient has previous history of hyponatremia. - Given tolvaptan 15 mg PO x 1 on 10/03 -> Sodium increasing appropriately. (3) Seizure: Plan: Short lived <1min presumed from hyponatremia - Keppra 2GM IV given in EMD - Neurology consulted- -> Continues to recommend 500mg Keppra q12h hours -EEG is without epileptogenic focus background slowing noted. Can likely wean eventually. (4) Hypomagnesemia: Plan: Replete (5) Sleep apnea: Plan: is on CPAP of 16 at home - recently had sleep study repeated (6) Anxiety and depression: Plan: Xanax PRN- hold until mental status improves - not likely withdraw- urine tox screen negative for benzo Did require some as needed lorazepam due to agitated agitated state (7) Diabetes: Plan: Hyperglycemic on admission usually well controlled it appears as she is also on glipizide as outpatient - glucose glycemic management (8) Acid reflux: Plan: Famotidine IV. (9) Acute encephalopathy: (10) Acute alteration in mental status: (11) Hypertension: Plan: BP presently 140/90. - Conitnue linsinopril - Monitor (12) Hyperglycemia: (13) Sepsis: Admission and Anticipated Discharge Date Admission Date: September 30, 2020 Subjective Overnight some confusion and aggression. Required mitts. For me, in the AM, she is pleasant, mildly confused about current medical issues, but not combative. Reports no fevers/chills, chest pain, shortness of breath, abdominal pain, nausea, or vomiting. Physical Exam Constitutional: WD/WN, vitals as above Eyes: EOM intact bilaterally; no conjunctival abnormality ENMT: external ear and nose normal, oropharynx normal Neck: trachea midline, no thyromegaly normal visual inspection Respiratory: normal respiratory effort, lungs clear to auscultation no respiratory distress Cardiovascular: Rate/Rhythm: regular rhythm and + tachycardic Heart Sounds: normal S1 and normal S2 Gastrointestinal (Abdomen): Inspection/Auscultation: abdomen normal to inspection; abdomen not distended Musculoskeletal: no cyanosis or clubbing, extremities motor strength 5/5 Skin: no rashes, warm and dry Neurologic: moves all extremities and awake Psychiatric: Orientation: alert, oriented to person and cooperative Results & Data Results & Data ([facility]) Vital Signs (Past 12 Hours) Vital Signs Pulse Resp BP Pulse Ox 10/04/20 07:36 119 H 143/82 H 100 10/04/20 04:01 118 H 19 142/82 H 96 10/04/20 03:35 112 H 17 129/84 96 10/04/20 02:02 115 H 16 107/59 L 92 10/04/20 01:45 115 H 16 96 10/04/20 01:40 118 H 17 94 10/04/20 01:35 120 H 19 95 10/04/20 01:30 122 H 19 95 10/04/20 01:25 122 H 20 94 10/04/20 01:20 124 H 21 98 10/04/20 01:15 124 H 19 99 10/04/20 01:10 122 H 20 98 10/04/20 01:05 124 H 23 98 10/04/20 01:00 112 H 20 98 10/04/20 00:55 118 H 21 97 10/04/20 00:50 116 H 23 98 10/04/20 00:45 121 H 28 H 100 10/04/20 00:40 120 H 22 100 10/04/20 00:35 124 H 24 97 PG Care Time/CCT Total # of Minutes Spent Total Time Spent with Patient: Total time spent is greater than 50% in coordination of care (as documented) at patient's floor/unit and/or counseling patient: Coding Level of Care Code 13993 Subseq Hosp Care Lvl 2 Diagnoses Encephalopathy G93.40 Acute hyponatremia E87.1 Seizure R56.9 Hypomagnesemia E83.42 Sleep apnea G47.30 Anxiety and depression F41.9; F32.9 Diabetes E11.9 Acid reflux K21.9 Acute encephalopathy G93.40 Acute alteration in mental status R41.82 Hypertension I10 Hyperglycemia R73.9 Sepsis A41.9
--- NOTE | 2020-10-04 12:42 | Pharmacy Report ---
Pharmacy Glycemic Short Note 2 - Date of Service October 04, 2020 - Glycemic Short BSG Results (Last 24 hours): 10/03/20 10/03/20 10/04/20 15:52 20:53 00:30 Glucose POC Glucose 225 H 242 H 204 H 10/04/20 10/04/20 10/04/20 03:58 04:13 07:47 Glucose 163 H POC Glucose 153 H 196 H 10/04/20 11:41 Glucose POC Glucose 158 H OUTPATIENT ANTIDIABETIC REGIMEN: * Glipizide 10mg PO BID * A1c = 8.4% 10/01/20 ASSESSMENT: 10/04 * D5W infusion starting today for overcorrection of hyponatremia. Initiated at ~0800 * AM fasting BSG obtained prior to D5W initiation was elevated to 196 mg/dL despite Lantus 30+7 units yesterday and 4 units Novolog correctional administered overnight. Will increase Lantus * Post-prandial BSG's persistently elevated yesterday and also now starting D5W infusion. Will tighten CHO ratio and correction factor. Two overnight checks 10/03 * Pt has received 34 units of insulin over the past 24hrs * 27 units of basal with Lantus * 7 units of bolus with NovoLog (Pt NPO so no CHO intake) * BSGs trending downwards nicely with the addition of weight based basal insulin for insulin naive patient. AM fasting BSG still above goal range therefore will further increase Lantus. Conservative increase since Lantus is not yet at steady state and likely BSGs likely to continue to trend downwards. * Diet resumed today; patient transferring out of ICU. Will continue with CF/CR per estimated basal ~ 30 units and titrate based on BSG trends. 10/02 * BSGs in goal range with IV insulin infusion. Some below goal range but no HYPO. Asked by hospitalist to transition off of IV insulin infusion to free up IV access. Pt still NPO but can transition to basal insulin monotherapy while NPO * Based on average IV insulin infusion rate to maintain goal range BSGs (average drip rate ~ 1.8 units/hr) while NPO this equates to a basal insulin requirement of ~ 43 units/day. However, patient did receive a dose of dexamethasone and multiple sources of dextrose which is skewing this calculation upwards. Will start with ~ 50% of calculated basal insulin needs and add Q4hrs NovoLog to make up the difference. * Titrate to maintain BSGs in the goal range of 110-180 mg/dl range. 10/01/20 * Type 2 diabetic admitted for mental status changes, possible sz activity, hyponatremia, and possible meningitis * IV insulin infusion started yesterday evening. Patient's initial labs re vealed hyperglycemia however no acidosis, mild AG of 12, 2+ ketones in UA * IV insulin running at 2.8 units/hr this AM and BSGs in low 200s. * Dextrose 5% infusing @125cc/hr to slow rate of Na elevation * IV insulin infusion remains standard of care for patients experiencing hyperglycemia in the ICU. Reasonable to continue this therapy at this time given IV dextrose provision in NPO patient as SQ insulin may lead to greater risk of hypoglycemia if D5 abruptly stopped PLAN FOR INPATIENT GLYCEMIC CONTROL: * Hold outpatient oral diabetes medications (glipizide) * Basal insulin: increase * Lantus 45 units SQ x1 * Bolus insulin: tighten * NovoLog ACHS now that diet resumed * Goal range 110-140 mg/dl * CF = 20 mg/dl/unit * CR = 1 unit for every 7 g CHO consumed PLAN FOR DISCHARGE: * To be determined. Of note, glipizide has rarely been associated with SIADH. Patient's urine osmo + urine Na could be consistent w/ SIADH in the right clinical context.
[2020-10-04] MEDS: hydrALAZINE HCL 20 MG/ML VIAL IV PRN (16:45)
--- NOTE | 2020-10-04 17:06 | Nephrology Progress Note ---
Date of Service October 04, 2020 Assessment & Plan (1) Acute hyponatremia: Plan: Severe, chronic. Symptoms include mental status changes and seizure. Appears relatively volume depleted on exam. IV D5W was infusing due to fairly rapid rate of correction and poor oral intake s/p tolvaptan yesterday. Serum sodium relatively acceptable. Repeat sodium pending. Kidney function is normal. TSH WNL. No evidence of adrenal insufficiency. Urine osmolality was around 500-600. Repeat Uosm in the AM. D5W stopped. Admission and Anticipated Discharge Date Admission Date: September 30, 2020 Sanjuanita Perez was seen and evaluated in the ICU this AM. I discussed the plan of care with the ICU team and Dr. Holland. Ana remained very confused. Oral intake has been poor. IV d5w was infusing. Review of Systems Review of Systems: Unobtainable due to reduced consciousness Physical Exam Constitutional: + ill appearing and + frail appearing Eyes: + anicteric sclerae ENMT: Mouth: + dry oral mucous membranes; no oral mucosal abnormality Neck: normal visual inspection and trachea midline Respiratory: normal respiratory effort Auscultation: lungs clear to auscultation bilaterally Cardiovascular: Rate/Rhythm: + tachycardic Heart Sounds: normal S1 and normal S2 Extremities: no edema Musculoskeletal: Extremities: no cyanosis and no clubbing Skin: normal turgor; no lesions Neurologic: Motor/Sensory: no tremor and no asterixis Psychiatric: Orientation: + not oriented x 3 Agitated Results & Data ([facility]) Vital Signs (Past 12 Hours) Vital Signs Temp Pulse Pulse Resp BP BP Pulse Ox 10/04/20 15:42 97 H 17 181/85 H 10/04/20 12:30 36.8 C 123 H 24 148/86 H 95 10/04/20 08:03 151 H 158/82 H 98 10/04/20 08:00 120 H 10/04/20 07:36 119 H 143/82 H 100 Laboratory Results Laboratory Results - last 24 hr 10/03/20 10/03/20 10/04/20 20:53 22:09 00:30 WBC RBC Hgb Hct MCV MCH MCHC RDW Std Deviation RDW Coeff of Boris Plt Count MPV Immature Gran % (Auto) Neut % (Auto) Lymph % (Auto) Meeker % (Auto) Eos % (Auto) Baso % (Auto) Neut # (Auto) Lymph # (Auto) Meeker # (Auto) Eos # (Auto) Baso # (Auto) Immature Gran # (Auto) Sodium 129 L Potassium Chloride Carbon Dioxide Anion Gap BUN Creatinine Est Cr Clr Drug Dosing Est GFR ( Amer) Est GFR (Non-Af Amer) BUN/Creatinine Ratio Glucose POC Glucose 242 H 204 H Calcium Phosphorus Magnesium 10/04/20 10/04/20 10/04/20 03:58 04:13 04:13 WBC 14.87 H RBC 4.07 L Hgb 12.3 Hct 34.4 L MCV 84.5 MCH 30.2 MCHC 35.8 RDW Std Deviation 41.1 RDW Coeff of Boris 13.3 Plt Count 257 MPV 10.4 Immature Gran % (Auto) 0.3 Neut % (Auto) 81.3 Lymph % (Auto) 6.6 Meeker % (Auto) 11.5 Eos % (Auto) 0.2 Baso % (Auto) 0.1 Neut # (Auto) 12.09 H Lymph # (Auto) 0.98 L Meeker # (Auto) 1.71 H Eos # (Auto) 0.03 Baso # (Auto) 0.01 Immature Gran # (Auto) 0.05 H Sodium 136 D Potassium 3.6 Chloride 105 Carbon Dioxide 28 Anion Gap 3.0 BUN 20 H D Creatinine 0.76 Est Cr Clr Drug Dosing 49.5 Est GFR ( Amer) 86.5 Est GFR (Non-Af Amer) 74.6 BUN/Creatinine Ratio 26.1 H Glucose 163 H POC Glucose 153 H Calcium 8.5 Phosphorus 3.2 Magnesium 2.1 10/04/20 10/04/20 10/04/20 07:47 11:41 16:03 WBC RBC Hgb Hct MCV MCH MCHC RDW Std Deviation RDW Coeff of Boris Plt Count MPV Immature Gran % (Auto) Neut % (Auto) Lymph % (Auto) Meeker % (Auto) Eos % (Auto) Baso % (Auto) Neut # (Auto) Lymph # (Auto) Meeker # (Auto) Eos # (Auto) Baso # (Auto) Immature Gran # (Auto) Sodium Potassium Chloride Carbon Dioxide Anion Gap BUN Creatinine Est Cr Clr Drug Dosing Est GFR ( Amer) Est GFR (Non-Af Amer) BUN/Creatinine Ratio Glucose POC Glucose 196 H 158 H 132 H Calcium Phosphorus Magnesium PG Care Time/CCT Total # of Minutes Spent Total Time Spent with Patient: Total time spent is greater than 50% in coordination of care (as documented) at patient's floor/unit and/or counseling patient: Coding Level of Care Code 77438 Subseq Hosp Care Lvl 3 Diagnoses Acute hyponatremia E87.1
[2020-10-04 17:34] LABS: BUN Creatinine Ratio 19.6 (10-20); Calcium 8.4 mg/dl (8.5-10.1); Creatinine Clr Calc Pharmacy 55.6 ml/min; Est GFR (African American) 98.4 ml/min; Est GFR (Non-African American) 84.9 ml/min; Potassium 3.5 mmol/L (3.5-5.1)
[2020-10-04] MEDS: D5W AND 1/2NSS + 20MEQ KCL 20 MEQ/1,000 ML BAG IV SCH (18:35)
[2020-10-04] MEDS: ENOXAPARIN INJ 40 MG/0.4 ML SYR SQ SCH (21:03)
[2020-10-04 23:28] LABS: BUN Creatinine Ratio 23.1 (10-20); Calcium 8.5 mg/dl (8.5-10.1); Creatinine Clr Calc Pharmacy 67.2 ml/min; Est GFR (African American) 104.7 ml/min; Est GFR (Non-African American) 90.3 ml/min; Potassium 3.6 mmol/L (3.5-5.1)
[2020-10-05] MEDS: INSULIN ASPART 100 UNITS/ML 3 ML PEN SC SCH ×7 (00:03→20:20)
[2020-10-05] MEDS: D5W AND 1/2NSS + 20MEQ KCL 20 MEQ/1,000 ML BAG IV SCH (04:26)
[2020-10-05 05:19] LABS: Hematocrit (blood only) 32.9 % (37-47); Hemoglobin 11.4 g/dL (12.0-16.0); Mean Corpuscular Hemoglobin 29.5 pg (25-34); Mean Corpuscular Hgb Conc 34.7 g/dL (32-36); Mean Corpuscular Volume 85.2 fL (80-100); Mean Platelet Volume 9.9 fL (7.4-10.4); Platelet Count 287 K/uL (130-400); RDW Coefficient of Variation 13.8 % (11.5-14.5); RDW Standard Deviation 42.8 fL (36.4-46.3); Red Blood Count 3.86 M/uL (4.2-5.4); White Blood Count 12.06 K/uL (4.8-10.8)
[2020-10-05 05:50] LABS: BUN Creatinine Ratio 22.5 (10-20); Calcium 8.1 mg/dl (8.5-10.1); Creatinine Clr Calc Pharmacy 63.6 ml/min; Est GFR (African American) 102.8 ml/min; Est GFR (Non-African American) 88.7 ml/min; Magnesium 1.9 mg/dl (1.8-2.4); Potassium 3.9 mmol/L (3.5-5.1)
[2020-10-05 05:51] LABS: Phosphorus 2.5 mg/dl (2.5-4.9)
[2020-10-05] MEDS: levETIRAcetam 500 MG in 0.9 % SODIUM CHLORIDE 100 ML IV SCH ×2 (05:59→16:47)
[2020-10-05] MEDS: lisinopril 10 MG TAB PO SCH (08:24)
[2020-10-05] MEDS: METOPROLOL SUCC 25MG EXT REL TAB PO SCH (08:25)
[2020-10-05] MEDS: FAMOTIDINE 20 MG in SYRINGE 3 ML IV SCH ×2 (08:31→20:16)
[2020-10-05] MEDS ORDERED: INSULIN GLARGINE SOLOSTAR 100 UNITS/ML 3 ML PEN SC ONE ×2 (09:00→21:00)
--- NOTE | 2020-10-05 09:32 | Nephrology Progress Note ---
Date of Service October 05, 2020 Assessment & Plan (1) Acute hyponatremia: Plan: Severe, chronic. Symptoms include mental status changes and seizure. Volume status improved but continues to appear relatively dry. Na dropping with free water. Will stop IVF and monitor response to PO intake with repeat labs this afternoon. Serum sodium acceptable. Kidney function is normal. TSH WNL. No evidence of adrenal insufficiency. Repeat Uosm in the AM. Admission and Anticipated Discharge Date Admission Date: September 30, 2020 Subjective No acute events overnight. Ana is more awake this morning. Tolerating some PO intake. Review of Systems Constitutional: no problem reported Eyes: no problem reported Ear, Nose, Mouth, Throat: no problem reported Respiratory: no problem reported Cardiovascular: no problem reported Gastrointestinal: no problem reported Musculoskeletal: no problem reported Integumentary: no problem reported Neurologic: no problem reported Psychiatric: no problem reported Endocrine: no problem reported Hematologic / Lymphatic: no problem reported Physical Exam Constitutional: + ill appearing and + frail appearing Eyes: + anicteric sclerae ENMT: Mouth: + dry oral mucous membranes; no oral mucosal abnormality Neck: normal visual inspection and trachea midline Respiratory: normal respiratory effort Auscultation: lungs clear to auscultation bilaterally Cardiovascular: Rate/Rhythm: + tachycardic Heart Sounds: normal S1 and normal S2 Extremities: no edema Musculoskeletal: Extremities: no cyanosis and no clubbing Skin: normal turgor; no lesions Neurologic: Motor/Sensory: no tremor and no asterixis Psychiatric: Orientation: alert and cooperative remains very confused Results & Data ([facility]) Vital Signs (Past 12 Hours) Vital Signs Temp Pulse Pulse Resp BP BP Pulse Ox 10/05/20 08:00 113 H 21 133/66 98 10/05/20 07:30 104 H 16 97 10/05/20 07:00 91 H 22 98 10/05/20 04:31 36.5 C 91 H 22 160/80 H 95 10/04/20 23:01 121/66 10/04/20 22:54 36.6 C 120 H 17 100 10/04/20 22:45 110 H Laboratory Results Laboratory Results - last 24 hr 10/04/20 10/04/20 10/04/20 11:41 16:03 16:48 WBC RBC Hgb Hct MCV MCH MCHC RDW Std Deviation RDW Coeff of Boris Plt Count MPV Sodium 139 Potassium 3.5 Chloride 107 Carbon Dioxide 25 Anion Gap 7.0 BUN 13 Creatinine 0.64 Est Cr Clr Drug Dosing 55.6 Est GFR ( Amer) 98.4 Est GFR (Non-Af Amer) 84.9 BUN/Creatinine Ratio 19.6 Glucose 122 H POC Glucose 158 H 132 H Calcium 8.4 L Phosphorus Magnesium Urine Osmolality 10/04/20 10/04/20 10/04/20 17:48 20:57 22:58 WBC RBC Hgb Hct MCV MCH MCHC RDW Std Deviation RDW Coeff of Boris Plt Count MPV Sodium 138 Potassium 3.6 Chloride 106 Carbon Dioxide 27 Anion Gap 6.0 BUN 12 Creatinine 0.53 L Est Cr Clr Drug Dosing 67.2 Est GFR ( Amer) 104.7 Est GFR (Non-Af Amer) 90.3 BUN/Creatinine Ratio 23.1 H Glucose 156 H POC Glucose 140 H Calcium 8.5 Phosphorus Magnesium Urine Osmolality 412 L 10/05/20 10/05/20 10/05/20 00:19 04:33 05:02 WBC RBC Hgb Hct MCV MCH MCHC RDW Std Deviation RDW Coeff of Boris Plt Count MPV Sodium 135 L Potassium 3.9 Chloride 105 Carbon Dioxide 27 Anion Gap 3.0 BUN 13 Creatinine 0.56 L Est Cr Clr Drug Dosing 63.6 Est GFR ( Amer) 102.8 Est GFR (Non-Af Amer) 88.7 BUN/Creatinine Ratio 22.5 H Glucose 176 H POC Glucose 163 H 177 H Calcium 8.1 L Phosphorus 2.5 Magnesium 1.9 Urine Osmolality 10/05/20 10/05/20 05:02 07:28 WBC 12.06 H RBC 3.86 L Hgb 11.4 L Hct 32.9 L MCV 85.2 MCH 29.5 MCHC 34.7 RDW Std Deviation 42.8 RDW Coeff of Boris 13.8 Plt Count 287 MPV 9.9 Sodium Potassium Chloride Carbon Dioxide Anion Gap BUN Creatinine Est Cr Clr Drug Dosing Est GFR ( Amer) Est GFR (Non-Af Amer) BUN/Creatinine Ratio Glucose POC Glucose 174 H Calcium Phosphorus Magnesium Urine Osmolality PG Care Time/CCT Total # of Minutes Spent Total Time Spent with Patient: Total time spent is greater than 50% in coordination of care (as documented) at patient's floor/unit and/or counseling patient: Coding Level of Care Code 01144 Subseq Hosp Care Lvl 3 Diagnoses Acute hyponatremia E87.1
--- NOTE | 2020-10-05 11:30 | Pharmacy Report ---
Pharmacy Glycemic Short Note 2 - Date of Service October 05, 2020 - Glycemic Short BSG Results (Last 24 hours): 10/04/20 10/04/20 10/04/20 11:41 16:03 16:48 Glucose 122 H POC Glucose 158 H 132 H 10/04/20 10/04/20 10/05/20 20:57 22:58 00:19 Glucose 156 H POC Glucose 140 H 163 H 10/05/20 10/05/20 10/05/20 04:33 05:02 07:28 Glucose 176 H POC Glucose 177 H 174 H OUTPATIENT ANTIDIABETIC REGIMEN: * Glipizide 10mg PO BID * A1c = 8.4% 10/01/20 ASSESSMENT: 10/05 * D5W infusion continued yesterday and was stopped this AM, likely in response to down-trending Na * BSG's ranged 132-177 over the last 24 hours * Will slightly decrease Lantus now that D5W infusion is stopped, but add in HS Lantus based on BSG * Will leave Novolog as the post-prandial BSG's prior to D5W infusion were also elevated 10/04 * D5W infusion starting today for overcorrection of hyponatremia. Initiated at ~0800 * AM fasting BSG obtained prior to D5W initiation was elevated to 196 mg/dL despite Lantus 30+7 units yesterday and 4 units Novolog correctional administered overnight. Will increase Lantus * Post-prandial BSG's persistently elevated yesterday and also now starting D5W infusion. Will tighten CHO ratio and correction factor. Two overnight checks 10/03 * Pt has received 34 units of insulin over the past 24hrs * 27 units of basal with Lantus * 7 units of bolus with NovoLog (Pt NPO so no CHO intake) * BSGs trending downwards nicely with the addition of weight based basal insulin for insulin naive patient. AM fasting BSG still above goal range therefore will further increase Lantus. Conservative increase since Lantus is not yet at steady state and likely BSGs likely to continue to trend downwards. * Diet resumed today; patient transferring out of ICU. Will continue with CF/CR per estimated basal ~ 30 units and titrate based on BSG trends. 10/02 * BSGs in goal range with IV insulin infusion. Some below goal range but no HYPO. Asked by hospitalist to transition off of IV insulin infusion to free up IV access. Pt still NPO but can transition to basal insulin monotherapy while NPO * Based on average IV insulin infusion rate to maintain goal range BSGs (average drip rate ~ 1.8 units/hr) while NPO this equates to a basal insulin requirement of ~ 43 units/day. However, patient did receive a dose of dexamethasone and multiple sources of dextrose which is skewing this calculation upwards. Will start with ~ 50% of calculated basal insulin needs and add Q4hrs NovoLog to make up the difference. * Titrate to maintain BSGs in the goal range of 110-180 mg/dl range. 10/01/20 * Type 2 diabetic admitted for mental status changes, possible sz activity, hyponatremia, and possible meningitis * IV insulin infusion started yesterday evening. Patient's initial labs revealed hyperglycemia however no acidosis, mild AG of 12, 2+ ketones in UA * IV insulin running at 2.8 units/hr this AM and BSGs in low 200s. * Dextrose 5% infusing @125cc/hr to slow rate of Na elevation * IV insulin infusion remains standard of care for patients experiencing hyperglycemia in the ICU. Reasonable to continue this therapy at this time given IV dextrose provision in NPO patient as SQ insulin may lead to greater risk of hypoglycemia if D5 abruptly stopped PLAN FOR INPATIENT GLYCEMIC CONTROL: * Hold outpatient oral diabetes medications (glipizide) * Basal insulin: * Lantus 35 units SQ x1 with additional 0-10 units tonight based on BSG * Bolus insulin: * NovoLog ACHS now that diet resumed * Goal range 110-140 mg/dl * CF = 20 mg/dl/unit * CR = 1 unit for every 7 g CHO consumed PLAN FOR DISCHARGE: * To be determined. Of note, glipizide has rarely been associated with SIADH. Patient's urine osmo + urine Na could be consistent w/ SIADH in the right clinical context.
--- NOTE | 2020-10-05 13:24 | Hospitalist Progress Note ---
Date of Service October 05, 2020 Assessment & Plan (1) Acute hyponatremia: Plan: Patient presented with acute encephalopathy. Is suspected that it may be secondary to the hyponatremia. Admitting sodium level is 114. Patient received hypertonic IV fluids. Sodium level today is 135 Nephrology is following. Appreciate their input Family reports excessive drinking at home to stabilize blood sugar Continue to monitor daily labs Continue to monitor encephalopathy. (2) Acute encephalopathy: Plan: May be secondary to hyponatremia Lumbar puncture with WBCs of 20. Otherwise within normal limits Initially started on acyclovir and ampicillin. This has been discontinued with no worsening of encephalopathy. Patient also had a short-lived seizure of less than 1 minute. She has been started on Keppra. Still requiring 1:1. Continue to monitor (3) Seizure: Plan: Witnessed seizure of less than 1 minute. Presumed to be secondary to hyponatremia Neurology consulted and following Started on Keppra. Continue Keppra 500 mg every 12 hours. Anticipate that this can be weaned with correction of underlying electrolyte imbalance Continue with seizure precautions EEG without epileptical evidence although there was background slowing noted (4) Hypomagnesemia: Plan: Resolved Continue to monitor daily labs (5) Sleep apnea: Plan: Patient has CPAP at home set at 16 cm H2O Recent polysomnography Continue CPAP HS and PRN (6) Anxiety and depression: Plan: Xanax PRN- hold until mental status improves - not likely withdraw- urine tox screen negative for benzo Did require some PRN lorazepam due to agitation Continue to monitor (7) Diabetes: Plan: Hemoglobin A1c 8.4% Outpatient medications include glipizide with no insulin ICU protocol was instituted and patient was on Lantus as well as sliding scale. * D5W infusion continued yesterday and was stopped this AM, likely in response to down-trending Na * BSG's ranged 132-177 over the last 24 hours * Will slightly decrease Lantus now that D5W infusion is stopped, but add in HS Lantus based on BSG * Will leave Novolog as the post-prandial BSG's prior to D5W infusion were also elevated Appreciate glycemic consult with pharmacy (8) Vertigo: Plan: No reports of vertigo, lightheadedness, dizziness today Continue to monitor (9) Acid reflux: Plan: No complaints of midepigastric pain Continue famotidine (10) Hypertension: Plan: Lisinopril 10 mg every morning Metoprolol succinate 25 mg p.o. daily Continue to monitor vital signs per protocol Currently 122/67 (11) DVT prophylaxis: Plan: Continue with enoxaparin Ambulate as tolerated Continue with PT/OT treatment Admission and Anticipated Discharge Date Admission Date: September 30, 2020 Subjective Attending: Dr. Shore Patient admitted for metabolic encephalopathy. Lumbar puncture last week showed WBC of 20. Protein and glucose were within normal limits. Most likely a viral meningitis. She was initially started with acyclovir and ampicillin. These have now been discontinued. Blood cultures and urine cultures were negative.Lyme disease IgG antibody and IgM antibody are negative. Lyme specimen source is pending. West Nile IgM antibody is also pending. At this time patient looks much improved. She is alert and oriented. Sitting in bedside chair eating. No apparent dysphagia. Very pleasant. Conversation appropriate. Patient denies any pain. She has no fever or chills. She denies nausea or vomiting. She has no diarrhea per her report. No other acute complaints. Review of Systems Review of Systems: All systems reviewed & are unremarkable except as noted in Subjective Physical Exam Physical Exam: Patient cooperative with examination GENERAL : No acute distress. In bedside chair. Pleasant. EYES: No icterus, gaze conjugate. Pupils equal round and reactive to light. NOSE: No evidence of epistaxis MOUTH: No lesions or candidiasis. Mucosa moist NECK: Supple LUNGS: CTA B/L, no wheezes, rales or rhonchi. Marginal inspirational effort HEART: Regular, rate controlled. No appreciation of murmurs gallops or rubs ABDOMEN: Soft, NT, ND, BS Present EXTREMITIES: +1 bilateral LE edema, pedal pulses intact and equal bilaterally NEURO: A&OX3 Results & Data Results & Data ([facility]) Vital Signs (Past 12 Hours) Vital Signs Temp Pulse Pulse Resp BP BP Pulse Ox 10/05/20 12:04 36.7 C 107 H 14 124/77 99 10/05/20 10:03 100 H 21 128/68 98 10/05/20 08:00 113 H 21 133/66 98 10/05/20 07:30 104 H 16 97 10/05/20 07:00 91 H 22 98 10/05/20 04:31 36.5 C 91 H 22 160/80 H 95 Laboratory Results 10/05/20 05:02 10/05/20 15:43 Diagnostic Findings No further diagnostic imaging PG Care Time/CCT Total # of Minutes Spent Total Time Spent with Patient: Total time spent is greater than 50% in coordination of care (as documented) at patient's floor/unit and/or counseling patient: Coding Level of Care Code 02134 Subseq Hosp Care Lvl 2 Diagnoses Acute hyponatremia E87.1 Acute encephalopathy G93.40 Seizure R56.9 Hypomagnesemia E83.42 Sleep apnea G47.30 Anxiety and depression F41.9; F32.9 Diabetes E11.9 Vertigo R42 Acid reflux K21.9 Hypertension I10 DVT prophylaxis Z29.9 Time Spent (min) 25
[2020-10-05 16:36] LABS: BUN Creatinine Ratio 22.8 (10-20); Calcium 8.6 mg/dl (8.5-10.1); Creatinine Clr Calc Pharmacy 40.6 ml/min; Est GFR (African American) 73.4 ml/min; Est GFR (Non-African American) 63.4 ml/min; Potassium 4.2 mmol/L (3.5-5.1)
[2020-10-05] MEDS: ENOXAPARIN INJ 40 MG/0.4 ML SYR SQ SCH (21:24)
[2020-10-06] MEDS: DICLOFENAC SOD 1% GEL 100 GM TUBE EXT SCH ×5 (00:45→21:24)
[2020-10-06] MEDS: levETIRAcetam 500 MG in 0.9 % SODIUM CHLORIDE 100 ML IV SCH (06:23)
[2020-10-06] MEDS: INSULIN ASPART 100 UNITS/ML 3 ML PEN SC SCH ×4 (08:20→21:30)
[2020-10-06] MEDS: FAMOTIDINE 20 MG in SYRINGE 3 ML IV SCH ×2 (08:23→21:27)
[2020-10-06] MEDS ORDERED: DICLOFENAC SOD 1% GEL 100 GM TUBE EXT SCH (09:00)
[2020-10-06] MEDS ORDERED: INSULIN GLARGINE SOLOSTAR 100 UNITS/ML 3 ML PEN SC SCH (09:00)
[2020-10-06] MEDS: lisinopril 10 MG TAB PO SCH (09:09)
[2020-10-06] MEDS: METOPROLOL SUCC 25MG EXT REL TAB PO SCH (09:09)
[2020-10-06 09:10] LABS: Albumin Level 3.1 gm/dl (3.4-5.0); BUN Creatinine Ratio 25.9 (10-20); Calcium 8.7 mg/dl (8.5-10.1); Est GFR (African American) 89.3 ml/min; Est GFR (Non-African American) 77.1 ml/min; Potassium 4.2 mmol/L (3.5-5.1)
[2020-10-06 09:11] LABS: Phosphorus 2.5 mg/dl (2.5-4.9)
[2020-10-06] MEDS ORDERED: INSULIN GLARGINE SOLOSTAR 100 UNITS/ML 3 ML PEN SC ONE (12:00)
--- NOTE | 2020-10-06 14:21 | Pharmacy Report ---
Pharmacy Glycemic Short Note 2 - Date of Service October 06, 2020 - Glycemic Short BSG Results (Last 24 hours): 10/05/20 10/05/20 10/05/20 15:43 15:59 20:01 Glucose 121 H POC Glucose 118 H 245 H 10/06/20 10/06/20 10/06/20 07:19 07:55 11:29 Glucose 196 H POC Glucose 152 H 318 H* 10/06/20 11:30 Glucose POC Glucose 344 H* OUTPATIENT ANTIDIABETIC REGIMEN: * Glipizide 10mg PO BID * A1c = 8.4% 10/01/20 ASSESSMENT: 10/06 * Patient received total of 70 units of insulin yesterday, of which 40 units were basal insulin * Fasting BSG 152 mg/dL - continued same basal for this AM * Lunch BSG trending up significantly - unclear reasoning as BSGs have been stable last couple of days and no changes being made. Gave small supplemental dose of Lantus with lunch * continue same CF/Cr 10/05 * D5W infusion continued yesterday and was stopped this AM, likely in response to down-trending Na * BSG's ranged 132-177 over the last 24 hours * Will slightly decrease Lantus now that D5W infusion is stopped, but add in HS Lantus based on BSG * Will leave Novolog as the post-prandial BSG's prior to D5W infusion were also elevated 10/04 * D5W infusion starting today for overcorrection of hyponatremia. Initiated at ~0800 * AM fasting BSG obtained prior to D5W initiation was elevated to 196 mg/dL despite Lantus 30+7 units yesterday and 4 units Novolog correctional administered overnight. Will increase Lantus * Post-prandial BSG's persistently elevated yesterday and also now starting D5W infusion. Will tighten CHO ratio and correction factor. Two overnight checks 10/03 * Pt has received 34 units of insulin over the past 24hrs * 27 units of basal with Lantus * 7 units of bolus with NovoLog (Pt NPO so no CHO intake) * BSGs trending downwards nicely with the addition of weight based basal insulin for insulin naive patient. AM fasting BSG still above goal range therefore will further increase Lantus. Conservative increase since Lantus is not yet at steady state and likely BSGs likely to continue to trend downwards. * Diet resumed today; patient transferring out of ICU. Will continue with CF/CR per estimated basal ~ 30 units and titrate based on BSG trends. 10/02 * BSGs in goal range with IV insulin infusion. Some below goal range but no HYPO. Asked by hospitalist to transition off of IV insulin infusion to free up IV access. Pt still NPO but can transition to basal insulin monotherapy while NPO * Based on average IV insulin infusion rate to maintain goal range BSGs (average drip rate ~ 1.8 units/hr) while NPO this equates to a basal insulin requirement of ~ 43 units/day. However, patient did receive a dose of dexamethasone and multiple sources of dextrose which is skewing this calculation upwards. Will start with ~ 50% of calculated basal insulin needs and add Q4hrs NovoLog to make up the difference. * Titrate to maintain BSGs in the goal range of 110-180 mg/dl range. 10/01/20 * Type 2 diabetic admitted for mental status changes, possible sz activity, hyponatremia, and possible meningitis * IV insulin infusion started yesterday evening. Patient's initial labs revealed hyperglycemia however no acidosis, mild AG of 12, 2+ ketones in UA * IV insulin running at 2.8 units/hr this AM and BSGs in low 200s. * Dextrose 5% infusing @125cc/hr to slow rate of Na elevation * IV insulin infusion remains standard of care for patients experiencing hyperglycemia in the ICU. Reasonable to continue this therapy at this time given IV dextrose provision in NPO patient as SQ insulin may lead to greater risk of hypoglycemia if D5 abruptly stopped PLAN FOR INPATIENT GLYCEMIC CONTROL: * Hold outpatient oral diabetes medications (glipizide) * Basal insulin: increased * Lantus 45 x 1 * Bolus insulin: * NovoLog ACHS now that diet resumed * Goal range 110-140 mg/dl * CF = 20 mg/dl/unit * CR = 1 unit for every 7 g CHO consumed PLAN FOR DISCHARGE: * To be determined. Of note, glipizide has rarely been associated with SIADH. Patient's urine osmo + urine Na could be consistent w/ SIADH in the right clinical context.
--- NOTE | 2020-10-06 18:14 | Hospitalist Progress Note ---
Date of Service October 06, 2020 Assessment & Plan (1) Acute hyponatremia: Plan: Patient presented with acute encephalopathy. Is suspected that it may be secondary to the hyponatremia. Admitting sodium level is 114. Patient received hypertonic IV fluids. Sodium level stable today at 134 Nephrology is following. Appreciate their input Family reports excessive drinking at home to stabilize blood sugar Continue to monitor daily labs Continue to monitor encephalopathy. (2) Acute encephalopathy: Plan: May be secondary to hyponatremia Lumbar puncture with WBCs of 20. Otherwise within normal limits Initially started on acyclovir and ampicillin. This has been discontinued with no worsening of encephalopathy. Patient also had a short-lived seizure of less than 1 minute. She has been star ana luisa on Keppra. Still requiring 1:1. Patient should be kept out of bed in chair throughout the day. Drapes should be open during the day and like should be on. Continue to monitor (3) Seizure: Plan: Witnessed seizure of less than 1 minute. Presumed to be secondary to hyponatremia Neurology consulted and following Started on Keppra. EEG without epileptical evidence although there was background slowing noted Now that electrolytes are balanced, will discontinue Keppra but continue to monitor (4) Hypomagnesemia: Plan: Resolved Continue to monitor daily labs (5) Sleep apnea: Plan: Patient has CPAP at home set at 16 cm H2O Recent polysomnography Continue CPAP HS and PRN (6) Anxiety and depression: Plan: Xanax PRN- hold until mental status improves - not likely withdraw- urine tox screen negative for benzo Did require some PRN lorazepam due to agitation Continue to monitor (7) Diabetes: Plan: Hemoglobin A1c 8.4% Outpatient medications include glipizide with no insulin Patient continues on Lantus as well as sliding scale. * Patient received total of 70 units of insulin yesterday, of which 40 units were basal insulin * Fasting BSG 152 mg/dL - continued same basal for this AM * Lunch BSG trending up significantly - unclear reasoning as BSGs have been stable last couple of days and no changes being made. Gave small supplemental dose of Lantus with lunch * continue same CF/Cr Appreciate glycemic consult with pharmacy (8) Vertigo: Plan: No reports of vertigo, lightheadedness, dizziness today Continue to monitor (9) Acid reflux: Plan: No complaints of midepigastric pain Continue famotidine (10) Hypertension: Plan: Lisinopril 10 mg every morning Metoprolol succinate 25 mg p.o. daily Continue to monitor vital signs per protocol Hemodynamically stable (11) DVT prophylaxis: Plan: Continue with enoxaparin Ambulate as tolerated with assistance Continue with PT/OT treatment Admission and Anticipated Discharge Date Admission Date: September 30, 2020 Subjective Attending: Dr. Shore Patient admitted for metabolic encephalopathy. Lumbar puncture last week showed WBC of 20. Protein and glucose were within normal limits. Most likely a viral meningitis. She was initially started with acyclovir and ampicillin. These have now been discontinued. Blood cultures and urine cultures were negative.Lyme disease IgG antibody and IgM antibody are negative. Lyme specimen source is pending. West Nile IgM antibody is also pending. Patient was tired today. When I saw the patient lunchtime the curtains were drawn and patient was sleeping. I open curtains and open the door and turn on all the lights. I instructed staff to try to keep patient awake throughout the day so she could sleep at night. Aside from her drowsiness the patient denies pain, fever or chills, nausea or vomiting and reports no diarrhea. She has no other acute complaints. Review of Systems Review of Systems: All systems reviewed & are unremarkable except as noted in Subjective Physical Exam Physical Exam: GENERAL : No acute distress EYES: No icterus, gaze conjugate NOSE: No evidence of epistaxis MOUTH: No lesions or candidiasis NECK: Supple LUNGS: CTA B/L, no wheezes, rales or rhonchi HEART: Regular, rate controlled ABDOMEN: Soft, NT, ND, BS Present EXTREMITIES: No LE edema, pedal pulses intact NEURO: A&OX3. Patient is disoriented times but easily reoriented. Results & Data Results & Data ([facility]) Vital Signs (Past 12 Hours) Vital Signs Temp Pulse Pulse Resp BP BP Pulse Ox 10/06/20 12:20 77 10/06/20 11:11 36.7 C 69 17 153/72 H 99 10/06/20 07:13 36.9 C 106 H 16 135/66 99 Laboratory Results 10/05/20 05:02 10/06/20 07:55 PG Care Time/CCT Total # of Minutes Spent Total Time Spent with Patient: Total time spent is greater than 50% in coordination of care (as documented) at patient's floor/unit and/or counseling patient: Coding Level of Care Code 14425 Subseq Hosp Care Lvl 2 Diagnoses Acute hyponatremia E87.1 Acute encephalopathy G93.40 Seizure R56.9 Hypomagnesemia E83.42 Sleep apnea G47.30 Anxiety and depression F41.9; F32.9 Diabetes E11.9 Vertigo R42 Acid reflux K21.9 Hypertension I10 DVT prophylaxis Z29.9 Time Spent (min) 20
[2020-10-06 20:27] LABS: Lyme DNA PCR CSF or Synovial Not detected (Not Detected); Lyme DNA Source CSF; VDRL Qualitative CSF Nonreactive (Nonreactive)
[2020-10-06] MEDS: ENOXAPARIN INJ 40 MG/0.4 ML SYR SQ SCH (21:24)
[2020-10-07] MEDS: lisinopril 10 MG TAB PO SCH (08:11)
[2020-10-07] MEDS: INSULIN GLARGINE SOLOSTAR 100 UNITS/ML 3 ML PEN SC SCH (08:11)
[2020-10-07] MEDS: METOPROLOL SUCC 25MG EXT REL TAB PO SCH (08:11)
[2020-10-07] MEDS: DICLOFENAC SOD 1% GEL 100 GM TUBE EXT SCH ×4 (08:11→20:34)
[2020-10-07] MEDS: INSULIN ASPART 100 UNITS/ML 3 ML PEN SC SCH ×4 (08:16→20:34)
[2020-10-07 09:21] LABS: BUN Creatinine Ratio 27.2 (10-20); Creatinine Clr Calc Pharmacy 52.8 ml/min; Est GFR (African American) 96.4 ml/min; Est GFR (Non-African American) 83.2 ml/min; Potassium 4.4 mmol/L (3.5-5.1)
[2020-10-07 09:22] LABS: Phosphorus 3.9 mg/dl (2.5-4.9)
[2020-10-07] MEDS: FAMOTIDINE 20 MG TAB PO SCH (09:36)
--- NOTE | 2020-10-07 12:52 | Nephrology Progress Note ---
Date of Service October 07, 2020 Assessment & Plan (1) Acute hyponatremia: Plan: Severe, chronic. Symptoms include mental status changes and seizure. Volume status improved but continues to appear relatively dry. Na dropping with free water. Stable on 1800 ml fluid restriction and tolerating restriction well. Serum sodium acceptable. Kidney function is normal. TSH WNL. No evidence of adrenal insufficiency. Repeat labs tomorrow AM. Admission and Anticipated Discharge Date Admission Date: September 30, 2020 Subjective No acute events overnight. Remains very weak. Appetite fair. Review of Systems Review of Systems: All systems reviewed & are unremarkable except as noted in HPI & below Physical Exam Constitutional: + frail appearing; no acute distress Eyes: + anicteric sclerae ENMT: Mouth: no oral mucosal abnormality and oral mucous membranes not dry Neck: normal visual inspection and trachea midline Respiratory: normal respiratory effort Auscultation: lungs clear to auscultation bilaterally Cardiovascular: Rate/Rhythm: regular rate Heart Sounds: normal S1 and normal S2 Extremities: no edema Musculoskeletal: Extremities: no cyanosis and no clubbing Skin: normal turgor; no lesions Neurologic: Motor/Sensory: no tremor and no asterixis Psychiatric: Orientation: alert and cooperative Results & Data ([facility]) Vital Signs (Past 12 Hours) Vital Signs Temp Pulse Pulse Resp BP Pulse Ox 10/07/20 11:34 36.4 C L 75 20 142/67 H 97 10/07/20 07:11 68 10/07/20 03:20 36.8 C 67 20 135/71 96 Laboratory Results Laboratory Results - last 24 hr 10/01/20 10/06/20 10/06/20 Unknown 16:05 20:14 Sodium Potassium Chloride Carbon Dioxide Anion Gap BUN Creatinine Est Cr Clr Drug Dosing Est GFR ( Amer) Est GFR (Non-Af Amer) BUN/Creatinine Ratio Glucose POC Glucose 247 H 286 H Calcium Phosphorus Albumin Fld Lyme DNA (PCR) Not detected CSF VDRL Nonreactive Lyme Specimen Source CSF 10/07/20 10/07/20 10/07/20 07:54 08:44 11:27 Sodium 135 L Potassium 4.4 Chloride 102 Carbon Dioxide 27 Anion Gap 6.0 BUN 18 Creatinine 0.68 Est Cr Clr Drug Dosing 52.8 Est GFR ( Amer) 96.4 Est GFR (Non-Af Amer) 83.2 BUN/Creatinine Ratio 27.2 H Glucose 142 H POC Glucose 109 H 119 H Calcium 9.0 Phosphorus 3.9 D Albumin 3.0 L Fld Lyme DNA (PCR) CSF VDRL Lyme Specimen Source PG Care Time/CCT Total # of Minutes Spent Total Time Spent with Patient: Total time spent is greater than 50% in coordination of care (as documented) at patient's floor/unit and/or counseling patient: Coding Level of Care Code 82163 Subseq Hosp Care Lvl 3 Diagnoses Acute hyponatremia E87.1
--- NOTE | 2020-10-07 18:46 | Hospitalist Progress Note ---
Date of Service October 07, 2020 Assessment & Plan (1) Acute hyponatremia: Plan: Patient presented with acute encephalopathy. It is suspected that it may be secondary to the hyponatremia. Admitting sodium level is 114. Patient received hypertonic IV fluids. Sodium kimberley gregory is now stable Nephrology is following. Appreciate their input Continue fluid restriction per nephrology Family reports excessive drinking at home to stabilize blood sugar Continue to monitor daily labs Continue to monitor encephalopathy. (2) Acute encephalopathy: Plan: May be secondary to hyponatremia Lumbar puncture with WBCs of 20. Otherwise within normal limits Initially started on acyclovir and ampicillin. This has been discontinued with no worsening of encephalopathy. Patient also had a short-lived seizure of less than 1 minute. She has been started on Keppra. 1:1 supervision was stopped this morning Patient should be kept out of bed in chair throughout the day. Drapes should be open during the day and like should be on. Continue to monitor Discontinue all lorazepam and replace with 0.5 mg of p.o. lorazepam every 6 hours as needed agitation Avoid benzos if possible as well as other sedating agents (3) Seizure: Plan: Witnessed seizure of less than 1 minute. Presumed to be secondary to hyponatremia Neurology consulted and following Started on Keppra. EEG without epileptical evidence although there was background slowing noted Now that electrolytes are balanced, Keppra discontinued. Patient more alert today (4) Hypomagnesemia: Plan: Resolved Continue to monitor daily labs (5) Sleep apnea: Plan: Patient has CPAP at home set at 16 cm H2O Recent polysomnography Continue CPAP HS and PRN (6) Anxiety and depression: Plan: Xanax PRN- hold until mental status improves - not likely withdraw- urine tox screen negative for benzo Did require some PRN lorazepam due to agitation Order for lorazepam 0.5 mg p.o. every 6 hours as needed agitation currently active Continue to monitor (7) Diabetes: Plan: Hemoglobin A1c 8.4% Outpatient medications include glipizide with no insulin Stable Continue Lantus and NovoLog sliding scale insulin Appreciate glycemic consult with pharmacy (8) Vertigo: Plan: No reports of vertigo, lightheadedness, dizziness today Continue to monitor (9) Acid reflux: Plan: No complaints of midepigastric pain Continue famotidine (10) Hypertension: Plan: Lisinopril 10 mg every morning Metoprolol succinate 25 mg p.o. daily Continue to monitor vital signs per protocol Hemodynamically stable (11) DVT prophylaxis: Plan: Continue with enoxaparin Ambulate as tolerated with assistance Continue with PT/OT treatment Plan: Disposition: Patient close to being medically ready for discharge. Anticipate referrals to [facility] and [facility] tomorrow. Admission and Anticipated Discharge Date Admission Date: September 30, 2020 Subjective Patient seen and examined at bedside. She is in bedside chair. One-on-one supervision has been discontinued. Patient is alert and oriented. Able to answer all questions appropriately. Cooperative with exam. She has no acute complaints. Review of Systems Review of Systems: All systems reviewed & are unremarkable except as noted in Subjective Physical Exam Physical Exam: GENERAL : No acute distress EYES: No icterus, gaze conjugate NOSE: No evidence of epistaxis MOUTH: No lesions or candidiasis NECK: Supple LUNGS: CTA B/L, no wheezes, rales or rhonchi HEART: Regular, rate controlled ABDOMEN: Soft, NT, ND, BS Present EXTREMITIES: No LE edema, pedal pulses intact NEURO: A&OX3 Results & Data Results & Data ([facility]) Vital Signs (Past 12 Hours) Vital Signs Temp Pulse Pulse Resp BP Pulse Ox 10/07/20 18:34 36.9 C 117 H 20 129/68 98 10/07/20 15:17 36.9 C 105 H 20 120/77 97 10/07/20 15:11 112 H 10/07/20 11:34 36.4 C L 75 20 142/67 H 97 10/07/20 07:11 68 Laboratory Results 10/05/20 05:02 10/07/20 08:44 Diagnostic Findings No further diagnostic imaging Medications Administered Current Inpatient Medications Diclofenac Sodium (Diclofenac Sod 1% Gel 100 Gm Tube) 4 gm EXT QID EFRAIN Stop: 11/05/20 00:34 Last Admin: 10/07/20 17:15 Dose: 4 gm Documented by: Enoxaparin Sodium (Enoxaparin Inj 40 Mg/0.4 Ml Syr) 40 mg SQ Q24H EFRAIN Stop: 10/30/20 20:59 Last Admin: 10/06/20 21:24 Dose: 40 mg Documented by: Famotidine (Famotidine 20 Mg Tab) 20 mg PO QAM EFARIN Stop: 10/31/20 08:59 Last Admin: 10/07/20 09:36 Dose: 20 mg Documented by: Hydralazine HCl (Hydralazine Hcl 20 Mg/Ml Vial) 10 mg IV Q4 PRN PRN Reason: Hypertension SBP>150 Stop: 11/01/20 11:12 Last Admin: 10/04/20 16:45 Dose: 10 mg Documented by: Lorazepam (Ativan) 0.5 mg in 1 mls @ 1 mls/min IV Q4H PRN PRN Reason: Agitation Stop: 10/31/20 14:23 Last Admin: 10/04/20 15:57 Dose: 1 mls/min Documented by: Insulin Aspart (Insulin Aspart 100 Units/Ml 3 Ml Pen) 0 units SC ACHS [facility] Stop: 11/02/20 07:44 Last Admin: 10/07/20 17:14 Dose: 13 units Documented by: Insulin Glargine (Insulin Glargine Solostar 100 Units/Ml 3 Ml Pen) 0 units SC DAILY [facility]; Protocol Stop: 11/06/20 08:59 Last Admin: 10/07/20 08:11 Dose: 40 units Documented by: Lisinopril (Lisinopril 10 Mg Tab) 10 mg PO QAM [facility] Stop: 11/02/20 08:59 Last Admin: 10/07/20 08:11 Dose: 10 mg Documented by: Metoprolol Succinate (Metoprolol Succ 25mg Ext Rel Tab) 25 mg PO DAILY [facility] Stop: 10/31/20 08:59 Last Admin: 10/07/20 08:11 Dose: 25 mg Documented by: PG Care Time/CCT Total # of Minutes Spent Total Time Spent with Patient: Total time spent is greater than 50% in coordination of care (as documented) at patient's floor/unit and/or counseling patient: Coding Level of Care Code 33764 Subseq Hosp Care Lvl 2 Diagnoses Acute hyponatremia E87.1 Acute encephalopathy G93.40 Seizure R56.9 Hypomagnesemia E83.42 Sleep apnea G47.30 Anxiety and depression F41.9; F32.9 Diabetes E11.9 Vertigo R42 Acid reflux K21.9 Hypertension I10 DVT prophylaxis Z29.9 Time Spent (min) 25
[2020-10-07] MEDS: ENOXAPARIN INJ 40 MG/0.4 ML SYR SQ SCH (20:35)
[2020-10-08] MEDS: FAMOTIDINE 20 MG TAB PO SCH (08:07)
[2020-10-08] MEDS: METOPROLOL SUCC 25MG EXT REL TAB PO SCH (08:07)
[2020-10-08] MEDS: lisinopril 10 MG TAB PO SCH (08:07)
[2020-10-08] MEDS: DICLOFENAC SOD 1% GEL 100 GM TUBE EXT SCH ×4 (08:08→20:38)
[2020-10-08] MEDS: INSULIN GLARGINE SOLOSTAR 100 UNITS/ML 3 ML PEN SC SCH (08:08)
[2020-10-08] MEDS: INSULIN ASPART 100 UNITS/ML 3 ML PEN SC SCH ×4 (08:11→20:47)
--- NOTE | 2020-10-08 09:33 | Pharmacy Report ---
Pharmacy Glycemic Short Note 2 - Date of Service October 08, 2020 - Glycemic Short BSG Results (Last 24 hours): 10/07/20 10/07/20 10/07/20 08:44 11:27 16:35 Glucose 142 H POC Glucose 119 H 280 H 10/07/20 10/08/20 20:14 07:26 Glucose POC Glucose 135 H 126 H OUTPATIENT ANTIDIABETIC REGIMEN: * Glipizide 10mg PO BID * A1c = 8.4% 10/01/20 ASSESSMENT: 10/08 * Patient received total of 66 units of insulin yesterday, of which 40 units were basal insulin * Fasting BSG 126 mg/dL - continue 40 units * No change CF/CR 10/06 * Patient received total of 70 units of insulin yesterday, of which 40 units were basal insulin * Fasting BSG 152 mg/dL - continued same basal for this AM * Lunch BSG trending up significantly - unclear reasoning as BSGs have been stable last couple of days and no changes being made. Gave small supplemental dose of Lantus with lunch * continue same CF/Cr 10/05 * D5W infusion continued yesterday and was stopped this AM, likely in response to down-trending Na * BSG's ranged 132-177 over the last 24 hours * Will slightly decrease Lantus now that D5W infusion is stopped, but add in HS Lantus based on BSG * Will leave Novolog as the post-prandial BSG's prior to D5W infusion were also elevated 10/04 * D5W infusion starting today for overcorrection of hyponatremia. Initiated at ~0800 * AM fasting BSG obtained prior to D5W initiation was elevated to 196 mg/dL despite Lantus 30+7 units yesterday and 4 units Novolog correctional administered overnight. Will increase Lantus * Post-prandial BSG's persistently elevated yesterday and also now starting D5W infusion. Will tighten CHO ratio and correction factor. Two overnight checks 10/03 * Pt has received 34 units of insulin over the past 24hrs * 27 units of basal with Lantus * 7 units of bolus with NovoLog (Pt NPO so no CHO intake) * BSGs trending downwards nicely with the addition of weight based basal insulin for insulin naive patient. AM fasting BSG still above goal range therefore will further increase Lantus. Conservative increase since Lantus is not yet at steady state and likely BSGs likely to continue to trend downwards. * Diet resumed today; patient transferring out of ICU. Will continue with CF/CR per estimated basal ~ 30 units and titrate based on BSG trends. 10/02 * BSGs in goal range with IV insulin infusion. Some below goal range but no HYPO. Asked by hospitalist to transition off of IV insulin infusion to free up IV access. Pt still NPO but can transition to basal insulin monotherapy while NPO * Based on average IV insulin infusion rate to maintain goal range BSGs (average drip rate ~ 1.8 units/hr) while NPO this equates to a basal insulin requirement of ~ 43 units/day. However, patient did receive a dose of dexamethasone and multiple sources of dextrose which is skewing this calculation upwards. Will start with ~ 50% of calculated basal insulin needs and add Q4hrs NovoLog to make up the difference. * Titrate to maintain BSGs in the goal range of 110-180 mg/dl range. 10/01/20 * Type 2 diabetic admitted for mental status changes, possible sz activity, hyponatremia, and possible meningitis * IV insulin infusion started yesterday evening. Patient's initial labs revealed hyperglycemia however no acidosis, mild AG of 12, 2+ ketones in UA * IV insulin running at 2.8 units/hr this AM and BSGs in low 200s. * Dextrose 5% infusing @125cc/hr to slow rate of Na elevation * IV insulin infusion remains standard of care for patients experiencing hyperglycemia in the ICU. Reasonable to continue this therapy at this time given IV dextrose provision in NPO patient as SQ insulin may lead to greater risk of hypoglycemia if D5 abruptly stopped PLAN FOR INPATIENT GLYCEMIC CONTROL: * Hold outpatient oral diabetes medications (glipizide) * Basal insulin: * Lantus 40 units daily * Bolus insulin: * NovoLog ACHS now that diet resumed * Goal range 110-140 mg/dl * CF = 15 mg/dl/unit * CR = 1 unit for every 6 g CHO consumed PLAN FOR DISCHARGE: * A1c 8.4 % - goal <8 reasonable * Patient does not take any insulin at home. During this admission requiring 60- 80 units/day. Unclear if related to stress in hospital setting. Would not recommend insulin on discharge, however would recommend the patient self monitor BSG at least 1-2x per day and followup with provider if blood sugars consistently elevated >200 * Of note, glipizide has rarely been associated with SIADH. Patient's urine osmo + urine Na could be consistent w/ SIADH in the right clinical context. If concerns with agent, could consider changing to another agent on discharge
[2020-10-08] MEDS: LORazepam 0.5 MG TAB PO PRN ×2 (10:14→17:07)
--- NOTE | 2020-10-08 12:16 | Nephrology Progress Note ---
Date of Service October 08, 2020 Assessment & Plan (1) Acute hyponatremia: Plan: Severe, chronic. Symptoms include mental status changes and seizure. Volume status improved. Na was dropping with free water. Stable on 1800 ml fluid restriction and tolerating restriction well. If she remains hospitalized, I will update labs tomorrow. Kidney function has been normal. TSH WNL. No evidence of adrenal insufficiency. Plan of care discussed with Dr. Shore this AM. Admission and Anticipated Discharge Date Admission Date: September 30, 2020 Subjective No acute events. Ana was out of bed with PT this AM. She is feeling much stronger. Appetite improved. Review of Systems Review of Systems: All systems reviewed & are unremarkable except as noted in HPI & below Physical Exam Constitutional: + frail appearing; no acute distress Eyes: + anicteric sclerae ENMT: Mouth: no oral mucosal abnormality and oral mucous membranes not dry Neck: normal visual inspection and trachea midline Respiratory: normal respiratory effort Auscultation: lungs clear to auscultation bilaterally Cardiovascular: Rate/Rhythm: regular rate Heart Sounds: normal S1 and normal S2 Extremities: no edema Musculoskeletal: Extremities: no cyanosis and no clubbing Skin: normal turgor; no lesions Neurologic: Motor/Sensory: no tremor and no asterixis Psychiatric: Orientation: alert and cooperative Results & Data ([facility]) Vital Signs (Past 12 Hours) Vital Signs Temp Pulse Pulse Resp BP Pulse Ox 10/08/20 11:14 37.1 C 86 20 122/71 95 10/08/20 10:53 66 10/08/20 07:09 37.1 C 79 20 145/74 H 96 10/08/20 03:10 36.8 C 68 20 137/70 97 Laboratory Results Laboratory Results - last 24 hr 10/01/20 10/07/20 10/07/20 Unknown 16:35 20:14 POC Glucose 280 H 135 H CSF [place] IgM Ab 10/08/20 10/08/20 07:26 11:30 POC Glucose 126 H 186 H CSF [place] IgM Ab PG Care Time/CCT Total # of Minutes Spent Total Time Spent with Patient: Total time spent is greater than 50% in coordination of care (as documented) at patient's floor/unit and/or counseling patient: Coding Level of Care Code 97567 Subseq Hosp Care Lvl 2 Diagnoses Acute hyponatremia E87.1
--- NOTE | 2020-10-08 16:33 | Hospitalist Progress Note ---
Date of Service October 08, 2020 Assessment & Plan (1) Acute hyponatremia: Plan: Patient presented with acute encephalopathy. It is suspected that it may be secondary to the hyponatremia. Admitting sodium level is 114. Patient received hypertonic IV fluids. Sodium kimberley gregory is now stable Check repeat labs in the morning Nephrology is following. Appreciate their input Continue fluid restriction of 1800 mL/day (2) Acute encephalopathy: Plan: May be secondary to hyponatremia and fluid intoxication Lumbar puncture with WBCs of 20. Otherwise within normal limits Initially started on acyclovir and ampicillin. This has been discontinued with no worsening of encephalopathy. Patient also had a short-lived seizure of less than 1 minute. She has been started on Keppra. 1:1 supervision was stopped this morning Patient should be kept out of bed in chair throughout the day. Drapes should be open during the day and like should be on. Continue to monitor Discontinued all lorazepam and replaced with 0.5 mg of p.o. lorazepam every 6 hours as needed agitation Avoid excessive benzos if possible as well as other sedating agents (3) Seizure: Plan: Witnessed seizure of less than 1 minute. Presumed to be secondary to hyponatremia Neurology consulted and following Started on Keppra. EEG without epileptical evidence although there was background slowing noted Now that electrolytes are balanced, Keppra discontinued. Patient more alert Continue precautions (4) Hypomagnesemia: Plan: Resolved Check magnesium level in the morning (5) Sleep apnea: Plan: Patient has CPAP at home set at 16 cm H2O Recent polysomnography Continue CPAP HS and PRN (6) Anxiety and depression: Plan: Xanax PRN- hold until mental status improves - not likely withdraw- urine tox screen negative for benzo Did require some PRN lorazepam due to agitation Order for lorazepam 0.5 mg p.o. every 6 hours as needed agitation currently active Continue to monitor (7) Diabetes: Plan: Hemoglobin A1c 8.4% Outpatient medications include glipizide with no insulin Stable Continue Lantus and NovoLog sliding scale insulin * Patient received total of 66 units of insulin yesterday, of which 40 units were basal insulin * Fasting BSG 126 mg/dL - continue 40 units * No change CF/CR Appreciate glycemic consult with pharmacy (8) Vertigo: Plan: Some lightheadedness and dizziness today. Patient anxious. Improved with 0.5 mg of p.o. or lorazepam Continue to monitor (9) Acid reflux: Plan: No complaints of midepigastric pain Continue famotidine (10) Hypertension: Plan: Lisinopril 10 mg every morning Metoprolol succinate 25 mg p.o. daily Continue to monitor vital signs per protocol Hemodynamically stable (11) DVT prophylaxis: Plan: Continue with enoxaparin Ambulate as tolerated with assistance Continue with PT/OT treatment Plan: Disposition: Patient has been off 1:1 for 24 hours. Referrals made for placement to [facility]. Awaiting insurance authorization and acceptance from facilities Admission and Anticipated Discharge Date Admission Date: September 30, 2020 Subjective Attending: Dr. Shore Patient doing well today. She continues to be alert and oriented x3. She has somewhat of a flat affect today. She does describe some anxiety and requests Xanax. 0.5 mg of oral lorazepam was administered. Patient denies any fever or chills. She has no abdominal pain. She has no nausea or vomiting. She had a slight headache this morning but this is resolved. She has no visual changes. Only primary complaint is fatigue. Review of Systems Review of Systems: All systems reviewed & are unremarkable except as noted in Subjective Physical Exam Physical Exam: GENERAL : No acute distress EYES: No icterus, gaze conjugate NOSE: No evidence of epistaxis MOUTH: No lesions or candidiasis NECK: Supple LUNGS: CTA B/L, no wheezes, rales or rhonchi HEART: Regular, rate controlled ABDOMEN: Soft, NT, ND, BS Present EXTREMITIES: No LE edema, pedal pulses intact NEURO: A&OX3. No neurological deficits appreciated. Flat affect. Answers questions appropriately. Results & Data Results & Data ([facility]) Vital Signs (Past 12 Hours) Vital Signs Temp Pulse Pulse Resp BP Pulse Ox 10/08/20 16:18 37.4 C 99 H 18 118/73 96 10/08/20 15:30 94 H 10/08/20 11:14 37.1 C 86 20 122/71 95 10/08/20 10:53 66 10/08/20 07:09 37.1 C 79 20 145/74 H 96 Laboratory Results 10/05/20 05:02 10/07/20 08:44 Diagnostic Findings No further diagnostic imaging Medications Administered Current Inpatient Medications Diclofenac Sodium (Diclofenac Sod 1% Gel 100 Gm Tube) 4 gm EXT QID EFRAIN Stop: 11/05/20 00:34 Last Admin: 10/08/20 12:30 Dose: 4 gm Documented by: Enoxaparin Sodium (Enoxaparin Inj 40 Mg/0.4 Ml Syr) 40 mg SQ Q24H [facility] Stop: 10/30/20 20:59 Last Admin: 10/07/20 20:35 Dose: 40 mg Documented by: Famotidine (Famotidine 20 Mg Tab) 20 mg PO QAM [facility] Stop: 10/31/20 08:59 Last Admin: 10/08/20 08:07 Dose: 20 mg Documented by: Hydralazine HCl (Hydralazine Hcl 20 Mg/Ml Vial) 10 mg IV Q4 PRN PRN Reason: Hypertension SBP>150 Stop: 11/01/20 11:12 Last Admin: 10/04/20 16:45 Dose: 10 mg Documented by: Insulin Aspart (Insulin Aspart 100 Units/Ml 3 Ml Pen) 0 units SC ACHS [facility] Stop: 11/02/20 07:44 Last Admin: 10/08/20 12:32 Dose: 11 units Documented by: Insulin Glargine (Insulin Glargine Solostar 100 Units/Ml 3 Ml Pen) 0 units SC DAILY [facility]; Protocol Stop: 11/06/20 08:59 Last Admin: 10/08/20 08:08 Dose: 40 units Documented by: Lisinopril (Lisinopril 10 Mg Tab) 10 mg PO QAM [facility] Stop: 11/02/20 08:59 Last Admin: 10/08/20 08:07 Dose: 10 mg Documented by: Lorazepam (Lorazepam 0.5 Mg Tab) 0.5 mg PO Q6H PRN PRN Reason: Anxiety Stop: 11/06/20 18:39 Last Admin: 10/08/20 10:14 Dose: 0.5 mg Documented by: Metoprolol Succinate (Metoprolol Succ 25mg Ext Rel Tab) 25 mg PO DAILY [facility] Stop: 10/31/20 08:59 Last Admin: 10/08/20 08:07 Dose: 25 mg Documented by: PG Care Time/CCT Total # of Minutes Spent Total Time Spent with Patient: Total time spent is greater than 50% in coordination of care (as documented) at patient's floor/unit and/or counseling patient: Coding Level of Care Code 19510 Subseq Hosp Care Lvl 2 Diagnoses Acute hyponatremia E87.1 Acute encephalopathy G93.40 Seizure R56.9 Hypomagnesemia E83.42 Sleep apnea G47.30 Anxiety and depression F41.9; F32.9 Diabetes E11.9 Vertigo R42 Acid reflux K21.9 Hypertension I10 DVT prophylaxis Z29.9 Time Spent (min) 25
[2020-10-08 18:56] LABS: Lyme IgG Band Pattern CSF DNR; Lyme IgG CSF NO BANDS DETECTED; Lyme IgM Band Pattern CSF DNR; Lyme IgM CSF NO BANDS DETECTED
[2020-10-08] MEDS: ENOXAPARIN INJ 40 MG/0.4 ML SYR SQ SCH (20:35)
[2020-10-09] MEDS: FAMOTIDINE 20 MG TAB PO SCH (08:00)
[2020-10-09] MEDS: lisinopril 10 MG TAB PO SCH (08:00)
[2020-10-09] MEDS: METOPROLOL SUCC 25MG EXT REL TAB PO SCH (08:00)
[2020-10-09] MEDS: DICLOFENAC SOD 1% GEL 100 GM TUBE EXT SCH ×4 (08:00→20:44)
[2020-10-09] MEDS: INSULIN GLARGINE SOLOSTAR 100 UNITS/ML 3 ML PEN SC SCH (08:03)
[2020-10-09] MEDS: INSULIN ASPART 100 UNITS/ML 3 ML PEN SC SCH ×4 (08:03→20:45)
[2020-10-09 08:22] LABS: BUN Creatinine Ratio 34.2 (10-20); Calcium 8.7 mg/dl (8.5-10.1); Creatinine Clr Calc Pharmacy 54.8 ml/min; Est GFR (African American) 98.4 ml/min; Est GFR (Non-African American) 84.9 ml/min; Potassium 4.2 mmol/L (3.5-5.1)
[2020-10-09 08:23] LABS: Magnesium 1.9 mg/dl (1.8-2.4)
[2020-10-09] MEDS ORDERED: SODIUM CHLORIDE 1 GM TABLET PO STA (09:46)
--- NOTE | 2020-10-09 12:05 | Nephrology Progress Note ---
Date of Service October 09, 2020 Assessment & Plan (1) Acute hyponatremia: Plan: Sodium remains acceptable and relatively stable. NaCl 1 gm PO provided today for solute support. Volume status acceptable. Na was dropping with free water. Stable on 1800 ml fluid restriction. Ana is tolerating restriction well and has not approached limit. Kidney function has been normal. TSH WNL. No evidence of adrenal insufficiency. Plan of care discussed with Dr. Shore this AM. I have no additional recommendations at this time. Nephrology will follow peripherally. Outpatient follow up to be arranged at discharge. Please call with questions or concerns. Admission and Anticipated Discharge Date Admission Date: September 30, 2020 Subjective No acute events overnight. No complaints this AM. I discussed the plan of care with Dr. Shore this AM. Review of Systems Review of Systems: All systems reviewed & are unremarkable except as noted in HPI & below Physical Exam Constitutional: + frail appearing; no acute distress Eyes: + anicteric sclerae ENMT: Mouth: no oral mucosal abnormality and oral mucous membranes not dry Neck: normal visual inspection and trachea midline Respiratory: normal respiratory effort Auscultation: lungs clear to auscultation bilaterally Cardiovascular: Rate/Rhythm: regular rate Heart Sounds: normal S1 and pedrito l S2 Extremities: no edema Musculoskeletal: Extremities: no cyanosis and no clubbing Skin: normal turgor; no lesions Neurologic: Motor/Sensory: no tremor and no asterixis Psychiatric: Orientation: alert and cooperative Results & Data ([facility]) Vital Signs (Past 12 Hours) Vital Signs Temp Pulse Pulse Resp BP Pulse Ox 10/09/20 08:00 76 10/09/20 07:00 36.7 C 98 H 18 146/75 H 96 10/09/20 02:30 37.2 C 82 18 119/68 95 Laboratory Results Laboratory Results - last 24 hr 10/01/20 10/08/20 10/08/20 Unknown 16:54 19:59 Sodium Potassium Chloride Carbon Dioxide Anion Gap BUN Creatinine Est Cr Clr Drug Dosing Est GFR ( Amer) Est GFR (Non-Af Amer) BUN/Creatinine Ratio Glucose POC Glucose 148 H 92 Calcium Magnesium CSF Lyme IgG (Immblot) NO BANDS DETECTED CSF Lyme IgG Bands Det DNR CSF Lyme IgM (Immblot) NO BANDS DETECTED CSF Lyme IgM Bands Det DNR Herpesvirus 6 Source Cancelled HHV-6 DNA (PCR) Cancelled 10/09/20 10/09/20 10/09/20 07:25 07:42 11:48 Sodium 133 L Potassium 4.2 Chloride 102 Carbon Dioxide 26 Anion Gap 6.0 BUN 22 H Creatinine 0.64 Est Cr Clr Drug Dosing 54.8 Est GFR ( Amer) 98.4 Est GFR (Non-Af Amer) 84.9 BUN/Creatinine Ratio 34.2 H Glucose 94 POC Glucose 104 H 177 H Calcium 8.7 Magnesium 1.9 CSF Lyme IgG (Immblot) CSF Lyme IgG Bands Det CSF Lyme IgM (Immblot) CSF Lyme IgM Bands Det Herpesvirus 6 Source HHV-6 DNA (PCR) PG Care Time/CCT Total # of Minutes Spent Total Time Spent with Patient: Total time spent is greater than 50% in coordination of care (as documented) at patient's floor/unit and/or counseling patient: Coding Level of Care Code 40919 Subseq Hosp Care Lvl 3 Diagnoses Acute hyponatremia E87.1
--- NOTE | 2020-10-09 14:05 | Hospitalist Progress Note ---
Date of Service October 09, 2020 Assessment & Plan (1) Acute hyponatremia: Plan: Patient presented with acute encephalopathy. It is suspected that it may be secondary to the hyponatremia. Admitting sodium level was 114. Patient received hypertonic IV fluids. Sodium level is now stable Nephrology is following. Appreciate their input Continue fluid restriction of 1800 mL/day Na is 133, continue sodium chloride 1gm PO daily (2) Acute encephalopathy: Plan: May be secondary to hyponatremia and fluid intoxication Lumbar puncture with WBCs of 20. Otherwise within normal limits Initially started on acyclovir and ampicillin. This has been discontinued with no worsening of encephalopathy. Patient also had a short-lived seizure of less than 1 minute. She was started on Keppra. 1:1 supervision was stopped for two days, stable Patient should be kept out of bed in chair throughout the day. Drapes should be open during the day and like should be on. Continue to monitor Discontinued all lorazepam and replaced with 0.5 mg of p.o. lorazepam every 6 hours as needed agitation Avoid excessive benzos if possible as well as other sedating agents mental status has really improved since of Keppra (3) Seizure: Plan: Witnessed seizure of less than 1 minute around time of admission Presumed to be secondary to hyponatremia Neurology consulted and following Started on Keppra at time of admission EEG without epileptical evidence although there was background slowing noted Now that electrolytes are balanced, Keppra discontinued. Patient more alert Continue precautions (4) Hypomagnesemia: Plan: Resolved Check magnesium level in the morning (5) Sleep apnea: Plan: Patient has CPAP at home set at 16 cm H2O Recent polysomnography Continue CPAP HS and PRN (6) Anxiety and depression: Plan: Xanax PRN- hold until mental status improves - not likely withdraw- urine tox screen negative for benzo Did require some PRN lorazepam due to agitation Order for lorazepam 0.5 mg p.o. every 6 hours as needed agitation currently active Continue to monitor (7) Diabetes: Plan: Hemoglobin A1c 8.4% Outpatient medications include glipizide with no insulin Stable Continue Lantus and NovoLog sliding scale insulin * Patient received total of 66 units of insulin yesterday, of which 40 units were basal insulin * Fasting BSG 126 mg/dL - continue 40 units * No change CF/CR Appreciate glycemic consult with pharmacy, monitor for hypoglycemia (8) Vertigo: Plan: Some lightheadedness and dizziness today. Patient anxious. Improved with 0.5 mg of p.o. or lorazepam Continue to monitor (9) Acid reflux: Plan: No complaints of midepigastric pain Continue famotidine (10) Hypertension: Plan: Lisinopril 10 mg every morning Metoprolol succinate 25 mg p.o. daily Continue to monitor vital signs per protocol Hemodynamically stable (11) DVT prophylaxis: Plan: Continue with enoxaparin Ambulate as tolerated with assistance Continue with PT/OT treatment Plan: Disposition: Patient has been off 1:1 for over 48 hours. Referrals made for placement to [facility]. Awaiting insurance authorization and acceptance from facilities Admission and Anticipated Discharge Date Admission Date: September 30, 2020 Subjective patient doing well today, ate all of her lunch mentating well, she knows it is September 2020, knows she is at [facility] she knows her daughters name is Dorothy and she knows she is going to rehab once done here sodium is [address] Grant, will continue on sodium chloride 1gm daily, he is not really worried about fluid restriction as she does not drink much to begin with will call her daughter to provide update Review of Systems Review of Systems: All systems reviewed & are unremarkable except as noted in Subjective Musculoskeletal: + muscle weakness Physical Exam Constitutional: well developed, well nourished, + well hydrated, + frail appearing and comfortable; no acute distress Neck: trachea midline, no thyromegaly Respiratory: normal respiratory effort, lungs clear to auscultation Cardiovascular: RRR, no murmur, no edema Gastrointestinal (Abdomen): normal bowel sounds, soft, nontender, no hepatosplenomegaly Musculoskeletal: no cyanosis or clubbing, extremities motor strength 5/5 Skin: no rashes, warm and dry Neurologic: normal touch/pain/proprioception, CN's II-XI intact bilaterally, moves all extremities and awake; no focal motor deficits Psychiatric: Orientation: alert, oriented x 3 and cooperative Results & Data Results & Data ([facility]) Vital Signs (Past 12 Hours) Vital Signs Temp Pulse Pulse Resp BP BP Pulse Ox 10/09/20 12:00 36.7 C 102 H 18 121/74 98 10/09/20 08:00 76 10/09/20 07:00 36.7 C 98 H 18 146/75 H 96 10/09/20 02:30 37.2 C 82 18 119/68 95 Laboratory Results Laboratory Results - last 24 hr 10/01/20 10/08/20 10/08/20 Unknown 16:54 19:59 Sodium Potassium Chloride Carbon Dioxide Anion Gap BUN Creatinine Est Cr Clr Drug Dosing Est GFR ( Amer) Est GFR (Non-Af Amer) BUN/Creatinine Ratio Glucose POC Glucose 148 H 92 Calcium Magnesium CSF Lyme IgG (Immblot) NO BANDS DETECTED CSF Lyme IgG Bands Det DNR CSF Lyme IgM (Immblot) NO BANDS DETECTED CSF Lyme IgM Bands Det DNR Herpesvirus 6 Source Cancelled HHV-6 DNA (PCR) Cancelled 10/09/20 10/09/20 10/09/20 07:25 07:42 11:48 Sodium 133 L Potassium 4.2 Chloride 102 Carbon Dioxide 26 Anion Gap 6.0 BUN 22 H Creatinine 0.64 Est Cr Clr Drug Dosing 54.8 Est GFR ( Amer) 98.4 Est GFR (Non-Af Amer) 84.9 BUN/Creatinine Ratio 34.2 H Glucose 94 POC Glucose 104 H 177 H Calcium 8.7 Magnesium 1.9 CSF Lyme IgG (Immblot) CSF Lyme IgG Bands Det CSF Lyme IgM (Immblot) CSF Lyme IgM Bands Det Herpesvirus 6 Source HHV-6 DNA (PCR) Medications Administered Current Inpatient Medications Dextrose (Dextrose 50% 50 Ml Syringe) 25 - 50 ml IV UD PRN; Protocol PRN Reason: Hypoglycemia Protocol Stop: 10/30/20 20:59 Diclofenac Sodium (Diclofenac Sod 1% Gel 100 Gm Tube) 4 gm EXT QID EFRAIN Stop: 11/05/20 00:34 Last Admin: 10/09/20 12:12 Dose: 4 gm Documented by: Enoxaparin Sodium (Enoxaparin Inj 40 Mg/0.4 Ml Syr) 40 mg SQ Q24H EFRAIN Stop: 10/30/20 20:59 Last Admin: 10/08/20 20:35 Dose: 40 mg Documented by: Famotidine (Famotidine 20 Mg Tab) 20 mg PO QAM EFRAIN Stop: 10/31/20 08:59 Last Admin: 10/09/20 08:00 Dose: 20 mg Documented by: Glucagon (Glucagon For Inj 1 Mg Vial) 1 mg IM UD PRN; Protocol PRN Reason: Hypoglycemia Protocol Stop: 10/30/20 20:59 Glucose (Glucose 40% Gel 15 Gm Tube) 15 - 30 gm PO UD PRN; Protocol PRN Reason: Hypoglycemia Protocol Stop: 10/30/20 20:59 Glucose (Glucose 10 Tabs/Tube) 4 - 8 tabs PO UD PRN; Protocol PRN Reason: Hypoglycemia Protocol Stop: 10/30/20 20:59 Hydralazine HCl (Hydralazine Hcl 20 Mg/Ml Vial) 10 mg IV Q4 PRN PRN Reason: Hypertension SBP>150 Stop: 11/01/20 11:12 Last Admin: 10/04/20 16:45 Dose: 10 mg Documented by: Insulin Aspart (Insulin Aspart 100 Units/Ml 3 Ml Pen) 0 units SC ACHS EFRAIN Stop: 11/02/20 07:44 Last Admin: 10/09/20 12:13 Dose: 11 units Documented by: Insulin Glargine (Insulin Glargine Solostar 100 Units/Ml 3 Ml Pen) 0 units SC DAILY EFRAIN; Protocol Stop: 11/06/20 08:59 Last Admin: 10/09/20 08:03 Dose: 40 units Documented by: Lisinopril (Lisinopril 10 Mg Tab) 10 mg PO QAM EFRAIN Stop: 11/02/20 08:59 Last Admin: 10/09/20 08:00 Dose: 10 mg Documented by: Lorazepam (Lorazepam 0.5 Mg Tab) 0.5 mg PO Q6H PRN PRN Reason: Anxiety Stop: 11/06/20 18:39 Last Admin: 10/08/20 17:07 Dose: 0.5 mg Documented by: Metoprolol Succinate (Metoprolol Succ 25mg Ext Rel Tab) 25 mg PO DAILY EFRAIN Stop: 10/31/20 08:59 Last Admin: 10/09/20 08:00 Dose: 25 mg Documented by: Miscellaneous (Carbohydrates For Hypoglycemia ) 15 - 30 gm PO UD PRN PRN Reason: Hypoglycemia Treatment Stop: 10/30/20 20:59 Miscellaneous Information (Pharmacy Glycemic Mgmt Consult) 1 ea N/A UD PRN PRN Reason: Consult Stop: 10/31/20 11:05 PG Care Time/CCT Total # of Minutes Spent Total Time Spent with Patient: Total time spent is greater than 50% in coordination of care (as documented) at patient's floor/unit and/or counseling patient: Coding Level of Care Code 83700 Subseq Hosp Care Lvl 3 Diagnoses Acute hyponatremia E87.1 Acute encephalopathy G93.40 Seizure R56.9 Hypomagnesemia E83.42 Sleep apnea G47.30 Anxiety and depression F41.9; F32.9 Diabetes E11.9 Vertigo R42 Acid reflux K21.9 Hypertension I10 DVT prophylaxis Z29.9
[2020-10-09] MEDS ORDERED: QUEtiapine FUMARATE 25 MG TABLET PO ONE (15:45)
[2020-10-09] MEDS: ENOXAPARIN INJ 40 MG/0.4 ML SYR SQ SCH (20:45)
[2020-10-10] MEDS: lisinopril 10 MG TAB PO SCH (07:58)
[2020-10-10] MEDS: FAMOTIDINE 20 MG TAB PO SCH (07:59)
[2020-10-10] MEDS: METOPROLOL SUCC 25MG EXT REL TAB PO SCH (07:59)
[2020-10-10] MEDS: DICLOFENAC SOD 1% GEL 100 GM TUBE EXT SCH ×4 (07:59→21:19)
[2020-10-10] MEDS: INSULIN GLARGINE SOLOSTAR 100 UNITS/ML 3 ML PEN SC SCH (08:38)
[2020-10-10] MEDS: INSULIN ASPART 100 UNITS/ML 3 ML PEN SC SCH ×4 (08:39→20:47)
--- NOTE | 2020-10-10 09:41 | Pharmacy Report ---
PHA: Glycemic Control AP - Date of Service October 10, 2020 - Assessment & Plan The patient is currently receiving ~64 units of insulin per day. BSGs ranging 92 - 177 mg/dl over the past 24hrs. * Basal insulin: Lantus 40 units every 24 hours given in the morning * Correctional Insulin: Novolog Correction per scale ACHS Goal Range: Low 110 mg/dL - High 140 mg/dL Correction Factor: 15 mg/dL/unit * Prandial insulin: Per carb ratio of 1 unit per 6 grams CHO consumed BSGs continue to improve, no changes needed to inpatient regimen at this time. Pharmacy will continue to monitor patient daily and write orders per [facility] inpatient glycemic control protocol. Thanks. * Please note that the plan above was derived based on current level of insulin resistance and hospital stress. These recommendations are appropriate for inpatient admission only. Plan of care upon discharge will need to be reassessed to avoid potential outpatient hypo/hyperglycemia.
--- NOTE | 2020-10-10 12:38 | Hospitalist Progress Note ---
Date of Service October 10, 2020 Assessment & Plan (1) Acute hyponatremia: Plan: Patient presented with acute encephalopathy. It is suspected that it may be secondary to the hyponatremia. Admitting sodium level was 114. Patient received hypertonic IV fluids. Sodium level is now stable Nephrology is following. Appreciate their input Continue fluid restriction of 1800 mL/day Na 133 on 10/09, continue sodium chloride 1gm PO daily check BMP tomorrow (2) Acute encephalopathy: Plan: May be secondary to hyponatremia and fluid intoxication Lumbar puncture with WBCs of 20. Otherwise within normal limits Initially started on acyclovir and ampicillin. This has been discontinued with no worsening of encephalopathy. Patient also had a short-lived seizure of less than 1 minute. She was started on Keppra. 1:1 supervision was stopped for two days, stable Patient should be kept out of bed in chair throughout the day. Drapes should be open during the day and like should be on. Continue to monitor Discontinued all lorazepam Avoid excessive benzos if possible as well as other sedating agents mental status has really improved since of Keppra mild delirium on 10/09, thought she was going to [place] started on Seroquel 12.5mg HS, tolerated well, thinking more clearly today (3) Seizure: Plan: Witnessed seizure of less than 1 minute around time of admission Presumed to be secondary to hyponatremia Neurology consulted and following Started on Keppra at time of admission EEG without epileptical evidence although there was background slowing noted Now that electrolytes are balanced, Keppra discontinued. Patient more alert Continue precautions (4) Hypomagnesemia: Plan: Resolved Check magnesium level in the morning (5) Sleep apnea: Plan: Patient has CPAP at home set at 16 cm H2O Recent polysomnography Continue CPAP HS and PRN (6) Anxiety and depression: Plan: Xanax PRN- continue to hold until mental status improves - not likely withdraw- urine tox screen negative for benzo Did require some PRN lorazepam due to agitation now lorazepam stopped Seroquel 12.5mg HS, anxiety is stable, cooperative (7) Diabetes: Plan: Hemoglobin A1c 8.4% Outpatient medications include glipizide with no insulin Stable Continue Lantus and NovoLog sliding scale insulin * Patient received total of 66 units of insulin yesterday, of which 40 units were basal insulin * Fasting BSG 126 mg/dL - continue 40 units * No change CF/CR Appreciate glycemic consult with pharmacy, monitor for hypoglycemia (8) Vertigo: Plan: resolved (9) Acid reflux: Plan: No complaints of midepigastric pain Continue famotidine (10) Hypertension: Plan: Lisinopril 10 mg every morning Metoprolol succinate 25 mg p.o. daily Continue to monitor vital signs per protocol Hemodynamically stable (11) DVT prophylaxis: Plan: Continue with enoxaparin Ambulate as tolerated with assistance Continue with PT/OT treatment Plan: Disposition: denied insurance auth for [facility], not surprised, walking too far and not medically complex at this point still needs 24/7 supervision for time being, some confusion and impulsive at times ask CM to look into back up SNF options starting Sunday check labs tomorrow Admission and Anticipated Discharge Date Admission Date: September 30, 2020 Subjective patient sitting up in her chair today, she says she slept fine last night she keeps telling me details of why she is here with passing out, low sodium level, seizure etc I told her that I know all of this, I am taking care of her she admits she was confused yesterday, wanted to go to [facility] but she knows that isn't possible right now she was moved to [facility] to have a window seat, can now see outside she is eating well, 50% of plate today at lunch will check sodium tomorrow got word from CM that [facility] was denied, would not do a peer to peer because she is walking well at 160 feet and not medically complex would suggest they try for SNF as back ups were discussed with patient's daughter she still needs 24/7 care for time being due to episodes of confusion and being impulsive, would be a fall risk Review of Systems Review of Systems: All systems reviewed & are unremarkable except as noted in Subjective Physical Exam Constitutional: well developed, well nourished, + well hydrated, + frail appearing and comfortable; no acute distress Neck: trachea midline, no thyromegaly Respiratory: normal respiratory effort, lungs clear to auscultation Cardiovascular: RRR, no murmur, no edema Gastrointestinal (Abdomen): normal bowel sounds, soft, nontender, no hepatosplenomegaly Musculoskeletal: no cyanosis or clubbing, extremities motor strength 5/5 Skin: no rashes, warm and dry Neurologic: normal touch/pain/proprioception, CN's II-XI intact bilaterally, moves all extremities and awake; no focal motor deficits Psychiatric: Orientation: alert, oriented x 3 and cooperative Results & Data Results & Data ([facility]) Vital Signs (Past 12 Hours) Vital Signs Temp Pulse Pulse Resp BP BP Pulse Ox 10/10/20 12:17 36.7 C 81 18 119/69 97 10/10/20 07:59 36.6 C 70 20 159/82 H 98 10/10/20 07:43 78 10/10/20 04:19 82 10/10/20 03:41 36.9 C 79 16 130/72 96 Laboratory Results Laboratory Results - last 24 hr 10/09/20 10/10/20 10/10/20 16:44 07:42 11:28 POC Glucose 125 H 92 173 H Medications Administered Current Inpatient Medications Dextrose (Dextrose 50% 50 Ml Syringe) 25 - 50 ml IV UD PRN; Protocol PRN Reason: Hypoglycemia Protocol Stop: 10/30/20 20:59 Diclofenac Sodium (Diclofenac Sod 1% Gel 100 Gm Tube) 4 gm EXT QID EFRAIN Stop: 11/05/20 00:34 Last Admin: 10/10/20 07:59 Dose: 4 gm Documented by: Enoxaparin Sodium (Enoxaparin Inj 40 Mg/0.4 Ml Syr) 40 mg SQ Q24H EFRAIN Stop: 10/30/20 20:59 Last Admin: 10/09/20 20:45 Dose: 40 mg Documented by: Famotidine (Famotidine 20 Mg Tab) 20 mg PO QAM EFRAIN Stop: 10/31/20 08:59 Last Admin: 10/10/20 07:59 Dose: 20 mg Documented by: Glucagon (Glucagon For Inj 1 Mg Vial) 1 mg IM UD PRN; Protocol PRN Reason: Hypoglycemia Protocol Stop: 10/30/20 20:59 Glucose (Glucose 40% Gel 15 Gm Tube) 15 - 30 gm PO UD PRN; Protocol PRN Reason: Hypoglycemia Protocol Stop: 10/30/20 20:59 Glucose (Glucose 10 Tabs/Tube) 4 - 8 tabs PO UD PRN; Protocol PRN Reason: Hypoglycemia Protocol Stop: 10/30/20 20:59 Hydralazine HCl (Hydralazine Hcl 20 Mg/Ml Vial) 10 mg IV Q4 PRN PRN Reason: Hypertension SBP>150 Stop: 11/01/20 11:12 Last Admin: 10/04/20 16:45 Dose: 10 mg Documented by: Insulin Aspart (Insulin Aspart 100 Units/Ml 3 Ml Pen) 0 units SC ACHS [facility] Stop: 11/02/20 07:44 Last Admin: 10/10/20 12:12 Dose: 11 units Documented by: Insulin Glargine (Insulin Glargine Solostar 100 Units/Ml 3 Ml Pen) 0 units SC DAILY [facility]; Protocol Stop: 11/06/20 08:59 Last Admin: 10/10/20 08:38 Dose: 40 units Documented by: Lisinopril (Lisinopril 10 Mg Tab) 10 mg PO QAM EFRAIN Stop: 11/02/20 08:59 Last Admin: 10/10/20 07:58 Dose: 10 mg Documented by: Lorazepam (Lorazepam 0.5 Mg Tab) 0.5 mg PO Q6H PRN PRN Reason: Anxiety Stop: 11/06/20 18:39 Last Admin: 10/08/20 17:07 Dose: 0.5 mg Documented by: Metoprolol Succinate (Metoprolol Succ 25mg Ext Rel Tab) 25 mg PO DAILY [facility] Stop: 10/31/20 08:59 Last Admin: 10/10/20 07:59 Dose: 25 mg Documented by: Miscellaneous (Carbohydrates For Hypoglycemia ) 15 - 30 gm PO UD PRN PRN Reason: Hypoglycemia Treatment Stop: 10/30/20 20:59 Miscellaneous Information (Pharmacy Glycemic Mgmt Consult) 1 ea N/A UD PRN PRN Reason: Consult Stop: 10/31/20 11:05 PG Care Time/CCT Total # of Minutes Spent Total Time Spent with Patient: Total time spent is greater than 50% in coordination of care (as documented) at patient's floor/unit and/or counseling patient: Coding Level of Care Code 20193 Subseq Hosp Care Lvl 2 Diagnoses Acute hyponatremia E87.1 Acute encephalopathy G93.40 Seizure R56.9 Hypomagnesemia E83.42 Sleep apnea G47.30 Anxiety and depression F41.9; F32.9 Diabetes E11.9 Vertigo R42 Acid reflux K21.9 Hypertension I10 DVT prophylaxis Z29.9
[2020-10-10] MEDS: ACETAMINOPHEN 325 MG TAB PO PRN (13:44)
[2020-10-10] MEDS: ENOXAPARIN INJ 40 MG/0.4 ML SYR SQ SCH (21:19)
[2020-10-10] MEDS: QUEtiapine FUMARATE 25 MG TABLET PO SCH (21:19)
[2020-10-11] MEDS: METOPROLOL SUCC 25MG EXT REL TAB PO SCH (08:12)
[2020-10-11] MEDS: FAMOTIDINE 20 MG TAB PO SCH (08:12)
[2020-10-11] MEDS: lisinopril 10 MG TAB PO SCH (08:12)
[2020-10-11] MEDS: INSULIN GLARGINE SOLOSTAR 100 UNITS/ML 3 ML PEN SC SCH (08:17)
[2020-10-11] MEDS: INSULIN ASPART 100 UNITS/ML 3 ML PEN SC SCH ×4 (08:17→21:01)
[2020-10-11 08:42] LABS: BUN Creatinine Ratio 34.4 (10-20); Calcium 8.6 mg/dl (8.5-10.1); Creatinine Clr Calc Pharmacy 54.8 ml/min; Est GFR (African American) 97.4 ml/min; Potassium 4.2 mmol/L (3.5-5.1)
[2020-10-11] MEDS: LORazepam 0.5 MG TAB PO PRN ×3 (09:17→21:00)
[2020-10-11] MEDS: DICLOFENAC SOD 1% GEL 100 GM TUBE EXT SCH ×4 (09:40→21:01)
[2020-10-11] MEDS: SUCRALFATE 1 GM/10 ML UDC PO SCH ×3 (12:33→21:02)
[2020-10-11] MEDS: ACETAMINOPHEN 325 MG TAB PO PRN (15:35)
--- NOTE | 2020-10-11 20:59 | Hospitalist Progress Note ---
Date of Service October 11, 2020 Assessment & Plan (1) Acute hyponatremia: Plan: Patient presented with acute encephalopathy. It is suspected that it may be secondary to the hyponatremia. Admitting sodium level was 114. Patient received hypertonic IV fluids. Sodium level is now stable Nephrology is following. Appreciate their input Continue fluid restriction of 1800 mL/day Improving Na 137, continue sodium chloride 1gm PO daily check BMP tomorrow (2) Acute encephalopathy: Plan: May be secondary to hyponatremia and fluid intoxication Lumbar puncture with WBCs of 20. Otherwise within normal limits Initially started on acyclovir and ampicillin. This has been discontinued with no worsening of encephalopathy. Patient also had a short-lived seizure of less than 1 minute. She was started on Keppra. 1:1 supervision was stopped for two days, stable Patient should be kept out of bed in chair throughout the day. Drapes should be open during the day and like should be on. Continue to monitor Discontinued all lorazepam Avoid excessive benzos if possible as well as other sedating agents mental status has really improved since of Keppra mild delirium on 10/09, thought she was going to [place] started on Seroquel 12.5mg HS, tolerated well, thinking more clearly today (3) Seizure: Plan: Witnessed seizure of less than 1 minute around time of admission Presumed to be secondary to hyponatremia Neurology consulted and following Started on Keppra at time of admission EEG without epileptical evidence although there was background slowing noted Now that electrolytes are balanced, Keppra discontinued. Patient more alert Continue precautions (4) Hypomagnesemia: Plan: Resolved Check magnesium level in the morning (5) Sleep apnea: Plan: Patient has CPAP at home set at 16 cm H2O Recent polysomnography Continue CPAP HS and PRN (6) Anxiety and depression: Plan: Xanax PRN- continue to hold until mental status improves - not likely withdraw- urine tox screen negative for benzo Did require some PRN lorazepam due to agitation now lorazepam stopped Seroquel 12.5mg HS, anxiety is stable, cooperative (7) Diabetes: Plan: Hemoglobin A1c 8.4% Outpatient medications include glipizide with no insulin Stable Continue Lantus and NovoLog sliding scale insulin * Patient received total of 66 units of insulin yesterday, of which 40 units were basal insulin * Fasting BSG 126 mg/dL - continue 40 units * No change CF/CR Appreciate glycemic consult with pharmacy, monitor for hypoglycemia (8) Vertigo: Plan: resolved (9) Acid reflux: Plan: No complaints of midepigastric pain Continue famotidine (10) Hypertension: Plan: Lisinopril 10 mg every morning Metoprolol succinate 25 mg p.o. daily Continue to monitor vital signs per protocol Hemodynamically stable (11) DVT prophylaxis: Plan: Continue with enoxaparin Ambulate as tolerated with assistance Continue with PT/OT treatment Plan: Disposition: denied insurance auth for [facility], not surprised, walking too far and not medically complex at this point still needs 24/ supervision for time being, some confusion and impulsive at times ask CM to look into back up SNF options starting Sunday check labs tomorrow Admission and Anticipated Discharge Date Admission Date: September 30, 2020 Subjective Patient reports no new symptoms today. She is hopeful to be discharged home. Review of Systems Review of Systems: All systems reviewed & are unremarkable except as noted in HPI & below Physical Exam Physical Exam: Constitutional: well developed, well nourished, + well hydrated, + frail appearing and comfortable; no acute distress Neck: trachea midline, no thyromegaly Respiratory: normal respiratory effort, lungs clear to auscultation Cardiovascular: RRR, no murmur, no edema Gastrointestinal (Abdomen): normal bowel sounds, soft, nontender, no hepatosplenomegaly Musculoskeletal: no cyanosis or clubbing, extremities motor strength 5/5 Skin: no rashes, warm and dry Neurologic: normal touch/pain/proprioception, CN's II-XI intact bilaterally, moves all extremities and awake; no focal motor deficits Psychiatric: Orientation: alert, oriented x 3 and cooperative Results & Data Results & Data ([facility]) Vital Signs (Past 12 Hours) Vital Signs Temp Pulse Pulse Resp BP Pulse Ox 10/11/20 19:31 36.7 C 78 20 162/77 H 92 10/11/20 15:50 36.9 C 110 H 20 146/73 H 98 10/11/20 15:11 93 H 10/11/20 11:19 37.2 C 80 18 120/73 97 PG Care Time/CCT Total # of Minutes Spent Total Time Spent with Patient: Total time spent is greater than 50% in co ordination of care (as documented) at patient's floor/unit and/or counseling patient: Coding Level of Care Code 54057 Subseq Hosp Care Lvl 2 Diagnoses Acute hyponatremia E87.1 Acute encephalopathy G93.40 Seizure R56.9 Hypomagnesemia E83.42 Sleep apnea G47.30 Anxiety and depression F41.9; F32.9 Diabetes E11.9 Vertigo R42 Acid reflux K21.9 Hypertension I10 DVT prophylaxis Z29.9
[2020-10-11] MEDS: QUEtiapine FUMARATE 25 MG TABLET PO SCH (21:00)
[2020-10-11] MEDS: ENOXAPARIN INJ 40 MG/0.4 ML SYR SQ SCH (21:01)
[2020-10-12] MEDS: DICLOFENAC SOD 1% GEL 100 GM TUBE EXT SCH ×3 (07:34→18:07)
[2020-10-12] MEDS: lisinopril 10 MG TAB PO SCH (07:35)
[2020-10-12] MEDS: SUCRALFATE 1 GM/10 ML UDC PO SCH ×3 (07:35→18:06)
[2020-10-12] MEDS: METOPROLOL SUCC 25MG EXT REL TAB PO SCH (07:35)
[2020-10-12] MEDS: FAMOTIDINE 20 MG TAB PO SCH (07:35)
[2020-10-12] MEDS: INSULIN ASPART 100 UNITS/ML 3 ML PEN SC SCH ×3 (08:53→18:07)
[2020-10-12] MEDS: INSULIN GLARGINE SOLOSTAR 100 UNITS/ML 3 ML PEN SC SCH (08:54)
[2020-10-12] MEDS: LORazepam 0.5 MG TAB PO PRN (09:24)
--- NOTE | 2020-10-12 10:24 | Pharmacy Report ---
Pharmacy Glycemic Short Note 2 - Date of Service October 12, 2020 - Glycemic Short BSG Results (Last 24 hours): 10/11/20 10/11/20 10/11/20 11:34 16:34 20:03 POC Glucose 201 H 97 245 H 10/12/20 07:20 POC Glucose 164 H OUTPATIENT ANTIDIABETIC REGIMEN: * Glipizide 10mg PO BID * A1c = 8.4% 10/01/20 ASSESSMENT: 10/12 * BSGs yesterday of 122, 201, 97, and 245 mg/dL * Received 79 units of insulin, 40 units of Lantus and 39 units of prandial/correctional bolus * Fasting BSG of 164 mg/dL - will increase basal * Will tighten carb ratio today 10/08 * Patient received total of 66 units of insulin yesterday, of which 40 units were basal insulin * Fasting BSG 126 mg/dL - continue 40 units * No change CF/CR 10/06 * Patient received total of 70 units of insulin yesterday, of which 40 units were basal insulin * Fasting BSG 152 mg/dL - continued same basal for this AM * Lunch BSG trending up significantly - unclear reasoning as BSGs have been stable last couple of days and no changes being made. Gave small supplemental dose of Lantus with lunch * continue same CF/Cr 10/01/20 * Type 2 diabetic admitted for mental status changes, possible sz activity, hyponatremia, and possible meningitis * IV insulin infusion started yesterday evening. Patient's initial labs revealed hyperglycemia however no acidosis, mild AG of 12, 2+ ketones in UA * IV insulin running at 2.8 units/hr this AM and BSGs in low 200s. * Dextrose 5% infusing @125cc/hr to slow rate of Na elevation * IV insulin infusion remains standard of care for patients experiencing hyperglycemia in the ICU. Reasonable to continue this therapy at this time given IV dextrose provision in NPO patient as SQ insulin may lead to greater risk of hypoglycemia if D5 abruptly stopped PLAN FOR INPATIENT GLYCEMIC CONTROL: * Hold outpatient oral diabetes medications (glipizide) * Basal insulin: - increase * Lantus 45 units daily * Bolus insulin: tighten carb ratio * NovoLog ACHS now that diet resumed * Goal range 110-140 mg/dl * CF = 15 mg/dl/unit * CR = 1 unit for every 5 g CHO consumed PLAN FOR DISCHARGE: * A1c 8.4 % - goal <8 reasonable * Patient does not take any insulin at home. During this admission requiring 60- 80 units/day. Unclear if related to stress in hospital setting. Would not recommend insulin on discharge, however would recommend the patient self monitor BSG at least 1-2x per day and followup with provider if blood sugars consistently elevated >200 * Of note, glipizide has rarely been associated with SIADH. Patient's urine osmo + urine Na could be consistent w/ SIADH in the right clinical context. If concerns with agent, could consider changing to another agent on discharge
--- NOTE | 2020-10-12 12:54 | Discharge Summary ---
Date of Service October 12, 2020 Principal Diagnosis acute hyponatremia Discharge Exam Constitutional: well developed, well nourished, + well hydrated, + frail appearing and comfortable; no acute distress Neck: trachea midline, no thyromegaly Respiratory: normal respiratory effort, lungs clear to auscultation Cardiovascular: RRR, no murmur, no edema Gastrointestinal (Abdomen): normal bowel sounds, soft, nontender, no hepatosplenomegaly Musculoskeletal: no cyanosis or clubbing, extremities motor strength 5/5 Skin: no rashes, warm and dry Neurologic: normal touch/pain/proprioception, CN's II-XI intact bilaterally, moves all extremities and awake; no focal motor deficits Psychiatric: Orientation: alert, oriented x 3 and cooperative Discharge Data Allergies Allergy/AdvReac Type Severity Reaction Status Date / Time Iodinated Contrast Media Allergy Intermediate Shortness Verified 09/30/20 15:08 of Breath CHEST PAIN TIGHTNESS IN CHEST rosiglitazone Allergy Intermediate CHEST PAIN Verified 09/30/20 15:08 atorvastatin [From Lipitor] Allergy Unknown Unknown Verified 09/30/20 15:08 Corticosteroids Allergy Unknown "STEROIDS": Verified 09/30/20 15:08 (Glucocorticoids) "SHORTNESS OF BREATH" iodine Allergy Unknown Unknown Verified 09/30/20 15:08 tetracycline Allergy Unknown Unknown rxn Verified 09/30/20 15:08 pregabalin AdvReac Severe severe Verified 09/30/20 15:08 swelling hands/feet amoxicillin AdvReac Intermediate Gastrointestinal Verified 10/01/20 14:26 Upset clavulanic acid AdvReac Intermediate Gastrointestinal Verified 10/01/20 14:26 Upset hydrocodone AdvReac Intermediate hear races Verified 09/30/20 15:08 ibuprofen AdvReac Intermediate KNOCKS Verified 09/30/20 15:08 EQUILIBRIUM OFF levofloxacin AdvReac Intermediate Dizziness Verified 09/30/20 15:08 metformin AdvReac Intermediate SEVERE Verified 09/30/20 15:08 DIARRHEA omeprazole AdvReac Intermediate SHAKES/TACH Verified 09/30/20 15:08 YCARDIA pantoprazole AdvReac Intermediate SHAKES/TACH Verified 09/30/20 15:08 YCARDIA prednisone AdvReac Intermediate Palpitations Verified 09/30/20 15:08 AND "WENT TO UNIT" (CARDIAC CARE UNIT) codeine AdvReac Mild EQUILIBRIUM Verified 09/30/20 15:08 OFF Penicillins AdvReac Mild Augmentin: Verified 09/30/20 15:08 GI UPSET theophylline AdvReac Mild INCREASED Verified 09/30/20 15:08 HR esomeprazole AdvReac Unknown SHAKES/TACH Verified 09/30/20 15:08 YCARDIA Sulfa (Sulfonamide AdvReac Unknown COULD NOT Verified 09/30/20 15:08 Antibiotics) WALK AND TREMBLED Consultations 09/30/20 17:04 ED Decision to Admit Stat 09/30/20 18:35 Consult Nephrology Routine 09/30/20 19:56 Consult Upholstery Estimator Routine Consult Neurology Routine 10/01/20 10:44 Consult Anesthesiology Routine Ordered Studies 09/30/20 13:32 CT abd pelvis wo con Stat CT head/brain wo con Stat 09/30/20 13:45 CT cervical spine wo con Stat Hospital Course (1) Acute hyponatremia: Patient presented with acute encephalopathy. It is suspected that it may be secondary to the hyponatremia. Admitting sodium level was 114. Patient received hypertonic IV fluids. Sodium level is now stable Nephrology is following. Appreciate their input Continue fluid restriction of 1800 mL/day Improving Na 137 will recommend rechecking sodium levels on Sunday. Her last actual dose of sodium chloride was on 10/09. However, her sodium levels have been maintaining. Had an extensive discussion with her daughter, who is agreeable to plan and disposition of discharge. (2) Acute encephalopathy: May be secondary to hyponatremia and fluid intoxication Lumbar puncture with WBCs of 20. Otherwise within normal limits Initially started on acyclovir and ampicillin. This has been discontinued with no worsening of encephalopathy. Patient also had a short-lived seizure of less than 1 minute. She was started on Keppra. 1:1 supervision was stopped for two days, stable Patient should be kept out of bed in chair throughout the day. Drapes should be open during the day and like should be on. Continue to monitor Discontinued all lorazepam Avoid excessive benzos if possible as well as other sedating agents mental status has really improved since of Keppra mild delirium on 10/09, thought she was going to [place] started on Seroquel 12.5mg HS, tolerated well, thinking more clearly. Will recommend switching medication to lexapro. Reviewing her records it appears that she has been on this medication but only tried 5 mg for about 1 month. She may require trying 10 mg of lexapro for her anxiety. Sent a script of 5 mg to pharmacy and she can be titrated up in about a week or 2. Daughter states she likely will not start this until she talks to her family jason. (3) Seizure: Witnessed seizure of less than 1 minute around time of admission Presumed to be secondary to hyponatremia Neurology consulted and following Started on Keppra at time of admission EEG without epileptical evidence although there was background slowing noted Now that electrolytes are balanced, Keppra discontinued. Patient more alert Continue precautions (4) Hypomagnesemia: Resolved Check magnesium level in the morning (5) Sleep apnea: Patient has CPAP at home set at 16 cm H2O Recent polysomnography Continue CPAP HS and PRN (6) Anxiety and depression: Xanax PRN- continue to hold until mental status improves - not likely withdraw- urine tox screen negative for benzo Did require some PRN lorazepam due to agitation now lorazepam stopped Seroquel 12.5mg HS, anxiety is stable, cooperative will stop seroquel at discharge due to concern over increased mortality and side effects. Going through past medical records, it appears lexapro could be retried. It appears she only took about 5 mg, and she may benefit from 10 mg of lexapro. May need to be titrated up. Will defer this to her PCP, will send initial dose of 5 mg to the pharmacy though do not expect this to help much with her anxiety. She will need to be bridged with ativan and likely need to be titrated up to 10 mg. Had discussion with her daughter. (7) Diabetes: Hemoglobin A1c 8.4% Outpatient medications include glipizide with no insulin Stable Continue Lantus and NovoLog sliding scale insulin * Patient received total of 66 units of insulin yesterday, of which 40 units were basal insulin * Fasting BSG 126 mg/dL - continue 40 units * No change CF/CR Appreciate glycemic consult with pharmacy, monitor for hypoglycemia (8) Vertigo: resolved (9) Acid reflux: No complaints of midepigastric pain Continue famotidine (10) Hypertension: Lisinopril 10 mg every morning Metoprolol succinate 25 mg p.o. daily Continue to monitor vital signs per protocol Hemodynamically stable (11) DVT prophylaxis: Continue with enoxaparin Ambulate as tolerated with assistance Continue with PT/OT treatment Total Time Total Time Spent Total Time Spent (In Minutes): 32 Discharge Plan Discharge Items Patient Disposition: Home - Home Health Services Reason For Visit: HYPONATREMIA/SEIZURE Discharge Diagnosis: hyponatremia/ seizure Condition on Discharge: Good Activity: Resume your previous activity Non-emergency contact: Primary Care Provider Call non-emergency contact if: you have any medication questions Follow-up/Referrals: Sana Becker DO [Primary Care Provider] - 10/16/20 10:50 am (THIS APPOINTMENT WILL BE AT THE [facility] OFFICE) Diet: Carb Consistent or DM2 Fluids: 1800ml (7 cups) Addtl Attending Provider Instructions: Patient was evaluated for confusion and electrolyte abnormalities. It appears this may have been precipitated by a virus. As your fever subsided and electrolytes improved, your consfusion subsided. Thankfully, you grew stronger while you were in the hospital which showed in your therapy notes. Will recommend to have blood work done on Sunday with close followup with PCP and Nephrology. Will recommend you restart lexapro as an outpatient and slowly increase to a higher dose. Script will be sent to the pharmacy. Pending Studies at Discharge: No Stand-Alone Forms: My [facility], Smoking Cessation Medications and DC Order Prescriptions: New sucralfate 100 mg/mL Suspension 2 g PO QID 7 Days Qty: 560 RF: 0 lisinopril 10 mg Tablet 10 mg PO QAM Qty: 30 RF: 0 escitalopram oxalate 5 mg tablet 5 mg PO DAILY Qty: 30 RF: 0 Continued clindamycin HCl 300 mg capsule 1,200 mg PO UD PRN (Reason: PRIOR TO DENTAL APPOINTMENTS.) RF: 0 famotidine [Pepcid] 20 mg tablet 20 mg PO QAM RF: 0 CPAP Machine Misc See Rx Instructions .ROUTE .COMPLEX Qty: 1 RF: 0 alprazolam [Xanax] 0.5 mg tablet 0.25 - 0.5 mg PO TID PRN (Reason: Anxiety) RF: 0 metoprolol succinate 25 mg tablet extended release 24 hr 25 mg PO DAILY RF: 0 glipizide 10 mg tablet extended release 24hr 10 mg PO BID RF: 0 triamcinolone acetonide 0.1 % ointment 1 applic TOPICAL UD RF: 0 Discontinued lisinopril 40 mg tablet 20 mg PO QAM RF: 0 Discharge Orders: Discharge Order (Routine); Ordered 10/12/20 Ordered By: Chidi Nicole/Other Patient Handouts: A1C, High Blood Sugar (Hyperglycemia), Hypoglycemia (Low Blood Sugar), Managing Type 2 Diabetes Admission Data Admit Date/Time: 09/30/20 18:35 Attending Provider: Chidi Coughlin Admit Provider: Andrae Doe Primary Care Provider: Sana Becker Other Providers: Azeem Holland ; [facility] ; [facility] Sal[facility] [place] ; Andrae Doe ; Pilo Thomason ; Aroldo Tobar ; [employer] [facility] ; Wilmer Sanabria ; [facility] Other Interventions: Discharge Summary Assessment (RN) Last Done: 10/12/20 13:28 Coding Level of Care Code D/C DAY MANAGEMENT >30 MINS Diagnoses Acute hyponatremia E87.1 Acute encephalopathy G93.40 Seizure R56.9 Hypomagnesemia E83.42 Sleep apnea G47.30 Anxiety and depression F41.9; F32.9 Diabetes E11.9 Vertigo R42 Acid reflux K21.9 Hypertension I10 DVT prophylaxis Z29.9
[2020-10-12] MEDS: ACETAMINOPHEN 325 MG TAB PO PRN (18:05)
--- NOTE | 2020-10-23 06:59 | Coding Query ---
SEPSIS To promote full compliance with coding requirements relating to patient care, physician participation is requested in all cases of electrical lineman uncertainty. Please assist us with the question(s) below: In responding to this query, please exercise your independent professional judgement. The fact that a question is asked does not imply that any particular answer is desired or expected. We appreciate your clarification on this issue. Throughout the medical record, you have clearly documented a localized infection and your patient has clinical evidence of a generalized sepsis or severe sepsis. The term urosepsis is a nonspecific entity and is coded as an UTI. If the patient has sepsis, severe sepsis, from an urinary source or some other source, please clarify in your response below. The medical record reflects the following clinical findings: Patient admitted with hyponatremia and seizure. Some progress notes mentioned sepsis. Seeking to clarify if patient was treated for Sepsis. Thank you . Wing Curran [facility] ____ ( )Bacteremia (Nonspecific laboratory finding of bacteria in the blood) Specify Organism ( ) Present on Admission ( ) Not present on admission ( ) Unable to clinically determine () Septicemia (Systemic disease associated with the presence of pathogenic microorganisms in the blood): Specify Organism ( ) Present on Admission ( ) Not present on admission ( ) Unable to clinically determine ( ) Sepsis Specify Organism Specify Associated Condition/Diagnosis ( ) Present on Admission ( ) Not present on admission ( ) Unable to clinically determine ( ) Severe Sepsis (Sepsis associated with acute organ dysfunction) Specify Organism Specify Associated Condition/Diagnosis ( ) Present on Admission ( ) Not present on admission ( ) Unable to clinically determine ( ) Septic Shock (Severe sepsis with acute circulatory failure, unexplained by other causes) ( ) Present on Admission ( ) Not present on admission () Unable to clinically determine ( x) Other, patient has: No evidence of infection. Initially there was a question of meningitis, but this was ruled out. Cultures were negative and it appears that the WBC was reactive. Antibiotics were stopped early in the hopsital stay. RANJEET
== END 2020-10-12 18:43 | disposition home health service (06) | DRG 640 ==
LOC: ED 12:56 → SUATTDRO 18:35 → 1E 18:35 → 2S 10-05 12:55 → 2W 10-06 22:26 → 2N 10-09 18:49

== ENCOUNTER 2021-06-13 17:36 | Observation (INO) ==
[2021-06-13] MEDS ORDERED: ONDANSETRON INJ 2 MG/ML 2 ML VIAL IV STA (19:42)
[2021-06-13] MEDS ORDERED: SODIUM CHLORIDE 0.9% 500 ML IV ONE (19:42)
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
[2021-06-13 19:53] LABS: Appearance Urine Clear (Clear); Bilirubin Urine Negative (Negative); Blood Urine Negative (Negative); Color Urine Yellow; Glucose Urine UA Negative (Negative); Ketones Urine Negative (Negative); Leukocyte Esterase Urine Negative (Negative); Nitrite Urine Negative (Negative); Protein Urine Negative (Negative); Specific Gravity Urine 1.003 (1.000-1.030); Urobilinogen Urine Negative (Negative)
[2021-06-13 20:24] LABS: Basophils # (auto) 0.04 K/uL (0-0.2); Basophils % (auto) 0.4 %; Eosinophils # (auto) 0.11 K/uL (0-0.5); Hematocrit (blood only) 37.4 % (37-47); Hemoglobin 12.7 g/dL (12.0-16.0); Immature Granulocytes # (auto) 0.02 K/uL (0.00-0.02); Immature Granulocytes % (auto) 0.2 %; Lymphocytes # (auto) 1.83 K/uL (1.2-3.4); Lymphocytes % (auto) 16.6 %; Mean Corpuscular Hemoglobin 29.5 pg (25-34); Mean Platelet Volume 11.8 fL (7.4-10.4); Monocytes # (auto) 0.89 K/uL (0.11-0.59); Monocytes % (auto) 8.1 %; Neutrophils # (auto) 8.14 K/uL (1.4-6.5); Neutrophils % (auto) 73.7 %; Platelet Count 225 K/uL (130-400); RDW Coefficient of Variation 14.6 % (11.5-14.5); RDW Standard Deviation 46.4 fL (36.4-46.3); White Blood Count 11.03 K/uL (4.8-10.8)
--- NOTE | 2021-06-13 20:53 | CT Scan Report ---
CT SCAN OF THE ABDOMEN AND PELVIS WITHOUT IV CONTRAST CLINICAL HISTORY: Right lower quadrant abdominal pain COMPARISON STUDY: Abdominal CT scans, most recently dated 05/09/2021. TECHNIQUE: CT scan of the abdomen and pelvis is performed from the lung bases to the proximal femora. Images are reviewed in the axial, sagittal, and coronal planes. IV contrast was not administered for this examination. Note that the examination was performed in suboptimal fashion without oral and IV contrast. A dose lowering technique was utilized adhering to the principles of ALARA. CT DOSE: 493.77 mGy.cm FINDINGS: Lung bases: The heart is normal in size noting trace pericardial effusion. There are calcifications o f the coronary arteries and mitral annulus. The lung bases are clear. A small hiatal hernia is noted. Liver: The unenhanced liver is normal in size, contour, and attenuation. There is no intrahepatic mary ellen iary ductal dilatation. Pneumobilia is unchanged. Gallbladder: Surgically absent noting clips in the gallbladder fossa. Spleen: Normal in size and attenuation. Pancreas: The unenhanced pancreas is moderately atrophic and grossly unremarkable. Adrenal glands: Unremarkable. Kidneys: The unenhanced kidneys demonstrate mild cortical atrophy. There is mild. The renal collectin g systems without hydronephrosis. Bilateral extrarenal pelvises are noted. No renal calculi are ident ified. There is no evidence of contour deforming renal mass lesion. Abdominal vasculature: The abdominal aorta is normal in course and caliber noting moderate atheroscle rotic calcification. Bowel: There is moderate colonic diverticulosis without CT evidence of acute diverticulitis. No bowel obstruction is identified. The appendix is dilated and fluid-filled measuring up to 10 mm. The appe ndiceal wall is thickened and there is peripancreatic inflammation. A calcified appendicolith is note d on image #248. Findings are consistent with acute appendicitis. There is no evidence of abscess. A small bowel lipoma is seen on image #297. Peritoneum: There is no intraperitoneal free air or abdominal ascites. There is evidence of previous ventral hernia repair. There is postoperative change from right inguinal herniorrhaphy. Postoperative change and calcification is seen within the right lower quadrant abdominal wall. Lymphadenopathy: A mildly enlarged aortocaval node on image #121 measures 1.6 x 1.0 cm. No additional enlarged lymph nodes are seen in the abdomen or pelvis. Pelvic viscera: Evaluation of the pelvis is degraded by streak artifact from a right hip arthroplasty . The bladder appears circumferentially thick walled and there is pericystic inflammation. The uterus and adnexa are normal as visualized. Skeletal structures: The skeletal structures are osteopenic. There is moderate to advanced lumbosacra l spondylosis. No lytic or blastic lesions are seen. A right hip arthroplasty is in place. Advanced a rthritic change is seen in the left hip. There are healed left-sided pubic ring fractures. IMPRESSION: 1. Suboptimal examination without oral and IV contrast. 2. Findings are consistent with acute appendicitis. 3. There is no evidence of abscess or perforation. 4. Question cystitis. Correlate with clinical findings and urinalysis. 5. Colonic diverticulosis without CT evidence of acute diverticulitis. 5. A mildly enlarged retroperitoneal lymph node is nonspecific and unchanged. 6. Additional findings as above. ACT 112: Negative or not required by law. Electronically signed by: Weston Gallego M.D. 06/13/2021 8:51 PM
[2021-06-13 21:09] LABS: Albumin Globulin Ratio 1.3 (0.9-2); Albumin Level 4.1 gm/dl (3.4-5.0); BUN Creatinine Ratio 20.3 (10-20); Bilirubin,Total 0.8 mg/dl (0.2-1.0); Calcium 9.4 mg/dl (8.5-10.1); Creatinine Clr Calc Pharmacy 49.8 ml/min; Est GFR (African American) 81.9 ml/min; Est GFR (Non-African American) 70.7 ml/min; Globulin 3.2 gm/dl (2.5-4.0); Total Protein 7.3 gm/dl (6.0-8.3)
[2021-06-13 21:10] LABS: Potassium 3.8 mmol/L (3.5-5.1)
[2021-06-13] MEDS ORDERED: cefOXitin 2,000 MG/60 ML BAG IV STA (21:22)
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
[2021-06-13] MEDS ORDERED: ROCURONIUM BROMIDE 10 MG/ML 5 ML VIAL IV ONE (22:19)
[2021-06-13] MEDS ORDERED: SUCCINYLCHOLINE 100MG/5ML SYR IV ONE (22:19)
[2021-06-13] MEDS ORDERED: LIDOCAINE 2% 20 MG/ML 5 ML SYR IV ONE (22:19)
[2021-06-13] MEDS ORDERED: fentaNYL citrate 100 MCG/2 ML VIAL ONE (22:19)
[2021-06-13] MEDS ORDERED: PROPOFOL IV EMULSION 10 MG/ML 20 ML VIAL IV ONE (22:19)
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
[2021-06-13] MEDS ORDERED: EPINEPHrine INJ 1 MG/ML AMP ONE (22:40)
[2021-06-13] MEDS ORDERED: BUPIVACAINE 0.5 % 5 MG/1 ML MPF 30ML VIAL ONE (22:41)
[2021-06-13] MEDS ORDERED: ceFAZolin 330 MG/ML 1 GM VIAL ONE (23:28)
[2021-06-13] MEDS ORDERED: SUGAMMADEX SODIUM 200 MG/2 ML VIAL IV ONE (23:28)
[2021-06-13] MEDS ORDERED: ONDANSETRON INJ 2 MG/ML 2 ML VIAL ONE (23:28)
[2021-06-13] MEDS ORDERED: LABETALOL HCL IV 5 MG/ML 20ML IV PRN (23:49)
[2021-06-13] MEDS ORDERED: fentaNYL citrate 100 MCG/2 ML VIAL IV PRN (23:49)
[2021-06-13] MEDS ORDERED: ATROPINE SULFATE 0.1 MG/ML 10ML SYR IV PRN (23:49)
[2021-06-13] MEDS ORDERED: ONDANSETRON INJ 2 MG/ML 2 ML VIAL IV PRN (23:49)
[2021-06-13] MEDS ORDERED: ePHEDrine sulfate 50 MG/ML AMP IV PRN (23:49)
[2021-06-13] MEDS ORDERED: ceFAZolin 2000MG 2,000 MG/15 ML SYR IV ONE (23:50)
--- NOTE | 2021-06-14 | Post Operative Brief Note ---
Immediate Post Op Note v1 Date of Surgery June 13, 2021 Pre & Post Diagnosis Operation Date: 06/13/21 22:25 Pre-Op Diagnosis: Acute appendicitis Post-Op Diagnosis: Acute appendicitis I identified the patient and participated in the time-out.: Yes Procedure Operation Date: 06/13/21 22:25 Actual Procedures p Laparoscopic Appendectomy(Not Applicable) - Colt Caraballo MD Surgeon Colt Caraballo MD Macadam Raker none Estimated Blood Loss 25 Findings Consistent with Post-Op Diagnosis
[2021-06-14] MEDS ORDERED: oxyCODONE/ACETAMINOPHEN 5mg/325mg TAB PO PRN ×4 (00:09→01:36)
[2021-06-14] MEDS ORDERED: MoRPHine SULFATE 4 MG/ML 1 ML CARP\\VIAL IV PRN ×2 (00:10→01:36)
[2021-06-14] MEDS ORDERED: MoRPHine SULFATE 2 MG/ML CARP IV PRN ×2 (00:10→01:36)
[2021-06-14] MEDS ORDERED: ONDANSETRON INJ 2 MG/ML 2 ML VIAL IV PRN ×2 (00:14→01:36)
[2021-06-14] MEDS ORDERED: LABETALOL HCL IV 5 MG/ML 20ML IV ONE (00:16)
--- NOTE | 2021-06-14 00:27 | Anesthesiology Progress Note ---
Date of Service June 14, 2021 Anesthesia Post Procedure Vital Signs Vital Signs: Temp Pulse Resp BP Pulse Ox 06/13/21 17:49 97.3 F L 65 20 127/72 97 Pain Intensity Right Lower Abdomen: Pain Intensity: 5 Transfer of Care Handoff Completed per policy Notes Mental Status: alert / awake / arousable and participated in evaluation Patient Amnestic to Procedure: Yes Nausea / Vomiting: adequately controlled Pain: adequately controlled Airway Patency, RR, SpO2: stable & adequate BP & HR: stable & adequate Hydration State: stable & adequate Anesthetic Complications: no major complications apparent and Pt Satisfied with anesthetic care
[2021-06-14] MEDS ORDERED: LACTATED RINGER'S 1,000 ML IV SCH ×2 (00:30→01:36)
--- NOTE | 2021-06-14 00:47 | Operative Report (OR) ---
PREOPERATIVE DIAGNOSIS: Acute appendicitis. POSTOPERATIVE DIAGNOSIS: Acute appendicitis. PROCEDURES PERFORMED: Laparoscopic appendectomy. SURGEON: Colt Caraballo MD GATEKEEPER: None. ANESTHESIA: General endotracheal with 0.5% Marcaine with epinephrine local. ESTIMATED BLOOD LOSS: 25 mL COMPLICATIONS: None. DRAINS: None. SPECIMEN: Appendix sent for pathologic evaluation. INDICATIONS: This is an 81-year-old female who came into the ER [facility] complaining of abdominal ivonne n since this morning. She underwent a complete workup including a CT scan, which showed an acute ralph endicitis. There is no sign of perforation. We talked to her in detail about the findings. Recomme nded laparoscopic appendectomy. We gave her some antibiotics and was taken to the OR. I went over t he risks of an open procedure and abscess, reoperation or CT-guided drainage, bleeding requiring leone sfusion, and possible wound problems including infection and hernia. She understood all this and wis hes to proceed. DESCRIPTION OF PROCEDURE: The patient was taken to the OR and underwent excellent general endotrache al anesthesia. Her abdomen was prepped and draped in normal sterile fashion. Transverse supraumbili vanita incision was made and towel clips were used to retract her abdominal wall. A Veress needle was i nserted without difficulty. A good pneumoperitoneum was achieved to about 15 mmHg pressure. A visua lized 11 port was placed through here. Good diagnostic lap was performed. She had a previous low mi dline incision for some adhesions, but no bowel was stuck to the abdominal wall. Under direct visual ization, a 5 suprapubic, and 12 left lower quadrant were placed away from the adhesions. A 5 right u pper quadrant was placed also. The patient was placed in head down and rolled to the left. Using th e left upper quadrant port, a Levi clamp was used to grasp the cecum. The appendix was identified , it was tethered to the right abdominal wall. Using blunt dissection, this was freed up, The adhesi ons were taken down with Harmonic scalpel. Harmonic scalpel was then used to take down the [place] without difficulty. There was minimal bleeding about 25 mL. Once the base of the appendix was id entified, a YENNIFER 45 purple load was used to transect the appendix at its base. This was then brought out with an Endobag and sent for pathologic evaluation. Pneumoperitoneum was reestablished as the le ft lower quadrant port was replaced. The abdomen was then irrigated out with about 2 liters of salin e. There was a small bleeder on the lateral edge of the staple line and an endoclip was used to clip this. At the end of the procedure, there was no sign of bleeding, there were no other abnormalities noted. The ports were removed. The pneumoperitoneum was decompressed. The 0 Vicryl was used to cl ose the fascial defect of 11 and 12 port. Marcaine was used to create a local field block. Interrup ana luisa Vicryl was used to close the skin. Steri-Strips and benzoin were was used to reinforce the incis ion. Sterile dressings were applied. The patient tolerated the procedure without complications and was sent to the postoperative recovery room. The patient will be sent to the floor for her care. Job ID: [id number]
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
[2021-06-14] MEDS ORDERED: DC ALL PREVIOUSLY ORDERED DIABETES MEDS ONE (03:11)
[2021-06-14] MEDS ORDERED: CARBOHYDRATES FOR HYPOGLYCEMIA PO PRN (03:11)
[2021-06-14] MEDS ORDERED: GLUCAGON FOR INJ 1 MG VIAL SQ PRN (03:11)
[2021-06-14] MEDS ORDERED: DEXTROSE 50% 50 ML SYRINGE IV PRN (03:11)
[2021-06-14] MEDS ORDERED: GLUCOSE 40% GEL 15 GM TUBE PO PRN (03:11)
[2021-06-14] MEDS ORDERED: GLUCOSE 10 TABS/TUBE PO PRN (03:11)
[2021-06-14] MEDS ORDERED: cefOXitin 2,000 MG in DEXTROSE 5% 50 ML IV SCH (04:00)
[2021-06-14] MEDS: cefOXitin 2,000 MG in DEXTROSE 5% 50 ML IV SCH ×3 (05:52→22:04)
[2021-06-14] MEDS: lisinopril 10 MG TAB PO SCH (08:53)
[2021-06-14] MEDS: FAMOTIDINE 10 MG TABLET PO SCH ×2 (08:53→22:02)
[2021-06-14] MEDS: METOPROLOL SUCC 25MG EXT REL TAB PO SCH (08:54)
[2021-06-14 08:59] LABS: Hematocrit (blood only) 33.7 % (37-47); Hemoglobin 11.2 g/dL (12.0-16.0); Mean Corpuscular Hemoglobin 29.2 pg (25-34); Mean Corpuscular Hgb Conc 33.2 g/dL (32-36); Mean Platelet Volume 11.3 fL (7.4-10.4); Platelet Count 181 K/uL (130-400); RDW Coefficient of Variation 14.7 % (11.5-14.5); RDW Standard Deviation 47.7 fL (36.4-46.3); Red Blood Count 3.83 M/uL (4.2-5.4); White Blood Count 10.32 K/uL (4.8-10.8)
[2021-06-14] MEDS ORDERED: NON-FORMULARY MEDICATION (Glipizide 10 mg tablet extended release 24hr) PO SCH (09:00)
[2021-06-14] MEDS: INSULIN ASPART PER UNIT SC SCH ×4 (09:00→21:59)
[2021-06-14 09:20] LABS: Calcium 8.2 mg/dl (8.5-10.1); Creatinine Clr Calc Pharmacy 51.6 ml/min; Est GFR (African American) 84.5 ml/min; Est GFR (Non-African American) 72.9 ml/min; Magnesium 1.6 mg/dl (1.7-2.4); Potassium 3.5 mmol/L (3.5-5.1)
--- NOTE | 2021-06-14 10:05 | Hospitalist Progress Note ---
Date of Service June 14, 2021 Assessment & Plan (1) Acute appendicitis: Plan: 81-year-old white female presented to the emergency department complaining of abdominal pain and found to have radiographic evidence of acute appendicitis without perforation or abscess. Normal WBC count. Afebrile. Hemodynamically stable. Is s/p laparoscopic cholecystectomyDrMary Caraballo Recommend postoperative pain management, perioperative antibiotic prophylaxis, and DVT prophylaxisat discretion of primary team Patient receiving IV fluids and has a history of SIADH. She is currently tolerating oral intake. IV fluids subsequently stopped (2) SIADH (syndrome of inappropriate ADH production): Plan: Hospitalized 10/09 for hyponatremia (114) with associated seizure disorder Seen by nephrology at that point who reported due to free water fluid excess with poor solute intake Sodium 137 upon presentation this hospitalization Recommend discontinuation of IV fluids to prevent hyponatremia as patient tolerating oral intakecontinue fluid restricted diet Patient with multiple questions regarding this hospitalization. Discussed her SIADH is likely secondary to her underlying Lexapro. She is requesting this medication be stopped (see below) (3) Hypertension: Plan: Continue metoprolol and lisinopril as prior to hospitalization Current BP 126/68 (4) Anxiety and depression: Plan: Patient currently taking Lexapro 20 mg daily and Xanax 0.5 mg twice daily Lexapro likely contributing to her underlying SIADH. Patient requesting this medication be stopped. Lengthy discussion with her that you cannot just discontinue this medication at the current dose but can decrease from 20 mg to 10 mg Further down titration or discontinuation is at the discretion of her PCP Lengthy discussion with patient regarding benzodiazepines in elderly; however, she refuses change of this medication. Takes 0.5 mg twice dailycannot just stop this medication. We will continue while in house (5) Diabetes: Plan: Patient takes Amaryl daily (currently on hold)--would agree with holding this for now and utilizing sliding scale while in house Blood sugar close to 200 this morning. We will add basal insulin at night while in house Last A1c drawn and acceptable at 7.8% Plan: Currently, patient is medically and hemodynamically stable for discharge once cleared by surgery; however, patient reports excessive fatigue and "not feeling ready for discharge". I have discussed this with general surgery and they will keep her overnight with anticipated discharge tomorrow. Will spot review her labs in the morning but pending labs remained stable, no contraindication to proceed with discharge. Thank you for allowing me to participate in the care of this patient. Admission and Anticipated Discharge Date Admission Date: June 13, 2021 Subjective Patient seen on daily rounds today. Is s/p laparoscopic appendectomy done early this morning (overnight hours) for acute appendicitis. Patient with ongoing pain next week. Had subjective chills/subjective fevers without objective findings. White blood cell count was normal. Denied nausea or vomiting. Subsequently came to the ED where she was found to have acute appendicitis and is s/p appendectomy. Patient does have an underlying history of SIADH. Was actually hospitalized September 2020 with a sodium of 114 resulting in a seizure. She has been on a fluid restricted diet since that time (seen by nephrology). She does take Lexapro daily. Discussed that this can cause SIADH and she is requesting stopping this medication. She is taking 20 mg daily. In addition, she does take Xanax twice daily. Lengthy discussion regarding this medication and benzodiazepines not being ideal in patients her age, she refuses a change in this medication. Overall, patient's pain is adequately controlled. Denies fevers, chills, chest pain, shortness of breath, abdominal pain, nausea or vomiting. She is tolerating oral intake. Review of Systems Review of Systems: All systems reviewed and are unremarkable except as noted in HPI and below Denies fevers, chills, headache, nasal congestion, sore throat, cough, chest pain, shortness of breath, palpitations, orthopnea, PND, nausea, vomiting, diarrhea, constipation, dysuria, hematuria, frequency, back pain, joint pain or swelling, easy bruising or bleeding, skin lesions or rashes. Physical Exam Physical Exam: General: Resting comfortably in her bedside chair. NAD. HEENT: Head is AT/NC. Buccal mucosa is moist and pink Neck: No JVD. Negative hepatojugular reflex Cardiac: RRR without M/G/R Lungs: CTA without W/R/R Abdomen: Normoactive X4. Surgical dressing to mid abdomen and lower quadrant. Dressing dry. Extremities: No peripheral clubbing cyanosis or edema Neuro: A&O X4. Cranial nerves II through XII are grossly intact. No focal neuro deficits Skin: No obvious skin lesions or rashes Psych: Appropriate affect. Pleasant and cooperative Results & Data Results & Data ([facility]) Vital Signs (Past 12 Hours) Vital Signs Temp Pulse Resp BP Pulse Ox Pulse Ox 06/14/21 08:00 36.9 C 83 18 130/65 92 06/14/21 04:51 37.1 C 86 14 116/66 93 06/14/21 04:06 37.0 C 81 14 136/73 92 06/14/21 02:50 37.0 C 78 16 136/69 95 06/14/21 02:27 36.8 C 95 H 16 125/68 96 06/14/21 01:50 36.8 C 66 16 137/64 94 92 06/14/21 00:45 36.8 C 71 20 145/61 H 99 06/14/21 00:35 82 18 146/68 H 97 06/14/21 00:25 81 20 157/74 H 98 06/14/21 00:15 82 16 172/80 H 100 06/14/21 00:05 37.1 C 86 18 179/86 H 97 Laboratory Results 06/14/21 08:34 06/14/21 08:34 PG Care Time/CCT Total # of Minutes Spent Total Time Spent with Patient: Total time spent is greater than 50% in coordination of care (as documented) at patient's floor/unit and/or counseling patient: Coding Level of Care Code None Diagnoses Acute appendicitis K35.80 SIADH (syndrome of inappropriate ADH production) E22.2 Hypertension I10 Hypertension type: unspecified Anxiety and depression F41.9; F32.A Diabetes E11.9 (1) Hypertension Hypertension type: unspecified Qualified Code(s): I10 - Essential (primary) hypertension
[2021-06-14] MEDS: ESCITALOPRAM OXALATE 10 MG TAB PO SCH (10:36)
[2021-06-14] MEDS ORDERED: ACETAMINOPHEN 325 MG TAB PO PRN (11:54)
--- NOTE | 2021-06-14 12:40 | Surgery Progress Note ---
Date of Service June 14, 2021 Assessment & Plan (1) Acute appendicitis with localized peritonitis: (2) Diabetes: (3) Hypertension: Plan: POD # 0 s/p laparoscopic appendectomy - afebrile, vss - postop pain mild to moderate - no n/v, tolerating clear liquids Plan: PO Tylenol as needed for pain Advance diet as tolerated continue IV abx encouraged OOB to chair and ambulation with assistance today hopeful discharge tomorrow Dr. Abernathy has seen patient and agrees wtih above Admission and Anticipated Discharge Date Admission Date: June 13, 2021 Subjective feeling better today but having tenderness in the right lower abdomen and incision sites tolerated clear liquids this morning no nausea or vomiting no chest pain or shortness of breath Physical Exam Constitutional: WD/WN, vitals as above no acute distress and not ill appearing Neck: normal visual inspection and trachea midline Respiratory: normal respiratory effort; no respiratory distress Gastrointestinal (Abdomen): Inspection/Auscultation: abdomen normal to inspection and + abdominal surgical incision (covered with clean/dry dressings); abdomen not distended Percussion/Palpation: + abdomen tender (at incision sites appropriate postop) and abdomen soft; no guarding and abdomen not rigid Skin: no rashes, warm and dry Psychiatric: A+Ox3, euthymic affect Results & Data ([facility]) Vital Signs (Past 12 Hours) Vital Signs Temp Pulse Resp BP Pulse Ox Pulse Ox 06/14/21 10:56 36.8 C 62 19 126/68 99 06/14/21 08:00 36.9 C 83 18 130/65 92 06/14/21 04:51 37.1 C 86 14 116/66 93 06/14/21 04:06 37.0 C 81 14 136/73 92 06/14/21 02:50 37.0 C 78 16 136/69 95 06/14/21 02:27 36.8 C 95 H 16 125/68 96 06/14/21 01:50 36.8 C 66 16 137/64 94 92 06/14/21 00:45 36.8 C 71 20 145/61 H 99 Laboratory Results 06/14/21 06/14/21 06/14/21 Range/Units 12:17 08:34 08:34 WBC 10.32 (4.8-10.8) K/uL RBC 3.83 L (4.2-5.4) M/uL Hgb 11.2 L (12.0-16.0) g/dL Hct 33.7 L (37-47) % MCV 88.0 (80-100) fL MCH 29.2 (25-34) pg MCHC 33.2 (32-36) g/dL RDW Std Deviation 47.7 H (36.4-46.3) fL RDW Coeff of Boris 14.7 H (11.5-14.5) % Plt Count 181 (130-400) K/uL MPV 11.3 H (7.4-10.4) fL Immature Gran % (Auto) % Neut % (Auto) % Lymph % (Auto) % [place] % (Auto) % Eos % (Auto) % Baso % (Auto) % Neut # (Auto) (1.4-6.5) K/uL Lymph # (Auto) (1.2-3.4) K/uL [place] # (Auto) (0.11-0.59) K/uL Eos # (Auto) (0-0.5) K/uL Baso # (Auto) (0-0.2) K/uL Immature Gran # (Auto) (0.00-0.02) K/uL Sodium 137 (136-145) mmol/L Potassium 3.5 (3.5-5.1) mmol/L Chloride 105 (98-107) mmol/L Carbon Dioxide 26 (21-32) mmol/L Anion Gap 6 (3-11) BUN 10 (6-23) mg/dl Creatinine 0.77 (0.6-1.2) mg/dl Est Cr Clr Drug Dosing 51.6 ml/min Est GFR ( Amer) 84.5 ml/min Est GFR (Non-Af Amer) 72.9 ml/min BUN/Creatinine Ratio 13.0 (10-20) Glucose 224 H (70-99(Fasting)) mg/dl POC Glucose 181 H (70-99) mg/dl Calcium 8.2 L (8.5-10.1) mg/dl Magnesium 1.6 L (1.7-2.4) mg/dl Total Bilirubin (0.2-1.0) mg/dl AST (13-39) U/L ALT (7-52) U/L Alkaline Phosphatase (34-104) U/L Total Protein (6.0-8.3) gm/dl Albumin (3.4-5.0) gm/dl Globulin (2.5-4.0) gm/dl Albumin/Globulin Ratio (0.9-2) Lipase (11-82) U/L Urine Color Urine Appearance (Clear) Urine pH (4.5-7.5) Ur Specific Addy (1.000-1.030) Urine Protein (Negative) Urine Glucose (UA) (Negative) Urine Ketones (Negative) Urine Blood (Negative) Urine Nitrite (Negative) Urine Bilirubin (Negative) Urine Urobilinogen (Negative) Ur Leukocyte Esterase (Negative) SARS-CoV-2, RNA, NAAT (NEGATIVE) 06/14/21 06/13/21 06/13/21 Range/Units 07:57 21:45 20:29 WBC (4.8-10.8) K/uL RBC (4.2-5.4) M/uL Hgb (12.0-16.0) g/dL Hct (37-47) % MCV (80-100) fL MCH (25-34) pg MCHC (32-36) g/dL RDW Std Deviation (36.4-46.3) fL RDW Coeff of Boris (11.5-14.5) % Plt Count (130-400) K/uL MPV (7.4-10.4) fL Immature Gran % (Auto) % Neut % (Auto) % Lymph % (Auto) % [place] % (Auto) % Eos % (Auto) % Baso % (Auto) % Neut # (Auto) (1.4-6.5) K/uL Lymph # (Auto) (1.2-3.4) K/uL [place] # (Auto) (0.11-0.59) K/uL Eos # (Auto) (0-0.5) K/uL Baso # (Auto) (0-0.2) K/uL Immature Gran # (Auto) (0.00-0.02) K/uL Sodium (136-145) mmol/L Potassium (3.5-5.1) mmol/L Chloride (98-107) mmol/L Carbon Dioxide (21-32) mmol/L Anion Gap (3-11) BUN (6-23) mg/dl Creatinine (0.6-1.2) mg/dl Est Cr Clr Drug Dosing ml/min Est GFR ( Amer) ml/min Est GFR (Non-Af Amer) ml/min BUN/Creatinine Ratio (10-20) Glucose (70-99(Fasting)) mg/dl POC Glucose 193 H 108 H (70-99) mg/dl Calcium (8.5-10.1) mg/dl Magnesium (1.7-2.4) mg/dl Total Bilirubin (0.2-1.0) mg/dl AST (13-39) U/L ALT (7-52) U/L Alkaline Phosphatase (34-104) U/L Total Protein (6.0-8.3) gm/dl Albumin (3.4-5.0) gm/dl Globulin (2.5-4.0) gm/dl Albumin/Globulin Ratio (0.9-2) Lipase (11-82) U/L Urine Color Urine Appearance (Clear) Urine pH (4.5-7.5) Ur Specific Addy (1.000-1.030) Urine Protein (Negative) Urine Glucose (UA) (Negative) Urine Ketones (Negative) Urine Blood (Negative) Urine Nitrite (Negative) Urine Bilirubin (Negative) Urine Urobilinogen (Negative) Ur Leukocyte Esterase (Negative) SARS-CoV-2, RNA, NAAT NEGATIVE (NEGATIVE) 06/13/21 06/13/21 06/13/21 Range/Units 20:14 20:14 19:12 WBC 11.03 H (4.8-10.8) K/uL RBC 4.30 (4.2-5.4) M/uL Hgb 12.7 (12.0-16.0) g/dL Hct 37.4 (37-47) % MCV 87.0 (80-100) fL MCH 29.5 (25-34) pg MCHC 34.0 (32-36) g/dL RDW Std Deviation 46.4 H (36.4-46.3) fL RDW Coeff of Boris 14.6 H (11.5-14.5) % Plt Count 225 (130-400) K/uL MPV 11.8 H (7.4-10.4) fL Immature Gran % (Auto) 0.2 % Neut % (Auto) 73.7 % Lymph % (Auto) 16.6 % [place] % (Auto) 8.1 % Eos % (Auto) 1.0 % Baso % (Auto) 0.4 % Neut # (Auto) 8.14 H (1.4-6.5) K/uL Lymph # (Auto) 1.83 (1.2-3.4) K/uL [place] # (Auto) 0.89 H (0.11-0.59) K/uL Eos # (Auto) 0.11 (0-0.5) K/uL Baso # (Auto) 0.04 (0-0.2) K/uL Immature Gran # (Auto) 0.02 (0.00-0.02) K/uL Sodium 137 (136-145) mmol/L Potassium 3.8 (3.5-5.1) mmol/L Chloride 103 (98-107) mmol/L Carbon Dioxide 26 (21-32) mmol/L Anion Gap 8 (3-11) BUN 16 (6-23) mg/dl Creatinine 0.79 (0.6-1.2) mg/dl Est Cr Clr Drug Dosing 49.8 ml/min Est GFR ( Amer) 81.9 ml/min Est GFR (Non-Af Amer) 70.7 ml/min BUN/Creatinine Ratio 20.3 H (10-20) Glucose 117 H (70-99(Fasting)) mg/dl POC Glucose (70-99) mg/dl Calcium 9.4 (8.5-10.1) mg/dl Magnesium (1.7-2.4) mg/dl Total Bilirubin 0.8 (0.2-1.0) mg/dl AST 19 (13-39) U/L ALT 13 (7-52) U/L Alkaline Phosphatase 59 (34-104) U/L Total Protein 7.3 (6.0-8.3) gm/dl Albumin 4.1 (3.4-5.0) gm/dl Globulin 3.2 (2.5-4.0) gm/dl Albumin/Globulin Ratio 1.3 (0.9-2) Lipase 17 (11-82) U/L Urine Color Yellow Urine Appearance Clear (Clear) Urine pH 6.0 (4.5-7.5) Ur Specific Addy 1.003 (1.000-1.030) Urine Protein Negative (Negative) Urine Glucose (UA) Negative (Negative) Urine Ketones Negative (Negative) Urine Blood Negative (Negative) Urine Nitrite Negative (Negative) Urine Bilirubin Negative (Negative) Urine Urobilinogen Negative (Negative) Ur Leukocyte Esterase Negative (Negative) SARS-CoV-2, RNA, NAAT (NEGATIVE) (1) Acute appendicitis with localized peritonitis Appendicitis abscess presence: unspecified whether abscess present Appendicitis gangrene presence: unspecified whether gangrene present Appendicitis perforation presence: unspecified whether perforation present Qualified Code(s): K35.30 - Acute appendicitis with localized peritonitis, without perforation or gangrene (2) Hypertension Hypertension type: unspecified Qualified Code(s): I10 - Essential (primary) hypertension
[2021-06-14] MEDS ORDERED: NURSING DECISION MEDICATION PRN (19:57)
[2021-06-14] MEDS ORDERED: COUGH DROP (SUGAR FREE) LOZ 24 LOZ/1 BOX BUCCAL PRN (20:36)
--- NOTE | 2021-06-14 21:44 | Billing Data ---
Date of Service June 14, 2021 Coding Level of Care Code 09358 Inpt Consult Level 3
[2021-06-14] MEDS: DOCUSATE SODIUM 100 MG CAP PO SCH (22:02)
[2021-06-14] MEDS: INSULIN GLARGINE SOLOSTAR 100 UNITS/ML 3 ML PEN SC SCH (22:03)
[2021-06-14] MEDS: ALPRAZolam 0.5 MG TABLET PO PRN (22:09)
[2021-06-15] MEDS: cefOXitin 2,000 MG in DEXTROSE 5% 50 ML IV SCH ×3 (05:39→20:53)
[2021-06-15] MEDS ORDERED: MAGNESIUM SULFATE / D5W 1 GM/100 ML BAG IV ONE (07:30)
[2021-06-15 07:57] LABS: BUN Creatinine Ratio 14.1 (10-20); Calcium 8.4 mg/dl (8.5-10.1); Creatinine Clr Calc Pharmacy 46.8 ml/min; Est GFR (Non-African American) 64.7 ml/min; Magnesium 1.7 mg/dl (1.7-2.4); Potassium 3.6 mmol/L (3.5-5.1)
[2021-06-15 08:54] LABS: Basophils # (auto) 0.03 K/uL (0-0.2); Basophils % (auto) 0.5 %; Eosinophils # (auto) 0.14 K/uL (0-0.5); Eosinophils % (auto) 2.2 %; Hematocrit (blood only) 34.5 % (37-47); Hemoglobin 11.5 g/dL (12.0-16.0); Immature Granulocytes # (auto) 0.01 K/uL (0.00-0.02); Immature Granulocytes % (auto) 0.2 %; Lymphocytes # (auto) 1.41 K/uL (1.2-3.4); Lymphocytes % (auto) 22.3 %; Mean Corpuscular Hemoglobin 29.1 pg (25-34); Mean Corpuscular Hgb Conc 33.3 g/dL (32-36); Mean Corpuscular Volume 87.3 fL (80-100); Mean Platelet Volume 11.7 fL (7.4-10.4); Monocytes # (auto) 0.57 K/uL (0.11-0.59); Neutrophils # (auto) 4.17 K/uL (1.4-6.5); Neutrophils % (auto) 65.8 %; Platelet Count 192 K/uL (130-400); RDW Coefficient of Variation 14.8 % (11.5-14.5); RDW Standard Deviation 47.9 fL (36.4-46.3); Red Blood Count 3.95 M/uL (4.2-5.4); White Blood Count 6.33 K/uL (4.8-10.8)
[2021-06-15] MEDS: METOPROLOL SUCC 25MG EXT REL TAB PO SCH (09:19)
[2021-06-15] MEDS: INSULIN ASPART PER UNIT SC SCH ×4 (09:23→20:48)
[2021-06-15] MEDS: lisinopril 10 MG TAB PO SCH (09:25)
[2021-06-15] MEDS: ESCITALOPRAM OXALATE 10 MG TAB PO SCH (09:28)
[2021-06-15] MEDS: FAMOTIDINE 10 MG TABLET PO SCH ×2 (09:28→20:49)
[2021-06-15] MEDS: DOCUSATE SODIUM 100 MG CAP PO SCH ×2 (09:28→20:49)
[2021-06-15] MEDS: ALPRAZolam 0.5 MG TABLET PO PRN (17:04)
--- NOTE | 2021-06-15 18:29 | Surgery Progress Note ---
Date of Service June 15, 2021 Assessment & Plan (1) Acute appendicitis with localized peritonitis: (2) Diabetes: (3) Hypertension: Plan: POD # 1 s/p laparoscopic appendectomy - afebrile, vss - postop pain mild to moderate - no n/v, tolerating DM diet Plan: PO Tylenol as needed for pain encouraged OOB to chair and ambulation hopeful discharge tomorrow with home PT coming Sunday Admission and Anticipated Discharge Date Admission Date: June 13, 2021 Subjective abdominal pain is better today no n/v tolerating diet anxious today Physical therapy saw today recommending home PT Physical Exam Constitutional: WD/WN, vitals as above no acute distress and not ill appearing Respiratory: normal respiratory effort; no respiratory distress Gastrointestinal (Abdomen): Inspection/Auscultation: abdomen normal to inspection and + abdominal surgical incision (covered with dry dressings); abdomen not distended Percussion/Palpation: + abdomen tender (RLQ on deep palpation) and abdomen soft; no guarding and abdomen not rigid Skin: no rashes, warm and dry Psychiatric: Orientation: alert and oriented x 3 Results & Data ([facility]) Vital Signs (Past 12 Hours) Vital Signs Temp Pulse Resp BP Pulse Ox 06/15/21 15:14 36.4 C L 61 16 101/57 L 95 06/15/21 11:00 36.8 C 58 L 18 109/49 L 100 06/15/21 09:25 62 96/58 L 06/15/21 07:00 36.9 C 60 16 96/57 L 94 (1) Acute appendicitis with localized peritonitis Appendicitis abscess presence: unspecified whether abscess present Appendicitis gangrene presence: unspecified whether gangrene present Appendicitis perforation presence: unspecified whether perforation present Qualified Code(s): K35.30 - Acute appendicitis with localized peritonitis, without perforation or gangrene (2) Hypertension Hypertension type: unspecified Qualified Code(s): I10 - Essential (primary) hypertension
[2021-06-15] MEDS: INSULIN GLARGINE SOLOSTAR 100 UNITS/ML 3 ML PEN SC SCH (20:50)
[2021-06-16] MEDS: cefOXitin 2,000 MG in DEXTROSE 5% 50 ML IV SCH (05:06)
[2021-06-16] MEDS: INSULIN ASPART PER UNIT SC SCH (08:56)
[2021-06-16] MEDS: DOCUSATE SODIUM 100 MG CAP PO SCH (08:57)
[2021-06-16] MEDS: FAMOTIDINE 10 MG TABLET PO SCH (08:58)
[2021-06-16] MEDS: ESCITALOPRAM OXALATE 10 MG TAB PO SCH (08:58)
[2021-06-16] MEDS: lisinopril 10 MG TAB PO SCH (08:58)
[2021-06-16] MEDS: METOPROLOL SUCC 25MG EXT REL TAB PO SCH (08:59)
--- NOTE | 2021-06-16 14:12 | Discharge Summary ---
Date of Service June 16, 2021 Admission HPI Per Admitting Provider This is a 81-year-old female who presents the ER for right lower quadrant abdominal pain which started earlier this morning. She has associated nausea but no vomiting. She admits to a small bowel movement this morning. She has had chronic diarrhea, recent dysuria. No vaginal bleeding vaginal discharge. She denies fever or chills. A CT scan shows early acute appendicitis Principal Diagnosis Acute appendicitis Discharge Exam Constitutional WD/WN, vitals as above no acute distress and not ill appearing Neck normal visual inspection and trachea midline Respiratory normal respiratory effort; no respiratory distress Gastrointestinal (Abdomen) Inspection/Auscultation: abdomen normal to inspection; abdomen not distended Percussion/Palpation: abdomen soft; abdomen nontender, no guarding and abdomen not rigid Skin no rashes, warm and dry Psychiatric A+Ox3, euthymic affect Discharge Data Allergies Allergy/AdvReac Type Severity Reaction Status Date / Time Iodinated Contrast Media Allergy Intermediate Shortness Verified 05/04/21 10:16 of Breath CHEST PAIN TIGHTNESS IN CHEST rosiglitazone Allergy Intermediate CHEST PAIN Verified 05/04/21 10:16 atorvastatin [From Lipitor] Allergy Unknown Unknown Verified 05/04/21 10:16 Corticosteroids Allergy Unknown "STEROIDS": Verified 05/04/21 10:16 (Glucocorticoids) "SHORTNESS OF BREATH" iodine Allergy Unknown Unknown Verified 05/04/21 10:16 tetracycline Allergy Unknown Unknown rxn Verified 05/04/21 10:16 pregabalin AdvReac Severe severe Verified 05/04/21 10:16 swelling hands/feet amoxicillin AdvReac Intermediate Gastrointestinal Verified 05/04/21 10:16 Upset clavulanic acid AdvReac Intermediate Gastrointestinal Verified 05/04/21 10:16 Upset hydrocodone AdvReac Intermediate hear races Verified 05/04/21 10:16 ibuprofen AdvReac Intermediate KNOCKS Verified 05/04/21 10:16 EQUILIBRIUM OFF levofloxacin AdvReac Intermediate Dizziness Verified 05/04/21 10:16 metformin AdvReac Intermediate SEVERE Verified 05/04/21 10:16 DIARRHEA omeprazole AdvReac Intermediate SHAKES/TACH Verified 05/04/21 10:16 YCARDIA pantoprazole AdvReac Intermediate SHAKES/TACH Verified 05/04/21 10:16 YCARDIA prednisone AdvReac Intermediate Palpitations Verified 05/04/21 10:16 AND "WENT TO UNIT" (CARDIAC CARE UNIT) codeine AdvReac Mild EQUILIBRIUM Verified 05/04/21 10:16 OFF Penicillins AdvReac Mild Augmentin: Verified 05/04/21 10:16 GI UPSET theophylline AdvReac Mild INCREASED Verified 05/04/21 10:16 HR esomeprazole AdvReac Unknown SHAKES/TACH Verified 05/04/21 10:16 YCARDIA Sulfa (Sulfonamide AdvReac Unknown COULD NOT Verified 05/04/21 10:16 Antibiotics) WALK AND TREMBLED loteprednol AdvReac Headache Verified 05/04/21 10:16 Consultations 06/13/21 21:22 ED Decision to Admit Stat 06/13/21 22:23 Consult Hospitalist Stat Procedures Performed Operation Date: 06/13/21 22:25 Actual Procedures p Laparoscopic Appendectomy(Not Applicable) - Colt Caraballo MD Ordered Studies 06/13/21 19:42 CT abd pelvis wo con Stat Hospital Course (1) Acute appendicitis with localized peritonitis: Patient was taken to the operating room for laparoscopic appendectomy by Dr. Caraballo. Patient was found to have acute appendicitis without any perforation or abscess. Patient tolerated procedure well and was transferred to medical/surgical floor for postoperative care. Her diet was advanced to clear liquids, IV fluids were continued, IV cefoxitin was ordered for postop antibiotics, SCDs for DVT prophylaxis, incentive spirometry, and medicine consultation for her comorbidities. Patient's diet was advanced to regular diet on postop day #1 and she tolerated this well. She was having some abdominal soreness at incision sites and in the right lower quadrant however this was controlled with extra strength Tylenol and no narcotics were needed throughout her hospital stay. Hospitalist recommending discontinuing her IV fluids given history of hyponatremia back in January which was causing seizures. They also recommended that she have her Lexapro from 20 mg to 10 mg daily and discontinue in 1 week. Patient lives at home alone and therefore PT and case management were consulted for discharge planning. PT recommended home health PT on discharge. This was set up for the patient to start on Sunday. Patient was discharged home on postop day #2 in stable condition (2) Diabetes: (3) Hypertension: Total Time Total Time Spent Total Time Spent (In Minutes): 30 Total Time Includes: Examination of the Patient, Discharge Planning and Medication Reconciliation Discharge Plan Discharge Items Patient Disposition: Home - Self-Care Reason For Visit: APPENDICITIS Discharge Diagnosis: Acute appendicitis Activity: Per Instructions section Non-emergency contact: Surgeon Call non-emergency contact if: you have any medication questions, your pain is not controlled, your pain is concerning for you, you have a fever, your temperature is above 101, your wound has increased redness, your wound has increased drainage and your wound pain has increased Follow-up/Referrals: Hyun Morales CRNP [Primary Care Provider] - Colt Caraballo MD [Physician] - 06/27/21 11:00 am Diet: Regular Addtl Attending Provider Instructions: Post-Surgical ~Discharge Instructions Activity Recommendations: - lifting limitation: (20 pounds for 4 weeks), - exercise/sex/sports limit: (nonstrenuous for 2 weeks), - driving or machine use limit: (none for 1 week), - Shower/bathe limit: (may shower beginning tomorrow) Diet: - Resume previous diet SPECIAL CARE INSTRUCTIONS: - May shower. Let water run over area and pat dry. - Leave steri strips on for one week and then remove. They may fall off on their own that is okay. - Call the surgeon's office with any questions or concerns - - (ex. temperature higher than 101 degrees F, excessive bleeding or pain). MEDICATIONS: - Resume previous medications unless instructed otherwise by your surgeon. - Can take extra strength Tylenol as needed for pain -650 mg every 6 hours as needed - As recommended by medicine team you should decrease your Lexapro to 10 mg da jose antonio for 1 week and then stop. Do Not suddenly stop the medication. FOLLOW UP VISIT: - If not already scheduled, please call the office to schedule a two week follow-up appointment in surgery office. Office number Addtl Tuber Operator Provider Instructions: - As discussed, you have a history of a low sodium in the past causing seizures. It is important that you maintain a fluid restricted diet. The ultimate cause is likely related to the Lexapro that you are taking. You have voiced concerns of wanting to stop this medication. Unfortunately, you cannot just stop this medication with the current dose that you are taking. I recommend cutting your current dosage in half and taking 10 mg once daily for a week and then stop. I discussed alternative medications to help control your anxiety but you have declined. I do have reservations with taking long-term Xanax. You can discuss this further with your PCP. You magnesium level was low while in house for which you were given IV magnesium and started on oral supplementation. Take this for 1 week. Further supplementation at the discretion of your PCP. Recommend routine follow up labs at the discretion of your PCP--to continue to trend your Sodium/electrolytes and renal function. Pending Studies at Discharge: Yes (Appendix pathology, will be reviewed at follow-up visit) Stand-Alone Forms: My [facility], Smoking Cessation Medications and DC Order Prescriptions: New magnesium oxide 400 mg magnesium capsule 400 mg PO DAILY Qty: 7 RF: 0 Continued clindamycin HCl 300 mg capsule 1,200 mg PO UD PRN (Reason: PRIOR TO DENTAL APPOINTMENTS.) RF: 0 famotidine [Pepcid] 20 mg tablet 20 mg PO BID RF: 0 fluticasone propionate 50 mcg/actuation spray,suspension 1 spray intranasal DAILY Qty: 15.8 RF: 2 alprazolam [Xanax] 0.5 mg tablet 0.25 - 0.5 mg PO TID PRN (Reason: Anxiety) RF: 0 metoprolol succinate 25 mg tablet extended release 24 hr 25 mg PO DAILY RF: 0 glipizide 10 mg tablet extended release 24hr 10 mg PO BID RF: 0 lisinopril 10 mg Tablet 10 mg PO QAM Qty: 30 RF: 0 Discontinued escitalopram oxalate 20 mg tablet 20 mg PO DAILY RF: 0 Discharge Orders: Discharge Order (Routine); Ordered 06/16/21 Ordered By: Sol Nicole/Other Patient Handouts: Appendectomy Admission Data Admit Date/Time: 06/13/21 22:23 Attending Provider: Colt Caraballo Admit Provider: Colt Caraballo Primary Care Provider: Hyun Morales Other Providers: Colt Caraballo ; Andrae Doe ; [place] Other Interventions: Discharge Summary Assessment (RN) Last Done: 06/16/21 12:22
== END 2021-06-16 13:17 | disposition home or self-care (01) ==
LOC: ED 17:36 → OR 22:55 → 3W 22:55 → OR 22:56

== ENCOUNTER 2021-06-19 09:34 | Observation (INO) ==
[2021-06-19] MEDS ORDERED: SODIUM CHLORIDE 0.9% 500 ML IV STA (10:40)
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
[2021-06-19 11:38] LABS: Albumin Globulin Ratio 1.2 (0.9-2); Albumin Level 3.9 gm/dl (3.4-5.0); BUN Creatinine Ratio 20.5 (10-20); Bilirubin,Total 0.6 mg/dl (0.2-1.0); Calcium 9.5 mg/dl (8.5-10.1); Creatinine Clr Calc Pharmacy 48.8 ml/min; Est GFR (African American) 77.2 ml/min; Est GFR (Non-African American) 66.6 ml/min; Globulin 3.3 gm/dl (2.5-4.0); Potassium 4.6 mmol/L (3.5-5.1); Total Protein 7.2 gm/dl (6.0-8.3)
[2021-06-19 11:50] LABS: Basophils # (auto) 0.03 K/uL (0-0.2); Basophils % (auto) 0.5 %; Eosinophils # (auto) 0.08 K/uL (0-0.5); Eosinophils % (auto) 1.4 %; Hematocrit (blood only) 39.3 % (37-47); Hemoglobin 13.3 g/dL (12.0-16.0); Immature Granulocytes # (auto) 0.02 K/uL (0.00-0.02); Immature Granulocytes % (auto) 0.3 %; Lymphocytes # (auto) 1.31 K/uL (1.2-3.4); Lymphocytes % (auto) 22.4 %; Mean Corpuscular Hemoglobin 29.2 pg (25-34); Mean Corpuscular Hgb Conc 33.8 g/dL (32-36); Mean Corpuscular Volume 86.2 fL (80-100); Mean Platelet Volume 11.6 fL (7.4-10.4); Monocytes # (auto) 0.61 K/uL (0.11-0.59); Monocytes % (auto) 10.4 %; Neutrophils # (auto) 3.79 K/uL (1.4-6.5); Platelet Count 275 K/uL (130-400); RDW Coefficient of Variation 14.7 % (11.5-14.5); RDW Standard Deviation 46.2 fL (36.4-46.3); Red Blood Count 4.56 M/uL (4.2-5.4); White Blood Count 5.84 K/uL (4.8-10.8)
--- NOTE | 2021-06-19 12:08 | CT Scan Report ---
CT SCAN OF THE ABDOMEN AND PELVIS WITHOUT IV CONTRAST CLINICAL HISTORY: Right lower quadrant abdominal pain status post appendectomy. COMPARISON STUDY: Prior abdominal CT scans, most recently dated 06/13/2021. TECHNIQUE: CT scan of the abdomen and pelvis is performed from the lung bases to the proximal femora. Images are reviewed in the axial, sagittal, and coronal planes. IV contrast was not administered for this examination. Note that the examination was performed in suboptimal fashion without oral and IV contrast. The examination is also degraded by motion artifact. A dose lowering technique was utilized adhering to the principles of ALARA. CT DOSE: 428.26 mGy.cm FINDINGS: Lung bases: The heart is normal in size noting trace pericardial effusion. There are calcifications o f the coronary arteries and mitral annulus. The lung bases are clear. A small hiatal hernia is noted. Liver: The unenhanced liver is normal in size, contour, and attenuation. There is no intrahepatic mary ellen iary ductal dilatation. Pneumobilia is unchanged. Gallbladder: Surgically absent noting clips in the gallbladder fossa. Spleen: Normal in size and attenuation. Pancreas: The unenhanced pancreas is moderately atrophic and grossly unremarkable. Adrenal glands: Unremarkable. Kidneys: The unenhanced kidneys demonstrate mild cortical atrophy. There is mild fullness of the jorden l collecting systems without hydronephrosis. Bilateral extrarenal pelvises are noted. No renal calcul i are identified. There is no evidence of contour deforming renal mass lesion. Abdominal vasculature: The abdominal aorta is normal in course and caliber noting moderate atheroscle rotic calcification. Bowel: There is moderate colonic diverticulosis without CT evidence of acute diverticulitis. No bowel obstruction is identified. The appendix is surgically absent. Mild infiltration in the right lower q uadrant is likely a postsurgical basis. No organized fluid collection is seen to suggest abscess. Peritoneum: There is no intraperitoneal free air or abdominal ascites. There is evidence of previous ventral hernia repair. There is postoperative change from right inguinal herniorrhaphy. Postoperative change and calcification is again seen within the right lower quadrant abdominal wall. Mild indurati on within the periumbilical and left lower quadrant abdominal wall Lymphadenopathy: A mildly enlarged aortocaval node on image #105 measures 1.6 x 1.0 cm. No additiona l enlarged lymph nodes are seen in the abdomen or pelvis. Pelvic viscera: Evaluation of the pelvis is degraded by streak artifact from a right hip arthroplasty . The bladder wall appears thickened. The uterus and adnexa are normal as visualized. Skeletal structures: The skeletal structures are osteopenic. There is moderate to advanced lumbosacra l spondylosis. No lytic or blastic lesions are seen. A right hip arthroplasty is in place. Advanced a rthritic change is seen in the left hip. There are healed left-sided pubic ring fractures. IMPRESSION: 1. Suboptimal examination without oral and IV contrast. There is also motion artifact. 2. There has been interval appendectomy as compared 06/13/2021. Minimal stranding right lower quadran t likely represents expected postoperative change. 3. There is no organized fluid collections to suggest abscess. 4. The bladder wall appears mildly thickened. Correlate with clinical findings and urinalysis. 5. Colonic diverticulosis without CT evidence of acute diverticulitis. 6. A mildly enlarged retroperitoneal lymph node is nonspecific and unchanged. 7. Additional findings as above. ACT 112: Negative or not required by law. Electronically signed by: Weston Gallego M.D. 06/19/2021 12:05 PM
[2021-06-19 13:22] LABS: Appearance Urine Clear (Clear); Bilirubin Urine Negative (Negative); Blood Urine Negative (Negative); Color Urine Yellow; Glucose Urine UA Negative (Negative); Ketones Urine Negative (Negative); Leukocyte Esterase Urine Negative (Negative); Nitrite Urine Negative (Negative); Protein Urine Negative (Negative); Specific Gravity Urine 1.006 (1.000-1.030); Urobilinogen Urine Negative (Negative); pH Urine >= 9.0 (4.5-7.5)
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
[2021-06-19] MEDS ORDERED: ACETAMINOPHEN 325 MG TAB ONE (16:21)
[2021-06-19] MEDS ORDERED: CARBOHYDRATES FOR HYPOGLYCEMIA PO PRN (18:08)
[2021-06-19] MEDS ORDERED: GLUCOSE 10 TABS/TUBE PO PRN (18:08)
[2021-06-19] MEDS ORDERED: ALPRAZolam 0.25 MG TABLET PO PRN (18:08)
[2021-06-19] MEDS ORDERED: DEXTROSE 50% 50 ML SYRINGE IV PRN (18:08)
[2021-06-19] MEDS ORDERED: GLUCOSE 40% GEL 15 GM TUBE PO PRN (18:08)
[2021-06-19] MEDS ORDERED: GLUCAGON FOR INJ 1 MG VIAL SQ PRN (18:08)
[2021-06-19] MEDS ORDERED: ONDANSETRON INJ 2 MG/ML 2 ML VIAL IV PRN (18:08)
[2021-06-19] MEDS: INSULIN ASPART PER UNIT SC SCH ×2 (19:52→21:55)
[2021-06-19] MEDS: FAMOTIDINE 20 MG TAB PO SCH (20:20)
[2021-06-19 21:19] LABS: Adenovirus F 40/41 PCR Not Detected (NotDetected); Astrovirus PCR Not Detected (NotDetected); Campylobacter PCR Not Detected (NotDetected); Clostridium diff Toxin A/B PCR Not Detected (NotDetected); Cryptosporidium PCR Not Detected (NotDetected); Cyclospora cayetanensis PCR Not Detected (NotDetected); Entamoeba histolytica PCR Not Detected (NotDetected); Enteroaggregative E.coli(EAEC) Not Detected (NotDetected); Enteropathogenic E.coli (EPEC) Not Detected (NotDetected); Enterotoxigenic E.coli (ETEC) Not Detected (NotDetected); Giardia lamblia PCR Not Detected (NotDetected); Norovirus GI/GII PCR Not Detected (NotDetected); Plesiomonas shigelloides PCR Not Detected (NotDetected); Rotavirus A PCR Not Detected (NotDetected); Salmonella PCR Not Detected (NotDetected); Sapovirus PCR Not Detected (NotDetected); Shiga-like Toxin E.coli (STEC) Not Detected (NotDetected); Shigella/Enteroinvasive E.coli Not Detected (NotDetected); Vibrio cholerae PCR Not Detected (NotDetected); Vibrio species PCR Not Detected (NotDetected); Yersinia enterocolitica PCR Not Detected (NotDetected)
[2021-06-19 23:03] LABS: Hematocrit (blood only) 34.6 % (37-47); Hemoglobin 11.7 g/dL (12.0-16.0)
[2021-06-20] MEDS: ACETAMINOPHEN 325 MG TAB PO PRN (06:04)
[2021-06-20 06:28] LABS: Hematocrit (blood only) 34.8 % (37-47); Hemoglobin 11.8 g/dL (12.0-16.0); Mean Corpuscular Hemoglobin 29.1 pg (25-34); Mean Corpuscular Hgb Conc 33.9 g/dL (32-36); Mean Corpuscular Volume 85.7 fL (80-100); Mean Platelet Volume 11.3 fL (7.4-10.4); Platelet Count 242 K/uL (130-400); RDW Coefficient of Variation 14.9 % (11.5-14.5); RDW Standard Deviation 46.9 fL (36.4-46.3); Red Blood Count 4.06 M/uL (4.2-5.4)
[2021-06-20 06:39] LABS: BUN Creatinine Ratio 15.7 (10-20); Calcium 8.8 mg/dl (8.5-10.1); Creatinine Clr Calc Pharmacy 57.9 ml/min; Est GFR (African American) 94.8 ml/min; Est GFR (Non-African American) 81.8 ml/min; Magnesium 1.7 mg/dl (1.7-2.4); Potassium 3.9 mmol/L (3.5-5.1)
--- NOTE | 2021-06-20 08:43 | Hospitalist Progress Note ---
Date of Service June 20, 2021 Assessment & Plan (1) Diarrhea: Plan: Likely due to antibiotics in the hospital and magnesium that she was prescribed on discharge, however patient reports ongoing diarrhea x months (approximately 6 months duration worsening per patient) or longer. Acute on chronic issue. Reports being followed by [facility] resident medical service and instructed to come to ER for admission given increased R abdominal pain and diarrhea following recent lap appy 06/14. No abscess/fluid collection on CTAP on admission. Did note minimal stranding RLQ likely representing post-op change GI PCR --> NEGATIVE Holding PO magnesium replacement Can use immodium if needed Also reported black/loose stools but no epigastric pain on examination. Hgb 13.3 on admission however suspect hemoconcentrated and repeat in evening 11.7 (11.5 at time of discharge 06/15/21) and stable at 11.8 this morning Will check fecal occult for completeness Was going to place on Protonix (on famotidine BID [employer]ACH[employer]) but reported allergy to protonix and omeprazole for "shakes/tachycardia" however ? if related to caused hypomagnesemia from such. No epigastric pain, as mentioned, for concerns for UGIB at this time but will monitor Last c-scope in system 2014 with 11mm +2mm polyp in cecum c/w sessile serrated adenoma and hyperplastic polyp Of note, patient also told she was "lactose intolerant" and had cut that out of diet but continued with diarrhea. Interestingly she denied having her gallbladder removed in the past, but is surgically absent on imaging. ?if chronic diarrhea since GB removal, ?did discuss possible questran for diarrhea if related Appreciate GI consult/input as requested by patient as she felt not ready for discharge despite decreased/no further diarrhea since last evening and keeping up with oral intake without issue reported. (2) Acute appendicitis: Plan: S/p appendectomy on 06/14. CT a/p on admission does not show any cause for concern. WBC normal. No present issues. F/u with surgery o/p as previously planned. (3) Hypertension: Plan: BP in the ER was 180/100, but lower today Acceptable this morning and was continued on her home lisinopril 10mg, metoprolol 25mg Holding lisinopril for AM, orthostatic vitals ordered for reported dizziness when standing with therapy this morning but denied for myself during evaluation and stood right up from chair to assist with examination and did not report then either Did have slightly dry mm on examination and will order 500cc IVF and monitor status/orthostatic vital signs Continue to monitor (4) Anxiety and depression: Plan: Presently on escitalopram 10 mg PO daily for 5 more days, then stop. (See prior discharge summary note.) I believe this was due to hyponatremia episodes. - Continue escitalopram -- currently weaning to completion - Xanax 0.25 mg PO BID PRN (patient states she takes this pretty much standing without skipping many doses) --> changed to scheduled as she did not get her dose this morning and suspect anxiety related to d/c too early also related to such. Continue to monitor (5) DVT prophylaxis: Plan: SCDs and early ambulation PT/OT consults rec'd rehab --> patient would like to avoid. CM following. Possible home with home therapy given patient with plans to visit [place] later this month and does not want rehab for this reason. Even discussed short nature of rehab and she states she has too many doctor appts and things to do prior to such. Admission and Anticipated Discharge Date Admission Date: June 19, 2021 Supervising Physician Co-Signing Physician Notes Attending Attestation - Chart reviewed in detail, care plan d/w CATIE Rios. I agree w/ the chung components of her documentation. Appreciate GI consultation for the diarrhea. Cam Tucker MD Subjective Patient evaluated this morning. States only 1 episode of diarrhea last evening but has been ongoing issue for at least 5-6 months. Worsened recently but was on antibiotics when in for acute appendicitis. Stools loose, varying in color but does note darkened stools/tarry stools at times. No recent EGD of note and not sure on prior status of c-scope. Would like to discuss with GI specialist. She admits to ongoing right sided abdominal pain and right flank pain/lower right abdominal pain. She states she has not taken anything for the diarrhea or for the pain. Also took 3 days worth of magnesium at home but insistent not contributing since has been having issues for 5-6 months. Doctoring with [facility] family medicine and saw resident day prior. Stated laid flat and screamed out in pain and was instructed to come to the ER for treatment/care. Discussed negative stool studies, however patient states she is not feeling ready for discharge. Seen by PT/OT with recs for rehab -- patient states she is to be going to [place] at the end of the month and lots of appointments and she will be unable to commit to inpatient rehab but is agreeable to home therapy if improving with therapy tomorrow. Review of Systems Review of Systems: All systems reviewed & are unremarkable except as noted in HPI & below Physical Exam Physical Exam: General: WD/WN female sitting up in chair, NAD HEENT: slightly dry mm, trachea midline without deviation, pupils equal and reactive Resp: CTAB, no w/c, on room air CV: RRR, no m/r/g, no calf edema GI: +BS, tenderness RLQ/R flank, minimal RUQ tenderness, no guarding or rebound. Lap scars healing well. L abdomen with steri strips peeling away, minimal erythema, no drainage : no gonzalez MSK/Neuro: moves all extremities, standing without an issue, following commands, strength 4/5 throughout Psych: AOx3, anxious about going home too soon Results & Data Results & Data ([facility]) Vital Signs (Past 12 Hours) Vital Signs Temp Pulse Resp BP Pulse Ox 06/20/21 07:41 36.7 C 75 16 127/67 97 Laboratory Results 06/20/21 06/20/21 06/20/21 Range/Units 12:17 07:59 05:31 WBC (4.8-10.8) K/uL RBC (4.2-5.4) M/uL Hgb (12.0-16.0) g/dL Hct (37-47) % MCV (80-100) fL MCH (25-34) pg MCHC (32-36) g/dL RDW Std Deviation (36.4-46.3) fL RDW Coeff of Boris (11.5-14.5) % Plt Count (130-400) K/uL MPV (7.4-10.4) fL Sodium (136-145) mmol/L Potassium (3.5-5.1) mmol/L Chloride (98-107) mmol/L Carbon Dioxide (21-32) mmol/L Anion Gap (3-11) BUN (6-23) mg/dl Creatinine (0.6-1.2) mg/dl Est Cr Clr Drug Dosing ml/min Est GFR ( Amer) ml/min Est GFR (Non-Af Amer) ml/min BUN/Creatinine Ratio (10-20) Glucose (70-99(Fasting)) mg/dl POC Glucose 210 H 179 H (70-99) mg/dl Estimat Average Glucose 174 mg/dl Hemoglobin A1c 7.7 H (4.5-5.6) % Calcium (8.5-10.1) mg/dl Magnesium (1.7-2.4) mg/dl Stl C. cayetanensis PCR (NotDetected) Stool Rotavirus A PCR (NotDetected) Stl Adenov F 40/41 PCR (NotDetected) Stool Astrovirus (PCR) (NotDetected) Stool Campylobacter PCR (NotDetected) Stl C. diff Tox A/B PCR (NotDetected) Stool Cryptosporidium PCR (NotDetected) Stl E.coli Shiga Tox PCR (NotDetected) Stl Enterotoxigenic E PCR (NotDetected) Stool EPEC (PCR) (NotDetected) Stool EAEC (PCR) (NotDetected) Stl E. histolytica PCR (NotDetected) Stool Giardia Lamblia PCR (NotDetected) Stool Salmonella PCR (NotDetected) Stool Sapovirus (PCR) (NotDetected) Stl P. shigelloides PCR (NotDetected) Stl Shigella/EIEC PCR (NotDetected) St Y.enterocolitica PCR (NotDetected) Stool Vibrio (PCR) (NotDetected) Stl Vibrio cholerae PCR (NotDetected) Stl Norovirus GI/GII PCR (NotDetected) SARS-CoV-2, RNA, NAAT (NEGATIVE) 06/20/21 06/20/21 06/19/21 Range/Units 05:31 05:31 22:26 WBC 4.80 (4.8-10.8) K/uL RBC 4.06 L (4.2-5.4) M/uL Hgb 11.8 L 11.7 L (12.0-16.0) g/dL Hct 34.8 L 34.6 L (37-47) % MCV 85.7 (80-100) fL MCH 29.1 (25-34) pg MCHC 33.9 (32-36) g/dL RDW Std Deviation 46.9 H (36.4-46.3) fL RDW Coeff of Boris 14.9 H (11.5-14.5) % Plt Count 242 (130-400) K/uL MPV 11.3 H (7.4-10.4) fL Sodium 136 (136-145) mmol/L Potassium 3.9 (3.5-5.1) mmol/L Chloride 105 (98-107) mmol/L Carbon Dioxide 24 (21-32) mmol/L Anion Gap 7 (3-11) BUN 11 (6-23) mg/dl Creatinine 0.70 (0.6-1.2) mg/dl Est Cr Clr Drug Dosing 57.9 ml/min Est GFR ( Amer) 94.8 ml/min Est GFR (Non-Af Amer) 81.8 ml/min BUN/Creatinine Ratio 15.7 (10-20) Glucose 152 H (70-99(Fasting)) mg/dl POC Glucose (70-99) mg/dl Estimat Average Glucose mg/dl Hemoglobin A1c (4.5-5.6) % Calcium 8.8 (8.5-10.1) mg/dl Magnesium 1.7 (1.7-2.4) mg/dl Stl C. cayetanensis PCR (NotDetected) Stool Rotavirus A PCR (NotDetected) Stl Adenov F 40/41 PCR (NotDetected) Stool Astrovirus (PCR) (NotDetected) Stool Campylobacter PCR (NotDetected) Stl C. diff Tox A/B PCR (NotDetected) Stool Cryptosporidium PCR (NotDetected) Stl E.coli Shiga Tox PCR (NotDetected) Stl Enterotoxigenic E PCR (NotDetected) Stool EPEC (PCR) (NotDetected) Stool EAEC (PCR) (NotDetected) Stl E. histolytica PCR (NotDetected) Stool Giardia Lamblia PCR (NotDetected) Stool Salmonella PCR (NotDetected) Stool Sapovirus (PCR) (NotDetected) Stl P. shigelloides PCR (NotDetected) Stl Shigella/EIEC PCR (NotDetected) St Y.enterocolitica PCR (NotDetected) Stool Vibrio (PCR) (NotDetected) Stl Vibrio cholerae PCR (NotDetected) Stl Norovirus GI/GII PCR (NotDetected) SARS-CoV-2, RNA, NAAT (NEGATIVE) 06/19/21 06/19/21 06/19/21 Range/Units 21:33 19:57 19:26 WBC (4.8-10.8) K/uL RBC (4.2-5.4) M/uL Hgb (12.0-16.0) g/dL Hct (37-47) % MCV (80-100) fL MCH (25-34) pg MCHC (32-36) g/dL RDW Std Deviation (36.4-46.3) fL RDW Coeff of Boris (11.5-14.5) % Plt Count (130-400) K/uL MPV (7.4-10.4) fL Sodium (136-145) mmol/L Potassium (3.5-5.1) mmol/L Chloride (98-107) mmol/L Carbon Dioxide (21-32) mmol/L Anion Gap (3-11) BUN (6-23) mg/dl Creatinine (0.6-1.2) mg/dl Est Cr Clr Drug Dosing ml/min Est GFR ( Amer) ml/min Est GFR (Non-Af Amer) ml/min BUN/Creatinine Ratio (10-20) Glucose (70-99(Fasting)) mg/dl POC Glucose 168 H 154 H (70-99) mg/dl Estimat Average Glucose mg/dl Hemoglobin A1c (4.5-5.6) % Calcium (8.5-10.1) mg/dl Magnesium (1.7-2.4) mg/dl Stl C. cayetanensis PCR Not Detected (NotDetected) Stool Rotavirus A PCR Not Detected (NotDetected) Stl Adenov F 40/41 PCR Not Detected (NotDetected) Stool Astrovirus (PCR) Not Detected (NotDetected) Stool Campylobacter PCR Not Detected (NotDetected) Stl C. diff Tox A/B PCR Not Detected (NotDetected) Stool Cryptosporidium PCR Not Detected (NotDetected) Stl E.coli Shiga Tox PCR Not Detected (NotDetected) Stl Enterotoxigenic E PCR Not Detected (NotDetected) Stool EPEC (PCR) Not Detected (NotDetected) Stool EAEC (PCR) Not Detected (NotDetected) Stl E. histolytica PCR Not Detected (NotDetected) Stool Giardia Lamblia PCR Not Detected (NotDetected) Stool Salmonella PCR Not Detected (NotDetected) Stool Sapovirus (PCR) Not Detected (NotDetected) Stl P. shigelloides PCR Not Detected (NotDetected) Stl Shigella/EIEC PCR Not Detected (NotDetected) St Y.enterocolitica PCR Not Detected (NotDetected) Stool Vibrio (PCR) Not Detected (NotDetected) Stl Vibrio cholerae PCR Not Detected (NotDetected) Stl Norovirus GI/GII PCR Not Detected (NotDetected) SARS-CoV-2, RNA, NAAT (NEGATIVE) 06/19/21 06/19/21 Range/Units 16:25 16:00 WBC (4.8-10.8) K/uL RBC (4.2-5.4) M/uL Hgb (12.0-16.0) g/dL Hct (37-47) % MCV (80-100) fL MCH (25-34) pg MCHC (32-36) g/dL RDW Std Deviation (36.4-46.3) fL RDW Coeff of Boris (11.5-14.5) % Plt Count (130-400) K/uL MPV (7.4-10.4) fL Sodium (136-145) mmol/L Potassium (3.5-5.1) mmol/L Chloride (98-107) mmol/L Carbon Dioxide (21-32) mmol/L Anion Gap (3-11) BUN (6-23) mg/dl Creatinine (0.6-1.2) mg/dl Est Cr Clr Drug Dosing ml/min Est GFR ( Amer) ml/min Est GFR (Non-Af Amer) ml/min BUN/Creatinine Ratio (10-20) Glucose (70-99(Fasting)) mg/dl POC Glucose 120 H (70-99) mg/dl Estimat Average Glucose mg/dl Hemoglobin A1c (4.5-5.6) % Calcium (8.5-10.1) mg/dl Magnesium (1.7-2.4) mg/dl Stl C. cayetanensis PCR (NotDetected) Stool Rotavirus A PCR (NotDetected) Stl Adenov F 40/41 PCR (NotDetected) Stool Astrovirus (PCR) (NotDetected) Stool Campylobacter PCR (NotDetected) Stl C. diff Tox A/B PCR (NotDetected) Stool Cryptosporidium PCR (NotDetected) Stl E.coli Shiga Tox PCR (NotDetected) Stl Enterotoxigenic E PCR (NotDetected) Stool EPEC (PCR) (NotDetected) Stool EAEC (PCR) (NotDetected) Stl E. histolytica PCR (NotDetected) Stool Giardia Lamblia PCR (NotDetected) Stool Salmonella PCR (NotDetected) Stool Sapovirus (PCR) (NotDetected) Stl P. shigelloides PCR (NotDetected) Stl Shigella/EIEC PCR (NotDetected) St Y.enterocolitica PCR (NotDetected) Stool Vibrio (PCR) (NotDetected) Stl Vibrio cholerae PCR (NotDetected) Stl Norovirus GI/GII PCR (NotDetected) SARS-CoV-2, RNA, NAAT NEGATIVE (NEGATIVE) Diagnostic Findings Abdomen/Pelvis CT 06/19/21 10:40 CT SCAN OF THE ABDOMEN AND PELVIS WITHOUT IV CONTRAST CLINICAL HISTORY: Right lower quadrant abdominal pain status post appendectomy. COMPARISON STUDY: Prior abdominal CT scans, most recently dated 06/13/2021. TECHNIQUE: CT scan of the abdomen and pelvis is performed from the lung bases to the proximal femora. Images are reviewed in the axial, sagittal, and coronal planes. IV contrast was not administered for this examination. Note that the examination was performed in suboptimal fashion without oral and IV contrast. The examination is also degraded by motion artifact. A dose lowering technique was utilized adhering to the principles of ALARA. CT DOSE: 428.26 mGy.cm FINDINGS: Lung bases: The heart is normal in size noting trace pericardial effusion. There are calcifications of the coronary arteries and mitral annulus. The lung bases are clear. A small hiatal hernia is noted. Liver: The unenhanced liver is normal in size, contour, and attenuation. There is no intrahepatic biliary ductal dilatation. Pneumobilia is unchanged. Gallbladder: Surgically absent noting clips in the gallbladder fossa. Spleen: Normal in size and attenuation. Pancreas: The unenhanced pancreas is moderately atrophic and grossly unremarkable. Adrenal glands: Unremarkable. Kidneys: The unenhanced kidneys demonstrate mild cortical atrophy. There is mild fullness of the renal collecting systems without hydronephrosis. Bilateral extrarenal pelvises are noted. No renal calculi are identified. There is no evidence of contour deforming renal mass lesion. Abdominal vasculature: The abdominal aorta is normal in course and caliber noting moderate atherosclerotic calcification. Bowel: There is moderate colonic diverticulosis without CT evidence of acute diverticulitis. No bowel obstruction is identified. The appendix is surgically absent. Mild infiltration in the right lower quadrant is likely a postsurgical basis. No organized fluid collection is seen to suggest abscess. Peritoneum: There is no intraperitoneal free air or abdominal ascites. There is evidence of previous ventral hernia repair. There is postoperative change from right inguinal herniorrhaphy. Postoperative change and calcification is again seen within the right lower quadrant abdominal wall. Mild induration within the periumbilical and left lower quadrant abdominal wall Lymphadenopathy: A mildly enlarged aortocaval node on image #105 measures 1.6 x 1.0 cm. No additional enlarged lymph nodes are seen in the abdomen or pelvis. Pelvic viscera: Evaluation of the pelvis is degraded by streak artifact from a right hip arthroplasty. The bladder wall appears thickened. The uterus and adnexa are normal as visualized. Skeletal structures: The skeletal structures are osteopenic. There is moderate to advanced lumbosacral spondylosis. No lytic or blastic lesions are seen. A right hip arthroplasty is in place. Advanced arthritic change is seen in the left hip. There are healed left-sided pubic ring fractures. IMPRESSION: 1. Suboptimal examination without oral and IV contrast. There is also motion artifact. 2. There has been interval appendectomy as compared 06/13/2021. Minimal stran ding right lower quadrant likely represents expected postoperative change. 3. There is no organized fluid collections to suggest abscess. 4. The bladder wall appears mildly thickened. Correlate with clinical findings and urinalysis. 5. Colonic diverticulosis without CT evidence of acute diverticulitis. 6. A mildly enlarged retroperitoneal lymph node is nonspecific and unchanged. 7. Additional findings as above. ACT 112: Negative or not required by law. Electronically signed by: Weston Gallego M.D. 06/19/2021 12:05 PM PG Care Time/CCT Total # of Minutes Spent Total Time Spent with Patient: Total time spent is greater than 50% in coordination of care (as documented) at patient's floor/unit and/or counseling patient: Coding Level of Care Code 45146 Subseq Obs Care Lvl 3 Diagnoses Diarrhea R19.7 Acute appendicitis K35.80 Hypertension I10 Hypertension type: unspecified Anxiety and depression F41.9; F32.9 DVT prophylaxis Z29.9 (1) Hypertension Hypertension type: unspecified Qualified Code(s): I10 - Essential (primary) hypertension
[2021-06-20] MEDS: FAMOTIDINE 20 MG TAB PO SCH ×2 (08:44→20:42)
[2021-06-20] MEDS: ESCITALOPRAM OXALATE 10 MG TAB PO SCH (08:47)
[2021-06-20] MEDS: FLUTICASONE PROPIONATE NA SPR 16 GM BTL NAE SCH (08:52)
[2021-06-20 08:53] LABS: Estimated Average Glucose 174 mg/dl; Hemoglobin A1C 7.7 % (4.5-5.6)
[2021-06-20] MEDS: INSULIN ASPART PER UNIT SC SCH ×4 (08:56→21:28)
[2021-06-20] MEDS ORDERED: lisinopril 10 MG TAB PO SCH (09:00)
[2021-06-20] MEDS ORDERED: METOPROLOL SUCC 25MG EXT REL TAB PO SCH ×2 (09:00→21:00)
[2021-06-20] MEDS ORDERED: Nursing to Pharmacy Communication SCH (09:30)
[2021-06-20] MEDS ORDERED: LACTATED RINGER'S 1,000 ML IV SCH (15:00)
[2021-06-20] MEDS ORDERED: LOPERAMIDE HCL 2 MG CAP PO PRN (15:12)
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
[2021-06-20] MEDS ORDERED: LOPERAMIDE LIQUID 120 ML BOTTLE PO ONE (17:30)
[2021-06-20] MEDS: ALPRAZolam 0.25 MG TABLET PO SCH (20:42)
[2021-06-20] MEDS ORDERED: PANTOprazole 40 MG TAB PO SCH (21:00)
[2021-06-20] MEDS: CHOLESTYRAMINE LIGHT 4 GM PKT PO SCH (22:19)
[2021-06-21 09:18] LABS: BUN Creatinine Ratio 27.5 (10-20); Creatinine Clr Calc Pharmacy 50.6 ml/min; Est GFR (African American) 80.7 ml/min; Est GFR (Non-African American) 69.6 ml/min; Magnesium 1.6 mg/dl (1.7-2.4); Potassium 4.1 mmol/L (3.5-5.1)
[2021-06-21 09:20] LABS: Ferritin 130.4 ng/ml (8-388)
[2021-06-21] MEDS: ESCITALOPRAM OXALATE 10 MG TAB PO SCH (09:39)
[2021-06-21] MEDS: FAMOTIDINE 20 MG TAB PO SCH (09:39)
[2021-06-21] MEDS: ALPRAZolam 0.25 MG TABLET PO SCH (09:39)
[2021-06-21] MEDS: CHOLESTYRAMINE LIGHT 4 GM PKT PO SCH (09:40)
[2021-06-21] MEDS: INSULIN ASPART PER UNIT SC SCH ×2 (09:40→13:12)
[2021-06-21] MEDS: ACETAMINOPHEN 325 MG TAB PO PRN (09:44)
[2021-06-21] MEDS: FLUTICASONE PROPIONATE NA SPR 16 GM BTL NAE SCH (09:52)
--- NOTE | 2021-06-21 10:24 | Discharge Summary ---
Date of Service June 21, 2021 Admission HPI Per Admitting Provider 81yo F w/ hx of DM and anxiety who presents as an observation for diarrhea. The patient had an appendectomy with surgery on 06/14, and was discharged 2 days later in good health. She reports that within a day, she began to have significant diarrhea that she reports as black and loose. She has had many episodes since then and overall feels weak. She denies any blood in the bowel movements. She also notes significant RLQ pain for which she has not taken any medication (even OTC pain medications such as Tylenol). She denies any fevers/chills. Denies changes in urination. Admission Exam Per Admitting Provider Constitutional: WD/WN, vitals as above Eyes: EOM intact bilaterally; no conjunctival abnormality ENMT: external ear and nose normal, oropharynx normal Neck: trachea midline, no thyromegaly normal visual inspection Respiratory: normal respiratory effort, lungs clear to auscultation no respiratory distress Cardiovascular: RRR, no murmur, no edema Gastrointestinal (Abdomen): Inspection/Auscultation: + abdominal surgical incision (Two small laparoscopic incisions; well healing. No erythema or drainage.); abdomen not distended Percussion/Palpation: + abdomen tender (RLQ) and abdomen soft; no guarding and abdomen not rigid Musculoskeletal: no cyanosis or clubbing, extremities motor strength 5/5 Skin: no rashes, warm and dry Neurologic: moves all extremities and awake Psychiatric: Orientation: alert, oriented to person and cooperative Principal Diagnosis Diarrhea Discharge Exam General: WD/WN female sitting up in chair, NAD HEENT: slightly dry mm, trachea midline without deviation, pupils equal and reactive Resp: CTAB, no w/c, on room air CV: RRR, no m/r/g, no calf edema GI: +BS, non-tender with exception RLQ (decreased), no rebound or guarding. Laparoscopic incision scars healing well. L abdomen with steri strips peeling away, minimal erythema, no drainage : no gonzalez MSK/Neuro: moves all extremities, standing without an issue, following commands, strength 4/5 throughout, Psych: AOx3, pleasant and cooperative Discharge Data Allergies Allergy/AdvReac Type Severity Reaction Status Date / Time Iodinated Contrast Media Allergy Intermediate Shortness Verified 06/19/21 10:25 of Breath CHEST PAIN TIGHTNESS IN CHEST rosiglitazone Allergy Intermediate CHEST PAIN Verified 06/19/21 10:25 atorvastatin [From Lipitor] Allergy Unknown Unknown Verified 06/19/21 10:25 Corticosteroids Allergy Unknown "STEROIDS": Verified 06/19/21 10:25 (Glucocorticoids) "SHORTNESS OF BREATH" iodine Allergy Unknown Unknown Verified 06/19/21 10:25 tetracycline Allergy Unknown Unknown rxn Verified 06/19/21 10:25 lactose Allergy Verified 06/20/21 14:03 pregabalin AdvReac Severe severe Verified 06/19/21 10:25 swelling hands/feet amoxicillin AdvReac Intermediate Gastrointestinal Verified 06/19/21 10:25 Upset clavulanic acid AdvReac Intermediate Gastrointestinal Verified 06/19/21 10:25 Upset hydrocodone AdvReac Intermediate hear races Verified 06/19/21 10:25 ibuprofen AdvReac Intermediate KNOCKS Verified 06/19/21 10:25 EQUILIBRIUM OFF levofloxacin AdvReac Intermediate Dizziness Verified 06/19/21 10:25 metformin AdvReac Intermediate SEVERE Verified 06/19/21 10:25 DIARRHEA omeprazole AdvReac Intermediate SHAKES/TACH Verified 06/19/21 10:25 YCARDIA pantoprazole AdvReac Intermediate SHAKES/TACH Verified 06/19/21 10:25 YCARDIA prednisone AdvReac Intermediate Palpitations Verified 06/19/21 10:25 AND "WENT TO UNIT" (CARDIAC CARE UNIT) codeine AdvReac Mild EQUILIBRIUM Verified 06/19/21 10:25 OFF Penicillins AdvReac Mild Augmentin: Verified 06/19/21 10:25 GI UPSET theophylline AdvReac Mild INCREASED Verified 06/19/21 10:25 HR esomeprazole AdvReac Unknown SHAKES/TACH Verified 06/19/21 10:25 YCARDIA Sulfa (Sulfonamide AdvReac Unknown COULD NOT Verified 06/19/21 10:25 Antibiotics) WALK AND TREMBLED loteprednol AdvReac Headache Verified 06/19/21 10:25 Consultations 06/19/21 14:11 ED Decision to Admit Stat 06/20/21 10:55 Consult Gastroenterology Routine Ordered Studies Abdomen/Pelvis CT 06/19/21 10:40 CT SCAN OF THE ABDOMEN AND PELVIS WITHOUT IV CONTRAST CLINICAL HISTORY: Right lower quadrant abdominal pain status post appendectomy. COMPARISON STUDY: Prior abdominal CT scans, most recently dated 06/13/2021. TECHNIQUE: CT scan of the abdomen and pelvis is performed from the lung bases to the proximal femora. Images are reviewed in the axial, sagittal, and coronal planes. IV contrast was not administered for this examination. Note that the examination was performed in suboptimal fashion without oral and IV contrast. The examination is also degraded by motion artifact. A dose lowering technique was utilized adhering to the principles of ALARA. CT DOSE: 428.26 mGy.cm FINDINGS: Lung bases: The heart is normal in size noting trace pericardial effusion. There are calcifications of the coronary arteries and mitral annulus. The lung bases are clear. A small hiatal hernia is noted. Liver: The unenhanced liver is normal in size, contour, and attenuation. There is no intrahepatic biliary ductal dilatation. Pneumobilia is unchanged. Gallbladder: Surgically absent noting clips in the gallbladder fossa. Spleen: Normal in size and attenuation. Pancreas: The unenhanced pancreas is moderately atrophic and grossly unremarkable. Adrenal glands: Unremarkable. Kidneys: The unenhanced kidneys demonstrate mild cortical atrophy. There is mild fullness of the renal collecting systems without hydronephrosis. Bilateral extrarenal pelvises are noted. No renal calculi are identified. There is no evidence of contour deforming renal mass lesion. Abdominal vasculature: The abdominal aorta is normal in course and caliber noting moderate atherosclerotic calcification. Bowel: There is moderate colonic diverticulosis without CT evidence of acute diverticulitis. No bowel obstruction is identified. The appendix is surgically absent. Mild infiltration in the right lower quadrant is likely a postsurgical basis. No organized fluid collection is seen to suggest abscess. Peritoneum: There is no intraperitoneal free air or abdominal ascites. There is evidence of previous ventral hernia repair. There is postoperative change from right inguinal herniorrhaphy. Postoperative change and calcification is again seen within the right lower quadrant abdominal wall. Mild induration within the periumbilical and left lower quadrant abdominal wall Lymphadenopathy: A mildly enlarged aortocaval node on image #105 measures 1.6 x 1.0 cm. No additional enlarged lymph nodes are seen in the abdomen or pelvis. Pelvic viscera: Evaluation of the pelvis is degraded by streak artifact from a right hip arthroplasty. The bladder wall appears thickened. The uterus and adnexa are normal as visualized. Skeletal structures: The skeletal structures are osteopenic. There is moderate to advanced lumbosacral spondylosis. No lytic or blastic lesions are seen. A right hip arthroplasty is in place. Advanced arthritic change is seen in the left hip. There are healed left-sided pubic ring fractures. IMPRESSION: 1. Suboptimal examination without oral and IV contrast. There is also motion artifact. 2. There has been interval appendectomy as compared 06/13/2021. Minimal stranding right lower quadrant likely represents expected postoperative change. 3. There is no organized fluid collections to suggest abscess. 4. The bladder wall appears mildly thickened. Correlate with clinical findings and urinalysis. 5. Colonic diverticulosis without CT evidence of acute diverticulitis. 6. A mildly enlarged retroperitoneal lymph node is nonspecific and unchanged. 7. Additional findings as above. ACT 112: Negative or not required by law. Electronically signed by: Weston Gallego M.D. 06/19/2021 12:05 PM Hospital Course (1) Diarrhea: Likely due to antibiotics in the hospital and magnesium that she was prescribed on discharge, however patient reports ongoing diarrhea x months (approximately 6 months duration worsening per patient) or longer. Acute on chronic issue. Reports being followed by [facility] resident medical service and instructed to come to ER for admission given increased R abdominal pain and diarrhea following recent lap appy 06/14. No abscess/fluid collection on CTAP on admission. Did note minimal stranding RLQ likely representing post-op change GI PCR --> NEGATIVE Holding PO magnesium replacement Also reported black/loose stools but no epigastric pain on examination. Hgb 13.3 on admission however suspect hemoconcentrated and repeat in evening 11.7 (11.5 at time of discharge 06/15/21) and stable at 11.8 this morning Fecal occult NEGATIVE Was going to place on Protonix (on famotidine BID [employer]) but reported allergy to protonix and omeprazole for "shakes/tachycardia" however ? if related to caused hypomagnesemia from such. No epigastric pain, as mentioned, for concerns for UGIB at this time but will monitor Last c-scope in system 2014 with 11mm +2mm polyp in cecum c/w sessile serrated adenoma and hyperplastic polyp Arranged for outpatient c-scope July [address] Benites, already schedule. Discussed non-urgent nature given negative fecal occult, stable hgb, and improvement in symptoms with medications Of note, patient also told she was "lactose intolerant" and had cut that out of diet but continued with diarrhea. Initially denied having GB removed in past, ? if chronic diarrhea since removal In either case, diarrhea stopped with addition of questran BID and Imodium BID prn diarrhea and patient wanting to go home. reported formed/semi-loose stool x 1 prior to dc Arrangements made for home PT/OT through [facility] as patient having travel and Dr chu and local friend support as well as her niece (2) Acute appendicitis: S/p appendectomy on 06/14. CT a/p on admission does not show any cause for concern. WBC normal. No present issues. F/u with surgery o/p as previously planned. (3) Hypertension: Held lisinopril given dehydration initially 2nd to diarrhea Continue metoprolol Improvement in hydration after 500cc NSS IVF and resumed home medications at discharge Encouraged INCREASE oral intake up to 8 cups of fluid daily (prior restricted to 7 cups given hx SIADH and as SSRI discontinuing and Na remained stable while inpatient suspect she could have increased intake as to prevent further dehydration F/U PCP in the next week --> If BPs well controlled/fluid status acceptable maybe consider decreasing dose of lisinopril slightly, to 5-7.5mg daily (4) Anxiety and depression: Presently on escitalopram 10 mg PO daily for 5 more days, then stop. (See prior discharge summary note.) I believe this was due to hyponatremia episodes. - Continue escitalopram -- currently weaning to completion - Xanax 0.25 mg PO BID PRN (patient states she takes this pretty much standing without skipping many doses) --> changed to scheduled while inpatient (5) B12 deficiency: stated issues with memory/balance in past PT/OT with recs for rehab but ok to go home w home PT/OT family support B12 checked and borderline at 212 -- sent on replacement at discharge and can f/u PCP for IM injections if felt needed Hx Seizure activity in the past last , was on keppra during hospital stay but felt related to hyponatremia and since electrolytes resolved and had no further episodes this was d/c at discharge. had been seen by neurology since discharge and ok with this plan, no mention for need to restart any medications. Has been normal since April earlier this year, even when inpatient for appendicitis last month. (6) DVT prophylaxis: SCDs, ambulation Total Time Total Time Spent Total Time Spent (In Minutes): 50 Discharge Plan Discharge Items Patient Disposition: Home - Home Health Services Reason For Visit: DIARRHEA,WEAKNESS Discharge Diagnosis: Diarrhea Goals: You have been hospitalized for an acute medical problem. During your stay at [facility], we have made an effort to correct the problem that brought you to the hospital while keeping you as comfortable as possible. Medications were used to bring your condition under control and your discharge instructions will include directions for any medications you should take after leaving the hospital. Please make sure you see your Primary Care Provider as part of your follow up plan. Activity: Resume your previous activity Non-emergency contact: Primary Care Provider and Timing Adjuster Call non-emergency contact if: you have any medication questions, your symptoms worsen and you have a fever Follow-up/Referrals: Hyun Morales CRNP [Primary Care Provider] - 06/23/21 2:50 pm Mike Benites [Physician] - 08/05/21 2:15 pm (THIS APPT IS FOR YOUR OUTPATIENT COLONOSCOPY. PROCEDURE WILL BE DONE AT [facility]. THE ENDOSCOPY CENTER WILL CONTACT YOU VIA PHONE BEFORE PROCEDURE.) Colt Caraballo MD [Physician] - 06/27/21 11:15 am (as scheduled for post- op) Diet: Heart Healthy and Lactose Intolerant Nilay Attending Provider Instructions: You have been hospitalized for diarrhea. Stool studies were negative for infectious causes including cdiff. You also had stools checked for blood which was also negative. Gastro (GI) Dr Hidalgo was consulted and they plan on doing a colonoscopy in July as outpatient for further evaluation as already scheduled. As discussed, your hemoglobin didn't have significant drop, your stool was tested for blood and was negative, and your labs have remained stable, indicating that an acute colonoscopy or endoscopy is not warranted at this time and can be done on non-emergent outpatient basis. In the meantime, you are being sent with Imodium to use 2gm by mouth twice a day as needed for diarrhea. You are also being sent on medication called Chuy for discomfort/cramping. This is to be taken TWICE daily. Given issues with balance, you were evaluated by therapy and recommendations for rehab but you declined this and we arranged home therapy. For this reason, I did check a B12 level and this was borderline low. You have been started on and should continue oral supplementation at discharge. This help with anemia/blood cell production, memory, balance and other issues.. You should INCREASE your FLUID INTAKE TO 8 cups of water a day, for a total of 64 ounces. This would be 3 of the current hospital cups full, plus another 12 ounces, as your sodium level has been stable. You have been decreased on your lexapro due to low sodium levels last admission. This medication can be STOPPED after Sunday to complete the taper/weaning off of this medication. You should follow up with your PCP in the next 7-10 days to monitor your progress. Please return to the ER with any increased/uncontrolled diarrhea, inability to keep up with oral intake, or for any other symptoms concerning for you. Take care! Pending Studies at Discharge: No Stand-Alone Forms: My [facility], Smoking Cessation Medications and DC Order Prescriptions: New cholestyramine-aspartame [Cholestyramine Light] 4 gram Powder In Packet 4 g PO BID@1000,2200 Qty: 60 RF: 0 loperamide 2 mg Capsule 2 mg PO BID PRN (Reason: loose stool) Qty: 60 RF: 0 cyanocobalamin (vitamin B-12) 500 mcg Tablet 1,000 mcg PO QAM Qty: 60 RF: 0 Continued clindamycin HCl 300 mg capsule 1,200 mg PO UD PRN (Reason: PRIOR TO DENTAL APPOINTMENTS.) RF: 0 famotidine [Pepcid] 20 mg tablet 20 mg PO BID RF: 0 fluticasone propionate 50 mcg/actuation spray,suspension 1 spray intranasal DAILY Qty: 15.8 RF: 2 alprazolam [Xanax] 0.5 mg tablet 0.25 - 0.5 mg PO TID PRN (Reason: Anxiety) RF: 0 metoprolol succinate 25 mg tablet extended release 24 hr 25 mg PO DAILY RF: 0 glipizide 10 mg tablet extended release 24hr 10 mg PO BID RF: 0 lisinopril 10 mg Tablet 10 mg PO QAM Qty: 30 RF: 0 magnesium oxide 400 mg magnesium capsule 400 mg PO DAILY Qty: 7 RF: 0 Discharge Orders: Discharge Order (Routine); Ordered 06/21/21 Ordered By: Ligia Nicole/Other Patient Handouts: Managing Type 2 Diabetes Admission Data Admit Date/Time: 06/19/21 14:40 Attending Provider: Destin Hernandez Admit Provider: Azeem Holland Primary Care Provider: Hyun Morales Other Providers: Azeem Holland ; Hay,[facility] ; Mike Benites Other Interventions: Discharge Summary Assessment (RN) Last Done: 06/21/21 13:15 Supervising Physician Co-Signing Physician Notes Patient seen and examined prior to discharge. Case discussed with Ligia Rios PA-C and agree with assessment and plan above patient minimally tender at right lower quadrant without rebound or guarding. Diarrhea improved with symptomatic treatment. No fever, chills, sweats. That is post appendectomy from prior admit, some diarrhea without concern for acute infection. Agree with management and follow-up as above Coding Level of Care Code 48125 OBS Care - Discharge Diagnoses Diarrhea R19.7 Acute appendicitis K35.80 Hypertension I10 Hypertension type: unspecified Anxiety and depression F41.9; F32.9 DVT prophylaxis Z29.9 B12 deficiency E53.8
[2021-06-21] MEDS ORDERED: CYANOCOBALAMIN (B-12) 500 MCG TABLET PO SCH (10:30)
[2021-06-21] MEDS ORDERED: MAGNESIUM SULFATE / D5W 1 GM/100 ML BAG IV ONE (10:45)
== END 2021-06-21 13:59 | disposition home health service (06) ==
LOC: ED 09:34 → INTOOBSV 14:40 → SUATTDRO 14:40 → 3N 14:40

== ENCOUNTER 2023-03-01 23:49 | Inpatient (IN) ==
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
[2023-03-02 01:43] LABS: Appearance Urine Clear (Clear); Bacteria Urine Automated Negative (Negative); Bilirubin Urine Negative (Negative); Blood Urine Negative (Negative); Cast Urine Automated 0 /lpf (0-5); Color Urine Yellow; Glucose Urine UA Negative (Negative); Ketones Urine Negative (Negative); Leukocyte Esterase Urine Trace (Negative); Nitrite Urine Negative (Negative); Protein Urine Negative (Negative); RBC Urine Automated 0-4 /hpf (0-4); Specific Gravity Urine 1.006 (1.000-1.030); Urobilinogen Urine Negative (Negative)
[2023-03-02 01:58] LABS: Basophils # (auto) 0.03 K/uL (0.00-0.20); Basophils % (auto) 0.5 %; Eosinophils % (auto) 1.6 %; Hematocrit (blood only) 35.9 % (37.0-47.0); Hemoglobin 12.2 g/dl (12.0-16.0); Immature Granulocytes # (auto) 0.03 K/uL (0.01-0.20); Immature Granulocytes % (auto) 0.5 %; Lymphocytes % (auto) 28.1 %; Mean Corpuscular Hemoglobin 30.2 pg (25.0-34.0); Mean Corpuscular Volume 88.9 fL (80.0-100.0); Mean Platelet Volume 11.6 fL (9.4-12.4); Monocytes # (auto) 0.58 K/uL (0.11-0.59); Monocytes % (auto) 9.1 %; Neutrophils # (auto) 3.86 K/uL (1.40-6.50); Neutrophils % (auto) 60.2 %; Platelet Count 223 K/uL (130-400); RDW Coefficient of Variation 14.4 % (11.5-14.5); RDW Standard Deviation 46.5 fL (36.4-46.3); Red Blood Count 4.04 M/uL (4.20-5.40)
[2023-03-02 02:15] LABS: Alanine Aminotransferase 12 U/L (7-52); Albumin Globulin Ratio 1.3 (0.9-2); Albumin Level 3.9 gm/dl (3.4-5.0); Alkaline Phosphatase 54 U/L (34-104); Anion Gap 11 (3-11); Aspartate Aminotransferase 18 U/L (13-39); BUN Creatinine Ratio 24.6 (10-20); Bilirubin,Total 0.7 mg/dl (0.2-1.0); Blood Urea Nitrogen 31 mg/dl (6-23); Calcium 9.4 mg/dl (8.6-10.3); Carbon Dioxide 20 mmol/L (21-32); Chloride 103 mmol/L (98-107); Est GFR (African American) 45.9 ml/min; Est GFR (Non-African American) 39.6 ml/min; Globulin 3.1 gm/dl (2.5-4.0); Glucose 195 mg/dl (70-99(Fasting)); Lipase 28 U/L (11-82); Magnesium 1.8 mg/dl (1.7-2.4); Potassium 3.7 mmol/L (3.5-5.1); Sodium 134 mmol/L (136-145)
[2023-03-02 02:28] LABS: Adenovirus PCR Not Detected (NotDetected); Bordetella parapertussis PCR Not Detected (NotDetected); Bordetella pertussis PCR Not Detected (NotDetected); Chlamydia pneumoniae PCR Not Detected (NotDetected); Coronavirus 229E PCR Not Detected (NotDetected); Coronavirus CoV-2 (COVID19)PCR Not Detected (NotDetected); Coronavirus HKU1 PCR Not Detected (NotDetected); Coronavirus NL63 PCR Not Detected (NotDetected); Coronavirus OC43PCR Not Detected (NotDetected); Human Metapneumovirus PCR Not Detected (NotDetected); Influenza A PCR Not Detected (NotDetected); Influenza B PCR Not Detected (NotDetected); Mycoplasma pneumoniae PCR Not Detected (NotDetected); Parainfluenza Virus 1 PCR Not Detected (NotDetected); Parainfluenza Virus 2 PCR Not Detected (NotDetected); Parainfluenza Virus 3 PCR Not Detected (NotDetected); Parainfluenza Virus 4 PCR Not Detected (NotDetected); Respiratory Syncytial VirusPCR Not Detected (NotDetected); Rhinovirus/Enterovirus PCR Not Detected (NotDetected)
[2023-03-02 02:31] LABS: Thyroid Stimulating Hormone 2.418 uIu/ml (0.300-4.500)
[2023-03-02] MEDS: SODIUM CHLORIDE 0.9% 500 ML IV SCH ×3 (03:45→15:46)
--- NOTE | 2023-03-02 07:01 | CT Scan Report ---
CT OF THE HEAD WITHOUT CONTRAST CLINICAL HISTORY: confusion COMPARISON STUDY: Head CT December 19, 2022. CT DOSE: 547.75 mGy.cm TECHNIQUE: Helical axial images of the head were obtained without IV contrast. Automated exposure con trol was utilized for the study. A dose lowering technique was utilized adhering to the principles o f ALARA. FINDINGS: No acute intracranial hemorrhage, midline shift or mass effect is present. Mild white matte r hypodensities are unchanged and favor small vessel disease. The ventricular system is unremarkable. The basal cisterns are patent. No extra-axial collections are present. There are no findings to sugg est acute dural sinus thrombosis or acute territorial infarct. No significant calvarial abnormalities are present. Visualized portions of the sinuses and mastoid air cells are clear. IMPRESSION: No acute intracranial findings. ACT 112: Negative or not required by law. Electronically signed by: Chuy Clayton M.D. 03/02/2023 6:59 AM
--- NOTE | 2023-03-02 07:35 | XRay Report ---
XR chest 1V portable CLINICAL HISTORY: Left-sided chest pain. COMPARISON STUDY: Chest radiograph November 05, 2022. Chest CT December 27, 2014. FINDINGS: Lung volumes are normal. Lungs are clear. There is no pneumothorax or pleural effusion. Car diac size is normal. Mediastinal contours are normal. There is no evidence for pulmonary edema. IMPRESSION: No acute cardiopulmonary findings. No change in appearance of the chest. ACT 112: Negative or not required by law. Electronically signed by: Chuy Clayton M.D. 03/02/2023 7:34 AM
--- OUTSIDE RECORDS SUMMARY | 2023-03-02 08:54 | External Medical Summary | Summary of Care ---
Author Name Unknown Organization [facility] Address [address] [place] [address] Phone [phone] Care Team Providers Care Onsite Case Manager Name Role Phone Sana Becker Primary Care Provider Reason for Visit * Reason Onset Date Comments Test Results 03/01/2023 Encounter Details Date Type Department Care Team (Late st Contact Info) Description 03/01/2023 Telephone Cardiology, [facility] [address] [place] [address] Salma Hunter CRNP [address] [place] [id number] Test Results Allergies Active Allergy Reactions Criticality Noted Date Comments Cat Dander 04/16/2003 Esomeprazole Magnesium Tachycardia 03/21/2011 Metformin Hydrochloride 05/24/2004 diarrhea Ibuprofen 10/03/2001 loss of equilibruim Iodine 10/03/2001 Levofloxacin 12/13/2012 Morphine And Related 10/03/2001 Pantoprazole Sodium Diarrhea 03/21/2011 Prednisone 10/03/2001 tachy Omeprazole Magnesium Tachycardia High 03/21/2011 Theophylline 10/03/2001 asthma med Hydrocodone-Acetaminop hen Other (Please comment) Medium 03/21/2011 Heart palpitations documented as of this encounter (statuses as of 03/01/2023) Medications Medication Sig Dispensed Refills Start Date End Date Status XANAX 0.5 MG OR TABS 1 tablet tid prn 90 0 10/03/2001 Active ASPIRIN 81 MG OR CHEWIndications:Ast hma, allergic 1 TABLET DAILY 30 0 06/30/2002 Active glipiZIDE ER 10 MG Oral Tablet Extended Release 24 Hour (GLUCOTROL XL) Take 1 Tablet by mouth in the morning and 1 Tablet before bedtime. 0 01/14/2020 Active Lansoprazole 30 MG Oral Capsule Delayed Release (PREVACID) Take 1 Capsule by mouth in the morning. 0 11/10/2019 Active Famotidine 20 MG Oral Tablet (PEPCID) Take 1 Tablet by mouth in the morning. 0 01/14/2020 Active OneTouch Ultra In Vitro Strip 0 01/29/2020 Active Albuterol Sulfate HFA 108 (90 Base) MCG/ACT Inhalation Aerosol Solution inhale 2 puffs by mouth and INTO THE LUNGS four times a day NEEDED FOR WHEEZING 0 01/16/2020 Active Krill Oil 1000 MG Oral Capsule Take 1 Capsule by mouth in the morning. 0 Active Clindamycin HCl 300 MG Oral Capsule take 4 capsules by mouth 1 hour prior to appointment 0 06/01/2020 Active Lisinopril 10 MG Oral Tablet (Prinivil) Take 1 Tablet by mouth in the morning. 0 02/03/2021 Active Escitalopram Oxalate 20 MG Oral Tablet (Lexapro) Take 1 Tablet by mouth in the morning. 0 12/28/2020 Active Metoprolol Succinate ER 25 MG Oral Tablet Extended Release 24 Hour (Toprol XL) Take 1 Tablet by mouth daily. 90 Tablet 3 02/08/2021 Active Magnesium 250 MG Oral Tablet Take 1 Tablet by mouth in the morning. 0 Active Lubiprostone 8 MCG Oral Capsule (Amitiza) Take 1 Capsule by mouth 2 times a day with morning and evening meals. 0 Active Hospital, Clinic, or Other Facility Administered Medication Ordered Dose Route Frequency Start Date End Date Status Albuterol Sulfate (Proventil) (2.5 MG/3ML) 0.083% inhalation solution 2.5 mgIndications:Coronary artery disease involving [place] coronary artery of [place] heart without angina pectoris 2.5 mg NEBULIZER PRN 02/28/2023 02/28/2024 Active Albuterol Sulfate (Proventil) (5 MG/ML) 0.5% *conc* inhalation solution 2.5 mgIndications:Coronary artery disease involving [place] coronary artery of [place] heart without angina pectoris 2.5 mg NEBULIZER PRN 02/28/2023 02/28/2024 Active documented as of this encounter (statuses as of 03/01/2023) Active Problems Problem Noted Date Diagnosed Date HTN, GOAL BELOW 140/80 10/09/2011 Overview: Per HTN Protocol #27. Asthma with severity to be determined 08/12/2009 Overview: Per Asthma Taxonomy ICD-10 update of inactive term Obesity, morbid (more than 1 00 lbs over ideal weight or BMI > 40) 08/03/2009 Overview: Per Obesity Protocol, #19 ICD-10 update of inactive term DYSLIPIDEMIA, GOAL LDL BELOW 100 02/02/2009 Overview: Per Lipid Taxonomy. Type 2 diabetes mellitus wit h hemoglobin A1c goal of less than 7.0% 12/17/2008 Overview: Per Diabetes Taxonomy. ICD-10 update of inactive term CHR ISCHEMIC HRT DIS NOS 03/03/2002 Palpitations 01/18/2002 CHEST PAIN NEC-atypical 01/18/2002 documented as of this encounter (statuses as of 03/01/2023) Resolved Problems Problem Noted Date Diagnosed Date Resolved Date HTN, GOAL BELOW 130/80 01/12/200910/11 Overview: Modified per HTN protocol #16. ASTHMA W STATUS ASTHMAT 01/18/200207/21 ACUTE SINUSITIS NOS 12/23/2001 04/09/19 Overview: Resolved per Benign Acute Dxs Protocol #3 HYPERTENSION NOS 12/23/2001 01/12/2009 Overview: Modified per HTN protocol #16. Type 2 diabetes mellitus wit h hemoglobin A1c goal of less than 7.0% 12/23/2001 12/17/2008 Overview: Per Diabetes Taxonomy. ICD-10 update of inactive term PURE HYPERCHOLESTEROLEM 12/23/200101/19 Overview: Per Lipid Taxonomy. documented as of this encounter (statuses as of 03/01/2023) Immunizations Name Administration Dates Next Due COVID-19 mRNA, LNP-s, No Pre serve, 2-Dose Series (Pfizer) 03/02/2021,04/16/2020,03/26/2020 Seasonal Influenza, PF, 6 M & above, IM , (FluLaval or Fluzone) 12/29/2019,03/10/2019,12/02/2014, 0 14,01/28/2013 documented as of this encounter Social History Tobacco Use Types Packs/Day Years Used Date Smoking Tobacco: Never Smokeless Tobacco: Never Alcohol Use Standard Drinks/Week Comments No 0 (1 standard drink = 0.6 oz pur e alcohol) Sex and Gender Information Value Date Recorded Sex Assigned at Not on file Gender Identity Not on file Sexual Orientation Not on file Job Start Date Occupation Industry Not on file Not on file Not on file documented as of this encounter Miscellaneous Notes * Telephone Encounter - Aroldo Mckenna RN - 03/01/2023 11:53 AM EST Called and left message on phone to return call tot clinic in regards to the message from Bogdan concerning her lab results. * Telephone Encounter - Aroldo Mckenna RN - 03/01/2023 11:52 AM EST ----- Message from KIRSTEN Vieyra sent at 03/01/2023 10:59 AM EST ----- Very uncontrolled LDL. Known intolerance to multiple statins. She has not yet tried low dose Crestor-- this med is generally better tolerated than the other statins, recommend starting at 5 mg daily. Repeat lipids and LFTsin 6 weeks. documented in this encounter Plan of Treatment Upcoming Encounters Date Type Department Care Team (Late st Contact Info) Description 03/21/2023 11:00 AM EST PulmDiagnostic Pulmonary Function Lab, [facility] [address] [place] [address] [place], [address] [facility] [place] [address] 04/26/2023 3:30 PM EST Cardiac Studies Cardiac Studies, [facility] [place] [address] [place] [address] Health Maintenance Due Date Last Done Comments DXA Scan 1941 Depression Screening 1953 Albumin/Creatinine Ratio 1959 Diabetic Foot Exam 1959 DTaP,Tdap,and Td Vaccines (1 - Tdap) 02/08/1960 Zoster Vaccines (1 of 2) 1991 Hepatitis B (1 of 3 - Risk 3-dose series) 2001 HbA1c 10/24/2002 04/23/2002 Pneumococcal Vaccine: 65+ Years (2 - PCV) 10/15/2009 10/15/2008 Diabetic Eye Exam 03/11/2010 03/11/2009 *SPIROMETRY ONCE FOR ASTHMA-ADULT 01/12/2022 COVID-19 Vaccine ( season) 2022 03/02/2021, 04/16/2020, 03/26/2020 Influenza Vaccine (FLU shot) (#1) 2022 12/29/2019, 03/10/2019, 12/01/2016, Additional history exists GFR 02/29/2024 02/28/2023, 02/20, 04/23/2002 GARDASIL-HPV IMMUNIZATION SERIES Aged Out No longer eligible based on patient's age to complete this topic MENINGOCOCCAL (MENACTRA/MENVEO) Aged Out No longer eligible based on patient's age to complete this topic documented as of this encounter Medical Devices Not on filedocumented as of this encounter Care Teams Onsite Case Manager Relationship Specialty Start Date End Date Sana Becker DO [address] [facility] [address] [place] [address] PCP - General Family Medicine 05/25/10 documented as of this encounter
--- OUTSIDE RECORDS SUMMARY | 2023-03-02 08:54 | External Medical Summary | Summary of Care ---
Author Name Unknown Organization [facility] Address [address] [place] [address] Phone [phone] Care Team Providers Care History Tutor Name Role Phone Sana Becker Primary Care Provider Reason for Visit * Reason Comments Outpatient Testing Encounter Details Date Type Department Care Team (Late st Contact Info) Description 02/28/2023 11:40 AM EST Laboratory Laboratory, [facility] [address] [place] [id number] [facility] [address] [place] [address] Coronary artery disease involving [place] coronary artery of [place] heart without angina pectoris; Mild aortic stenosis; HTN, goal below 140/90; Dyslipidemia, goal LDL below 70; Statin intolerance; Chronic chest pain; SOB (shortness of breath) Allergies Active Allergy Reactions Criticality Noted Date [...] as of this encounter (statuses as of 02/28/2023) Medications Medication Sig Dispensed Refills Start Date [...] with morning and evening meals. 0 Active documented as of this encounter (statuses as of 02/28/2023) Active Problems Problem Noted Date Diagnosed Date [...] as of this encounter (statuses as of 02/28/2023) Resolved Problems Problem Noted Date Diagnosed Date [...] as of this encounter (statuses as of 02/28/2023) Immunizations Name Administration Dates Next Due COVID-19 mRNA, LNP-s, No Pre serve, 2-Dose Series (Vigo) 03/02/2021,04/16/2020,03/26/2020 Seasonal Influenza, PF, 6 M & [...] on file documented as of this encounter Plan of Treatment Upcoming Encounters Date Type Department Care Team (Late st Contact Info) Description 03/21/2023 11:00 AM EST PulmDiagnostic Pulmonary Function Lab, [facility] [address] [facility] [place] [address] [facility] [address] [place] [address] Pending Results Name Type Priority Associated Diagnoses Date /Time CBC WITH WBC DIFFERENTIAL Lab Routine Coronary artery disease involving [place] coronary artery of [place] heart without angina pectoris Mild aortic stenosis HTN, goal below 140/90 Dyslipidemia, goal LDL below 70 Statin intolerance Chronic chest pain SOB (shortness of breath) 02/28/2023 11:05 AM EST BASIC METABOLIC PANEL Lab Routine Coronary artery disease involving [place] coronary artery of [place] heart without angina pectoris Mild aortic stenosis HTN, goal below 140/90 Dyslipidemia, goal LDL below 70 Statin intolerance Chronic chest pain SOB (shortness of breath) 02/28/2023 11:05 AM EST CBC Lab Routine Coronary artery disease involving [place] coronary artery of [place] heart without angina pectoris Mild aortic stenosis HTN, goal below 140/90 Dyslipidemia, goal LDL below 70 Statin intolerance Chronic chest pain SOB (shortness of breath) 02/28/2023 11:05 AM EST DIFFERENTIAL, AUTOMATED Lab Routine Coronary artery disease involving [place] coronary artery of [place] heart without angina pectoris Mild aortic stenosis HTN, goal below 140/90 Dyslipidemia, goal LDL below 70 Statin intolerance Chronic chest pain SOB (shortness of breath) 02/28/2023 11:05 AM EST Health Maintenance Due Date Last Done Comments DXA Scan 1941 Depression Screening 1953 Albumin/Creatinine Ratio 1959 Diabetic Foot Exam 1959 DTaP,Tdap,and Td Vaccines (1 - Tdap) 02/08/1960 Zoster Vaccines (1 of 2) 1991 Hepatitis B (1 of 3 - Risk 3-dose series) 2001 HbA1c 10/24/2002 04/23/2002 Pneumococcal Vaccine: 65+ Years (2 - PCV) 10/15/2009 10/15/2008 Diabetic Eye Exam 03/11/2010 03/11/2009 GFR 03/16/2011 03/16/2010, 04/23/2002 *SPIROMETRY ONCE FOR ASTHMA-ADULT 01/12/2022 COVID-19 Vaccine ( season) 2022 03/02/2021, 04/16/2020, 03/26/2020 Influenza Vaccine (FLU shot) (#1) 2022 12/29/2019, 03/10/2019, 12/01/2016, Additional history exists GARDASIL-HPV IMMUNIZATION SERIES Aged Out No longer eligible based on patient's age to complete this topic MENINGOCOCCAL (MENACTRA/MENVEO) Aged Out No longer eligible based on patient's age to complete this topic documented as of this encounter Medical Devices Not on filedocumented as of this encounter Visit Diagnoses Diagnosis Coronary artery disease involving [place] coronary artery of [place] heart without angina pectoris Mild aortic stenosis Aortic valve disorders HTN, goal below 140/90 Unspecified essential hypertension Dyslipidemia, goal LDL below 70 Other and unspecified hyperlipidemia Statin intolerance Other drug allergy Chronic chest pain Chest pain, unspecified SOB (shortness of breath) Shortness of breath documented in this encounter Care Teams History Tutor Relationship Specialty Start Date End Date Sana Becker DO [address] [facility] [address] [place] [address] PCP - General Family Medicine 05/25/10 documented as of this encounter
--- OUTSIDE RECORDS SUMMARY | 2023-03-02 08:54 | External Medical Summary | Summary of Care ---
Author Name Unknown Organization [facility] Address [address] [place] [address] Phone [phone] Care Team Providers Care Produce Shipper Name Role Phone Sana Becker Primary Care Provider Reason for Visit * Reason Onset Date Comments Test Results 03/01/2023 Returning call Encounter Details Date Type Department Care Team (Late st Contact Info) Description 03/01/2023 Telephone Cardiology, [facility] [address] [place] [address] Salma Hunter CRNP [address] [place] [address] Test Results (Returning call 03/01/23) Allergies Active Allergy Reactions Criticality Noted Date [...] inhalation solution 2.5 mgIndications:Coronary artery disease involving [place] coronary artery of [place] heart without angina pectoris 2.5 mg NEBULIZER PRN 02/28/2023 02/28/2024 Active Albuterol Sulfate (Proventil) (5 MG/ML) 0.5% *conc* inhalation solution 2.5 mgIndications:Coronary artery disease involving [place] coronary artery of [place] heart without angina pectoris 2.5 mg NEBULIZER [...] HTN protocol #16. ASTHMA W STATUS ASTHMAT 01/18/2002 0605/2009 ACUTE SINUSITIS NOS 12/23/2001 04/09/19 09 Overview: Resolved per Benign Acute Dxs Protocol [...] encounter Miscellaneous Notes * Telephone Encounter - Jina Butler OSA - 03/01/2023 2:06 PM EST Person calling: Jakob Spain Relationship to patient: Son & POA Number to return call: [phone] Reason for call: Returning call Pharmacy: N/A Provider Name:Salma Hunter * Telephone Encounter - Aroldo Mckenna RN [...] 11:00 AM EST PulmDiagnostic Pulmonary Function Lab, [facility] [address] [facility] [place] [address] [place], [address] [facility] [place] [address] 04/26/2023 3:30 PM EST Cardiac Studies [facility], [facility] [place] [address] Health Maintenance Due Date Last Done Comments [...] ONCE FOR ASTHMA-ADULT 01/12/2022 COVID-19 Vaccine ( - 2022- season) 2022 03/02/2021, 04/16/2020, 03/26/2020 Influenza Vaccine [...] filedocumented as of this encounter Care Teams Produce Shipper Relationship Specialty Start Date End Date Sana Becker DO [address] [facility] [address] [place] [address], [place] [address] PCP - General Family Medicine 05/25/10 documented as of this encounter
--- OUTSIDE RECORDS SUMMARY | 2023-03-02 08:54 | External Medical Summary | Summary of Care ---
Author Name Unknown Organization [facility] Address [address] [place] [address] Phone [phone] Care Team Providers Care Poultry Farm Supervisor Name Role Phone Sana Becker Primary Care Provider Encounter Details Date Type Department Care Team (Late st Contact Info) Description 02/28/2023 Orders Only Cardiology, [facility] [address] [facility] [address] [place] CRNP [address] [facility] [address] Coronary artery disease involving [place] coronary artery of [place] heart without angina pectoris* Allergies Active Allergy Reactions Criticality Noted Date [...] inhalation solution 2.5 mgIndications:Coronary artery disease involving [place] coronary artery of [place] heart without angina pectoris 2.5 mg NEBULIZER PRN 02/28/2023 02/28/2024 Active Albuterol Sulfate (Proventil) (5 MG/ML) 0.5% *conc* inhalation solution 2.5 mgIndications:Coronary artery disease involving [place] coronary artery of [place] heart without angina pectoris 2.5 mg NEBULIZER [...] ASTHMAT 01/18/200207/21 ACUTE SINUSITIS NOS 12/23/2001 04/09/19 09 Overview: [...] 11:00 AM EST PulmDiagnostic Pulmonary Function Lab, [facility] [address] [place] [address] [place], [address] [facility] [place] [address] Health Maintenance Due Date Last Done Comments [...] *SPIROMETRY ONCE FOR ASTHMA-ADULT 01/12/2022 COVID-19 Vaccine (4 - 2022- season) 2022 03/02/2021, 04/16/2020, 03/26/2020 [...] Visit Diagnoses Diagnosis Coronary artery disease involving [place] coronary artery of [place] heart without angina pectoris- Primary documented in this encounter Care Teams Poultry Farm Supervisor Relationship Specialty Start Date End Date Sana Becker DO [address] [facility] [address] [place] [address], [place] [address] PCP - General Family Medicine 05/25/10 documented as of this encounter
--- OUTSIDE RECORDS SUMMARY | 2023-03-02 08:55 | External Medical Summary | Summary of Care ---
Author Name Unknown Organization [facility] Address [address] [place] [address] Phone [phone] Care Team Providers Care Wader Boot Top Assembler Name Role Phone Sana Becker Primary Care Provider Reason for Referral * Precert (Within 10 days (routine)) - Pending Review Specialty Diagnoses / Procedures Referred By Jonathan felix Referred To Contact Cardiac Studies Diagnoses Coronary artery disease involving [place] coronary artery of [place] heart without angina pectoris Mild aortic stenosis HTN, goal below 140/90 Dyslipidemia, goal LDL below 70 Statin intolerance Chronic chest pain SOB (shortness of breath) Procedures ECHO, COMPLETE (2D), TRANS-THORACIC [facility]ma Hunter CRNP [address] [facility] [address] Referral ID Status Reason Start Date Expiration Date Visits Requested Visits Authorized [id number] Pending Review Precert 03/31/2023 999 999 Reason for Visit * Reason Comments Follow Up Encounter Details Date Type Department Care Team (Late st Contact Info) Description 02/28/2023 11:00 AM EST Office Visit [facility]iology, [facility] [address] [facility] [address] Salma Hunter CRNP [address] [facility] [id number] Coronary artery disease involving [place] coronary artery of [place] heart without angina pectoris*; Chronic chest pain; SOB (shortness of breath); Mild aortic stenosis; HTN, goal below 140/90; Dyslipidemia, goal LDL below 70; Statin intolerance Allergies Active Allergy Reactions Criticality Noted Date Comments Madison Herman 04/16/2003 Esomeprazole Magnesium Tachycardia 03/21/2011 Metformin Hydrochloride [...] mRNA, LNP-s, No Pre serve, 2-Dose Series (Akdemia) 03/02/2021,04/16/2020,03/26/2020 Seasonal Influenza, PF, 6 M & above, IM , (FluLaval or Fluzone) 12/29/2019,03/10/2019,12/02/2014, 0 14,01/28/2013 documented as of this encounter Social History Tobacco Use Types Packs/Day Years Used Date Smoking Tobacco: Never Smokeless Tobacco: Never Tobacco Cessation:Counseling Given: Not Answered Alcohol Use Standard Drinks/Week Comments No 0 (1 standard drink = 0.6 oz pur e alcohol) Sex and Gender Information Value Date Recorded Sex Assigned at Not on file Gender Identity Not on file Sexual Orientation Not on file Job Start Date Occupation Industry Not on file Not on file Not on file documented as of this encounter Last Filed Vital Signs Vital Sign Reading Time Taken Comments Blood Pressure 118/70 02/28/2023 10:26 AM EST Pulse 76 02/28/2023 10:26 AM EST Temperature - - Respiratory Rate 18 02/28/2023 10:2 6 AM EST Oxygen Saturation - - Inhaled Oxygen Concentration - - Weight 63.9 kg (140 lb 12.8 oz) 024 10:26 AM EST Height - - Body Mass Index 28.44 09/20/2022 4:41 PM EDT documented in this encounter Progress Notes * Salma Hunter CRNP - 02/28/2023 11:00 AM EST Cardiology Outpatient Visit 02/28/2023 Primary Director Of Billing: Follows with Rey Sage PA-C Past medical history: Anxiety, panic attacks, and depression Coronary artery calcifications and moderate atherosclerotic calcification in the abdominal vasculature Chronic chest pain and dyspnea -- nonischemic dobutamine stress echo 02/25/2020 Aortic valve stenosis Mild per echo 03/2022 Hypertension. Dyslipidemia. Unable to tolerate atorvastatin, simvastatin, pravastatin, and ? ezetimibe. Asthma. Type II diabetes mellitus. Exogenous obesity. Sleep apnea, untreated History of gastric ulcer Hiatal hernia GERD Vertigo Hyponatremia Hypomagnesemia. Frequent UTIs Chronic back pain Status cataract extraction Hospitalization in September 2020 with acute mental status changes, seizure, marked hyponatremia (114 mmol/L) Hospitalization in May 2021 with right lower abdominal pain, acute appendicitis, status post laparoscopic appendectomy by Dr. Caraballo on June 13, 2021 Hospitalization in June 2021 with diarrhea Kidney stones HPI 83-year-old female presenting to the cardiology office today in routine follow- up. Was last evaluated by Marilia Linares PA-C approximately 4 months ago. Today the patient presents with family. Overall she is feeling well but continues to have some shortness of breath. Notes that her albuterol inhaler does help her symptoms. She denies any exertional chest pain. No palpitations or lightheadedness. No syncope. No orthopnea, PND, or increased lower extremity edema. No fever, chills, cough, hematochezia, melena, or hemoptysis. Patient is compliant with all medications, and offers no side effects. Current Outpatient Medications Medication Sig Dispense Refill XANAX 0.5 MG OR TABS 1 tablet tid prn 90 0 ASPIRIN 81 MG OR CHEW 1 TABLET DAILY 30 0 glipiZIDE ER 10 MG Oral Tablet Extended Release 24 Hour (GLUCOTROL XL) Take 1 Tablet by mouth in the morning and 1 Tablet before bedtime. Lansoprazole 30 MG Oral Capsule Delayed Release (PREVACID) Take 1 Capsule by mouth in the morning. Famotidine 20 MG Oral Tablet (PEPCID) Take 1 Tablet by mouth in the morning. OneTouch Ultra In Vitro Strip Albuterol Sulfate HFA 108 (90 Base) MCG/ACT Inhalation Aerosol Solution inhale 2 puffs by mouth andINTO THE LUNGS four times a day NEEDED FOR WHEEZING Krill Oil 1000 MG Oral Capsule Take 1 Capsule by mouth in the morning. Lisinopril 10 MG Oral Tablet (Prinivil) Take 1 Tablet by mouth in the morning. Escitalopram Oxalate 20 MG Oral Tablet (Lexapro) Take 1 Tablet by mouth in the morning. Metoprolol Succinate ER 25 MG Oral Tablet Extended Release 24 Hour (Toprol XL) Take 1 Tablet by mouth daily. 90 Tablet 3 Magnesium 250 MG Oral Tablet Take 1 Tablet by mouth in the morning. Lubiprostone 8 MCG Oral Capsule (Amitiza) Take 1 Capsule by mouth 2 times a day with morning and evening meals. Clindamycin HCl 300 MG Oral Capsule take 4 capsules by mouth 1 hour prior to appointment (Patient not taking: Reported on 02/28/2023) No current facility-administered medications for this visit. No past medical history on file. Past Surgical History: Procedure Laterality Date LAPAROSCOPY;APPENDECTOMY 06/13/2021 done at [facility] by Dr Caraballo Social History Tobacco Use Smoking status: Never Smokeless tobacco: Never Vaping Use Vaping Use: Never used Substance Use Topics Alcohol use: No Drug use: No Review of patient's allergies indicates: Allergen Reactions Prilosec [Omeprazole Magnesium] Tachycardia Vicodin [Hydrocodone-Acetaminophen] Other (Please comment) Heart palpitations Cat Dander Esomeprazole Magnesium Tachycardia Glucophage [Metformin Hydrochloride] diarrhea Ibuprofen loss of equilibruim Iodine Levofloxacin Morphine And Related Pantoprazole Sodium Diarrhea Prednisone tachy Theophylline asthma med Review of Systems: See HPI for pertinent positives. All others negative, other than those noted in HPI. Physical Exam BP 118/70 | Pulse 76 | Resp 18 | Wt 63.9 kg (140 lb 12.8 oz) | BMI 28.44 kg/m | BSA 1.63 m General: No acute distress. A+Ox3. HEENT: Normocephalic. Atraumatic. Conjunctiva and sclera clear. NECK: No carotid bruits. No JVD. Carotid upstrokes are brisk. Heart: RRR. S1 and S2 noted. +2/6 systolic murmur. Lungs: Clear to auscultation. No wheezes, rhonchi, rales. Abdomen: Normal bowel sounds. Soft. Nontender. No masses or organomegaly. No abdominal bruits. Extremities: No edema. No clubbing or cyanosis. Ecchymosis on bilateral upper extremities. Pulses: radial=2/4, posterior tibial=2/4, dorsalis pedis = 2/4. NEURO: No focal deficits. PSYCH: Normal. Lab data/imaging study review: Echo 03/30/2022 Interpretation Summary The examination is adequate to evaluate the referral indication. The qualitative LV ejection fraction is 55-59% (normal). The LV wall thickness is normal. The left ventricular wall motion is normal. The left ventricular diastolic function is mildly abnormal (grade I). The aortic valve is mildly calcified. Mild aortic valve stenosis is present. There is no significant aortic regurgitation. Mild tricuspid regurgitation is present. There is no evidence of pulmonary hypertension. Compared to prior study of 03/23/2021, there is no significant change. Zio 08/2021 Patient had a min HR of 47 bpm, max HR of 131 bpm, and avg HR of 72 bpm. Predominant underlying rhythm was Sinus Rhythm. 3 Supraventricular Tachycardia runs occurred, the run with the fastest interval lasting 7 beats with a max rate of 121 bpm, the longest lasting 5 beats with an avg rate of 101 bpm. Isolated SVEs were rare (<1.0%), SVE Couplets were rare (<1.0%), and SVE Triplets were rare (<1.0%). Isolated VEs were rare (<1.0%), and no VE Couplets or VE Triplets were present. The patient submitted to event markers which correlated with sinus rhythm only Impression: Sinus rhythm, average rate 72 beats per minute with rare atrial ventricular ectopy and 3 short runs of supraventricular tachycardia longest 7 beats in duration. DSE 02/2020 Interpretation Summary The examination is adequate to evaluate the referral indication. The stress echo is negative for inducible ischemia. The LV wall thickness is borderline increased (concentric). The qualitative LV ejection fraction is 55-59% (normal). The left ventricular diastolic function is mildly abnormal (grade I). The aortic valve is mildly calcified. Borderline to mild aortic valve stenosis is present. The estimated pulmonary artery systolic pressure is 35 mm Hg (upper limit of normal) Impression/Plan: 1. Coronary artery disease involving [place] coronary artery of [place] heart without angina pectoris 2. Chronic chest pain and shortness of breath. -Coronary artery calcifications and moderate atherosclerotic calcification in the abdominal vasculature -Chronic chest pain and dyspnea -- nonischemic dobutamine stress echo 02/25/2020 1. Continue aspirin 81 mg daily 2. Possible uncontrolled asthma as a causes some of her shortness of breath. Will order PFTs for further assessment. Deconditioning likely contributing. 3. Mild aortic stenosis Mild aortic stenosis noted on last echo dated 03/2022, stable. Velocities in the 250s. Repeat resting echocardiogram March 2023 to reassess aortic valve gradients 4. HTN, goal below 140/90 Well controlled. 1. Continue lisinopril 10 mg daily and metoprolol succinate 25 mg daily 2. Routine blood work ordered. 5. Dyslipidemia, goal LDL below 70 6. Statin intolerance -Not on statin therapy due to intolerance. The patient agrees to the above plan and will call with additional questions or concerns. ER with all emergencies advised. Follow-up: Return in about 8 months (around 10/30/2023). | Check-out note: Labs today. Schedule echoFeb/April 2023. Schedule PFTs. I spent a total of 40 minutes on the date of service in preparation, delivery, and documentation ofthe care provided to Ana Quesada excluding any time spent in the performance of separately billedservices. KIRSTEN Diaz, Department of Cardiology This chart was completed in part utilizing [employer] Speech Voice Recognition Software. Grammatical errors, random word insertions, prounoun errors, and incomplete sentences are an occasional consequence of this system due to software limitations, ambient noise, and hardware issues. Any formal questions or concerns about the content, text, or information contained within the body of this dictation should be directly addressed to the provider for clarification. documented in this encounter Nursing Notes * Kimberly Castro LPN - 02/28/2023 10:27 AM EST Examination Room: 4 Name: Ana Quesada Date of : (1940) Reason for Visit: Follow up Interim Hospitalization(s): Denies Problems/Concerns: Denies Chest Pain/SOB: Denies My [facility] is a way you can talk to your provider online through e-mail. Would you like to sign up? I can activate it for you? ALREADY ACTIVE Patient was instructed to not get up on the exam table until directed and assisted by their provider; patient is to remain seated in the chair/ wheelchair/ exam table for fall prevention and safety reasons. Patient is aware to have assistance to step down off exam table with personnel. Patient voiced full comprehension of instructions. documented in this encounter Plan of Treatment Upcoming Encounters Date Type Department Care Team (Latest Contact Info) Description 02/28/2023 11:40 AM EST Laboratory Laboratory, [address] [place] [address] [facility] [address] [facility] [place] [address] Coronary artery disease involving [place] coronary artery of [place] heart without angina pectoris; Mild aortic stenosis; HTN, goal below 140/90; Dyslipidemia, goal LDL below 70; Statin intolerance; Chronic chest pain; SOB (shortness of breath) 03/21/2023 11:00 AM EST PulmDiagnostic Pulmonary Function Lab, Health system [address] [facility] [place] [address] [place], [address] [facility] [place] [address] Pending Results Name Type Priority Associated Diagnoses Date /Time CBC WITH WBC DIFFERENTIAL Lab Routine Coronary artery disease involving [place] coronary artery of [place] heart without angina pectoris Mild aortic stenosis HTN, goal below 140/90 Dyslipidemia, goal LDL below 70 Statin intolerance Chronic chest pain SOB (shortness of breath) 02/28/2023 11:05 AM EST BASIC METABOLIC PANEL Lab Routine Coronary artery disease involving [place] coronary artery of [place] heart without angina pectoris Mild aortic stenosis HTN, goal below 140/90 Dyslipidemia, goal LDL below 70 Statin intolerance Chronic chest pain SOB (shortness of breath) 02/28/2023 11:05 AM EST LIPID PANEL WITH DIRECT LDL IF TG IS HIGH Lab Routine Coronary artery disease involving [place] coronary artery of [place] heart without angina pectoris Mild aortic stenosis HTN, goal below 140/90 Dyslipidemia, goal LDL below 70 Statin intolerance Chronic chest pain SOB (shortness of breath) 02/28/2023 11:05 AM EST Scheduled Orders Name Type Priority Associated Diagnoses Orde r Schedule ECHO, COMPLETE (2D), TRANS-THORACIC Echocardiology Routine Coronary artery disease involving [place] coronary artery of [place] heart without angina pectoris Mild aortic stenosis HTN, goal below 140/90 Dyslipidemia, goal LDL below 70 Statin intolerance Chronic chest pain SOB (shortness of breath) Expected: 03/31/2023, Expires: 02/29/2024 DIFFUSION CAPACITY (DLCO) Procedures Routine Coronary artery disease involving [place] coronary artery of [place] heart without angina pectoris Mild aortic stenosis HTN, goal below 140/90 Dyslipidemia, goal LDL below 70 Statin intolerance Chronic chest pain SOB (shortness of breath) Expected: 02/28/2023, Expires: 03/31/2024 LUNG VOLUMES (PLETHYSMOGRAPHY) Procedures Routine Coronary artery disease involving [place] coronary artery of [place] heart without angina pectoris Mild aortic stenosis HTN, goal below 140/90 Dyslipidemia, goal LDL below 70 Statin intolerance Chronic chest pain SOB (shortness of breath) Expected: 02/28/2023, Expires: 03/31/2024 SPIROMETRY B/A BRONCHODILATOR Procedures Routine Coronary artery disease involving [place] coronary artery of [place] heart without angina pectoris Mild aortic stenosis HTN, goal below 140/90 Dyslipidemia, goal LDL below 70 Statin intolerance Chronic chest pain SOB (shortness of breath) Expected: 02/28/2023, Expires: 03/31/2024 CBC WITH WBC DIFFERENTIAL Lab Routine Coronary artery disease involving [place] coronary artery of [place] heart without angina pectoris Mild aortic stenosis HTN, goal below 140/90 Dyslipidemia, goal LDL below 70 Statin intolerance Chronic chest pain SOB (shortness of breath) Expected: 02/28/2023, Expires: 02/29/2024 BASIC METABOLIC PANEL Lab Routine Coronary artery disease involving [place] coronary artery of [place] heart without angina pectoris Mild aortic stenosis HTN, goal below 140/90 Dyslipidemia, goal LDL below 70 Statin intolerance Chronic chest pain SOB (shortness of breath) Expected: 02/28/2023, Expires: 02/29/2024 Health Maintenance Due Date Last Done Comments [...] Visit Diagnoses Diagnosis Coronary artery disease involving [place] coronary artery of [place] heart without angina pectoris- Primary Chronic chest pain Chest pain, unspecified SOB (shortness of breath) Shortness of breath Mild aortic stenosis Aortic valve disorders HTN, goal below 140/90 Unspecified essential hypertension Dyslipidemia, goal LDL below 70 Other and unspecified hyperlipidemia Statin intolerance Other drug allergy Coronary artery disease involving [place] coronary artery of [place] heart without angina pectoris Mild aortic stenosis Aortic valve disorders HTN, goal below 140/90 Unspecified essential hypertension Dyslipidemia, goal LDL below 70 Other and unspecified hyperlipidemia Statin intolerance Other drug allergy Chronic chest pain Chest pain, unspecified SOB (shortness of breath) Shortness of breath documented in this encounter Care Teams Wader Boot Top Assembler Relationship Specialty Start Date End Date Sana Becker DO 6 [facility] [place] [address] [place] [address], [place] [address] PCP - General Family Medicine 05/25/10 documented as of this encounter"
--- OUTSIDE RECORDS SUMMARY | 2023-03-02 08:55 | External Medical Summary ---
Author Name Unknown Address Unknown Organization [facility] [place] [address] Laboratory Report Ordering Provider Test Date Status JUANITO RIVERA 02/28/2023 11:05:57 Final Observation Date Value Abnormality Reference (Units ) Status BUN 02/28/2023 11:05:57 23 Above high normal 6-20 (mg/dL) Final Creatinine 02/28/2023 11:05:57 1.0 0.5-1.0 (mg/dL) Final Glomerular filtration rate/1.73 sq M.predicted [Volume Rate/Area] in Serum, Plasma or Blood by Creatinine-based formula (CKD-EPI) 02/28/2023 11:05:57 56 Below low normal >=60 (mL/min) Final eGFR is calculated based on the CKD-EPI 2020 equation SODIUM 02/28/2023 11:05:57 136 135-146 (m mol/L) Final Potassium 02/28/2023 11:05:57 4.0 3.5-5.1 (m mol/L) Final Cl 02/28/2023 11:05:57 103 98-107 (mm ol/L) Final CO2 02/28/2023 11:05:57 20 Below low normal 22- 32 (mmol/L) Final Anion gap 02/28/2023 11:05:57 13 7-15 (mmol /L) Final Glucose 02/28/2023 11:05:57 173 Above high normal 70 -120 (mg/dL) Final Calcium 02/28/2023 11:05:57 9.3 8.4-10.2 ( mg/dL) Final Performing Location [facility] [address] [place] [address]
--- OUTSIDE RECORDS SUMMARY | 2023-03-02 08:55 | External Medical Summary | Continuity of Care Document ---
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 free air. 4. No change in the pneumobilia. This statistically is secondary to the prior sphincterotomy. 65Mild to moderate colonic diverticulosis. Findings are consistent with mild acute diverticulitis involvint the distal descending colon. There is no intraperitoneal free air or evidence of diverticularabscess. Status post cholecystectomy. Gas within the intrahepatic ducts is likely related to previous sphincterotomy. Correlation with the patients surgical history will be required. Additional changes as above. 66Normal caliber abdominal aorta 67Increasing coarse heterogeneous and punctate calcifications in the left medial breast at the site of previously seen fat nectosis. 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 Recommend follow up diagnostic mammograms of the left breast in 6 months ro reevaluate. 68Patient to be recalled for magnification views of the left breast in the CC and MLO projections forfurther evaluation of left breast calcifications. 69No evidence for pulmonary embolus. Trace pericardial effusion which has decreased in size. A few scattered pulmonary nodules are described above. The largest within the left lower lobe measures 5 mm and is stble compared to the 2008 examination and is therefore benign. The additional nodules within the upper lobes are less than 4 mm. Therefore a one year chest CT follow up can be performed to ensure stability if the patient is considered high risk. Otherwise no additional followup is required given the small size of these nordules. An old mild anterior wedge-shaped compression deformity within the T12 vertebral body. 70No significant change compared to prior study. No acute process. 71Removal of hardware of the right hip 72No shadowing stone or hydronephrosis seen bilaterally. Probably cortical lobulations/contour irregularities in the left kidney similar to a prior abdominal ultrasound 07/12/12. No significant post-void residual in the bladder. 73No acute cardiopulmonary abnormality 74No sonographic evidence for abdominal aortic aneurysm 75The architectural distortion in the left breast is indeterminate. Additional views with possible ultrasound are recommended. 76No evidence of delayed gastric emptying 77Hyperinflated lungs with suggestion of new confluent opacity in the lingula, sispicious for pneumonia. 78done by Dr Hoffman; biopsies taken 79[facility] 81diverticulosis 82bilateral 83was hyperplastic polyp 84diverticulosis, single diminuitive polyp at 20 cm. Repeat in 5 years 85-0.5 left forearm 86sessile serrated adenoma 87no stones; had strictured papillae 88Normal Results Orders for Microbiology Reports Name Date Urine Culture (CULTURE, URINE) 02/20/23 Microbiology Reports TEST:Urine.Cx STATUS:Auth (Verified) BODY SITE: SOURCE:Urine COLLECTED DATE/TIME:02/20/23 11:55 AM Status FINAL 02/22/2023 Social History Social History Type Response Smoking Status Never smoked cigaret silvia Sex Female Patient Care team information Care Team Personnel Name: MD Rashid, Cam Rolle Position: Physician - Family Med Member Role: Lifetime Relationship Address: Address: [address] [facility] [address] Name: KIRSTEN Giron Tara Position: Nurse Pract - Family Med Member Role: Lifetime Relationship Address: Address: [address] [place] [address] Name: DO Becker Kristen M Position: Physician - Family Med Member Role: Primary Care Provider Address: Address: [address] [facility] [address] Care Team Related Persons Name: LOUANN NATION Address: home [address] [place], [place] [phone] Name: HALLE ROSADO Address: home [address] [place], [place] [phone] Name: JACQUELINE RESTREPO Address: [facility] Address: home [address] [place], [place] [phone] Name: ЕКАТЕРИНА ESTRADA
--- OUTSIDE RECORDS SUMMARY | 2023-03-02 08:55 | External Medical Summary ---
Author Name Unknown Address Unknown Organization K01:LABORATORY C - [address] [facility] [place] [address] Laboratory Report Ordering Provider Test Date Status CECILY RIVERAISO 02/28/2023 11:05:57 Final Observation Date Value Abnormality Reference (Units ) Status Triglyceride 02/28/2023 11:05:57 98 <=174 ( mg/dL) Final Triglyceride Reference Range s (mg/dL):
<150 Acceptable
150-174 Borderline high
175-499 High
>=500 Very high Cholesterol 02/28/2023 11:05:57 250 Above high normal <200 (mg/dL) Final Total Cholesterol Reference Ranges (mg/dL):
<200 Desirable
200-239 Borderline high
>=240 High HDL 02/28/2023 11:05:57 64 >49 (mg/dL ) Final HDL Cholesterol Reference Ra nges (mg/dL):
>=60 High (Desirable)
<50 Low (Undesirable) For Females
<40 Low (Undesirable) For Males NON-HDL CHOLESTEROL 02/28/2023 11:05:57 186 Above high normal <=159 (mg/dL) Final Non-HDL Cholesterol Referenc e Range (mg/dL):
<100 Target level for high risk ASCVD patient
<130 Optimal for general population
130-159 Near optimal for general population
160-189 Borderline High
190-219 High
>=220 Very High LDL, (calculated) 02/28/2023 11:05:57 166 Above high n ormal <=129 (mg/dL) Final LDL Cholesterol Reference Ra nges (mg/dL):
<70 Target level for high risk ASCVD patient
<100 Optimal for general population
100-129 Near optimal for general population
130-159 Borderline high
160-189 High
>=190 Very high Performing Location [facility] [place] - [address] [facility] [address]
--- OUTSIDE RECORDS SUMMARY | 2023-03-02 08:55 | External Medical Summary | Summary of Care ---
Author Name Unknown Organization [facility] Address [address] [place] [address] Phone [phone] Care Team Providers Care Drum Maker Name Role Phone Sana Becker Primary Care Provider Reason for Visit * Reason Onset Date Comments Appointment 02/27/2023 Encounter Details Date Type Department Care Team (Late st Contact Info) Description 02/27/2023 Telephone Cardiology, [facility] [address] [place] [address] Dea Huber CRNP [address] [place] [id number] Appointment Allergies Active Allergy Reactions Criticality Noted Date [...] as of this encounter (statuses as of 02/27/2023) Medications Medication Sig Dispensed Refills Start Date [...] as of this encounter (statuses as of 02/27/2023) Active Problems Problem Noted Date Diagnosed Date [...] as of this encounter (statuses as of 02/27/2023) Resolved Problems Problem Noted Date Diagnosed Date [...] as of this encounter (statuses as of 02/27/2023) Immunizations Name Administration Dates Next Due COVID-19 mRNA, LNP-s, No Pre serve, 2-Dose Series ([email or web address]) 03/02/2021,04/16/2020,03/26/2020 Seasonal Influenza, PF, 6 M & [...] encounter Miscellaneous Notes * Telephone Encounter - Haley Rosario CMA - 02/27/2023 4:43 PM EST Pts daughter called to confirm pt's next appt. It was 03/01. She asked to reschedule. I moved her to02/28. She was supposed to call back to let me know if that is ok. documented in this encounter Plan of Treatment Upcoming Encounters Date Type Department Care Team (Late st Contact Info) Description 02/28/2023 11:00 AM EST Office Visit Cardiology, [facility] [address] [place] [id number] Salma Hunter CRNP [address] [place] [address] Health Maintenance Due Date Last Done Comments [...] filedocumented as of this encounter Care Teams Drum Maker Relationship Specialty Start Date End Date Sana Becker DO 6 [facility] [address] [place] [address] PCP - General Family Medicine 05/25/10 documented as of this encounter
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
--- OUTSIDE RECORDS SUMMARY | 2023-03-02 08:55 | External Medical Summary | Continuity of Care Document ---
Author Name Unknown Organization [place] [id number] [facility] [address] [place] [id number] Care Team Providers Care Photographic Laboratory Supervisor Name Role Phone Sana Becker Primary Care Physician [id number] Encounter [facility] [id number] Date(s): 02/07/23 - 02/07/23 [facility] [address] [facility], [address] [address] [place] [phone] Discharge Disposition: Home or Self Care Attending Physician: DO Becker Kristen M Referring Physician: DO Becker Kristen M Allergies, Adverse Reactions, Alerts Substance Reaction Severity Status ciprofloxacin burning mouth and chest Act cyndie codeine Vertigo Active Lidoderm 5% topical film 1 A ctive ibuprofen off-balance Active Augmentin Active Avandia Chest Squeezing Active amoxicillin heat reaction Active pravastatin leg cramps Active predniSONE angioedema Active simvastatin leg pain Active metformin upset stomach fatigue Diarrhea Active atorvastatin leg pain Active corticosteroids 2 tachycardia Active Prilosec Tachycardia Active Levaquin heart racing Active Bactrim SOB diarrhea jaw numbness Active Vicodin Active Lexapro diarrhea Active Protonix Diarrhea Tachycardia Active Nexium Tachycardia Active contrast media (iodine-based) chest squeezing Active Lyrica Hands, legs & feet Swelling Active milk products Diarrhea Active 1severe headaches after several days use 2at high doses, only Immunizations Given and Recorded Vaccine Date Status [...] MOUTH TWICE DAILY NEEDED FOR ANXIETY, Pharmacy: [facility] Start Date: 08/07/22 Status: Ordered BD needle Ultra-Fine Pen 29G x 0.5" Start: 01/26/17 8:12:00, See Instructions, Disp# 100 each, home insulin injection E11.9, Pharmacy: [facility] [address] Start Date: 01/26/17 Status: Ordered Clinere Earwax Removal Kit 6.5% otic solution Start: 02/24/22 10:07:00 EST, right ear, bid Start Date: 02/24/22 Status: Ordered Dexcom G6 [place] Kit Start: 01/11/22 9:57:00 EST, See Instructions, Disp# 1 kit, Refills: 0, Use as directed, Pharmacy: [facility] Start Date: 01/11/22 Status: Ordered Dexcom G6 Sensor Kit Start: 11/14/21 18:22:00 EDT, See Instructions, Disp# 3 kit, Change sensor every 10 days, Note to Pharmacy: 3 pack per kit, Pharmacy: [facility] Start Date: 11/14/21 Status: Ordered Dexcom G6 Transmitter Kit Start: 11/14/21 18:22:00 EDT, See Instructions, Disp# 1 kit, Use as directed, Pharmacy: [facility] Start Date: 11/14/21 Status: Ordered florajen 3 - probiotic Start: 08/25/16 11:53:00, florajen 3 - probiotic, 1 cap, PO, Daily Start Date: 08/25/16 Status: Ordered glipiZIDE 10 mg oral tablet, extended release Start: 02/24/22 12:13:00 EST, See Instructions, Disp# 180 tab, Refills: 3, TAKE 1 TABLET BY MOUTH TWICE DAILY, Pharmacy: [facility] Start Date: 02/24/22 Status: Ordered glucose test strips Start: 11/20/22 15:54:00 EDT, See Instructions, Disp# 100 strip, Refills: 7, each, Note to Pharmacy: to go with one touch ultra 2 meter, subsitute with insurance covered strips, Pharmacy: [facility] Start Date: 11/20/22 Status: Ordered lancets Start: [...] Daily, Disp# 90 tab, Refills: 3, Pharmacy: [facility] Start Date: 02/24/22 Stop Date: 02/19/23 Status: Ordered lidocaine topical 5% patch Start: 01/03/23 12:29:00 EST, 1 patch, topical, Daily, Disp# 30 patch, Refills: 3, remove patches after 12 hours, Pharmacy: [id number] Start Date: 01/03/23 Status: Ordered lisinopril 10 mg oral tablet Start: 02/24/22 12:13:00 EST, 1 tab, PO, Daily, Disp# 90 tab, Refills: 3, Pharmacy: [facility] Start Date: 02/24/22 Status: Ordered magnesium amino acids chelate 100 mg oral tablet Start: 02/24/22 12:12:00 EST, 1 tab, PO, Daily, Disp# 90 tab, Refills: 3, Pharmacy: [facility] Start Date: 02/24/22 Stop Date: 02/19/23 Status: Ordered Magnesium Tab 250mg 100 Start: 12/20/22 19:14:00 EDT, Magnesium Tab 250mg 100, 0.5 tab, PO, qAM, Disp# 14 each, Refills: 0,Pharmacy [facility] Start Date: 12/20/22 Status: Ordered Metamucil 3.4 g/5.2 g oral powder for reconstitution Start: 11/16/21 14:57:00 EDT, PO Start Date: 11/16/21 Status: Ordered Metoprolol Succinate ER 25 mg oral tablet, extended release Start: 03/01/22 13:12:00 EST, 1 tab, PO, Daily, Disp# 90 tab, Refills: 3, Pharmacy: [facility] Start Date: 03/01/22 Status: Ordered mupirocin 2% topical ointment Start: 06/09/22 11:21:00 EDT, 1 appl, topical, tid, Disp# 22 g, Refills: 2, Pharmacy: [facility] #[id number] Start Date: 06/09/22 Status: Ordered Nature's Bounty Red Krill Oil 500 mg oral capsule Start: 02/24/22 12:11:00 EST, See Instructions, Disp# 90 cap, Refills: 3, take 1 tablet by mouth daily, Note to Pharmacy: pill pack for all meds, Pharmacy: [facility] Start Date: 02/24/22 Status: Ordered One Touch Finepoint (25G) Lancets Start: 10/18/20 14:30:00 EDT, See Instructions, Disp# 400 lancet, Refills: 3, home glucose testing qid & prn Dx: E11.9, Pharmacy: [facility] Start Date: 10/18/20 Status: Ordered One Touch Ultra 2 Glucose Monitor Start: 10/10/21 16:40:00 EDT, See Instructions, Disp# 1 each, Use as directed, Pharmacy: [id number] Start Date: 10/10/21 Status: Ordered One Touch Ultra 2 Glucose Monitor Start: 11/20/22 15:43:00 EDT, See Instructions, Disp# 1 kit, Refills: 0, check blood sugar BID prn,Pharmacy: [facility] Start Date: 11/20/22 Status: Ordered One Touch Ultra Glucose Monitor Kit Start: 01/28/20 13:07:00 EST, See Instructions, Disp# 1 each, Refills: 0, Home glucose testing bid & prn dx E11.9, Pharmacy: [facility] Start Date: 01/28/20 Status: Ordered One Touch Ultra Test Strips 100 ct Start: 10/18/20 14:30:00 EDT, See Instructions, Disp# 400 strip, Refills: 3, testing qid & prn dx. E11.9, Pharmacy: [facility] Start Date: 10/18/20 Status: Ordered One Touch Ultra Test Strips 100 ct Start: 10/10/21 16:42:00 EDT, See Instructions, Disp# 100 each, Refills: 5, as directed, Pharmacy: [id number] Start Date: 10/10/21 Status: Ordered One Touch Ultra Test Strips 25 ct Start: 11/20/22 15:43:00 EDT, See Instructions, Disp# 100 each, Refills: 3, check blood sugar BID prn, Pharmacy: [facility] Start Date: 11/20/22 Status: Ordered One Touch Ultrasoft (28G) Lancets Start: 11/20/22 15:44:00 EDT, See Instructions, Disp# 100 kit, Refills: 3, check sugars BID prn, Pharmacy: [facility] Start Date: 11/20/22 Status: Ordered Pepcid Complete oral tablet, chewable Start: 02/24/22 10:21:00 EST, 1 tab, PO, bid, PRN: as needed for indigestion Start Date: 02/24/22 Status: Ordered ProAir HFA 90 mcg/inh inhalation aerosol Start: 02/21/22 8:04:00 EST, 2 puff, inhaled, qid, Disp# 3 each, Refills: 6, for tightness & wheezing, PRN: as needed for wheezing, Pharmacy: [id number] Start Date: 02/21/22 Stop [...] 100 g, Refills: 1, PRN: Pain, Pharmacy: [facility] Start Date: 11/01/15 Status: Ordered Problem [...] patients age 31Admit 07/20 to 07/22/2019 to [facility] for melena. Admit Hgb 12.4 went [...] cold biopsy foreceps.Diverticulosis in the entire colon. [facility] Gurpreet Case, DO 63Negative 641. Diverticulosis. [...] Member Role: Lifetime Relationship Address: Address: [address] [facility] [address] [place] [address] Name: KIRSTEN Giron Tara Position: Nurse Pract - Family Med Member Role: Lifetime Relationship Address: Address: [address] [place] [phone] Name: DO Becker Kristen M Position: Physician - Family Med Member Role: Primary Care Provider Address: Address: [address] [facility] [address] [place] [address] Care Team Related Persons Name: LOUANN NATION Address: home [address] [place], [place] [phone] Name: HALLE ROSADO Address: home [address] [place], [place] [phone] Name: JACQUELINE RESTREPO Address: [facility] Address: home [address] [place], [place] [phone] Name: ЕКАТЕРИНА ESTRADA
--- OUTSIDE RECORDS SUMMARY | 2023-03-02 08:55 | External Medical Summary ---
Author Name Unknown Address Unknown Organization [facility] [address] [place] [address] Laboratory Report Ordering Provider Test Date Status JUANITO RIVERA 02/28/2023 11:05:57 Final Observation Date Value Abnormality Reference (Units ) Status SYNC LEUKOCYTES IN BLOOD BY AUTOMATED COUNT 02/28/2023 11:05:57 5.10 4.00-10.80 (K/uL) Final Segs 02/28/2023 11:05:57 55.5 40.0-75.0 (%) Final Lymphs % 02/28/2023 11:05:57 32.7 18.0-42.0 (%) Final Monos 02/28/2023 11:05:57 9.6 1.0-11.0 (%) Final Eosinophils 02/28/2023 11:05:57 1.4 0.0-6.0 (%) Final Basos 02/28/2023 11:05:57 0.8 0.0-2.0 (%) Final Absolute Segs 02/28/2023 11:05:57 2.83 1.80-7.70 (K/uL) Final Lymphs, absolute 02/28/2023 11:05:57 1.67 1.00-4.80 (K/ul) Final Monos, Abs 02/28/2023 11:05:57 0.49 0.00-1.10 (K/uL) Final Eos, Abs 02/28/2023 11:05:57 0.07 0.00-0.70 (K/uL) Final Basos, Abs 02/28/2023 11:05:57 0.04 0.00-0.20 (K/uL) Final Performing Location [facility] [place] [address]
--- OUTSIDE RECORDS SUMMARY | 2023-03-02 08:55 | External Medical Summary ---
Author Name Unknown Address Unknown Organization [facility] [address] [place] [address] Laboratory Report Ordering Provider Test Date Status JUANITO RIVERA 02/28/2023 11:05:57 Final Observation Date Value Abnormality Reference (Units ) Status WBC, Total 02/28/2023 11:05:57 5.10 4.00-10.8 0 (K/uL) Final RBC 02/28/2023 11:05:57 3.87 3.85-5.15 (M/uL) Final Hemoglobin 02/28/2023 11:05:57 11.7 Below low normal 12 .0-15.3 (g/dL) Final HCT 02/28/2023 11:05:57 34.3 Below low normal 36. 0-45.2 (%) Final MCV 02/28/2023 11:05:57 88.6 81.5-97.5 (fL) Final MCH 02/28/2023 11:05:57 30.2 27.0-34.0 (pg) Final MCHC 02/28/2023 11:05:57 34.1 32.0-36.0 (g/dL) Final RDW 02/28/2023 11:05:57 14.4 11.5-15.5 (%) Final Platelets 02/28/2023 11:05:57 229 140-400 (K /uL) Final MPV 02/28/2023 11:05:57 11.6 6.6-11.1 ( fL) Final Performing Location [facility] [address] [place] [address]
[2023-03-02] MEDS ORDERED: ONDANSETRON INJ 2 MG/ML 2 ML VIAL IV PRN (09:17)
[2023-03-02] MEDS ORDERED: MAGNESIUM HYDROXIDE SUSP 30 ML UDC PO PRN (09:17)
[2023-03-02] MEDS ORDERED: ALUMINUM/MAGNESIUM SUSP 30 ML UDC PO PRN (09:17)
[2023-03-02] MEDS ORDERED: POLYETHYLENE (MIRALAX) 17 GM PACK PO PRN (09:17)
[2023-03-02] MEDS ORDERED: Patient's HEIGHT &/or WEIGHT Needed SCH (09:30)
[2023-03-02] MEDS: FAMOTIDINE 20 MG TAB PO SCH ×2 (10:16→20:59)
[2023-03-02] MEDS: FLUTICASONE PROPIONATE NA SPR 16 GM BTL NAE SCH (10:16)
[2023-03-02] MEDS: LACTATED RINGER'S 1,000 ML IV SCH ×2 (11:11→23:34)
[2023-03-02] MEDS: ENOXAPARIN INJ 40 MG/0.4 ML SYR SQ SCH (11:35)
--- NOTE | 2023-03-02 12:04 | Electrocardiogram Report ---
Test Reason : Blood Pressure : / mmHG Vent. Rate : 073 BPM Atrial Rate : 073 BPM P-R Int : 198 ms QRS Dur : 096 ms QT Int : 420 ms P-R-T Axes : 106 -32 005 degrees QTc Int : 462 ms Poor data quality, interpretation may be adversely affected Normal sinus rhythm Left axis deviation Pulmonary disease pattern Left ventricular hypertrophy Abnormal ECG When compared with ECG of 19-DEC-2022 19:25, QT has lengthened Confirmed by Artem Powers ([id number]) on 03/02/2023 12:03:56 PM Referred By: REFERRED SELF Confirmed By:Artem Powers
[2023-03-02] MEDS ORDERED: GLUCOSE 10 TAB/TUBE PO PRN (14:00)
[2023-03-02] MEDS ORDERED: GLUCAGON FOR INJ 1 MG VIAL IM PRN (14:00)
[2023-03-02] MEDS ORDERED: GLUCOSE 40% GEL 15 GM TUBE PO PRN (14:00)
[2023-03-02] MEDS ORDERED: DEXTROSE 50% 50 ML SYRINGE IV PRN (14:00)
[2023-03-02] MEDS ORDERED: CARBOHYDRATES FOR HYPOGLYCEMIA PO PRN (14:00)
[2023-03-02] MEDS: INSULIN ASPART PER UNIT CHARGE SC SCH ×2 (17:35→23:15)
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
[2023-03-02] MEDS: METOPROLOL SUCC 25MG EXT REL TAB PO SCH (20:59)
[2023-03-02] MEDS: ESCITALOPRAM OXALATE 20 MG TAB PO SCH (20:59)
[2023-03-02] MEDS: DICLOFENAC SOD 1% GEL 100 GM TUBE EXT SCH (20:59)
[2023-03-03] MEDS: SODIUM CHLORIDE 0.9% 500 ML IV SCH (00:01)
[2023-03-03 06:41] LABS: Basophils # (auto) 0.05 K/uL (0.00-0.20); Eosinophils # (auto) 0.12 K/uL (0.00-0.50); Eosinophils % (auto) 2.4 %; Hematocrit (blood only) 33.5 % (37.0-47.0); Hemoglobin 11.3 g/dl (12.0-16.0); Immature Granulocytes # (auto) 0.01 K/uL (0.01-0.20); Immature Granulocytes % (auto) 0.2 %; Lymphocytes % (auto) 29.6 %; Mean Corpuscular Hemoglobin 30.1 pg (25.0-34.0); Mean Corpuscular Hgb Conc 33.7 g/dL (32.0-36.0); Mean Corpuscular Volume 89.1 fL (80.0-100.0); Mean Platelet Volume 11.5 fL (9.4-12.4); Monocytes # (auto) 0.43 K/uL (0.11-0.59); Monocytes % (auto) 8.5 %; Neutrophils # (auto) 2.95 K/uL (1.40-6.50); Neutrophils % (auto) 58.3 %; Platelet Count 202 K/uL (130-400); RDW Coefficient of Variation 14.2 % (11.5-14.5); Red Blood Count 3.76 M/uL (4.20-5.40); White Blood Count 5.06 K/ul (4.8-10.8)
[2023-03-03 06:42] LABS: Calcium 8.5 mg/dl (8.6-10.3); Potassium 4.2 mmol/L (3.5-5.1)
[2023-03-03 06:48] LABS: BUN Creatinine Ratio 22.9 (10-20); Creatinine Clr Calc Pharmacy 34.8 ml/min; Est GFR (African American) 57.3 ml/min; Est GFR (Non-African American) 49.4 ml/min
[2023-03-03] MEDS: DICLOFENAC SOD 1% GEL 100 GM TUBE EXT SCH ×4 (08:00→20:14)
[2023-03-03] MEDS: FLUTICASONE PROPIONATE NA SPR 16 GM BTL NAE SCH (08:00)
[2023-03-03] MEDS: FAMOTIDINE 20 MG TAB PO SCH ×2 (08:11→20:13)
[2023-03-03] MEDS: INSULIN ASPART PER UNIT CHARGE SC SCH ×5 (08:48→20:41)
[2023-03-03] MEDS: ENOXAPARIN INJ 40 MG/0.4 ML SYR SQ SCH (10:17)
[2023-03-03] MEDS: LACTATED RINGER'S 1,000 ML IV SCH (12:25)
--- NOTE | 2023-03-03 14:21 | Hospitalist Progress Note ---
Date of Service March 03, 2023 Assessment & Plan (1) Left-sided chest pain: Plan: EKG nonacute, troponins repeatedly reassuring. story/exam fit entirely with ribs/MSK - voltaren gel (2) Dementia: Plan: ER physician d/w son and my d/w dtr match - progressive difficulty in caring for self at home quite c/w progressive dementia - as is her mental status today ( discussed with daughter obviously it is hard to pin that down perfectly whenever somebody is in a foreign environment nearly meeting the months, but she seemed quite consistent with moderate dementia based on my one-time exam and mental status assessment today) PT/OT eval and treat On 03/02 anticipate she will likely be most appropriate for personal care, discussed this process with the daughter Awaiting placement. (3) DVT prophylaxis: Plan: Lovenox (4) Diabetes: Plan: Home meds on hold, follow fingersticks and supplemental insulin as needed (5) Hypertension: Plan: blood pressure is acceptable for the situation Admission and Anticipated Discharge Date Admission Date: March 02, 2023 Subjective Patient reports no new symptoms. Review of Systems Review of Systems: All systems reviewed & are unremarkable except as noted in HPI & below Physical Exam Physical Exam: In general she is confused, She tapping the sticker over her IV line. No distress. HEENT normocephalic atraumatic mucous membranes moist. Cardio is regular without rubs murmurs gallops. Lungs clear to auscultation bilaterally no rales rhonchi or wheeze with good effort. Chest wall pain is reproducible on palpation of her anterior rib cage bilaterally. Skin shows no rashes no pallor or icterus. Neuro without focal deficits Results & Data Results & Data Vital Signs (Past 12 Hours) Vital Signs Temp Pulse Pulse Resp BP Pulse Ox O2 Del Method 03/03/23 10:04 61 16 148/72 H 97 Room Air 03/03/23 10:00 36.9 C 64 20 131/70 96 Room Air 03/03/23 07:45 36.6 C 64 18 161/71 H 97 Room Air PG Care Time/CCT Total # of Minutes Spent Total Time Spent with Patient: Total time spent is greater than 50% in coordination of care (as documented) at patient's floor/unit and/or counseling patient: Coding Level of Care Code 34662 SUB INP/OBS CARE 2/35MIN Diagnoses Left-sided chest pain R07.9 Dementia F03.90 DVT prophylaxis Z29.9 Diabetes E11.9 Hypertension I10 Hypertension type: unspecified (5) Hypertension Hypertension type: unspecified Qualified Code(s): I10 - Essential (primary) hypertension
[2023-03-03] MEDS: ACETAMINOPHEN 325 MG TAB PO PRN ×2 (15:38→20:40)
[2023-03-03] MEDS: ESCITALOPRAM OXALATE 20 MG TAB PO SCH (20:13)
[2023-03-03] MEDS: METOPROLOL SUCC 25MG EXT REL TAB PO SCH (20:13)
[2023-03-04] MEDS: INSULIN ASPART PER UNIT CHARGE SC SCH ×4 (09:39→20:20)
[2023-03-04] MEDS: FLUTICASONE PROPIONATE NA SPR 16 GM BTL NAE SCH (09:40)
[2023-03-04] MEDS: ENOXAPARIN INJ 40 MG/0.4 ML SYR SQ SCH (09:40)
[2023-03-04] MEDS: DICLOFENAC SOD 1% GEL 100 GM TUBE EXT SCH ×4 (09:41→20:08)
[2023-03-04] MEDS: FAMOTIDINE 20 MG TAB PO SCH ×2 (10:28→20:08)
[2023-03-04] MEDS: LACTATED RINGER'S 1,000 ML IV SCH (16:30)
[2023-03-04] MEDS: METOPROLOL SUCC 25MG EXT REL TAB PO SCH (20:08)
[2023-03-04] MEDS: ESCITALOPRAM OXALATE 20 MG TAB PO SCH (20:08)
[2023-03-04] MEDS: ACETAMINOPHEN 325 MG TAB PO PRN (20:09)
--- NOTE | 2023-03-04 21:54 | Hospitalist Progress Note ---
Date of Service March 04, 2023 Assessment & Plan (1) Left-sided chest pain: Plan: EKG nonacute, troponins repeatedly reassuring. story/exam fit entirely with ribs/MSK - voltaren gel (2) Dementia: Plan: ER physician d/w son and my d/w dtr match - progressive difficulty in caring for self at home quite c/w progressive dementia - as is her mental status today ( discussed with daughter obviously it is hard to pin that down perfectly whenever somebody is in a foreign environment nearly meeting the months, but she seemed quite consistent with moderate dementia based on my one-time exam and mental status assessment today) PT/OT eval and treat On 03/02 anticipate she will likely be most appropriate for personal care, discussed this process with the daughter Awaiting placement. (3) DVT prophylaxis: Plan: Lovenox (4) Diabetes: Plan: Home meds on hold, follow fingersticks and supplemental insulin as needed (5) Hypertension: Plan: blood pressure is acceptable for the situation Admission and Anticipated Discharge Date Admission Date: March 02, 2023 Subjective 83 yo female is a poor historian. Review of Systems Review of Systems: All systems reviewed & are unremarkable except as noted in HPI & below Physical Exam Physical Exam: In general she is confused, She tapping the sticker over her IV line. No distress. HEENT normocephalic atraumatic mucous membranes moist. Cardio is regular without rubs murmurs gallops. Lungs clear to auscultation bilaterally no rales rhonchi or wheeze with good effort. Chest wall pain is reproducible on palpation of her anterior rib cage bilaterally. Skin shows no rashes no pallor or icterus. Neuro without focal deficits Results & Data Results & Data Vital Signs (Past 12 Hours) Vital Signs Temp Pulse Resp BP Pulse Ox O2 Del Method 03/04/23 20:45 37 C 63 16 134/72 97 Room Air 03/04/23 15:31 36.6 C 64 18 128/82 96 Room Air PG Care Time/CCT Total # of Minutes Spent Total Time Spent with Patient: Total time spent is greater than 50% in coordination of care (as documented) at patient's floor/unit and/or counseling patient: Coding Level of Care Code 10880 SUB INP/OBS CARE 2/35MIN Diagnoses Left-sided chest pain R07.9 Dementia F03.90 DVT prophylaxis Z29.9 Diabetes E11.9 Hypertension I10 Hypertension type: unspecified (5) Hypertension Hypertension type: unspecified Qualified Code(s): I10 - Essential (primary) hypertension
[2023-03-05] MEDS: INSULIN ASPART PER UNIT CHARGE SC SCH ×5 (08:30→21:08)
[2023-03-05] MEDS: FLUTICASONE PROPIONATE NA SPR 16 GM BTL NAE SCH (08:31)
[2023-03-05] MEDS: DICLOFENAC SOD 1% GEL 100 GM TUBE EXT SCH ×4 (08:34→21:09)
[2023-03-05] MEDS: ACETAMINOPHEN 325 MG TAB PO PRN ×2 (09:38→20:51)
[2023-03-05] MEDS: ENOXAPARIN INJ 40 MG/0.4 ML SYR SQ SCH (11:08)
[2023-03-05] MEDS: FAMOTIDINE 20 MG TAB PO SCH ×2 (11:08→20:52)
[2023-03-05] MEDS ORDERED: PHARMACY GLYCEMIC MGMT CONSULT PRN (13:26)
[2023-03-05] MEDS ORDERED: LANTUS PER UNIT CHARGE SC ONE (13:45)
--- NOTE | 2023-03-05 13:47 | Pharmacy Report ---
Pharmacy Glycemic Short Note 2 - Date of Service March 05, 2023 - Glycemic Short BSG Results (Last 24 hours): 03/04/23 03/04/23 03/05/23 16:34 20:17 07:33 POC Glucose 291 H 239 H 155 H 03/05/23 03/05/23 11:25 11:27 POC Glucose 323 H* 397 H* OUTPATIENT ANTIDIABETIC REGIMEN: * GLIPIZIDE * A1C PENDING ASSESSMENT: * Patient is an 83 yo female admitted with weakness/chest pain. History of type II diabetes, dementia, awaiting placement * Prandial BSGs have been elevated in the high 200s the past several days, consulted today after BSG in the 300s at lunch * Will add carb coverage, adjust correction factor to weight based stress of 2 * Add weight based stress of 1 basal as fasting BSGs have been >140 mg/dL but <180 mg/dL PLAN FOR INPATIENT GLYCEMIC CONTROL: * Hold outpatient oral diabetes medications * Basal insulin * Lantus 12 units x1 * Bolus insulin * NovoLog per scale ACHS or Q6hrs while NPO * Goal Range: Low 120 mg/dL - High 160 mg/dL * Correction Factor: 35 mg/dL/unit * Nutritional / Prandial insulin per carb ratio of 1 unit per 12 grams CHO consumed
[2023-03-05] MEDS: OLANZapine 5 MG TABLET PO SCH (19:04)
[2023-03-05] MEDS: CARBAMIDE PEROXIDE 6.5% 15 ML BTL OT SCH (20:40)
[2023-03-05] MEDS ORDERED: COUGH DROP (SUGAR FREE) LOZ 24 LOZ/1 BOX BUCCAL ONE (20:44)
[2023-03-05] MEDS: METOPROLOL SUCC 25MG EXT REL TAB PO SCH (20:52)
[2023-03-05] MEDS: ESCITALOPRAM OXALATE 20 MG TAB PO SCH (20:53)
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
[2023-03-06] MEDS: INSULIN ASPART PER UNIT CHARGE SC SCH ×4 (08:37→21:26)
[2023-03-06] MEDS: DICLOFENAC SOD 1% GEL 100 GM TUBE EXT SCH ×4 (08:43→21:27)
[2023-03-06] MEDS: FLUTICASONE PROPIONATE NA SPR 16 GM BTL NAE SCH (08:43)
[2023-03-06] MEDS: FAMOTIDINE 20 MG TAB PO SCH ×2 (08:43→21:27)
[2023-03-06] MEDS ORDERED: LANTUS PER UNIT CHARGE SC SCH ×2 (09:00→14:00)
[2023-03-06 09:05] LABS: Estimated Average Glucose 206 mg/dl; Hemoglobin A1C 8.8 % (4.5-5.6)
[2023-03-06] MEDS: CARBAMIDE PEROXIDE 6.5% 15 ML BTL OT SCH ×2 (10:21→21:27)
[2023-03-06] MEDS: ENOXAPARIN INJ 40 MG/0.4 ML SYR SQ SCH (10:22)
--- NOTE | 2023-03-06 14:05 | Pharmacy Report ---
Pharmacy Glycemic Short Note 2 - Date of Service March 06, 2023 - Glycemic Short BSG Results (Last 24 hours): 03/05/23 03/05/23 03/06/23 16:33 20:55 07:17 POC Glucose 141 H 204 H 163 H 03/06/23 03/06/23 13:38 13:40 POC Glucose 335 H* 311 H* OUTPATIENT ANTIDIABETIC REGIMEN: * GLIPIZIDE 10 mg PO BID * HbA1C = 8.8% on 03/06/23 ASSESSMENT: 03/06/23: * Patient received total 26 units of insulin yesterday; 12 units basal + 14 units bolus. * BSGs yesterday were [phone] mg/dl. * Fasting BSG today is 163 mg/dl. Basal dose 10 untis given this morning. Novolog parameters tightened to stress between 2 and 3. * Spoke with RN, pre-lunch BSG check was missed. BSG was checked post lunch and it was elevated = 311 mg/dl today. * Additional 6 units of basal ordered this afternoon (stress of 3). Asked RN to cover carbs eaten at lunch and skip the correctional insulin to prevent over correcting. 03/05/23: * Patient is an 83 yo female admitted with weakness/chest pain. History of type II diabetes, dementia, awaiting placement * Prandial BSGs have been elevated in the high 200s the past several days, consulted today after BSG in the 300s at lunch * Will add carb coverage, adjust correction factor to weight based stress of 2 * Add weight based stress of 1 basal as fasting BSGs have been >140 mg/dL but <180 mg/dL PLAN FOR INPATIENT GLYCEMIC CONTROL: * Hold outpatient oral diabetes medications * Basal insulin * Lantus 16 units total today. Will re-assess tomorrow AM. * Bolus insulin * NovoLog per scale ACHS or Q6hrs while NPO * Goal Range: Low 120 mg/dL - High 150 mg/dL * Correction Factor: 30 mg/dL/unit * Nutritional / Prandial insulin per carb ratio of 1 unit per 10 grams CHO consumed
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
[2023-03-06] MEDS: ESCITALOPRAM OXALATE 20 MG TAB PO SCH (21:27)
[2023-03-06] MEDS: METOPROLOL SUCC 25MG EXT REL TAB PO SCH (21:27)
[2023-03-06] MEDS: OLANZapine 5 MG TABLET PO SCH (21:27)
[2023-03-07] MEDS: ACETAMINOPHEN 325 MG TAB PO PRN (07:15)
[2023-03-07] MEDS: CARBAMIDE PEROXIDE 6.5% 15 ML BTL OT SCH ×2 (08:08→20:55)
[2023-03-07] MEDS: FLUTICASONE PROPIONATE NA SPR 16 GM BTL NAE SCH (08:08)
[2023-03-07] MEDS: FAMOTIDINE 20 MG TAB PO SCH ×2 (08:08→20:56)
[2023-03-07] MEDS: DICLOFENAC SOD 1% GEL 100 GM TUBE EXT SCH ×4 (08:08→20:55)
[2023-03-07] MEDS: INSULIN ASPART PER UNIT CHARGE SC SCH ×4 (08:39→20:52)
[2023-03-07] MEDS: LANTUS PER UNIT CHARGE SC SCH (08:40)
[2023-03-07] MEDS: ENOXAPARIN INJ 40 MG/0.4 ML SYR SQ SCH (10:01)
[2023-03-07] MEDS: METOPROLOL SUCC 25MG EXT REL TAB PO SCH (20:56)
[2023-03-07] MEDS: ESCITALOPRAM OXALATE 20 MG TAB PO SCH (20:56)
[2023-03-07] MEDS: OLANZapine 5 MG TABLET PO SCH (20:56)
--- NOTE | 2023-03-07 22:32 | Hospitalist Progress Note ---
Date of Service March 07, 2023 Assessment & Plan (1) Dementia: Plan: Dementia as principal diagnosis ER physician d/w son and my d/w dtr match - progressive difficulty in caring for self at home quite c/w progressive dementia - as is her mental status today ( discussed with daughter obviously it is hard to pin that down perfectly whenever somebody is in a foreign environment nearly meeting the months, but she seemed quite consistent with moderate dementia based on my one-time exam and mental status assessment today) PT/OT eval and treat On 03/02 anticipate she will likely be most appropriate for personal care, discussed this process with the daughter Discussed with son, patient will be going to a personal halfway or SNF, due to her ementia and currently does not appear safe for her to go. Patient was seen recently walking out of house in 20 degree weather in shorts and a shirt. Awaiting placement. Sent scripts to [facility] on 03/06 and other scripts on 03/07 (2) Left-sided chest pain: Plan: EKG nonacute, troponins repeatedly reassuring. story/exam fit entirely with ribs/MSK - voltaren gel Order debrox for right ear full of wax. (3) DVT prophylaxis: Plan: Lovenox (4) Diabetes: Plan: Home meds on hold, follow fingersticks and supplemental insulin as needed (5) Hypertension: Plan: blood pressure is acceptable for the situation Admission and Anticipated Discharge Date Admission Date: March 02, 2023 Subjective Patient reports no new symptoms. Review of Systems Review of Systems: All systems reviewed & are unremarkable except as noted in HPI & below Physical Exam Physical Exam: In general she is confused, She tapping the sticker over her IV line. No distress. HEENT normocephalic atraumatic mucous membranes moist. Cardio is regular without rubs murmurs gallops. Lungs clear to auscultation bilaterally no rales rhonchi or wheeze with good ef fort. Chest wall pain is reproducible on palpation of her anterior rib cage bilaterally. Skin shows no rashes no pallor or icterus. Neuro without focal deficits Results & Data Results & Data Vital Signs (Past 12 Hours) Vital Signs Temp Pulse Pulse Resp BP Pulse Ox O2 Del Method 03/07/23 20:53 36.5 C 78 16 126/73 96 Room Air 03/07/23 20:30 36.4 C L 67 20 120/61 98 Room Air 03/07/23 15:50 36.4 C L 105 H 18 124/80 96 Room Air PG Care Time/CCT Total # of Minutes Spent Total Time Spent with Patient: Total time spent is greater than 50% in coordination of care (as documented) at patient's floor/unit and/or counseling patient: Coding Level of Care Code 63543 SUB INP/OBS CARE 2/35MIN Diagnoses Dementia F03.90 Left-sided chest pain R07.9 DVT prophylaxis Z29.9 Diabetes E11.9 Hypertension I10 Hypertension type: unspecified (5) Hypertension Hypertension type: unspecified Qualified Code(s): I10 - Essential (primary) hypertension
[2023-03-08] MEDS: CARBAMIDE PEROXIDE 6.5% 15 ML BTL OT SCH ×2 (09:07→20:03)
[2023-03-08] MEDS: FAMOTIDINE 20 MG TAB PO SCH ×2 (09:08→20:03)
[2023-03-08] MEDS: DICLOFENAC SOD 1% GEL 100 GM TUBE EXT SCH ×4 (09:08→20:02)
[2023-03-08] MEDS: FLUTICASONE PROPIONATE NA SPR 16 GM BTL NAE SCH (09:08)
[2023-03-08] MEDS: INSULIN ASPART PER UNIT CHARGE SC SCH ×4 (09:14→20:30)
[2023-03-08] MEDS: LANTUS PER UNIT CHARGE SC SCH (09:14)
--- NOTE | 2023-03-08 09:33 | Hospitalist Progress Note ---
Date of Service March 08, 2023 Assessment & Plan (1) Dementia: Plan: Dementia as principal diagnosis Previous care team providers discuss with family - progressive difficulty in caring for self at home quite c/w progressive dementia - as is her mental status PT/OT eval and treat does not appear safe for her to go. Patient was seen recently walking out of house in 20 degree weather in shorts and a shirt. Awaiting placement. 03/09/23 tentatively Sent scripts to [facility] on 03/06 and other scripts on 03/07 (2) Left-sided chest pain: Plan: EKG nonacute, troponins repeatedly reassuring. story/exam fit entirely with ribs/MSK - voltaren gel Order debrox for right ear full of wax. (3) DVT prophylaxis: Plan: Lovenox (4) Diabetes: Plan: Home meds on hold, typically was sulfonylurea and metfromin A1c was 8.8 review poc bsg and then are <200, control with basal bolus (5) Hypertension: Plan: chronic and stable Admission and Anticipated Discharge Date Admission Date: March 02, 2023 Subjective pt is pleasant but confused and confabulating Physical Exam Physical Exam: awake alert and ambulating in room cardiac exam is regular lungs are clear Results & Data Results & Data Vital Signs (Past 12 Hours) Vital Signs Temp Pulse Resp BP Pulse Ox O2 Del Method 03/08/23 08:02 97.2 F L 72 16 186/75 H 97 Room Air PG Care Time/CCT Total # of Minutes Spent Total Time Spent with Patient: Total time spent is greater than 50% in coordination of care (as documented) at patient's floor/unit and/or counseling patient: Coding Level of Care Code 80156 SUB INP/OBS CARE 25MIN Diagnoses Dementia F03.90 Left-sided chest pain R07.9 DVT prophylaxis Z29.9 Diabetes E11.9 Hypertension I10 Hypertension type: unspecified (5) Hypertension Hypertension type: unspecified Qualified Code(s): I10 - Essential (primary) hypertension
[2023-03-08] MEDS: ENOXAPARIN INJ 40 MG/0.4 ML SYR SQ SCH (11:05)
--- NOTE | 2023-03-08 11:10 | Pharmacy Report ---
Pharmacy Glycemic Short Note 2 - Date of Service March 08, 2023 - Glycemic Short BSG Results (Last 24 hours): 03/07/23 03/07/23 03/07/23 11:49 16:30 20:26 POC Glucose 193 H 185 H 183 H 03/08/23 07:56 POC Glucose 129 H OUTPATIENT ANTIDIABETIC REGIMEN: * GLIPIZIDE 10 mg PO BID * HbA1C = 8.8% on 03/06/23 ASSESSMENT: 03/08: * Patient received total 34 units of insulin yesterday; 15 units basal + 19 units bolus. * BSGs yesterday were [phone] mg/dl. Fasting BSG today = 129 mg/dl. * Continued basal insulin the same. Since post-prandial BSGs slightly elevated above goal, tightened Novolog goal range. 03/06/23: * Patient received total 26 units of insulin yesterday; 12 units basal + 14 units bolus. * BSGs yesterday were [phone] mg/dl. * Fasting BSG today is 163 mg/dl. Basal dose 10 untis given this morning. Novolog parameters tightened to stress between 2 and 3. * Spoke with RN, pre-lunch BSG check was missed. BSG was checked post lunch and it was elevated = 311 mg/dl today. * Additional 6 units of basal ordered this afternoon (stress of 3). Asked RN to cover carbs eaten at lunch and skip the correctional insulin to prevent over correcting. 03/05/23: * Patient is an 83 yo female admitted with weakness/chest pain. History of type II diabetes, dementia, awaiting placement * Prandial BSGs have been elevated in the high 200s the past several days, consu lted today after BSG in the 300s at lunch * Will add carb coverage, adjust correction factor to weight based stress of 2 * Add weight based stress of 1 basal as fasting BSGs have been >140 mg/dL but <180 mg/dL PLAN FOR INPATIENT GLYCEMIC CONTROL: * Hold outpatient oral diabetes medications * Basal insulin * Lantus 15 units SC QAM * Bolus insulin * NovoLog per scale ACHS or Q6hrs while NPO * Goal Range: Low 110 mg/dL - High 140 mg/dL * Correction Factor: 30 mg/dL/unit * Nutritional / Prandial insulin per carb ratio of 1 unit per 10 grams CHO consumed
[2023-03-08] MEDS: METOPROLOL SUCC 25MG EXT REL TAB PO SCH (20:03)
[2023-03-08] MEDS: ESCITALOPRAM OXALATE 20 MG TAB PO SCH (20:03)
[2023-03-08] MEDS: OLANZapine 5 MG TABLET PO SCH (20:03)
[2023-03-09] MEDS: DICLOFENAC SOD 1% GEL 100 GM TUBE EXT SCH (08:39)
[2023-03-09] MEDS: INSULIN ASPART PER UNIT CHARGE SC SCH (08:39)
[2023-03-09] MEDS: CARBAMIDE PEROXIDE 6.5% 15 ML BTL OT SCH (08:39)
[2023-03-09] MEDS: FAMOTIDINE 20 MG TAB PO SCH (08:40)
[2023-03-09] MEDS: FLUTICASONE PROPIONATE NA SPR 16 GM BTL NAE SCH (08:40)
[2023-03-09] MEDS: LANTUS PER UNIT CHARGE SC SCH (08:43)
--- NOTE | 2023-03-09 08:45 | Pharmacy Report ---
Pharmacy Glycemic Short Note 2 - Date of Service March 09, 2023 - Glycemic Short BSG Results (Last 24 hours): 03/08/23 03/08/23 03/08/23 11:45 16:32 20:10 POC Glucose 99 102 H 135 H 03/09/23 07:46 POC Glucose 163 H OUTPATIENT ANTIDIABETIC REGIMEN: * Glipizide 10 mg PO BID * HbA1c = 8.8% on 03/06/23 ASSESSMENT: 03/09: * Ana received 23 units of insulin yesterday, 15 basal + 8 bolus. BSGs were 1 [phone] mg/dL. * Fasting BSG increased to 163 mg/dL this AM. Will increase basal dose by 20%. * No other stressors. Possible discharge today. Continue Novolog. 03/08: * Patient received total 34 units of insulin yesterday; 15 units basal + 19 units bolus. * BSGs yesterday were [phone] mg/dl. Fasting BSG today = 129 mg/dl. * Continued basal insulin the same. Since post-prandial BSGs slightly elevated above goal, tightened Novolog goal range. 03/06: * Patient received total 26 units of insulin yesterday; 12 units basal + 14 units bolus. * BSGs yesterday were [phone] mg/dl. * Fasting BSG today is 163 mg/dl. Basal dose 10 untis given this morning. Novolog parameters tightened to stress between 2 and 3. * Spoke with RN, pre-lunch BSG check was missed. BSG was checked post lunch and it was elevated = 311 mg/dl today. * Additional 6 units of basal ordered this afternoon (stress of 3). Asked RN to cover carbs eaten at lunch and skip the correctional insulin to prevent over correcting. 03/05: * Patient is an 83 yo female admitted with weakness/chest pain. History of type II diabetes, dementia, awaiting placement * Prandial BSGs have been elevated in the high 200s the past several days, consulted today after BSG in the 300s at lunch * Will add carb coverage, adjust correction factor to weight based stress of 2 * Add weight based stress of 1 basal as fasting BSGs have been >140 mg/dL but <180 mg/dL PLAN FOR INPATIENT GLYCEMIC CONTROL: * Hold outpatient oral diabetes medications * Basal insulin * Lantus 18 units SC AM * Bolus insulin * NovoLog per scale ACHS or Q6hrs while NPO * Goal Range: Low 110 mg/dL - High 140 mg/dL * Correction Factor: 30 mg/dL/unit * Nutritional / Prandial insulin per carb ratio of 1 unit per 10 grams CHO consumed
[2023-03-09] MEDS ORDERED: LANTUS PER UNIT CHARGE SC SCH (09:00)
--- NOTE | 2023-03-09 14:28 | Discharge Summary ---
Date of Service March 09, 2023 Admission HPI Per Admitting Provider patient is a very pleasant 83-year-old female who presents reportedly with a chief complaint of chest pain. Her HPI is fairly incoherent and fairly long and meanderinghowever filtering through it seems that she was doing laundry and had a very wet very heavy coat that she decided to move over to a shower to allow the water to seep out of it, and whenever she was moving it she felt anterior chest pain that has not gone away since. Because of that she came to the hospital. ER physician discussed with her son who notes that really their main concern is that the patient has been struggling at home and that they feel she is no longer safe. I was contacted by the patient's daughter Dorothy who expressed the same concerns. Principal Diagnosis dementia as primary diagnosis Discharge Exam awake and alert, sleepy at times cardiac is regular lungs are clear Discharge Data Allergies Allergy/AdvReac Type Severity Reaction Status Date / Time Corticosteroids Allergy Severe "STEROIDS": Verified 12/19/22 22:05 (Glucocorticoids) "SHORTNESS OF BREATH" Iodinated Contrast Media Allergy Severe Shortness Verified 12/19/22 22:05 of Breath CHEST PAIN TIGHTNESS IN CHEST rosiglitazone Allergy Intermediate CHEST PAIN Verified 12/19/22 22:05 lactose Allergy Mild intolerant Verified 12/19/22 22:05 atorvastatin [From Lipitor] Allergy Unknown Unknown Verified 12/19/22 22:05 iodine Allergy Unknown Unknown Verified 12/19/22 22:05 tetracycline Allergy Unknown Unknown rxn Verified 12/19/22 22:05 pregabalin AdvReac Severe severe Verified 12/19/22 22:05 swelling hands/feet amoxicillin AdvReac Intermediate Gastrointestinal Verified 12/19/22 22:05 Upset clavulanic acid AdvReac Intermediate Gastrointestinal Verified 12/19/22 22:05 Upset hydrocodone AdvReac Intermediate hear races Verified 12/19/22 22:05 ibuprofen AdvReac Intermediate KNOCKS Verified 12/19/22 22:05 EQUILIBRIUM OFF levofloxacin AdvReac Intermediate Dizziness Verified 12/19/22 22:05 metformin AdvReac Intermediate SEVERE Verified 12/19/22 22:05 DIARRHEA omeprazole AdvReac Intermediate SHAKES/TACH Verified 12/19/22 22:05 YCARDIA pantoprazole AdvReac Intermediate SHAKES/TACH Verified 12/19/22 22:05 YCARDIA prednisone AdvReac Intermediate Palpitations Verified 12/19/22 22:05 AND "WENT TO UNIT" (CARDIAC CARE UNIT) codeine AdvReac Mild EQUILIBRIUM Verified 12/19/22 22:05 OFF Penicillins AdvReac Mild Augmentin: Verified 12/19/22 22:05 GI UPSET theophylline AdvReac Mild INCREASED Verified 12/19/22 22:05 HR esomeprazole AdvReac Unknown SHAKES/TACH Verified 12/19/22 22:05 YCARDIA Sulfa (Sulfonamide AdvReac Unknown COULD NOT Verified 12/19/22 22:05 Antibiotics) WALK AND TREMBLED loteprednol AdvReac Headache Verified 12/19/22 22:05 Consultations 03/02/23 08:21 ED Decision to Admit Stat Ordered Studies 03/02/23 05:05 CT head/brain wo con Stat Hospital Course (1) Dementia: Dementia as principal diagnosis Previous care team providers discuss with family - progressive difficulty in caring for self at home quite c/w progressive dementia - as is her mental status PT/OT eval and treat does not appear safe for her to go. Patient was seen recently walking out of house in 20 degree weather in shorts and a shirt. [facility] placement. 03/09/23 (2) Left-sided chest pain: EKG nonacute, troponins repeatedly reassuring. story/exam fit entirely with ribs/MSK - voltaren gel Order debrox for right ear full of wax. (3) DVT prophylaxis: Lovenox (4) Diabetes: Home meds on hold, typically was sulfonylurea and metfromin A1c was 8.8 review poc bsg and then are <200, control with basal bolus (5) Hypertension: chronic and stable Total Time Total Time Spent Total Time Spent (In Minutes): less than 30 minutes required to prepare this summary Discharge Plan Discharge Items Patient Disposition: Personal Longterm Reason For Visit: WEAKNESS Discharge Diagnosis: Dementia has a principal diagnosis Activity: Per Instructions section Activity Comment: Ad rajesh. activities with safety plan Non-emergency contact: Primary Care Provider Call non-emergency contact if: your symptoms worsen Follow-up/Referrals: Sana Becker DO [Primary Care Provider] - Diet: Regular Addtl Attending Provider Instructions: Patient is able to carry on a conversation however lacks insight and depth of knowledge to understand the consequences of her decision. It be important have a safety plan event the patient from [facility] or monitoring and having issues with exposure or becoming confused and lost Pending Studies at Discharge: No Stand-Alone Forms: My [employer], Smoking Cessation Skilled Items Patient informed of condition?: Yes DNR: No Discharge Level of Care: Other Communicable Disease: No Discharge Prognosis: Stable Lines: None Urinary Catheter: No Medications and DC Order Prescriptions: New metformin 750 mg tablet extended release 24 hr 750 mg PO PM Qty: 30 0RF diclofenac sodium [Voltaren Arthritis Pain] 1 % Gel 2 g EXT QID PRN (Reason: knee pain) Qty: 100 0RF acetaminophen 325 mg Tablet 650 mg PO QID Qty: 112 0RF glipizide 10 mg tablet 10 mg PO BID Qty: 60 0RF olanzapine [Zyprexa] 5 mg tablet 5 mg PO HS Qty: 30 5RF Continued famotidine [Pepcid] 20 mg tablet 0 mg PO BID Rx Instructions: unable to verify OTC with patient or caregiver at this time and date. 03/02/23 @ 1105. Original directions: 20mg by mouth twice daily cyanocobalamin (vitamin B-12) 500 mcg Tablet Extended Release 0 mcg PO QAM Rx Instructions: unable to verify OTC with patient or caregiver at this time and date. 03/02/23 @ 1105. Original directions: 1000mcg by mouth every morning loperamide 2 mg Capsule 0 mg PO BID PRN (Reason: Loose Stool) Qty: 30 0RF Rx Instructions: unable to verify OTC with patient or caregiver at this time and date. 03/02/23 @ 1105. Original directions: 2mg by mouth twice daily as needed for loose stool. magnesium 250 mg Tablet 125 mg PO QAM Qty: 60 0RF metoprolol succinate 25 mg tablet extended release 24 hr 25 mg PO HS Qty: 30 0RF albuterol sulfate 90 mcg/actuation HFA aerosol inhaler 2 puff INHALATION QID PRN (Reason: tightness/wheezing) Qty: 8.5 0RF escitalopram oxalate 20 mg Tablet 20 mg PO HS Qty: 30 0RF Changed fluticasone propionate 50 mcg/actuation [place],Suspension 1 spray INTRANASAL DAILY Qty: 16 0RF Rx Instructions: unable to verify OTC with patient or caregiver at this time and date. 03/02/23 @ 1105: Original Directions: 1 spray into the nostrils daily Saccharomyces boulardii [Florastor] 250 mg Capsule 250 mg PO BID Qty: 30 0RF Rx Instructions: 250mg by mouth twice daily lisinopril 10 mg Tablet 5 mg PO QAM Qty: 30 0RF Held clindamycin HCl 300 mg capsule 1,200 mg PO UD PRN (Reason: PRIOR TO DENTAL APPOINTMENTS.) Hold Instructions: Resume on 03/20/23. Discontinued alprazolam [Xanax] 0.5 mg tablet 0 mg PO TID PRN (Reason: Anxiety) Rx Instructions: Per Pharmacy, pt last got this filled 06/2022. Unable to verify if pt is still using only as needed. Original Directions: Take 0.25mg-0.5mg by mouth three times daily as needed for anxiety. glipizide 10 mg tablet extended release 24hr 10 mg PO BID Discharge Orders: Discharge Order (Routine); Ordered 03/09/23 Ordered By: Silviano Mares Admission Data Admit Date/Time: 03/02/23 08:34 Attending Provider: Silviano Mares Admit Provider: Tobias Moffett Primary Care Provider: Sana Becker Other Providers: Jai Cannon Other Interventions: Discharge Summary Assessment (RN) Last Done: 03/09/23 09:13 Coding Level of Care Code 37999 IN/OBS DISCH 30 MIN/LESS Diagnoses Dementia F03.90 Left-sided chest pain R07.9 DVT prophylaxis Z29.9 Diabetes E11.9 Hypertension I10 Hypertension type: unspecified
== END 2023-03-09 12:20 | disposition home or self-care (01) | DRG 884 ==
LOC: ED 23:49 → EDINP 03-02 08:34 → SUATTDRO 03-02 08:34 → 3N 03-02 09:19